=== PATIENT | male | born 1945 | race Caucasian/White ===

== ENCOUNTER → 2016-10-16 | Outpatient (CLI) | payer OTHER, BC ==
[~2016-10-16] MED LIST: ACET-1311 PO; CIPR-255 PO; FINA5TAB PO; FLM4 PO; GLC/500 PO; GLCSR/500 PO; IBUP-1050 PO; LIRA18IN SQ; METF-384 PO; OXYC7.5T65 PO; PHEN-775 PO; PRAV10TA39 PO; PRS5 PO; SERT50TA PO; TAMS0.4C59 PO; TYLOTC500 PO; VALS-59 PO; VALS320T PO; ZLF/100 PO
[2016-10-16 12:54] LABS: BASO % 0.3 %; BASO ABS # 0.02 K/uL (0-0.2); COMPLETE YES; HEMATOCRIT 41.9 % (42-52); IG% 0.1 %; LYMPH ABS # 1.53 K/uL (1.2-3.4); MEAN CORPUSCULAR HEMOGLOBIN 29.4 pg (25-34); MEAN CORPUSCULAR HGB CONC 34.6 g/dl (32-36); MEAN PLATELET VOLUME 10.2 fL (7.4-10.4); MONO % 5.2 %; NEUT % 69.4 %; PLATELET COUNT 228 K/uL (130-400); RED BLOOD COUNT 4.93 M/uL (4.7-6.1); WHITE BLOOD COUNT 6.95 K/uL (4.8-10.8)
[2016-10-16 13:07] LABS: ALT/SGPT 54 U/L (12-78); AST/SGOT 30 U/L (15-37); BLOOD UREA NITROGEN 15 mg/dl (7-18); BUN/CREATININE RATIO 15.5 (10-20); CALCIUM 9.3 mg/dl (8.5-10.1); CARBON DIOXIDE 25 mmol/L (21-32); CHLORIDE 103 mmol/L (98-107); CHOLESTEROL 167 mg/dl (0-200); CREATININE 0.99 mg/dl (0.60-1.40); GLUCOSE 122 mg/dl (70-99); POTASSIUM 4.2 mmol/L (3.5-5.1); SODIUM 139 mmol/L (136-145)
[2016-10-16 13:12] LABS: ALB/GLOB RATIO 1.1 (0.9-2); ALKALINE PHOSPHATASE 47 U/L (45-117); FERRITIN 66.1 ng/ml (8.0-388.0); HDL CHOLESTEROL 42 mg/dl; LDL CHOLESTEROL CALCULATED 66 mg/dl; TRIGLYCERIDES 295 mg/dl (0-150); VERY LOW DENSITY LIPOPROT CALC 59 mg/dl
[2016-10-16 13:16] LABS: ESTIMATED AVERAGE GLUCOSE 140 mg/dl; HA1C FLAG Normal (Normal)
== END | disposition home or self-care (01) ==
LOC: C.LABBFT 08:28
PROVIDERS: ATTEND Internal Medicine
DX: E83.110 Hereditary hemochromatosis (principal); E11.9 Type 2 diabetes mellitus without complications; I10 Essential (primary) hypertension; E78.5 Hyperlipidemia, unspecified

== ENCOUNTER 2017-01-04 14:39 | Emergency (ER) | payer OTHER, BC ==
[~2017-01-04] VITALS: Ht 185.4 cm; Wt 114.3 kg
[~2017-01-04 14:39] MED LIST changes: -CIPR-255 PO; -FLM4 PO; -GLCSR/500 PO; -METF-384 PO; -OXYC7.5T65 PO; -PHEN-775 PO; -PRAV10TA39 PO; -PRS5 PO; -TYLOTC500 PO; -VALS-59 PO; -ZLF/100 PO
[2017-01-04 14:41] VITALS: TEMP 36.9; Ht 185.4 cm; Wt 114.3 kg
--- NOTE | 2017-01-04 15:36 | EMERGENCY ROOM VISIT NOTE ---
ED Visit Note First contact with patient: 15:02 CHIEF COMPLAINT: Bilateral knee injury 2 hours ago HISTORY OF PRESENT ILLNESS: Patient is a 71-year-old white male who presents the emergency department for evaluation of bilateral knee pain and swelling, right worse than left. He states that he tripped down off of a platform and fell, landing on his flexed knees, his right worse than his left. He states that he "hopped right up" afterwards, and did not notice any pain or swelling until about 20-25 minutes afterwards when he was up and walking. He states that both knees have become swollen, the right worse than the left. At rest, he has no pain, pain is worse when he tries to bear weight. He is not having any difficulty with range of motion. He did not apply any ice as he was not at home. He had ibuprofen earlier today for an unrelated complaint. He denies any other injuries related to the fall. He rates his knee pain a 3/10. He has a remote history of a right patellar fracture that was treated with bracing. REVIEW OF SYSTEMS: Review of systems as per HPI. All other systems reviewed were negative. At least 6 systems reviewed. PMH: Electronic medical records are reviewed and summarized as above/below. See Problem List. SOCIAL HISTORY: Patient lives at home with his . Retired. Nonsmoker.. PHYSICAL EXAM: Vital Signs: Reviewed Nurse's notes. MENTAL STATUS: Pleasant 71- year-old white male who is awake and alert and laying on the gurney in no acute distress. MUSCULOSKELETAL: Examination of the right knee show marked prepatellar soft tissue swelling and moderate joint effusion. There is some superficial ecchymosis noted. The anterior knee is globally tender. Patella is difficult to palpate due to the swelling. He can extend fully, only flex to 90 limited by soft tissue swelling. No gross ligamentous instability is appreciated. Examination of the left knee show swelling and bruising located inferior to knee pain knee more over the medial tibia/tibial tuberosity. There is no prepatellar soft tissue swelling, patellar is nontender to palpation. There is no knee joint effusion palpable. He has tenderness over the area of swelling, but no joint line tenderness. He can extend fully, flexes to 120. No ligamentous instability is appreciated. Skin is otherwise intact without abrasions or laceration. The lower extremities are neurovascularly intact. EMERGENCY DEPARTMENT COURSE: Ice packs were applied. Patient declined medication. X-rays of the knees were obtained. There was no evidence for fracture. Soft tissue swelling was noted. The patient was wrapped with Jon wraps. He has a cane at home and can borrow crutches if necessary. He declined a knee immobilizer. Differential diagnoses include patellar fracture, knee contusion, hematoma, hemorrhagic bursitis, hemarthrosis, tibial plateau fracture, among others. The patient was established with [facility] and can follow-up with them if necessary. RIGHT KNEE 3 VIEWS CLINICAL HISTORY: RIGHT WITH SUNRISE, FALL ON FLEXED KNEES Right pain COMPARISON: None. DISCUSSION: Considerable prepatellar soft tissue edema. Degenerative changes of the knee in all major joint compartments. No acute bony abnormality. Partial bipartite patella. IMPRESSION: Degenerative change. Considerable prepatellar soft tissue edema. LEFT KNEE 3 VIEWS CLINICAL HISTORY: LEFT, FALL ON FLEXED KNEES trauma COMPARISON: None. DISCUSSION: The bones and joint spaces appear intact. There is no evidence of fracture, dislocation or bony disease. There is no evidence for soft tissue swelling. IMPRESSION: Negative study. Problem List Medical Problems: (1) Depressive Disorder Nec Status: Chronic (2) Diab Dang Wo Compl, Type Ii Or Unspec Type, Not Uncntrld Status: Chronic (3) Extrinsic asthma, unspecified Status: Chronic (4) Hereditary Hemochromatosis Status: Chronic (5) Hyperlipidemia Nec/Nos Status: Chronic (6) Hypertension Nos Status: Chronic (7) Hypertrophy (Benign) Of Prostate W/O Urinary Obst & Oth Luts Status: Chronic (8) Irritable Bowel Syndrome Status: Chronic (9) Renal colic on left side Status: Resolved (10) Thumb laceration Status: Resolved Surgical Problems: (1) H/O cataract extraction Status: Resolved Current/Historical Medications Scheduled Finasteride (Finasteride), 5 MG PO HS Ibuprofen (Advil), 400 MG PO BID Liraglutide (Victoza), 12 MG SQ QAM Metformin Hcl (Glucophage), 1,000 MG PO Q12 Pravastatin Sodium (Pravastatin Sodium), 10 MG PO HS Sertraline HCl (Sertraline HCl), 100 MG PO DAILY Tamsulosin HCl (Tamsulosin HCl), 0.4 MG PO HS Valsartan (Valsartan), 320 MG PO DAILY Scheduled PRN Acetaminophen (Tylenol), 1,000 MG PO UD PRN for Pain Allergies Coded Allergies: Cefoxitin (Verified Allergy, Intermediate, HIVES, 10/24/16) ?ALLERGY, PT STATES HIVE REACTIONS WHEN ADMINISTERED DURING HOSPITALIZATION IN 1997 Clavulanic Acid (Unverified Allergy, Unknown, hives, rash, redness , ) Ticarcillin (Unverified Allergy, Unknown, hives, rash, redness , 10/24/16) Vital Signs Date Time Temp Pulse Resp B/P Pulse Ox O2 Delivery O2 Flow Rate FiO2 01/04/17 16:25 95 18 136/70 92 Room Air 01/04/17 14:41 36.9 108 18 191/81 96 Room Air Departure Information Impression Primary Impression: Contusion of right knee Additional Impression: Contusion of left knee Referrals Tony Engel M.D. (PCP) Patient Instructions [facility] Additional Instructions Ibuprofen(Motrin, Advil) may be used for fever or pain. Use 600mg every six hours as needed. Take with food. Avoid using more than 2400mg in a 24 hour period. Do not use 2400mg per day for more than three consecutive days without physician direction. Prolonged inappropriate use can lead to stomach upset or ulcers. This medication can be taken if you need to drive, work, or perform activities which may be dangerous when taking narcotic pain medication. (AND/OR) Acetaminophen(Tylenol) may be used for fever or pain. Use 1000mg every six hours as needed. Avoid using more than 3000mg in a 24 hour period. This medication can be taken if you need to drive, work, or perform activities which may be dangerous when taking narcotic pain medication. Ice compresses for 20 minutes at a time four times daily for 2-3 days. Jon wrap for swelling. Use a cane or crutches if needed for ambulation. Rest and elevate your injuries. Continue current medications. Return to the ER immediately for any numbness, tingling, severe pain, extreme swelling in the extremity or as needed. Follow up with your family physician or with [facility] if your symptoms are not improving in the next 3-5 days. Problem Qualifiers
--- NOTE | 2017-01-04 15:48 | DIAGNOSTIC IMAGING REPORT ---
RIGHT KNEE 3 VIEWS CLINICAL HISTORY: RIGHT WITH SUNRISE, FALL ON FLEXED KNEES Right pain COMPARISON: None. DISCUSSION: Considerable prepatellar soft tissue edema. Degenerative changes of the knee in all major joint compartments. No acute bony abnormality. Partial bipartite patella. IMPRESSION: Degenerative change. Considerable prepatellar soft tissue edema. Electronically signed by: Chilo Polk M.D. 01/04/2017 3:47 PM Dictated Date/Time: 01/04/2017 3:46 PM
--- NOTE | 2017-01-04 15:49 | DIAGNOSTIC IMAGING REPORT ---
LEFT KNEE 3 VIEWS CLINICAL HISTORY: LEFT, FALL ON FLEXED KNEES trauma COMPARISON: None. DISCUSSION: The bones and joint spaces appear intact. There is no evidence of fracture, dislocation or bony disease. There is no evidence for soft tissue swelling. IMPRESSION: Negative study. Electronically signed by: Chilo Polk M.D. 01/04/2017 3:48 PM Dictated Date/Time: 01/04/2017 3:47 PM
[2017-01-04] MEDS ORDERED: FLM4 PO (15:54)
[2017-01-04] MEDS ORDERED: PRAV10TA39 PO (15:54)
[2017-01-04] MEDS ORDERED: PRS5 PO (15:54)
[2017-01-04] MEDS ORDERED: ZLF/100 PO (15:54)
[2017-01-04] MEDS ORDERED: VALS-59 PO (15:54)
[2017-01-04] MEDS ORDERED: METF-384 PO (15:54)
[2017-01-04] MEDS ORDERED: TYLOTC500 PO (15:55)
[2017-01-04 16:25] VITALS: BP 136/70; PULSE 95; O2SAT 92
== END 2017-01-04 16:28 | disposition home or self-care (01) ==
LOC: C.EDB 14:40 → C.EDD 16:28
DX: S80.01XA Contusion of right knee, initial encounter (principal); S80.02XA Contusion of left knee, initial encounter; W01.0XXA Fall on same level from slipping, tripping and stumbling without subsequent striking against object, initial encounter; M25.461 Effusion, right knee; F32.9 Major depressive disorder, single episode, unspecified; E11.9 Type 2 diabetes mellitus without complications; J45.909 Unspecified asthma, uncomplicated; E83.110 Hereditary hemochromatosis; I10 Essential (primary) hypertension; K58.9 Irritable bowel syndrome, unspecified

== ENCOUNTER → 2017-01-14 | Outpatient (CLI) | payer OTHER, BC ==
[~2017-01-14] MED LIST changes: -ACET-1311 PO; +CIPR-255 PO; -FINA5TAB PO; +FLM4 PO; -GLC/500 PO; +GLCSR/500 PO; +METF-384 PO; +OXYC7.5T65 PO; +PHEN-775 PO; +PRAV10TA39 PO; +PRS5 PO; -SERT50TA PO; -TAMS0.4C59 PO; +TYLOTC500 PO; +VALS-59 PO; -VALS320T PO; +ZLF/100 PO
[2017-01-14 17:27] LABS: BASO % 0.3 %; BASO ABS # 0.02 K/uL (0-0.2); COMPLETE YES; EOS % 2.6 %; HEMATOCRIT 41.7 % (42-52); IG% 0.1 %; LYMPH % 21.2 %; LYMPH ABS # 1.64 K/uL (1.2-3.4); MEAN CELL VOLUME 88.2 fL (80-100); MEAN CORPUSCULAR HEMOGLOBIN 29.2 pg (25-34); MEAN CORPUSCULAR HGB CONC 33.1 g/dl (32-36); MEAN PLATELET VOLUME 10.2 fL (7.4-10.4); MONO % 5.9 %; NEUT % 69.9 %; PLATELET COUNT 249 K/uL (130-400); RED BLOOD COUNT 4.73 M/uL (4.7-6.1); WHITE BLOOD COUNT 7.75 K/uL (4.8-10.8)
== END | disposition home or self-care (01) ==
LOC: C.LABBFT 12:03
PROVIDERS: ATTEND Internal Medicine
DX: E83.110 Hereditary hemochromatosis (principal)

== ENCOUNTER 2017-01-23 07:53 | Emergency (ER) | payer OTHER, BC ==
[~2017-01-23] VITALS: Ht 185.4 cm; Wt 118.9 kg
[~2017-01-23 07:53] MED LIST changes: -CIPR-255 PO; -GLCSR/500 PO; -OXYC7.5T65 PO; -PHEN-775 PO
[2017-01-23 07:56] VITALS: Ht 185.4 cm; Wt 118.9 kg
[2017-01-23] MEDS ORDERED: GLCSR/500 PO (08:18)
--- NOTE | 2017-01-23 08:18 | EMERGENCY ROOM VISIT NOTE ---
History Report prepared by Zeferino: Agnes Moreau Under the Supervision of: Dr. Raúl Culp M.D. First contact with patient: 08:02 Chief Complaint: FLANK PAIN Stated Complaint: RIGHT SIDE PAIN, VOMITING, CHILLS History of Present Illness The patient is a 71 year old male who presents to the Emergency Room with complaints of persistent right flank pain that began yesterday. He currently rates his discomfort as a 3/10 in severity. The patient reports a history of previous kidney stones, noting that his pain today feels similar to pain he has experienced with previous kidney stones. He denies any hematuria. The patient states that his pain has resolved slightly, but still notes a mild ache and soreness to his right flank. He additionally associates right abdominal discomfort and vomiting. The patient reports a history of diabetes. Source of History: patient Onset: yesterday Position: other (right flank) Symptom Intensity: 3/10 Quality: ache, other (soreness) Timing: other (persistent) Associated Symptoms: + abdominal pain, + vomiting, No urinary symptoms Review of Systems All systems have been listed, reviewed, and are negative other than those previously mentioned. Please see Additional Medical History Sheet. Past Medical & Surgical Medical Problems: (1) Asthma (2) Bronchitis (3) Depressive Disorder Nec (4) Diab Dang Wo Compl, Type Ii Or Unspec Type, Not Uncntrld (5) Extrinsic asthma, unspecified (6) Hemochromatosis (7) Hereditary Hemochromatosis (8) Hyperlipidemia Nec/Nos (9) Hypertension Nos (10) Hypertrophy (Benign) Of Prostate W/O Urinary Obst & Oth Luts (11) Irritable Bowel Syndrome (12) Kidney stone (13) Pneumonia (14) Renal colic on left side (15) Thumb laceration Surgical Problems: (1) H/O cataract extraction Family History Cancer Hypertension Kidney disease Kidney stones Social History Smoking Status: Never Smoker Smokeless Tobacco Use: No Alcohol Use: occasionally Drug Use: none Marital Status: Housing Status: lives with family Occupation Status: unemployed Current/Historical Medications Scheduled Finasteride (Finasteride), 5 MG PO HS Ibuprofen (Advil), 400 MG PO BID Liraglutide (Victoza), 12 MG SQ QAM Metformin HCl (Metformin HCl ER), 1,000 MG PO BID Sertraline HCl (Sertraline HCl), 100 MG PO DAILY Tamsulosin HCl (Tamsulosin HCl), 0.4 MG PO HS Valsartan (Valsartan), 320 MG PO DAILY Scheduled PRN Acetaminophen (Tylenol), 1,000 MG PO UD PRN for Pain Allergies Coded Allergies: Cefoxitin (Verified Allergy, Intermediate, HIVES, 01/23/17) ?ALLERGY, PT STATES HIVE REACTIONS WHEN ADMINISTERED DURING HOSPITALIZATION IN 1997 Clavulanic Acid (Unverified Allergy, Unknown, hives, rash, redness , ) Ticarcillin (Unverified Allergy, Unknown, hives, rash, redness , 01/23/17) Physical Exam Vital Signs Date Time Temp Pulse Resp B/P Pulse Ox O2 Delivery O2 Flow Rate FiO2 01/23/17 14:02 36.8 78 18 147/67 96 01/23/17 13:40 78 18 147/67 96 Room Air 01/23/17 11:57 71 18 149/71 95 01/23/17 10:28 81 18 135/69 95 01/23/17 09:23 73 18 134/69 94 Room Air 01/23/17 07:56 36.8 103 18 159/77 94 Room Air Physical Exam GENERAL: Patient awake, alert, oriented x 3. Patient follows commands. Patient does not appear toxic. Patient is adequately hydrated and well- nourished. SKIN: No erythema, pallor, cyanosis or rash HEENT: Normal head, pupils equal, reactive to light and accommodation. Neck: Without adenopathy, no neck vein distention. LUNGS: Clear to auscultation. No wheezes, no rales, no rhonchi. HEART: No murmurs. No gallops. No rubs ABDOMEN: Obese, vague right upper quadrant tenderness. No masses, no rebound, no hepatomegaly or splenomegaly. EXTREMITIES: No signs of trauma. No pedal or pretibial edema. No calf or thigh tenderness. NEUROLOGIC: Cranial nerves II-XII within normal limits. No gross motor sensory function deficits. Medical Decision & Procedures ER Provider Diagnostic Interpretation: Radiology results as stated below per my review and radiologist interpretation: RENAL ULTRASOUND HISTORY: right flank pain COMPARISON: Abdomen and pelvis CT 12/28/2015. FINDINGS: Right kidney: 12.1 cm. Fullness within the upper pole collecting system, unchanged. No hydronephrosis. No change in the periphery calcified 1.9 cm cyst. Trace fluid within Morison's pouch. Left kidney: 12.8 cm. No hydronephrosis. Normal corticomedullary differentiation and cortical thickness. Bladder: The bladder is now well-distended. There is a 1.6 cm stone within the bladder. There is also a 0.5 cm stone within the right ureterovesical junction. IMPRESSION: 1. A 5 mm stone within the right ureterovesical junction. However, there is no significant right hydronephrosis. Mild fullness within the upper pole of the right renal collecting system remains unchanged. 2. Stable 1.9 cm peripherally calcified cyst within the right kidney. 3. Normal left kidney. 4. There is a 1.6 cm bladder stone. Electronically signed by: Don Godoy M.D. 01/23/2017 9:26 AM Dictated Date/Time: 01/23/2017 9:22 AM TWO VIEW CHEST CLINICAL HISTORY: Flank pain. Vomiting and chills. FINDINGS: PA and lateral chest radiographs are obtained. No prior studies are available for comparison at the time of dictation. The heart is top normal for projection. There is atherosclerotic calcification of the thoracic aorta. There is mild elevation of the right hemidiaphragm. Minimal bibasilar atelectasis is observed. The lungs and pleural spaces are otherwise clear. There is no pneumothorax. The skeletal structures are osteopenic. Degenerative change is seen in the thoracic spine. IMPRESSION: No active disease in the chest. Electronically signed by: Enrique Ring M.D. 01/23/2017 1:31 PM Dictated Date/Time: 01/23/2017 1:30 PM Laboratory Results 01/23/17 08:23 01/23/17 08:23 Test 01/23/17 08:03 01/23/17 08:23 Urine Color DK YELLOW Urine Appearance CLEAR (CLEAR) Urine pH 5.0 (4.5-7.5) Urine Specific [place] 1.029 (1.000-1.030) Urine Protein 1+ (NEG) Urine Glucose (UA) NEG (NEG) Urine Ketones TRACE (NEG) Urine Occult Blood 2+ (NEG) Urine Nitrite NEG (NEG) Urine Bilirubin NEG (NEG) Urine Urobilinogen NEG (NEG) Urine Leukocyte Esterase NEG (NEG) Urine WBC (Auto) 1-5 /hpf (0-5) Urine RBC (Auto) 0-4 /hpf (0-4) Urine Hyaline Casts (Auto) 5-10 /lpf (0-5) Urine Epithelial Cells (Auto) >30 /lpf (0-5) Urine Bacteria (Auto) NEG (NEG) Red Blood Count 4.70 M/uL (4.7-6.1) Mean Corpuscular Volume 86.6 fL (80-100) Mean Corpuscular Hemoglobin 29.6 pg (25-34) Mean Corpuscular Hemoglobin Concent 34.2 g/dl (32-36) RDW Standard Deviation 43.6 fL (36.4-46.3) RDW Coefficient of Variation 13.6 % (11.5-14.5) Mean Platelet Volume 9.8 fL (7.4-10.4) Anion Gap 9.0 mmol/L (3-11) Est Creatinine Clear Calc Drug Dose 65.4 ml/min Estimated GFR () 58.2 Estimated GFR (Non- 50.2 BUN/Creatinine Ratio 15.0 (10-20) Calcium Level 8.8 mg/dl (8.5-10.1) Laboratory results as stated above per my review. Medications Administered Medications (Trade) Dose Ordered Sig/Kade Route Start Time Stop Time Status Last Admin Dose Admin Ketorolac Tromethamine 30 mg 30 mg NOW STAT IV 01/23/17 09:51 01/23/17 09:53 DC 01/23/17 09:58 30 MG Sodium Chloride (Nss 1000ml) 1,000 ml @ 1,000 mls/hr Q1H ONCE IV 01/23/17 12:00 01/23/17 12:59 DC 01/23/17 11:56 1,000 MLS/HR ECG Indication: back/shoulder pain Rate (beats per minute): 74 Rhythm: normal sinus Findings: no acute ischemic change, left axis deviation, no ectopy ED Course 0803: Past medical records reviewed. The patient was evaluated in room B2. A complete history and physical examination was performed. 0951: Per nursing staff, the patient has been experiencing increasing pain. Ordered Toradol inj 30 mg IV. 1020: I reevaluated the patient and he is resting comfortably. I discussed the exam findings with him at this time. Urology will be consulted regarding the patient. 1029: I discussed the patients case with [facility]. She states that the patient should remain NPO and she will be down to evaluate the patient. 1134: I discussed the patients case with Brie Scott. We discussed options for the patient and wants the patient remain NPO and states that he will evaluate the patient later this afternoon for possible surgery. 1146: I updated the patient at this time. I had a lengthy discussion with him regarding possible surgical interventions with him. 1200: Ordered 1000 ml @ 1000 mls/hr IV. 1255: I spoke to Brie Scott again regarding the patient. He will come speak to the patient in regards to the procedure. Medical Decision Nurses notes reviewed. Medical history sheet reviewed. Differential diagnosis includes but is not limited to: ureteral calculus, pyelonephritis, hydronephrosis, musculoskeletal pain. Multiple labs, urinalysis and imaging were obtained. Please see above. Ultrasound is consistent with a 5 mm ureterovesical stone. He also has a small stone in his bladder. Patient does not of hydronephrosis. I discussed care with the patient, his and Dr. Lazo. Patient is scheduled to leave [place] country [place] [address] Lazo will evaluate for possible stent placement today. In the meantime, the patient was given IV fluids and pain medication as needed. Consults Time Called: 1023 Consulting Physician: RON[facility] Returned Call: 1023 I discussed the patients case with RONNY Brooks. She states that the patient should remain NPO and she will be down to evaluate the patient. Additional Consults: Time Called: 1130 Consulted Physician: Brie Scott Returned Call: [phone] Additional Comments: I discussed the patients case with Brie Scott. We discussed options for the patient and wants the patient remain NPO and states that he will evaluate the patient later this afternoon for possible surgery. Impression Primary Impression: Ureteral calculus Scribe Attestation The scribe's documentation has been prepared under my direction and personally reviewed by me in its entirety. I confirm that the note above accurately reflects all work, treatment, procedures, and medical decision making performed by me. Departure Information Referrals Tony Engel M.D. (PCP) Patient Instructions My [facility]
[2017-01-23 08:20] LABS: URINE APPEARANCE CLEAR (CLEAR); URINE BILIRUBIN NEG (NEG); URINE COLOR DK YELLOW; URINE EPITHELIAL CELL AUTO >30 /lpf (0-5); URINE NITRITE NEG (NEG); URINE SPECIFIC GRAVITY 1.029 (1.000-1.030); UROBILINOGEN NEG (NEG); ZZUR CULT IF INDIC CLEAN CATCH NO
[2017-01-23 08:21] LABS: MANUAL MICROSCOPIC REQUIRED? NO; REVIEW REQ? NO
[2017-01-23 08:32] LABS: HEMATOCRIT 40.7 % (42-52); MEAN CELL VOLUME 86.6 fL (80-100); MEAN CORPUSCULAR HEMOGLOBIN 29.6 pg (25-34); MEAN CORPUSCULAR HGB CONC 34.2 g/dl (32-36); MEAN PLATELET VOLUME 9.8 fL (7.4-10.4); PLATELET COUNT 229 K/uL (130-400); WHITE BLOOD COUNT 12.25 K/uL (4.8-10.8)
[2017-01-23 08:48] LABS: CREATININE 1.4 mg/dl (0.60-1.40); POTASSIUM 4.2 mmol/L (3.5-5.1)
[2017-01-23 09:02] LABS: CALCIUM 8.8 mg/dl (8.5-10.1)
--- NOTE | 2017-01-23 09:28 | DIAGNOSTIC IMAGING REPORT ---
RENAL ULTRASOUND HISTORY: right flank pain COMPARISON: Abdomen and pelvis CT 12/28/2015. FINDINGS: Right kidney: 12.1 cm. Fullness within the upper pole collecting system, unchanged. No hydronephrosis. No change in the periphery calcified 1.9 cm cyst. Trace fluid within Morison's pouch. Left kidney: 12.8 cm. No hydronephrosis. Normal corticomedullary differentiation and cortical thickness. Bladder: The bladder is now well-distended. There is a 1.6 cm stone within the bladder. There is also a 0.5 cm stone within the right ureterovesical junction. IMPRESSION: 1. A 5 mm stone within the right ureterovesical junction. However, there is no significant right hydronephrosis. Mild fullness within the upper pole of the right renal collecting system remains unchanged. 2. Stable 1.9 cm peripherally calcified cyst within the right kidney. 3. Normal left kidney. 4. There is a 1.6 cm bladder stone. Electronically signed by: Don Godoy M.D. 01/23/2017 9:26 AM Dictated Date/Time: 01/23/2017 9:22 AM
[2017-01-23] MEDS ORDERED: KETOROLAC TROMETHAMINE 30 MG/ML VIAL IV STA (09:51)
[2017-01-23] MEDS ORDERED: SODIUM CHLORIDE 0.9% 1000ML 1,000 ML IV ONE (12:00)
--- NOTE | 2017-01-23 13:33 | DIAGNOSTIC IMAGING REPORT ---
TWO VIEW CHEST CLINICAL HISTORY: Flank pain. Vomiting and chills. FINDINGS: PA and lateral chest radiographs are obtained. No prior studies are available for comparison at the time of dictation. The heart is top normal for projection. There is atherosclerotic calcification of the thoracic aorta. There is mild elevation of the right hemidiaphragm. Minimal bibasilar atelectasis is observed. The lungs and pleural spaces are otherwise clear. There is no pneumothorax. The skeletal structures are osteopenic. Degenerative change is seen in the thoracic spine. IMPRESSION: No active disease in the chest. Electronically signed by: Enrique Ring M.D. 01/23/2017 1:31 PM Dictated Date/Time: 01/23/2017 1:30 PM
[2017-01-23 14:02] VITALS: O2SAT 96
[2017-01-23] MEDS ORDERED: NURSING VERBAL MED ORDER STA (14:18)
[2017-01-23] MEDS ORDERED: CIPROFLOXACIN 400MG / 200ML D5W ONE (14:53)
[2017-01-23] MEDS ORDERED: ATROPINE SULFATE 0.1 MG/ML 5ML SYR IV PRN (15:30)
[2017-01-23] MEDS ORDERED: FENTANYL CITRATE INJ 50 MCG/1 ML 2 ML VIAL IV PRN (15:30)
[2017-01-23] MEDS ORDERED: EpHEDrine SULFATE INJ 50 MG/ML AMP IV PRN (15:30)
--- NOTE | 2017-01-23 16:05 | History and Physical ---
History Date of Service: January 23, 2017. Chief Complaint: R flank pain, nausea Primary Care Physician: Tony Engel M.D. Pt seen a urologist before?: Yes If yes, why?: Dr. Dempsey for stones and BPH History of Present Illness 71 yo male here for evaluation of R flank pain since last night, colicky in nature. He has a prior history of stones, has seen Dr. Dempsey about a year ago for BPH and stones, pending f/u. His ER notes, current and past imaging noted - enlarging bladder stone compared to past per US, R distal stone, no hydro or masses. He continues to have intractable pain. He is traveling soon abroad - will likely cancel as only in a few days. Daughter and present. Wishes intervention acutely - risks and benefits reviewed. No gross hematuria, fevers. Outpatient chart reviewed. His symptoms of chronic BUSH for which he is on maximal medical therapy with tamsulosin and finasteride. HPI - Stones Size: 5 mm Location: right, UVJ Pain: inguinal, right flank Patient has: + emesis, + nausea, No gross hematuria, No hydronephrosis HPI - Urinary Retention Sx Patient has: + decreasing stream, No hematuria, No urinary retention Duration: years Severity: moderate Medications Include: + finasteride, + tamsulosin Imaging CT, Ultrasound Laboratory Last 24 Hours Test 01/23/17 08:03 01/23/17 08:23 Urine Color DK YELLOW Urine Appearance CLEAR Urine pH 5.0 Urine Specific [place] 1.029 Urine Protein 1+ Urine Glucose (UA) NEG Urine Ketones TRACE Urine Occult Blood 2+ Urine Nitrite NEG Urine Bilirubin NEG Urine Urobilinogen NEG Urine Leukocyte Esterase NEG Urine WBC (Auto) 1-5 /hpf Urine RBC (Auto) 0-4 /hpf Urine Hyaline Casts (Auto) 5-10 /lpf Urine Epithelial Cells (Auto) >30 /lpf Urine Bacteria (Auto) NEG White Blood Count 12.25 K/uL Red Blood Count 4.70 M/uL Hemoglobin 13.9 g/dL Hematocrit 40.7 % Mean Corpuscular Volume 86.6 fL Mean Corpuscular Hemoglobin 29.6 pg Mean Corpuscular Hemoglobin Concent 34.2 g/dl RDW Standard Deviation 43.6 fL RDW Coefficient of Variation 13.6 % Platelet Count 229 K/uL Mean Platelet Volume 9.8 fL Sodium Level 136 mmol/L Potassium Level 4.2 mmol/L Chloride Level 103 mmol/L Carbon Dioxide Level 24 mmol/L Anion Gap 9.0 mmol/L Blood Urea Nitrogen 21 mg/dl Creatinine 1.40 mg/dl Est Creatinine Clear Calc Drug Dose 65.4 ml/min Estimated GFR () 58.2 Estimated GFR (Non- 50.2 BUN/Creatinine Ratio 15.0 Random Glucose 172 mg/dl Calcium Level 8.8 mg/dl Problem List Medical Problems: (1) Contusion of left knee Status: Acute (2) Contusion of right knee Status: Acute (3) Depressive Disorder Nec Status: Chronic (4) Diab Dang Wo Compl, Type Ii Or Unspec Type, Not Uncntrld Status: Chronic (5) Extrinsic asthma, unspecified Status: Chronic (6) Hereditary Hemochromatosis Status: Chronic (7) Hyperlipidemia Nec/Nos Status: Chronic (8) Hypertension Nos Status: Chronic (9) Hypertrophy (Benign) Of Prostate W/O Urinary Obst & Oth Luts Status: Chronic (10) Irritable Bowel Syndrome Status: Chronic (11) Ureteral calculus Status: Acute Past History Past Medical History: asthma, BPH, depression, diabetes, diverticulitis, diverticulosis, high cholesterol, kidney stones, other (allergies, coronary artery plaque, hemochromatosis) Past Surgical History: colonoscopy, tonsillectomy, other (wrist surgery, cataract bilateral) Family History Cancer Hypertension Kidney disease Kidney stones Colon cancer Social History Smoking: non-smoker Alcohol: socially Drug use: none Marital status: Occupation status: retired History of MDRO No Allergies Coded Allergies: Cefoxitin (Verified Allergy, Intermediate, HIVES, 01/23/17) ?ALLERGY, PT STATES HIVE REACTIONS WHEN ADMINISTERED DURING HOSPITALIZATION IN 1997 Clavulanic Acid (Verified Allergy, Intermediate, hives, rash, redness , ) Ticarcillin (Verified Allergy, Intermediate, hives, rash, redness , ) Medications Home Medications: Home Meds and Scripts Medications Dose Route/Sig Max Daily Dose Days Date Category Dose Instructions Metformin HCl ER (Metformin HCl) 500 Mg Tabcr 1,000 Mg PO BID 01/23/17 Reported Tylenol (Acetaminophen) 500 Mg Tab 1,000 Mg PO UD PRN 01/04/17 Reported TAKE PER PACKAGE DIRECTIONS Sertraline HCl 100 Mg Tab 100 Mg PO DAILY 01/04/17 Reported Tamsulosin HCl 0.4 Mg Cap 0.4 Mg PO HS 01/04/17 Reported Finasteride 5 Mg Tab 5 Mg PO HS 01/04/17 Reported Valsartan 320 Mg Tab 320 Mg PO DAILY 01/04/17 Reported Victoza (Liraglutide) 18 Mg/3 Ml Inj 12 Mg SQ QAM 06/25/13 Reported Advil (Ibuprofen) 200 Mg Tab 400 Mg PO BID 06/25/13 Reported Inpatient Medications: Current Inpatient Medications Medications (Trade) Dose Ordered Sig/Kade Route Start Time Stop Time Status Last Admin Dose Admin Fentanyl Citrate (Fentanyl Inj) 25 mcg Q5M PRN IV 01/23/17 15:30 01/23/17 20:00 Ephedrine Sulfate (EpHEDrine SULFATE INJ) 5 mg Q5M PRN IV 01/23/17 15:30 01/23/17 20:00 Atropine Sulfate (Atropine Sulfate 0.1MG/Ml Inj) 0.5 mg Q1M PRN IV 01/23/17 15:30 01/23/17 20:00 Review of Systems Review of Systems Constitutional: No chills, No fever Eyes: No blurred vision, No double vision, No eye pain Neurological: No seizures Endocrine: No too cold, No too hot Gastrointestinal: + abdominal pain, + nausea, + vomiting Cardiovascular: No angina, No chest pain Respiratory: No coughing up blood, No shortness of breath, No wheezing Skin: No boils, No dry skin Musculoskeletal: + back pain, + joint pain Blood / Lymphatic: No bruise easily Ears / Nose / Throat: + hearing loss, No sinus Psychologic / Mental: No nervous, No trouble remembering Male : + kidney stones, + see HPI Physical Exam Vital Signs: Vital Signs Past 12 Hours Date Time Temp Pulse Resp B/P Pulse Ox O2 Delivery O2 Flow Rate FiO2 01/23/17 14:02 36.8 78 18 147/67 96 01/23/17 13:40 78 18 147/67 96 Room Air 01/23/17 11:57 71 18 149/71 95 01/23/17 10:28 81 18 135/69 95 01/23/17 09:23 73 18 134/69 94 Room Air 01/23/17 07:56 36.8 103 18 159/77 94 Room Air Physical Exam: General Appearance: no apparent distress, + obese ENT: normal ENT inspection, + pertinent finding ([facility] [place]) Neck: supple, no adenopathy Respiratory/Chest: no respiratory distress, no accessory muscle use Cardiovascular: no JVD Gastrointestinal: Abdomen: normal abdomen Bladder: normal bladder Renal: cva tenderness (right) Liver: normal liver Spleen: normal spleen Extremities: non-tender Neurologic/Psychiatric: alert, oriented x 3 Assessment & Plan Assessment & Plan Treatment Planned: ureteroscopy w/ laser A/P 71 yo male with a R distal ureteral stone, 5 mm, BPH and bladder stone. Care d/w patient and family. As noted, his enlarging bladder stone suggests failure of his medical therapy for BPH. Would consider TURP in the future but acutely this is not needed. Offered MET, conservative management, outpatient ESWL or endoscopic management for his stone - chooses the lattermost acutely. Can hopefully address any bladder calculi present at that time. Risks, specifically bleeding, infection, retention due to BPH exacerbation, stent irritation, etc is reviewed. Patient inquires regarding travel abroad in 3 days - I think this would be somewhat foolhardy. He thinks they will cancel their travel. Will arrange for f/u in office with Dr. Dempsey with [facility] for stent removal in a week or two. Understands the risk he may be discharge today with mann. Do not anticipate the need for admission barring significant hematuria from an enlarged prostate or unexpected surgical course. Consent obtained, SCDs placed, IV Cipro for coverage.
[2017-01-23] MEDS ORDERED: CONRAY 30% 150ML BOTTLE ONE (16:09)
--- NOTE | 2017-01-23 17:35 | DIAGNOSTIC IMAGING REPORT ---
RETROGRADE INCLUDES [facility] CLINICAL HISTORY: RT LASER/STENT retrograde mammogram TECHNIQUE: Image intensifier COMPARISON STUDY: None FINDINGS: Image intensifier was used for intraoperative retrograde procedure IMPRESSION: Image intensifier interoperative usage Electronically signed by: Chilo Polk M.D. 01/23/2017 5:34 PM Dictated Date/Time: 01/23/2017 5:33 PM
[2017-01-23] MEDS ORDERED: OXYC7.5T65 PO (17:36)
[2017-01-23] MEDS ORDERED: CIPR-255 PO (17:36)
[2017-01-23] MEDS ORDERED: PHEN-775 PO (17:36)
--- NOTE | 2017-01-23 17:39 | Discharge Instructions ---
Discharge Instructions Date of Service January 23, 2017. Admission Reason for Admission: Right Side Pain, Vomiting, Chills Discharge Discharge Diagnosis / Problem: BPH, bladder stone, urethral stricture s/p dilation, laser cystolithopaxy, Discharge Goals Goal(s): Decrease discomfort, Improve function, Improve disease control, Therapeutic intervention Activity Recommendations Activity Limitations: per Instructions/Follow-up section Lifting Limitations: no more than 25 pounds, gradually increase as tolerated Exercise/Sports Limitations: rest today, gradually increase as tolerated May Resume Sexual Activity: after two weeks Shower/Bathe: no limitations Driving or Machine Use: resume 1 day after discharge . Instructions / Follow-Up Instructions / Follow-Up Blood in urine expected Discharge Diet Recommended Diet: Regular Diet (good fluid intake) Procedures Procedures Performed: Cystoscopy, dilation of urethral stricture, right retrograde pyelography, right diagnostic semirigid ureteroscopy (no stone found), laser cystolithopaxy, right ureteral stent placement Pending Studies Studies pending at discharge: yes List of pending studies: R ureteral culture, bladder stone fragments sent Medical Emergencies . Who to Call and When: Medical Emergencies: If at any time you feel your situation is an emergency, please call 911 immediately. . Non-Emergent Contact Non-Emergency issues call your: Urologist Call Non-Emergent contact if: you have a fever, temperature is above 101, your pain is not controlled, your pain is worsening, your pain is unusual for you, your pain is concerning you, you have any medication questions . . "Provider Documentation" section prepared by Ramon Lazo. . VTE Core Measure Inpt VTE Proph given/why not?: SCD's [place] Drug Monitoring Program Search Results: patient reviewed within database, no issues identified
--- NOTE | 2017-01-23 17:42 | [facility] Post Operative Brief Note ---
Immediate Operative Summary Operative Date January 23, 2017. Pre-Operative Diagnosis Benign prostatic hypertrophy, Bladder Stone, Right distal ureteral stone with colic Post-Operative Diagnosis BPH, right ureteral J hooking with no stone found, bladder stone, bulbar urethral stricture Procedure(s) Performed Cystoscopy, dilation of urethral stricture, right retrograde pyelography, right diagnostic semirigid ureteroscopy (no stone found), laser cystolithopaxy, right ureteral stent placement Surgeon Dr. Qi Lazo Salesperson Meats Surgeon(s) NA Estimated Blood Loss 0 ML Findings Debris within R distal ureter with J hooking at tightness, no stone found to midureter, enlarged and friable prostate, delicate bulbar urethral stricture dilated with 22 fr rigid cystoscope, good stent position on fluoroscopy Specimens #1. right ureteral urine culture and sensitivity A. bladder stone fragments for chemical analysis Drains 20 fr coude 10 cc, 6 fr R multilength stent Anesthesia GALMA Complication(s) None Disposition Recovery Room / PACU
[2017-01-23] MEDS ORDERED: OXYCODONE/ACETAMINOPHEN 5-325 TAB PO PRN (17:45)
[2017-01-23] MEDS ORDERED: PHENAZOPYRIDINE HCL 200 MG TAB PO PRN (17:45)
[2017-01-23 18:20] VITALS: BP 143/63; PULSE 82; TEMP 36.8; O2SAT 92
--- NOTE | 2017-01-23 18:26 | Anesthesiology Progress Note ---
Anesthesia Post Op Note Date & Time January 23, 2017 at 18:27 Vital Signs Pain Intensity: 0 Vital Signs Past 12 Hours Date Time Temp Pulse Resp B/P Pulse Ox O2 Delivery O2 Flow Rate FiO2 01/23/17 18:11 147/66 01/23/17 18:08 75 12 01/23/17 18:08 74 12 93 01/23/17 18:07 81 12 01/23/17 18:07 80 12 96 01/23/17 18:06 144/69 01/23/17 18:02 79 15 01/23/17 18:02 80 15 95 01/23/17 18:01 152/67 01/23/17 18:00 36.5 78 20 152/67 94 Room Air 01/23/17 17:57 84 25 92 01/23/17 17:57 85 25 01/23/17 17:56 141/77 01/23/17 17:52 83 20 92 01/23/17 17:52 84 20 01/23/17 17:51 161/72 01/23/17 17:48 155/74 01/23/17 17:47 90 23 94 01/23/17 17:47 91 23 01/23/17 17:46 167/68 01/23/17 17:42 93 18 93 01/23/17 17:42 92 18 01/23/17 17:41 162/78 01/23/17 17:38 146/63 01/23/17 17:37 94 22 01/23/17 17:37 94 22 98 01/23/17 17:32 99 20 118/55 98 01/23/17 17:32 97 20 01/23/17 17:28 131/66 01/23/17 17:27 101 94 01/23/17 17:27 101 01/23/17 17:27 36.1 89 20 131/66 95 Room Air 01/23/17 14:02 36.8 78 18 147/67 96 01/23/17 13:40 78 18 147/67 96 Room Air 01/23/17 11:57 71 18 149/71 95 01/23/17 10:28 81 18 135/69 95 01/23/17 09:23 73 18 134/69 94 Room Air 01/23/17 07:56 36.8 103 18 159/77 94 Room Air Notes Mental Status: alert / awake / arousable, participated in evaluation Pt Amnestic to Procedure: Yes Nausea / Vomiting: adequately controlled Pain: adequately controlled Airway Patency, RR, SpO2: stable & adequate BP & HR: stable & adequate Hydration State: stable & adequate Anesthetic Complications: no major complications apparent
[2017-01-23 18:50] VITALS: BP 154/70; PULSE 70; O2SAT 93
[2017-01-23 19:20] VITALS: BP 161/74; PULSE 69; TEMP 36.2; O2SAT 93
--- NOTE | 2017-01-24 04:03 | OPERATIVE REPORT ---
DATE OF OPERATION: 01/23/2017 PREOPERATIVE DIAGNOSES: Benign prostatic hypertrophy, bladder stone, right 5 mm distal ureteral stone on ultrasound with intractable colic. POSTOPERATIVE DIAGNOSES: Benign prostatic hypertrophy, bulbar urethral stricture, no stones found in the right distal ureter, right distal ureteral J-hooking and stenosis, bladder stone. PROCEDURES: Cystoscopy, dilation of bulbar urethral stricture, right retrograde pyelography, right diagnostic semi-rigid ureteroscopy to the level of the mid ureter, right ureteral stent placement, laser cystolitholapaxy of a 2 cm bladder stone, Carter placement. SURGEON: Dr. Ramon Lazo. [employer] NETWORK ENGINEER: None. ANESTHESIA: General anesthesia with laryngeal mask. COMPLICATIONS: None. ESTIMATED BLOOD LOSS: Minimal. DRAINS LEFT IN PLACE: Include a 6-[place] right-sided multilength ureteral stent with redundant stent in the renal pelvis and double coil in the bladder, a 20-[place] coude catheter with 10 mL of sterile water in the balloon. SPECIMENS SENT TO PATHOLOGY: Right ureteral urine for culture and sensitivity, bladder stone fragments for chemical analysis. FINDINGS: A 2 cm bladder stone fragmented and flushed free in its entirety, J hooking of the right distal ureter with stenosis and tightness. Stony debris found within the distal ureter with edema but no clear stone requiring lithotripsy or basketing. Dilated mid ureter on ureteroscopy with no evidence of stone. Good stent position on fluoroscopy after completion of case. BRIEF HISTORY: Mr. Bryan is a 71-year-old male known to our practice and Dr. Dempsey, who is seen for BPH and history of stone disease. His last appointment was in January of 2016 and he has pending followup for yearly visit. He presents to the Emergency Room with right-sided flank pain which has progressed since the night before. Please see ER notes and urology consultation for further details. Renal ultrasound has demonstrated a 1.6 cm bladder stone, BPH without clear hydronephrosis, but a 5 mm distal right ureteral stone was felt to be present consistent with patient's symptoms. On CT scan from December 2015, patient had a punctate right renal calculi and also a small bladder stone. He was passing left stones at that time. The patient reports he is travelling of the country to [place] and was hoping to have his findings addressed prior to then. As discussed with patient preoperatively, whether or not he proceeds to the operating room today. I suspect that travel internationally in the next few days would be ill advised. He feels he will likely cancel his trip. On a separate discussion of his findings of bladder stone, BPH and suspected right distal ureteral stone; he wishes to proceed with endoscopic intervention today. As discussed with patient in my view, the presence of an approximately 2 cm bladder stone suggests failure of his medical therapy with Flomax and finasteride as an outpatient and I would consider him to be a candidate for a TURP at a future date. We will plan on addressing the bladder stone simultaneously today. Intravenous ciprofloxacin provided for antibiotic coverage and SCDs used for DVT prophylaxis. DESCRIPTION OF PROCEDURE: The patient was properly identified and brought to the operative suite. After identification of appropriate consent on the chart, general anesthesia with laryngeal mask was initiated and patient was prepped and draped in standard fashion for this procedure. time checker-out procedure was followed. A 22-[place] rigid cystoscope was passed into the urethra and the bulbar urethra, a circumferential and relatively fragile urethral stricture was appreciated. This was able to be bypassed with the scope without excess difficulties. An enlarged prostate with friable lateral lobes and lateral lobe hypertrophy was appreciated. Mild bladder neck elevation was noted without a median lobe being present. Within the bladder, grade II trabeculation was noted without intravesical masses or significant mucosal changes. A 2 cm bladder stone was visualized, consistent with patient's ultrasound imaging. Ureteral orifices were noted to be in the normal anatomic location somewhat distorted due to the prostate anatomy. Right-sided ureteral orifice was addressed and retrograde pyelography was performed. This demonstrated some [id number] J hooking and distal stenosis with fullness of the ureter above the level of the distal most ureter. An angled sensor tip wire was advanced up to the level of the right renal pelvis and kept as a safety wire until the end of the case. Mild blunting of the calices were appreciated. The semirigid ureteroscope was able to be advanced into the ureter over a second working straight sensor wire and through the distal ureter up to the level of the vessels. No stones were encountered within the ureter, although on passage of the first and second wire, some cloudy and stony debris passed into the bladder, no distinct stone material. The semirigid ureteroscope was able to be navigated up to the level of the mid ureter but no stone was encountered. Complete exit ureteroscopy was performed demonstrating some mild distal ureteral edema and J hooking again, but without stone. No evidence of ureteral injury or tears was noted. It was felt that either the debris present had been taken for a stone on ultrasound or that the stone might have been retropulsed although the degree of hydronephrosis did not seem consistent with retropulsion up to the level of the renal pelvis. The ureteroscope was removed and the 22-Guatemalan cystoscope was backloaded over the safety wire. A 6-[place] multilength stent was advanced with redundant stent being present up at the level of the right renal pelvis and a full double coil being directly visualized within the bladder. Attention was then turned to the bladder stone which was fragmented using a 400 micron fiber via an open-ended catheter. The majority of the stones simply dusted but the larger fragments were irrigated free using a Dory syringe. No evidence of bladder injury was noted. Due to some mild bleeding from the prostate and the dilation of the stricture on removal of the cystoscope, a 20-Guatem[place] Carter catheter was placed for a short period of urethral and prostate rest prior to discharge home today after a trial of void. The catheter was placed to gravity drainage and anesthesia was reversed. The patient was transferred to recovery room in stable condition. FOLLOWUP CARE: The patient will be discharged home with a prescription for Percocet, Pyridium and ciprofloxacin. Trial of void prior to discharge home. Care has been discussed with patient and family at length including the above findings and consideration of further therapy for his BPH. We will plan on having patient followup in 1-2 weeks as an outpatient with a [facility] for cystoscopy and stent removal in the office. The patient is instructed to contact our service should he note any fevers, chills, nausea, vomiting or other significant difficulties in the postoperative period. I attest to the content of the Intraoperative Record and any orders documented therein. Any exceptions are noted below. MTDD
== END 2017-01-23 14:03 | disposition still patient (30) ==
LOC: C.EDB 07:55
DX: N20.1 Calculus of ureter (principal); N13.5 Crossing vessel and stricture of ureter without hydronephrosis; F32.9 Major depressive disorder, single episode, unspecified; E11.9 Type 2 diabetes mellitus without complications; J45.909 Unspecified asthma, uncomplicated; E83.110 Hereditary hemochromatosis; I10 Essential (primary) hypertension; E78.5 Hyperlipidemia, unspecified; N40.0 Benign prostatic hyperplasia without lower urinary tract symptoms; Z82.49 Family history of ischemic heart disease and other diseases of the circulatory system; Z84.1 Family history of disorders of kidney and ureter; Z79.899 Other long term (current) drug therapy; Z79.84 Long term (current) use of oral hypoglycemic drugs

== ENCOUNTER → 2017-01-31 | Outpatient (CLI) | payer OTHER, BC ==
[~2017-01-31] MED LIST changes: +CIPR-255 PO; +GLCSR/500 PO; -METF-384 PO; +OXYC7.5T65 PO; +PHEN-775 PO; -PRAV10TA39 PO
--- NOTE | 2017-01-31 12:04 | DIAGNOSTIC IMAGING REPORT ---
[facility] HISTORY: BENIGN PROSTATIC HYPERTROPHY W URINARY OBSTRUCTION COMPARISON: Abdomen and pelvis CT 12/20/2015. FINDINGS: The bowel gas pattern is unremarkable. There are no dilated loops of small bowel to suggest an obstruction. There is a right ureteral stent which appears in good position. No ureteral calculi identified. No left renal calculi. There is a punctate stone within the right kidney, unchanged. No pneumoperitoneum or pneumatosis. IMPRESSION: 1. Right-sided nephrolithiasis. No left renal calculi. 2. No ureteral calculi identified. 3. The right ureteral stent appears in good position. Electronically signed by: Don Godoy M.D. 01/31/2017 12:03 PM Dictated Date/Time: 01/31/2017 12:00 PM
== END | disposition home or self-care (01) ==
LOC: C.RAD 11:11
PROVIDERS: ATTEND Urology
DX: N40.1 Benign prostatic hyperplasia with lower urinary tract symptoms (principal); N20.0 Calculus of kidney

== ENCOUNTER → 2017-04-15 | Outpatient (CLI) | payer OTHER, BC ==
[~2017-04-15] MED LIST changes: -PHEN-775 PO
[2017-04-15 12:22] LABS: BASO % 0.3 %; BASO ABS # 0.02 K/uL (0-0.2); COMPLETE YES; EOS % 2.2 %; HEMATOCRIT 42.9 % (42-52); IG% 0.3 %; LYMPH ABS # 1.31 K/uL (1.2-3.4); MEAN CELL VOLUME 88.1 fL (80-100); MEAN CORPUSCULAR HEMOGLOBIN 29.8 pg (25-34); MEAN CORPUSCULAR HGB CONC 33.8 g/dl (32-36); MEAN PLATELET VOLUME 9.9 fL (7.4-10.4); MONO % 4.3 %; NEUT % 71.9 %; PLATELET COUNT 225 K/uL (130-400); RED BLOOD COUNT 4.87 M/uL (4.7-6.1); WHITE BLOOD COUNT 6.23 K/uL (4.8-10.8)
[2017-04-15 12:39] LABS: CHOLESTEROL/HDL RATIO 5.2; PROSTATE SPECIFIC ANTIGEN 1.76 ng/ml (0.000-4.000)
[2017-04-15 12:47] LABS: ESTIMATED AVERAGE GLUCOSE 151 mg/dl; HA1C FLAG Normal (Normal)
[2017-04-15 12:59] LABS: RATIO 45.8 mcg/mg (0-30.0)
== END | disposition home or self-care (01) ==
LOC: C.LABBFT 09:20
PROVIDERS: ATTEND Internal Medicine
DX: Z00.00 Encounter for general adult medical examination without abnormal findings (principal); N40.1 Benign prostatic hyperplasia with lower urinary tract symptoms; E11.9 Type 2 diabetes mellitus without complications; E78.5 Hyperlipidemia, unspecified; E83.110 Hereditary hemochromatosis

== ENCOUNTER → 2017-04-21 | Outpatient (CLI) | payer OTHER, BC ==
[2017-04-21 18:46] LABS: LYME DISEASE AB IGG NEG (NEG); LYME DISEASE AB IGM NEG (NEG)
== END | disposition home or self-care (01) ==
LOC: C.LABBFT 11:47
PROVIDERS: ATTEND Internal Medicine
DX: E83.110 Hereditary hemochromatosis (principal); M25.569 Pain in unspecified knee

== ENCOUNTER → 2017-05-13 | Outpatient (CLI) | payer OTHER, BC ==
[2017-05-13 09:39] LABS: BASO % 0.3 %; BASO ABS # 0.02 K/uL (0-0.2); COMPLETE YES; EOS % 1.8 %; HEMATOCRIT 43.1 % (42-52); IG% 0.2 %; LYMPH % 21.6 %; LYMPH ABS # 1.29 K/uL (1.2-3.4); MEAN CELL VOLUME 88.1 fL (80-100); MEAN CORPUSCULAR HGB CONC 32.9 g/dl (32-36); MEAN PLATELET VOLUME 9.5 fL (7.4-10.4); MONO % 4.7 %; NEUT % 71.4 %; PLATELET COUNT 241 K/uL (130-400); RED BLOOD COUNT 4.89 M/uL (4.7-6.1); WHITE BLOOD COUNT 5.98 K/uL (4.8-10.8)
== END | disposition home or self-care (01) ==
LOC: C.LAB1850 08:36
PROVIDERS: ATTEND Internal Medicine
DX: E83.110 Hereditary hemochromatosis (principal)

== ENCOUNTER → 2017-10-23 | Outpatient (CLI) | payer OTHER, BC ==
[~2017-10-23] MED LIST changes: -CIPR-255 PO; -OXYC7.5T65 PO
[2017-10-23 12:43] LABS: BASO % 0.5 %; BASO ABS # 0.03 K/uL (0-0.2); EOS % 2.4 %; EOS ABS # 0.15 K/uL (0-0.5); HEMATOCRIT 38.7 % (42-52); IG# 0.01 K/uL (0.00-0.02); LYMPH % 25.3 %; MEAN CELL VOLUME 87.8 fL (80-100); MEAN CORPUSCULAR HEMOGLOBIN 29.5 pg (25-34); MEAN CORPUSCULAR HGB CONC 33.6 g/dl (32-36); MEAN PLATELET VOLUME 9.9 fL (7.4-10.4); MONO % 6.2 %; MONO ABS # 0.39 K/uL (0.11-0.59); NEUT % 65.4 %; NEUT ABS # 4.15 K/uL (1.4-6.5); PLATELET COUNT 237 K/uL (130-400); RED CELL DISTRIBUTION WIDTH CV 13.4 % (11.5-14.5); WHITE BLOOD COUNT 6.33 K/uL (4.8-10.8)
[2017-10-23 13:23] LABS: ALBUMIN 3.9 gm/dl (3.4-5.0); ALT/SGPT 46 U/L (12-78); AST/SGOT 25 U/L (15-37); BLOOD UREA NITROGEN 19 mg/dl (7-18); CARBON DIOXIDE 27 mmol/L (21-32); CHOLESTEROL 145 mg/dl (0-200); CREATININE 0.96 mg/dl (0.60-1.40); GLUCOSE 112 mg/dl (70-99); POTASSIUM 4.3 mmol/L (3.5-5.1); SODIUM 137 mmol/L (136-145)
[2017-10-23 13:27] LABS: HEMOGLOBIN A1C 6.1 % (4.5-5.6)
[2017-10-23 13:29] LABS: ALKALINE PHOSPHATASE 43 U/L (45-117); LDL CHOLESTEROL CALCULATED 64 mg/dl; TOTAL PROTEIN 7.3 gm/dl (6.4-8.2)
== END | disposition home or self-care (01) ==
LOC: C.LABBFT 08:55
PROVIDERS: ATTEND Internal Medicine
DX: E11.9 Type 2 diabetes mellitus without complications (principal); I10 Essential (primary) hypertension; E78.5 Hyperlipidemia, unspecified

== ENCOUNTER 2020-11-13 22:39 | Inpatient (IN) ==
[~2020-11-13 22:39] MED LIST changes: -FLM4 PO; -GLCSR/500 PO; +HEPARIN (PORCINE) 1000 UNIT/ML 10 ML (CATH LAB USE ONLY) ONE; -IBUP-1050 PO; -LIRA18IN SQ; +MIDAZOLAM HCL 1 MG/ML 2ML VIAL ONE; +NITROGLYCERIN/D5W 100MCG/ML 20ML SYR ONE; -PRS5 PO; -TYLOTC500 PO; -VALS-59 PO; -ZLF/100 PO; +fentaNYL citrate 100 MCG/2 ML VIAL ONE; +niCARdipine HCL INJ 2.5 MG/ML 10 ML AMP ONE
[2020-11-13] MEDS ORDERED: fentaNYL citrate 100 MCG/2 ML VIAL IV STA (22:50)
--- NOTE | 2020-11-13 22:50 | Emergency Department Note ---
Impression & Plan Acute myocardial infarction ED Provider Note INFORMANT: Patient, EMS ED PROVIDER(S): Brady Drake MD CHIEF COMPLAINT: Chest pain PLAN: Disposition: Transferred emergently to the catheterization lab Condition: Guarded Outpatient prescription management: none Referral: None MEDICAL DECISION MAKING: Patient presented to the emergency department with chest pain. Prehospital ECG was consistent with ST elevation KS. Heart alert was initiated prehospital. The patient was treated with fentanyl and Zofran by my medical command. He was feeling better on arrival but still had chest pain. ECG done in the ER confirmed the ST elevation KS inferiorly. Dr. Solares from interventional c ardiology presented to the ER. We discussed the case. The patient's i-STAT was unremarkable. Chest x-ray did not reveal any acute findings. The patient was given additional dose of IV fentanyl. Decision was made for emergent catheterization. The patient consented. The patient's did present to the ER and was informed of the findings by myself as well as Dr. Solares. The patient was taken emergently to the catheterization suite. I refer you to the EMR for further details. Triage Nursing notes reviewed and agree them. Additional history obtained from EMS Vital Signs: reviewed and remarkable for hypertension Differential diagnosis: Cardiac ischemia, aortic dissection, pulmonary embolism, pneumothorax, pne umonia, pericarditis, myocarditis, esophageal rupture, GERD, cholecystitis, pancreatitis, musculoskeletal, as well as other pathologies. Diagnostics interpreted by me: ECG: Rate:84 Rhythm:Normal sinus [place]:Normal QRS:Normal ST segements:Inferior STEMI, reciprocal anterior TWI Other:No PACs or PVCs Cardiac Monitoring: Cardiac monitoring ordered by me: The patient was placed on continuous cardiac monitoring and observed. It revealed a normal sinus rhythm at 85 beats per minute without ectopy or evidence of dysrhythmia. Imaging studies: Chest x-ray. Findings: A chest x-ray was performed and revealed no pneumothorax, effusion, infiltrate, pulmonary edema, free air under the diaphragm, or wide mediastinum. Consultation(s): Dr. Solares, Interventionalist HPI: The patient is a 75 year old male who presents to the Emergency Room with complaints of left chest pain. This started 1.5 hrs ago and is worsening. The patient also notes the following associated symptoms, nausea, jaw pain, SOB. The patient has been given zofran and fentanyl for relieving factors. Current pain is rated as 6/10. EMS ECG noted inferior STEMI. Pt denies LOC, headache, fevers, chills, diaphoresis, visual changes, neck pain, abdominal pain, back pain, melena, hematochezia, urinary symptoms, numbness, weakness, lymphadenopathy, rash, or other complaints. ROS: See above HPI for pertinent positives & negatives. A total of 10 systems reviewed and were otherwise negative. PAST MEDICAL HISTORY:See Below , HTN PAST SURGICAL HISTORY:See Below, FAMILY HISTORY:See Below SOCIAL HISTORY:See Below, No tobacco HOME MEDICATIONS:See Below ALLERGIES:See Below VITALS:See Below PHYSICAL EXAMINATION: GENERAL: Awake, alert, uncomfortable-appearing, in no distress HENT: Normocephalic, atraumatic. Oropharynx unremarkable. EYES: Normal conjunctiva. Sclera non-icteric. NECK: Inspection normal. Non-tender. Supple. No nuchal rigidity. FROM. No masses. RESPIRATORY: Clear to auscultation. No wheezes. No rales. Normal respiratory effort. CARDIAC: Normal rate. Normal rhythm. No murmurs. No rubs. Extremities warm and well perfused. Pulses equal. No JVD. GI: Soft, non-distended. No tenderness to palpation. No rebound or guarding. No masses. RECTAL: Deferred. MUSCULOSKELETAL: Atraumatic. Chest examination reveals no tenderness. The back is symmetrical on inspection without obvious abnormality. There is no CVA tend erness to palpation. No joint edema. LOWER EXTREMITIES: Calves are equal size bilaterally and non-tender. No edema. No discoloration. NEURO: Normal sensorium. No sensory or motor deficits noted. SKIN: No rash or jaundice noted. ED COURSE: Critical Care: I have personally spent greater than 31 minutes of critical care time in the direct management of this patient. This includes bedside care, interpretation of diagnostic studies, and testing, discussion with consultants, patient, EMS, patient's , documentation, and other required patient management activities. These minutes are in excess of all separately billable procedures. Brady Drake MD Past Med/Surg History Medical History (Updated 11/13/20 @ 22:46 by Brady Drake MD) Abdominal pain, LLQ (left lower quadrant) Allergic rhinitis due to pollen Anemia Arthritis Asthma STABLE Atopic dermatitis Benign colonic polyp Benign localized hyperplasia of prostate with urinary obstruction Bladder calculus Carotid artery plaque Carotid bruit Cellulitis Depression Diverticular disease Diverticulitis of colon Diverticulosis of colon Erectile dysfunction Facial skin lesion Fatty liver H/O renal calculi Hearing deficit Heart murmur Hematuria Hemochromatosis PHLEBOTOMY TREATMENTS EVERY 3 MONTHS- FERRITIN LEVELS MONITORED BY HEMATOLOGY; LAST PHLEBOTOMY 2 MONTHS AGO History of colon polyps History of diverticulitis 09/2018= RESOLVED S/P ABX Hyperlipidemia Hypertension Irritable bowel syndrome Joint pain, knee Laceration of thumb, left Lower back pain Microscopic hematuria Obesity Ocular hypertension, unspecified eye Pain due to ureteral stent Renal calcification Renal colic Right leg pain Type 2 diabetes mellitus Ureteral calculus, right Urinary frequency Xerosis cutis Surgical History H/O cataract extraction History of colonoscopy History of tonsillectomy and adenoidectomy History of umbilical hernia repair History of vasectomy Hx of cystoscopy CYSTOSCOPY/LASER LITHOTRIPSY/STENT= 01/23/17= LMA#5 AT [facility] Hx of hand surgery LEFT HAND TENDON SURGERY Hx of transurethral resection of prostate AND BLADDER STONES REMOVED on 10/26/18 with LMA#5 Family History (Updated 12/17/19 @ 08:54 by Dionna Rivers MA) Mother Multiple myeloma Stroke Father Laryngeal cancer Grandfather (Maternal) Stroke Uncle Stroke Denies family history of Ovarian cancer Prostate cancer Myocardial infarction Breast cancer Colorectal cancer Social History (Updated 12/17/19 @ 08:54 by Dionna Rivers MA) Smoking Status: Never smoker Second Hand Exposure: No; Hx Alcohol Use: No Hx Substance Use: No Preferred Language: Syriac Communication Ability: Effective Visual Impairment: No Limitations Hearing Ability: Use of Hearing Aid [employer] Required: No Beliefs That Will Affect Care: None marital status: Current Living Situation: Family current occupational status: retired Feels Safe at Home: Yes Childhood Exposure to Second-Hand Smoke: Yes Seatbelt Use: always Sunscreen Use: No Assistive Devices: Glasses Allergies Allergies Allergy/AdvReac Type Severity Reaction Status Date / Time cefoxitin Allergy Intermediate HIVES Verified 11/13/20 23:00 clavulanic acid Allergy Intermediate Hives Verified 11/13/20 23:00 [From Timentin] ticarcillin [From Timentin] Allergy Intermediate Hives Verified 11/13/20 23:00 atorvastatin AdvReac Mild Joint Pain Verified 11/13/20 23:00 pravastatin AdvReac Mild Joint Pain Verified 11/13/20 23:00 Home Meds Home Medications Medication Instructions Recorded Confirmed aspirin [Aspirin Low Dose] 81 mg PO QPM 10/12/18 11/13/20 glimepiride 1 mg tablet 1 mg PO QAM tab 02/16/20 11/13/20 Previous Rx's Medication Instructions Recorded liraglutide 0.6 mg/0.1 mL (18 mg/3 1.8 mg SUBCUT DAILY #9 ml 11/02/19 mL) subcutaneous pen injector pen needle, diabetic 31 gauge x #100 ea 07/19/2011/14" canagliflozin 300 mg tablet 300 mg PO DAILY #30 tab 07/25/20 albuterol sulfate 90 mcg/actuation 2 puff INHALATION Q4H PRN #6.7 g 10/23/20 aerosol inhaler diclofenac sodium 1 % topical gel 2 g TOP QID PRN #200 g 10/23/20 losartan 100 mg tablet 100 mg PO QAM #90 tab 10/23/20 olopatadine 0.2 % eye drops 1 drp OP DAILY #2.5 ml 10/23/20 sertraline 100 mg tablet 100 mg PO DAILY #90 tab 10/23/20 metoprolol succinate 100 mg PO DAILY #30 tab 11/15/20 nitroglycerin [Nitrostat] 0.4 mg SUBLINGUAL Q5M PRN #30 tab 11/15/20 rosuvastatin [Crestor] 20 mg PO HS #30 tab 11/15/20 ticagrelor [Brilinta] 90 mg PO BID #60 tab 11/15/20 Results & Data (ED) Laboratory Data Result diagrams: 11/14/20 06:26 11/15/20 06:27 Lab Results 11/13/20 11/13/20 11/13/20 Range/Units 22:47 22:47 22:50 WBC 8.51 (4.8-10.8) K/uL RBC 5.27 (4.7-6.1) M/uL Hgb 15.8 (14.0-18.0) g/dL POC Hgb 15.0 (14.0-18.0) g/dl Hct 45.9 (42-52) % POC Hct 44 (42-52) % MCV 87.1 (80-100) fL MCH 30.0 (25-34) pg MCHC 34.4 (32-36) g/dL RDW Std Deviation 41.1 (36.4-46.3) fL RDW Coeff of Aria 12.8 (11.5-14.5) % Plt Count 195 (130-400) K/uL MPV 9.6 (7.4-10.4) fL Immature Gran % (Auto) 0.2 % Neut % (Auto) 68.4 % Lymph % (Auto) 22.9 % [place] % (Auto) 5.9 % Eos % (Auto) 2.4 % Baso % (Auto) 0.2 % Neut # (Auto) 5.82 (1.4-6.5) K/uL Lymph # (Auto) 1.95 (1.2-3.4) K/uL [place] # (Auto) 0.50 (0.11-0.59) K/uL Eos # (Auto) 0.20 (0-0.5) K/uL Baso # (Auto) 0.02 (0-0.2) K/uL Immature Gran # (Auto) 0.02 (0.00-0.02) K/uL Activ Coag Time Kaolin (94-140) SECONDS POC Sodium 138 (135-144) mmol/L Sodium 140 (136-145) mmol/L POC Potassium 3.7 (3.3-5.0) mmol/L Potassium 3.6 (3.5-5.1) mmol/L POC Chloride 103 (101-112) mmol/L Chloride 106 (98-107) mmol/L Carbon Dioxide 26 (21-32) mmol/L POC Total CO2 24 (24-31) mmol/L Anion Gap 8.0 (3-11) POC Anion Gap 16.0 (16-25) mmol/L POC BUN 29 H (7-18) mg/dl BUN 28 H (7-18) mg/dl Creatinine 1.24 (0.6-1.4) mg/dl POC Creatinine 1.1 (0.6-1.3) mg/dl Est Cr Clr Drug Dosing 70.3 ml/min Est GFR ( Amer) 65.5 Est GFR (Non-Af Amer) 56.5 BUN/Creatinine Ratio 23.0 H (10-20) Glucose 242 H (70-99) mg/dl POC Glucose (other) 246 H (70-99) mg/dl Calcium 8.7 (8.5-10.1) mg/dl POC Ioniz Calcium Salvatore 1.18 (1.12-1.32) mmol/l Total Bilirubin 0.5 (0.2-1) mg/dl AST 22 (15-37) U/L ALT 40 (12-78) U/L Alkaline Phosphatase 68 (45-117) U/L Troponin I 0.038 (0-0.045) ng/ml Total Protein 8.1 (6.4-8.2) gm/dl Albumin 3.9 (3.4-5.0) gm/dl Globulin 4.2 H (2.5-4.0) gm/dl Albumin/Globulin Ratio 0.9 (0.9-2) Lipase 110 (73-393) U/L SARS-CoV-2 Ag (Rapid) (Negative) 11/13/20 11/13/20 Range/Units 23:50 Unknown WBC (4.8-10.8) K/uL RBC (4.7-6.1) M/uL Hgb (14.0-18.0) g/dL POC Hgb (14.0-18.0) g/dl Hct (42-52) % POC Hct (42-52) % MCV (80-100) fL MCH (25-34) pg MCHC (32-36) g/dL RDW Std Deviation (36.4-46.3) fL RDW Coeff of Aria (11.5-14.5) % Plt Count (130-400) K/uL MPV (7.4-10.4) fL Immature Gran % (Auto) % Neut % (Auto) % Lymph % (Auto) % [place] % (Auto) % Eos % (Auto) % Baso % (Auto) % Neut # (Auto) (1.4-6.5) K/uL Lymph # (Auto) (1.2-3.4) K/uL [place] # (Auto) (0.11-0.59) K/uL Eos # (Auto) (0-0.5) K/uL Baso # (Auto) (0-0.2) K/uL Immature Gran # (Auto) (0.00-0.02) K/uL Activ Coag Time Kaolin 219 H (94-140) SECONDS POC Sodium (135-144) mmol/L Sodium (136-145) mmol/L POC Potassium (3.3-5.0) mmol/L Potassium (3.5-5.1) mmol/L POC Chloride (101-112) mmol/L Chloride (98-107) mmol/L Carbon Dioxide (21-32) mmol/L POC Total CO2 (24-31) mmol/L Anion Gap (3-11) POC Anion Gap (16-25) mmol/L POC BUN (7-18) mg/dl BUN (7-18) mg/dl Creatinine (0.6-1.4) mg/dl POC Creatinine (0.6-1.3) mg/dl Est Cr Clr Drug Dosing ml/min Est GFR ( Amer) Est GFR (Non-Af Amer) BUN/Creatinine Ratio (10-20) Glucose (70-99) mg/dl POC Glucose (other) (70-99) mg/dl Calcium (8.5-10.1) mg/dl POC Ioniz Calcium Salvatore (1.12-1.32) mmol/l Total Bilirubin (0.2-1) mg/dl AST (15-37) U/L ALT (12-78) U/L Alkaline Phosphatase (45-117) U/L Troponin I (0-0.045) ng/ml Total Protein (6.4-8.2) gm/dl Albumin (3.4-5.0) gm/dl Globulin (2.5-4.0) gm/dl Albumin/Globulin Ratio (0.9-2) Lipase (73-393) U/L SARS-CoV-2 Ag (Rapid) Negative (Negative) Administered Medications Discontinued Medications Aspirin (Aspirin 81 Mg Ectab) 81 mg PO [facility] Stop: 12/14/20 08:59 Last Admin: 11/15/20 08:21 Dose: 81 mg Documented by: [id number] Admin: 11/14/20 08:36 Dose: 81 mg Documented by: [id number] Atropine Sulfate (Atropine Sulfate 0.1 Mg/Ml 10ml Syr) Confirm Administered Dose 1 mg IV .[facility] Stop: 11/13/20 23:03 Last Admin: 11/14/20 00:00 Dose: Not Given Documented by: [id number] Fentanyl Citrate (Fentanyl Citrate 100 Mcg/2 Ml Vial) Confirm Administered Dose 100 mcg .ROUTE .STK-MED ONE Stop: 11/13/20 22:40 Last Admin: 11/13/20 23:59 Dose: 50 mcg Documented by: [id number] Fentanyl Citrate (Fentanyl Citrate 100 Mcg/2 Ml Vial) 50 mcg IV NOW [facility] Stop: 11/13/20 22:51 Last Admin: 11/13/20 22:53 Dose: 50 mcg Documented by: [id number] Glimepiride (Glimepiride 2 Mg Tab) 1 mg PO QAM [facility] Stop: 12/14/20 08:59 Last Admin: 11/15/20 08:20 Dose: 1 mg Documented by: [id number] Admin: 11/14/20 12:12 Dose: Not Given Documented by: [id number] Heparin Sodium (Porcine) (Heparin (Porcine) 1000 Unit/Ml 10 Ml ([employer] Education Teacher Use Only)) Confirm Administered Dose 10,000 units .ROUTE .STK-MED ONE Stop: 11/13/20 22:39 Last Admin: 11/13/20 23:59 Dose: 10,000 units Documented by: [id number] Heparin Sodium (Porcine) (Heparin (Porcine) 1000 Unit/Ml 10 Ml ([employer] Teacher Use Only)) Confirm Administered Dose 10,000 units .ROUTE .STK-MED ONE Stop: 11/13/20 23:29 Last Admin: 11/14/20 00:00 Dose: 4,000 units Documented by: [id number] Sodium Chloride (Nss 1000ml) 1,000 mls @ 100 mls/hr IV .Q10H [facility] Stop: 11/14/20 07:59 Last Infusion: 11/14/20 09:06 Dose: 0 mls/hr Documented by: [id number] Admin: 11/14/20 00:56 Dose: 100 mls/hr Documented by: [id number] Insulin Aspart (Insulin Aspart 100 Units/Ml 3 Ml Pen) 0 units SC ACHS [facility] Stop: 12/14/20 07:29 Last Admin: 11/15/20 12:03 Dose: Not Given Documented by: [id number] Cosigned by: [id number] Admin: 11/15/20 08:18 Dose: 5 units Documented by: [id number] Cosigned by: [id number] Admin: 11/14/20 20:36 Dose: 3 units Documented by: [id number] Cosigned by: [id number] Admin: 11/14/20 17:04 Dose: 3 units Documented by: [id number] Cosigned by: [id number] Admin: 11/14/20 12:14 Dose: 3 units Documented by: [id number] Cosigned by: [id number] Admin: 11/14/20 08:44 Dose: 7 units Documented by: [id number] Cosigned by: [id number] Losartan Potassium (Losartan Potassium 50 Mg Tab) 100 mg PO QAM RONALD Stop: 12/14/20 08:59 Last Admin: 11/15/20 08:22 Dose: 100 mg Documented by: [id number] Admin: 11/14/20 08:36 Dose: 100 mg Documented by: [id number] Metoprolol Tartrate (Metoprolol Tartrate 25 Mg Tab) 12.5 mg PO BID [facility] Stop: 12/14/20 00:29 Last Admin: 11/14/20 08:37 Dose: 12.5 mg Documented by: [id number] Admin: 11/14/20 00:56 Dose: 12.5 mg Documented by: [id number] Metoprolol Tartrate (Metoprolol Tartrate 1 Mg/Ml Vial) 5 mg IV NOW STA Stop: 11/14/20 03:47 Last Admin: 11/14/20 04:07 Dose: 5 mg Documented by: [id number] Metoprolol Tartrate (Metoprolol Tartrate 25 Mg Tab) 25 mg PO Q8 [facility] Stop: 12/14/20 13:59 Last Admin: 11/15/20 06:39 Dose: 25 mg Documented by: [id number] Admin: 11/14/20 22:24 Dose: 25 mg Documented by: [id number] Admin: 11/14/20 14:53 Dose: 25 mg Documented by: [id number] Metoprolol Tartrate (Metoprolol Tartrate 25 Mg Tab) 12.5 mg PO ONE ONE Stop: 11/14/20 10:01 Last Admin: 11/14/20 10:43 Dose: 12.5 mg Documented by: [id number] Midazolam HCl (Midazolam Hcl 1 Mg/Ml 2ml Vial) Confirm Administered Dose 2 mg .ROUTE .STK-MED ONE Stop: 11/13/20 22:40 Last Admin: 11/13/20 23:59 Dose: 2 mg Documented by: [id number] Midazolam HCl (Midazolam Hcl 1 Mg/Ml 2ml Vial) Confirm Administered Dose 2 mg .ROUTE .STK-MED ONE Stop: 11/13/20 23:20 Last Admin: 11/14/20 00:00 Dose: Not Given Documented by: [id number] Miscellaneous (*Canaglifozin*Order Awaiting Action) 1 ea N/A QS [facility] Stop: 12/14/20 15:59 Last Admin: 11/15/20 08:19 Dose: Not Given Documented by: [id number] Admin: 11/14/20 23:45 Dose: Not Given Documented by: [id number] Admin: 11/14/20 17:01 Dose: Not Given Documented by: [id number] Nicardipine HCl (Nicardipine Hcl Inj 2.5 Mg/Ml 10 Ml Amp) Confirm Administered Dose 25 mg .ROUTE .STK-MED ONE Stop: 11/13/20 22:38 Last Admin: 11/13/20 23:54 Dose: 25 mg Documented by: [id number] Nitroglycerin/Dextrose (Nitroglycerin/D5w 100mcg/Ml 20ml Syr) Confirm Administered Dose 2,000 mcg .ROUTE .STK-MED ONE Stop: 11/13/20 22:39 Last Admin: 11/13/20 23:54 Dose: 2,000 mcg Documented by: [id number] Pantoprazole Sodium (Pantoprazole 40 Mg Tab) 40 mg PO [facility] Stop: 12/14/20 08:59 Last Admin: 11/15/20 08:21 Dose: 40 mg Documented by: [id number] Admin: 11/14/20 08:38 Dose: 40 mg Documented by: [id number] Rosuvastatin Calcium (Rosuvastatin Calcium 20 Mg Tab) 20 mg PO [facility] Stop: 12/14/20 20:59 Last Admin: 11/14/20 20:03 Dose: 20 mg Documented by: [id number] Sertraline HCl (S[facility]raline Hcl 100 Mg Tablet) [facility] Stop: 12/14/20 09:29 Last Admin: 11/15/20 08:21 Dose: 100 mg Documented by: [id number] Admin: 11/14/20 10:44 Dose: 100 mg Documented by: [id number] Ticagrelor (Ticagrelor 90 Mg Tab) Confirm Administered Dose 180 mg PO .STK-MED ONE Stop: 11/14/20 00:07 Last Admin: 11/14/20 00:19 Dose: 180 mg Documented by: [id number] Ticagrelor (Ticagrelor 90 Mg Tab) 90 mg PO BID [facility]ONALD Stop: 12/14/20 10:23 Last Admin: 11/15/20 08:22 Dose: 90 mg Documented by: [id number] Admin: 11/14/20 20:03 Dose: 90 mg Documented by: [id number] Admin: 11/14/20 10:46 Dose: 90 mg Documented by: [id number] Discharge Plan Visit Data Chief Complaint: Heart Alert ED Provider: Brady Drake Discharge Problem: Acute myocardial infarction Patient Disposition: Still a Patient Discharge Instructions Interventions: ED Discharge Assessment Last Done: 11/13/20 22:54
[2020-11-13 23:00] LABS: Basophils # (auto) 0.02 K/uL (0-0.2); Basophils % (auto) 0.2 %; Eosinophils % (auto) 2.4 %; Hematocrit (blood only) 45.9 % (42-52); Hemoglobin 15.8 g/dL (14.0-18.0); Immature Granulocytes # (auto) 0.02 K/uL (0.00-0.02); Immature Granulocytes % (auto) 0.2 %; Lymphocytes # (auto) 1.95 K/uL (1.2-3.4); Lymphocytes % (auto) 22.9 %; Mean Corpuscular Hgb Conc 34.4 g/dL (32-36); Mean Corpuscular Volume 87.1 fL (80-100); Mean Platelet Volume 9.6 fL (7.4-10.4); Monocytes % (auto) 5.9 %; Neutrophils # (auto) 5.82 K/uL (1.4-6.5); Neutrophils % (auto) 68.4 %; Platelet Count 195 K/uL (130-400); RDW Coefficient of Variation 12.8 % (11.5-14.5); RDW Standard Deviation 41.1 fL (36.4-46.3); Red Blood Count 5.27 M/uL (4.7-6.1); White Blood Count 8.51 K/uL (4.8-10.8)
[2020-11-13] MEDS ORDERED: ATROPINE SULFATE 0.1 MG/ML 10ML SYR IV ONE (23:02)
--- NOTE | 2020-11-13 23:02 | Pre Anesthesia Assessment ---
Date of Service November 13, 2020 Pre Sedation Assessment Vital Signs Temp Pulse Pulse Resp BP BP Pulse Ox 11/13/20 22:51 87 18 169/87 H 93 11/13/20 22:40 98.8 F 88 15 153/95 H 95 Cardiovascular RRR, no murmur, no edema Respiratory normal respiratory effort, lungs clear to auscultation Pre-Sedation Airway Assessment Smoking Status: Never smoker Hx Sleep Apnea: No Hx Difficult Intubation: No Short, Thick Neck: No Thyromental Distance: < 3.5 Finger Breadths Oral Cavity: + WNL Mallampati Class: III ASA: ASA3 Procedure Planning Contraindications for Sedation: none Current Medications Reviewed: Yes Notes The planned sedation has been discussed with the patient. Informed Consent was obtained. I have identified the patient, determined the appropriateness of sedation and have assessed the patient immediately prior to the procedure. All medicine(s) and interventions are by my order.
[2020-11-13 23:03] LABS: iSTAT Creatinine 1.1 mg/dl (0.6-1.3); iSTAT Ionized Calcium 1.18 mmol/l (1.12-1.32); iSTAT Potassium 3.7 mmol/L (3.3-5.0)
--- NOTE | 2020-11-13 23:05 | Cardiology Consultation ---
Date of Consultation November 13, 2020 Assessment & Plan (1) Acute myocardial infarction: Presentation consistent with inferior STEMI and recommend proceeding with emergent cardiac catheterization and likely primary PCI. No apparent contraindications to procedure. Discussed risks, benefits, alternatives of procedure with patient and they are willing to proceed. Further recommendations pending findings of coronary angiography. History of Present Illness History of Present Illness Mr. Bryan is a 75-year-old man here with acute chest pain and ECG concerning for acute UT. Patient seen emergently in the ED after heart alert activated en route. Past cardiac history remarkable for only for a reported heart murmur. Cardiac risk factors include hypertension, type 2 diabetes, dyslipidemia. Other medical issues include hemochromatosis, obesity, asthma, BPH. Chest pain began approximately 90 minutes prior to arrival. Describes chest pressure pain radiating to his neck with associated nausea. Denies similar symptoms in the past. Given nitroglycerin, fentanyl en route. Chest pain at time of arrival 02/08. Hemodynamically stable. EKG showed inferior ST elevations. Allergies Allergy/AdvReac Type Severity Reaction Status Date / Time cefoxitin Allergy Intermediate HIVES Verified 11/13/20 23:00 clavulanic acid Allergy Intermediate Hives Verified 11/13/20 23:00 [From Timentin] ticarcillin [From Timentin] Allergy Intermediate Hives Verified 11/13/20 23:00 atorvastatin AdvReac Mild Joint Pain Verified 11/13/20 23:00 pravastatin AdvReac Mild Joint Pain Verified 11/13/20 23:00 Home Medications Medication Instructions Recorded Confirmed Type aspirin [Aspirin Low Dose] 81 mg PO QPM 10/12/18 11/13/20 History ibuprofen 400 mg PO QID PRN 10/12/18 11/13/20 History liraglutide 0.6 mg/0.1 mL (18 mg/3 1.8 mg SUBCUT DAILY #9 ml 11/02/19 11/13/20 Rx mL) subcutaneous pen injector glimepiride 1 mg tablet 1 mg PO QAM tab 02/16/20 10/23/20 History amlodipine 10 mg tablet 10 mg PO DAILY #90 tab 04/03/20 11/13/20 Rx rosuvastatin 5 mg tablet 5 mg PO HS #90 tab 06/28/20 11/13/20 Rx pen needle, diabetic 31 gauge x #100 ea 07/19/20 10/23/20 Rx 3/16" canagliflozin 300 mg tablet 300 mg PO DAILY #30 tab 07/25/20 11/13/20 Rx albuterol sulfate 90 mcg/actuation 2 puff INHALATION Q4H PRN #6.7 g 10/23/20 11/13/20 Rx aerosol inhaler diclofenac sodium 1 % topical gel 2 g TOP QID PRN #200 g 10/23/20 11/13/20 Rx losartan 100 mg tablet 100 mg PO QAM #90 tab 10/23/20 11/13/20 Rx olopatadine 0.2 % eye drops 1 drp OP DAILY #2.5 ml 10/23/20 11/13/20 Rx sertraline 100 mg tablet 100 mg PO DAILY #90 tab 10/23/20 11/13/20 Rx Patient History Medical History (Updated 11/13/20 @ 22:46 by Brady Drake MD) Abdominal pain, LLQ (left lower quadrant) Allergic rhinitis due to pollen Anemia Arthritis Asthma STABLE Atopic dermatitis Benign colonic polyp Benign localized hyperplasia of prostate with urinary obstruction Bladder calculus Carotid artery plaque Carotid bruit Cellulitis Depression Diverticular disease Diverticulitis of colon Diverticulosis of colon Erectile dysfunction Facial skin lesion Fatty liver H/O renal calculi Hearing deficit Heart murmur Hematuria Hemochromatosis PHLEBOTOMY TREATMENTS EVERY 3 MONTHS- FERRITIN LEVELS MONITORED BY HEMATOLOGY; LAST PHLEBOTOMY 2 MONTHS AGO History of colon polyps History of diverticulitis 09/2018= RESOLVED S/P ABX Hyperlipidemia Hypertension Irritable bowel syndrome Joint pain, knee Laceration of thumb, left Lower back pain Microscopic hematuria Obesity Ocular hypertension, unspecified eye Pain due to ureteral stent Renal calcification Renal colic Right leg pain Type 2 diabetes mellitus Ureteral calculus, right Urinary frequency Xerosis cutis Surgical History H/O cataract extraction History of colonoscopy History of tonsillectomy and adenoidectomy History of umbilical hernia repair History of vasectomy Hx of cystoscopy CYSTOSCOPY/LASER LITHOTRIPSY/STENT= 01/23/17= LMA#5 AT [facility] Hx of hand surgery LEFT HAND TENDON SURGERY Hx of transurethral resection of prostate AND BLADDER STONES REMOVED on 10/26/18 with LMA#5 Family History (Updated 12/17/19 @ 08:54 by Dionna Rivers MA) Mother Multiple myeloma Stroke Father Laryngeal cancer Grandfather (Maternal) Stroke Uncle Stroke Denies family history of Ovarian cancer Prostate cancer Myocardial infarction Breast cancer Colorectal cancer Social History (Updated 12/17/19 @ 08:54 by Dionna Rivers MA) Smoking Status: Never smoker Second Hand Exposure: No; Hx Alcohol Use: No Hx Substance Use: No Preferred Language: Wolof Communication Ability: Effective Visual Impairment: No Limitations Hearing Ability: Use of Hearing Aid Learning Officer Required: No Beliefs That Will Affect Care: None marital status: Current Living Situation: Spouse current occupational status: retired Feels Safe at Home: Yes Childhood Exposure to Second-Hand Smoke: Yes Seatbelt Use: always Sunscreen Use: No Assistive Devices: Glasses and Hearing Aid - Bilateral Review of Systems Review of Systems: Not obtained in the setting of emergent situation Physical Exam Physical Exam: General: Uncomfortable HEENT: Sclerae anicteric, Mask in place Lungs: Clear to auscultation bilaterally Cardiac: Regular rate and rhythm, no murmurs. Vascular: 2+ radial bilaterally. 2+ DP on the left, diminished DP on the right Abdomen: Soft, nontender Extremities: Well perfused, no peripheral edema Neuro: Nonfocal Psych: Alert orient x3, normal affect and mood Results & Data ([facility]) Vital Signs (Past 12 Hours) Vital Signs Temp Pulse Pulse Resp BP BP Pulse Ox 11/13/20 22:51 87 18 169/87 H 93 11/13/20 22:40 98.8 F 88 15 153/95 H 95 PG Care Time/CCT Total # of Minutes Spent Total Time Spent with Patient: Total time spent is greater than 50% in coordination of care (as documented) at patient's floor/unit and/or counseling patient: Coding Level of Care Code 06605 Initial Inpt Care Lvl 3 Diagnoses Acute myocardial infarction I21.9
[2020-11-13 23:18] LABS: Albumin Level 3.9 gm/dl (3.4-5.0); Calcium 8.7 mg/dl (8.5-10.1); Creatinine Clr Calc Pharmacy 70.3 ml/min; Est GFR (African American) 65.5; Est GFR (Non-African American) 56.5; Potassium 3.6 mmol/L (3.5-5.1)
[2020-11-13] MEDS ORDERED: MIDAZOLAM HCL 1 MG/ML 2ML VIAL ONE (23:19)
[2020-11-13 23:22] LABS: Albumin Globulin Ratio 0.9 (0.9-2); Bilirubin,Total 0.5 mg/dl (0.2-1); Globulin 4.2 gm/dl (2.5-4.0); Total Protein 8.1 gm/dl (6.4-8.2); Troponin I 0.038 ng/ml (0-0.045)
[2020-11-13] MEDS ORDERED: HEPARIN (PORCINE) 1000 UNIT/ML 10 ML (CATH LAB USE ONLY) ONE (23:28)
[2020-11-14] MEDS ORDERED: TICAGRELOR 90 MG TAB PO ONE (00:06)
[2020-11-14] MEDS ORDERED: ONDANSETRON INJ 2 MG/ML 2 ML VIAL IV PRN (00:21)
[2020-11-14] MEDS ORDERED: MoRPHine SULFATE 10 MG/ML CARP/VIAL IV PRN (00:21)
[2020-11-14] MEDS ORDERED: NITROGLYCERIN SL 0.4 MG/TAB TAB SL PRN (00:21)
[2020-11-14] MEDS ORDERED: ACETAMINOPHEN 325 MG TAB PO PRN (00:21)
--- NOTE | 2020-11-14 00:21 | Post Anesthesia Assessment ---
Date of Service November 14, 2020 Post Sedation Assessment Vital Signs Temp Pulse Pulse Resp BP BP Pulse Ox 11/13/20 22:51 87 18 169/87 H 93 11/13/20 22:40 98.8 F 88 15 153/95 H 95 Recovery Score Activity: Moves 4 extremities Respiration: Deep Breath/Cough Circulation: +/-20% PreAnes Value Consciousness: Fully Awake Oxygen Saturation: O2 needed for >90% Discharge Sedation Level of Care: Fast Track Phase II Post Sedation Plan On clinical assessment, the patient appears to have tolerated the sedation without complications. Patient is recovering as anticipated. Patient will continue to be monitored by nursing and may be discharged when sedation discharge criteria are met per below protocol. Upon Completions of procedure up to 15 minutes continue every 5 minute vital signs and the P.A.R. score; then discharge to a Phase I or Fast Track to Phase II per the following guidelines: * Discharge Patient to appropriate Phase II area if PAR is 8 or greater or return to pre- procedure baseline. The post - procedure orders will be as directed. * If PAR score is less than 8 or not return to pre-procedure baseline then patient will follow Phase I monitoring till PAR is reached for Phase II. The Phase I may be done in procedure room or may call to secure a Phase I area. * If naloxone or flumazenil are used for reversal, hold in Phase I for continued monitoring from when last reversal dose was given for a minimum of 60 minutes or longer pending the nurse and/or physician discretion of patient condition before discharge to Phase II. Please call the Sedation Physician to re-evaluate and complete post-note for discharge to Phase II area. Do NOT discharge from procedure sedation or Phase 1 until post- sedation evaluation note is complete by procedure /sedation MD Sedation Discharge Instructions to be given to the patient at discharge to home.
[2020-11-14] MEDS ORDERED: SODIUM CHLORIDE 0.9% 1000ML 1,000 ML IV SCH (00:30)
--- NOTE | 2020-11-14 00:50 | Cardiac Catheterization ---
[facility] Data: Neurology Epilepsy Physician Cardiac Status Clinical evaluation leading to the procedure CAD Presenation: STEMI Anginal Classification: CCS IV Heart Failure: No Cardiogenic Shock within 24 Hours: No Cardiac Arrest within 24 Hours: No Imaging Studies Past 6 Months: No Stress Studies Past 6 Months: No Diagnostic Physicians Name: Tony Solares MD Status: Emergency Closure Device Percutaneous Entry Location: Femoral Closure Device: Angio-Seal Recommendations: PCI without planned CABG PCI Indication: Immediate PCI for STEMI First Noted: First EKG Reason For Delay in PCI:: Unusual takeoff of left main, difficulty cannulating with guide catheter Lesion Segment Name: Distal circumflex Culprit Artery: Yes Stenosis Prior to Rx (%): 99 Chronic Total Occlusion: No IVUS: No FFR: No Pre-Procedure ALVARADO Flow: 1 Previously Treated Lesion: No Lesion Complexity: Non-High/Non-C Lesion Length (mm): 15 Thrombus Present: Yes Bifurcation Lesion: No Guidewire Across Lesion: Stenosis Post-Procedure (%): 0 Post-Procedure ALVARADO Flow: 3 Devices(s) Deployed: Yes Yes Intraprocedure Events Significant Disection: No Perforation: No Cardiac Cath Procedure Full Procedure Date November 14, 2020 Pre-Procedure Diagnosis Pre-Procedure Diagnosis: STEMI AUC Score AUC Score: 9 Post-Procedure Diagnosis Post-Procedure Diagnosis: Severe CAD, Successful PCI and Normal Intracardiac Pressures Procedure(s) Performed Procedure(s) Performed: Coronary Angiography, Left Heart Cath and Drug Eluting Stent Trading Assistant Tony Solares MD Compensation Administrator(s) Tavo Estimated Blood Loss Estimated Blood Loss: 20 Medication(s) Medication(s): Fentanyl, Heparin, Lidocaine 1%, Nicardipine, Nitroglycerin and Versed Medication(s): Ticagrelor Summary of Findings Indication: STEMI/Heart Alert Access: 6F for right radial arteryunable to pass diagnostic catheter or long sheath past distal brachial artery spasm/stenosis. Converted to femoral approach with placement of 6 Fr short sheath Catheters: Diagnostic JL4, JL 4.5, JR4. Attempted guides EBU 4.0, EBU 4.5, EBU 3.75. Eventually cannulated with JL 4.0 guide Findings: LM -Short, luminal regularities LAD -medium caliber vessel, 40 to 50% mid segment disease, distal vessel with luminal regularities and wraps around apex.. Medium caliber D1 50% ostial Circumflex -large caliber, mid segment luminal irregularities. Distal circumflex with 99% acute stenosis and ALVARADO I terminal OM. RCA -medium caliber vessel, dominant, 40% distal stenosis. PDA without significant disease. LVEDP -8 -- PCI -- Antithrombotic therapy: Heparin, clopidogrel Procedure: Left main cannulated with JL 4.0 guide Whisper wire passed across lesion into distal vessel Distal circumflex lesion predilated with 2.5 compliant balloon Dilated lesion stented with 3.5 x 22 mm [place] drug-eluting stent Stent post-dilated with 3.5 noncompliant balloon IC vasodilators administered for spasm Post procedure ALVARADO 3 flow, stent well expanded with minimal residual stenosis and no apparent cardiac complications. Arterial Closure: TR band Summary: 1. Inferior STEMI/subtotally occluded Large Distal Circumflex with ALVARADO I Flow 2. Moderate non-culprit coronary artery disease -40 to 50% mid LAD and 50% ostial first diagonal 40% distal RCA 3. Normal intracardiac filling pressure 4. Dilated aortic root 5. Successful PCI of mid to distal circumflex with single drug-eluting stent (3.5 x 22 mm [place]). Recommendations: Admit to PCU for continued monitoring Loaded with Ticagrelor 180mg Continue dual-antiplatelet therapy for at least 1 year. Trend troponins until peak, Check Echo Uptitrate beta-kaiser/THOR as BP allows High-dose statin Consult cardiac Rehab Medical management of residual moderate coronary artery disease. Hemodynamics Rest Ao:: 127/69/98 Final Ao: 104/56/75 LV: 101/8 Recommendations Recommendations: PCI without planned CABG Specimens Specimens: None Radiation Exposure (mGy) 3187 Contrast (mls) 120 Fluids (cc crystalloids) Fluids (cc crystalloids): 120 Drains Drains: None Anesthesia Moderate 6163-8151 Procedural Complication(s) None Disposition PCU I attest to the content of the Intraoperative Record and any orders documented therein. Any exceptions are noted below. [facility] [employer] Card Cath Procedure Codes Cardiac Catheterization Procedure 1: Cardiovascular Cath Procedures: 26459 Coronaries and LHC (+/-LV) Moderate Sedation Procedure 1: Sedation/Anesthesia: 14101 Mod Sedation by the same physician;Init15 Min Child Age 5 & Up Procedure 2: Sedation/Anesthesia: 89292 Mod Sedation by the same physician; Ea [id number] Minutes Stenting Procedure 1: Cardiovascular Stent Procedures: 43665 Perc transluminal revascularization of acute sub/total occl, aMI PG Care Time/CCT Total # of Minutes Spent Total Time Spent with Patient: Total time spent is greater than 50% in coordination of care (as documented) at patient's floor/unit and/or counseling patient:
[2020-11-14] MEDS: METOPROLOL TARTRATE 25 MG TAB PO SCH ×4 (00:56→22:24)
--- NOTE | 2020-11-14 03:16 | History & Physical Report ---
Date of Service November 14, 2020 Assessment & Plan (1) Acute myocardial infarction: Fabian Bryan is a 75y/o M with PMH significant for hypertension, hyperlipidemia, type 2 diabetes, hemochromatosis, and asthma; presented to the ED earlier this evening for concerns of acute chest pain. STEMI: -EKG with ST elevations, troponin 0 0.038 -Taken to cardiac Photographic Process Attendant by Dr. Solares, with PCI to mid to distal circumflex with drug-eluting stent -Loaded with ticagrelor postoperatively, with initiation of dual antiplatelet therapy -Trend troponins to peak -Echo in a.m. -Start rosuvastatin 40 mg, Lopressor 12.5 twice daily, and Cozaar 100 daily -Cardiology consulted A. fib: -Incidentally noticed upon return to floor from cardiac Photographic Process Attendant, heart rates between 110 and 130s consistently despite beta-kaiser as above -This is likely incidental in the setting of PCI from STEMI, will not initiate f urther anticoagulation at this time given potential for complete reversion without further continue rhythm -Gave additional dose 5 mg IV Lopressor to break tachycardia in the setting of recent MO -Continue to monitor on telemetry Hypertension: -Conversion of amlodipine to Cozaar daily as above Hyperlipidemia: -Increased rosuvastatin to 40 mg daily Type 2 diabetes: -We will hold oral glycemic regimen while inpatient -BSGs ACHS, with sliding scale coverage -A1c in a.m. Asthma: -Albuterol 2 puffs every 4 hours as needed Diet: Carb consistent/heart healthy CODE STATUS: Full code (2) Hypertension: (3) Hyperlipidemia: (4) Type 2 diabetes mellitus: (5) Depression: (6) Arthritis: (7) Asthma: (8) Irritable bowel syndrome: Admission and Anticipated Discharge Date Admission Date: November 14, 2020 History of Present Illness Chief Complaint: Chest pain Primary Care Provider: Tony Engel MD Fabian Rodríguez is a 75-year-old male with past medical history significant for hypertension, hyperlipidemia, type 2 diabetes, hemochromatosis, asthma; who presented for concerns for sudden onset chest pain earlier this evening. EKG on arrival to ED demonstrating ST elevations, patient was" subsequently taken to cardiac Photographic Process Attendant for catheterization with stenting. Subsequently had complete relief of chest pain, jaw pain, shortness of breath nausea, vomiting, diaph oretic symptoms. Following presentation to the floor from cardiac Photographic Process Attendant, patient was noted to be in atrial fibrillation with heart rate between 110 and 130 despite new medications. Patient not feeling heart at this pace and feeling well, with the exception of some longstanding neck pain that is unchanged from prior to hospitalization. Allergies Allergy/AdvReac Type Severity Reaction Status Date / Time cefoxitin Allergy Intermediate HIVES Verified 11/13/20 23:00 clavulanic acid Allergy Intermediate Hives Verified 11/13/20 23:00 [From Timentin] ticarcillin [From Timentin] Allergy Intermediate Hives Verified 11/13/20 23:00 atorvastatin AdvReac Mild Joint Pain Verified 11/13/20 23:00 pravastatin AdvReac Mild Joint Pain Verified 11/13/20 23:00 Home Medications Medication Instructions Recorded Confirmed Type aspirin [Aspirin Low Dose] 81 mg PO QPM 10/12/18 11/13/20 History ibuprofen 400 mg PO QID PRN 10/12/18 11/13/20 History liraglutide 0.6 mg/0.1 mL (18 mg/3 1.8 mg SUBCUT DAILY #9 ml 11/02/19 11/13/20 Rx mL) subcutaneous pen injector glimepiride 1 mg tablet 1 mg PO QAM tab 02/16/20 11/13/20 History amlodipine 10 mg tablet 10 mg PO DAILY #90 tab 04/03/20 11/13/20 Rx rosuvastatin 5 mg tablet 5 mg PO HS #90 tab 06/28/20 11/13/20 Rx pen needle, diabetic 31 gauge x #100 ea 07/19/20 10/23/20 Rx 3/16" canagliflozin 300 mg tablet 300 mg PO DAILY #30 tab 07/25/20 11/13/20 Rx albuterol sulfate 90 mcg/actuation 2 puff INHALATION Q4H PRN #6.7 g 10/23/20 11/13/20 Rx aerosol inhaler diclofenac sodium 1 % topical gel 2 g TOP QID PRN #200 g 10/23/20 11/13/20 Rx losartan 100 mg tablet 100 mg PO QAM #90 tab 10/23/20 11/13/20 Rx olopatadine 0.2 % eye drops 1 drp OP DAILY #2.5 ml 10/23/20 11/13/20 Rx sertraline 100 mg tablet 100 mg PO DAILY #90 tab 10/23/20 11/13/20 Rx Past Med/Surg History Medical History (Updated 11/13/20 @ 22:46 by Brady Drake MD) Abdominal pain, LLQ (left lower quadrant) Allergic rhinitis due to pollen Anemia Arthritis Asthma STABLE Atopic dermatitis Benign colonic polyp Benign localized hyperplasia of prostate with urinary obstruction Bladder calculus Carotid artery plaque Carotid bruit Cellulitis Depression Diverticular disease Diverticulitis of colon Diverticulosis of colon Erectile dysfunction Facial skin lesion Fatty liver H/O renal calculi Hearing deficit Heart murmur Hematuria Hemochromatosis PHLEBOTOMY TREATMENTS EVERY 3 MONTHS- FERRITIN LEVELS MONITORED BY HEMATOLOGY; LAST PHLEBOTOMY 2 MONTHS AGO History of colon polyps History of diverticulitis 09/2018= RESOLVED S/P ABX Hyperlipidemia Hypertension Irritable bowel syndrome Joint pain, knee Laceration of thumb, left Lower back pain Microscopic hematuria Obesity Ocular hypertension, unspecified eye Pain due to ureteral stent Renal calcification Renal colic Right leg pain Type 2 diabetes mellitus Ureteral calculus, right Urinary frequency Xerosis cutis Surgical History H/O cataract extraction History of colonoscopy History of tonsillectomy and adenoidectomy History of umbilical hernia repair History of vasectomy Hx of cystoscopy CYSTOSCOPY/LASER LITHOTRIPSY/STENT= 01/23/17= LMA#5 AT [facility] Hx of hand surgery LEFT HAND TENDON SURGERY Hx of transurethral resection of prostate AND BLADDER STONES REMOVED on 10/26/18 with LMA#5 Family History (Updated 12/17/19 @ 08:54 by Dionna Rivers MA) Mother Multiple myeloma Stroke Father Laryngeal cancer Grandfather (Maternal) Stroke Uncle Stroke Denies family history of Ovarian cancer Prostate cancer Myocardial infarction Breast cancer Colorectal cancer Social History (Updated 12/17/19 @ 08:54 by Dionna Rivers MA) Smoking Status: Never smoker Second Hand Exposure: No; Hx Alcohol Use: No Hx Substance Use: No Preferred Language: Citizen Of [place] Communication Ability: Effective Visual Impairment: No Limitations Hearing Ability: Use of Hearing Aid Plugging Machine Operator Required: No Beliefs That Will Affect Care: None marital status: Current Living Situation: Family current occupational status: retired Feels Safe at Home: Yes Safety Concerns: Feels Safe At This Time Childhood Exposure to Second-Hand Smoke: Yes Seatbelt Use: always Sunscreen Use: No Assistive Devices: Glasses and Hearing Aid - Bilateral Review of Systems Review of Systems: All systems reviewed & are unremarkable except as noted in HPI & below Physical Exam Constitutional: WD/WN, vitals as above Eyes: PERRL, conjunctivae normal, anicteric sclerae ENMT: external ear and nose normal, oropharynx normal Respiratory: normal respiratory effort, lungs clear to auscultation Cardiovascular: Rate/Rhythm: + tachycardic and + irregularly irregular Heart Sounds: no gallop, no murmur and no cardiac rub Vessels: normal peripheral pulses; no JVD Gastrointestinal (Abdomen): normal bowel sounds, soft, nontender, no hepatosplenomegaly Musculoskeletal: no cyanosis or clubbing, extremities motor strength 5/5 Skin: no rashes, warm and dry Neurologic: PERRL, EOMI, accommodation nl, no face palsy, no dysarthria Psychiatric: Orientation: alert and oriented x 3 Results & Data Results & Data ([facility]) Vital Signs (Past 12 Hours) Vital Signs Temp Pulse Pulse Resp BP BP BP 11/14/20 03:07 37.2 C 121 H 18 130/77 11/14/20 02:07 106 H 121/78 11/14/20 01:37 107 H 129/84 11/14/20 01:07 116 H 126/82 11/14/20 00:52 121 H 128/85 11/14/20 00:37 112 H 131/76 11/14/20 00:26 36.5 C 121 H 18 137/76 11/14/20 00:22 36.5 C 121 H 18 137/76 11/13/20 22:51 87 18 169/87 H 11/13/20 22:40 37.1 C 88 15 153/95 H Pulse Ox 11/14/20 03:07 91 11/14/20 02:07 90 11/14/20 01:37 92 11/14/20 01:07 91 11/14/20 00:52 94 11/14/20 00:37 94 11/14/20 00:26 94 11/14/20 00:22 94 11/13/20 22:51 93 11/13/20 22:40 95 Laboratory Results 11/13/20 11/13/20 11/13/20 Range/Units Unknown 22:50 22:47 WBC (4.8-10.8) K/uL RBC (4.7-6.1) M/uL Hgb (14.0-18.0) g/dL POC Hgb 15.0 (14.0-18.0) g/dl Hct (42-52) % POC Hct 44 (42-52) % MCV (80-100) fL MCH (25-34) pg MCHC (32-36) g/dL RDW Std Deviation (36.4-46.3) fL RDW Coeff of Aria (11.5-14.5) % Plt Count (130-400) K/uL MPV (7.4-10.4) fL Immature Gran % (Auto) % Neut % (Auto) % Lymph % (Auto) % Delta % (Auto) % Eos % (Auto) % Baso % (Auto) % Neut # (Auto) (1.4-6.5) K/uL Lymph # (Auto) (1.2-3.4) K/uL Delta # (Auto) (0.11-0.59) K/uL Eos # (Auto) (0-0.5) K/uL Baso # (Auto) (0-0.2) K/uL Immature Gran # (Auto) (0.00-0.02) K/uL POC Sodium 138 (135-144) mmol/L Sodium 140 (136-145) mmol/L POC Potassium 3.7 (3.3-5.0) mmol/L Potassium 3.6 (3.5-5.1) mmol/L POC Chloride 103 (101-112) mmol/L Chloride 106 (98-107) mmol/L Carbon Dioxide 26 (21-32) mmol/L POC Total CO2 24 (24-31) mmol/L Anion Gap 8.0 (3-11) POC Anion Gap 16.0 (16-25) mmol/L POC BUN 29 H (7-18) mg/dl BUN 28 H (7-18) mg/dl Creatinine 1.24 (0.6-1.4) mg/dl POC Creatinine 1.1 (0.6-1.3) mg/dl Est Cr Clr Drug Dosing 70.3 ml/min Est GFR ( Amer) 65.5 Est GFR (Non-Af Amer) 56.5 BUN/Creatinine Ratio 23.0 H (10-20) Glucose 242 H (70-99) mg/dl POC Glucose (other) 246 H (70-99) mg/dl Calcium 8.7 (8.5-10.1) mg/dl POC Ioniz Calcium Salvatore 1.18 (1.12-1.32) mmol/l Total Bilirubin 0.5 (0.2-1) mg/dl AST 22 (15-37) U/L ALT 40 (12-78) U/L Alkaline Phosphatase 68 (45-117) U/L Troponin I 0.038 (0-0.045) ng/ml Total Protein 8.1 (6.4-8.2) gm/dl Albumin 3.9 (3.4-5.0) gm/dl Globulin 4.2 H (2.5-4.0) gm/dl Albumin/Globulin Ratio 0.9 (0.9-2) Lipase 110 (73-393) U/L SARS-CoV-2 Ag (Rapid) Negative (Negative) 11/13/20 Range/Units 22:47 WBC 8.51 (4.8-10.8) K/uL RBC 5.27 (4.7-6.1) M/uL Hgb 15.8 (14.0-18.0) g/dL POC Hgb (14.0-18.0) g/dl Hct 45.9 (42-52) % POC Hct (42-52) % MCV 87.1 (80-100) fL MCH 30.0 (25-34) pg MCHC 34.4 (32-36) g/dL RDW Std Deviation 41.1 (36.4-46.3) fL RDW Coeff of Aria 12.8 (11.5-14.5) % Plt Count 195 (130-400) K/uL MPV 9.6 (7.4-10.4) fL Immature Gran % (Auto) 0.2 % Neut % (Auto) 68.4 % Lymph % (Auto) 22.9 % Delta % (Auto) 5.9 % Eos % (Auto) 2.4 % Baso % (Auto) 0.2 % Neut # (Auto) 5.82 (1.4-6.5) K/uL Lymph # (Auto) 1.95 (1.2-3.4) K/uL Delta # (Auto) 0.50 (0.11-0.59) K/uL Eos # (Auto) 0.20 (0-0.5) K/uL Baso # (Auto) 0.02 (0-0.2) K/uL Immature Gran # (Auto) 0.02 (0.00-0.02) K/uL POC Sodium (135-144) mmol/L Sodium (136-145) mmol/L POC Potassium (3.3-5.0) mmol/L Potassium (3.5-5.1) mmol/L POC Chloride (101-112) mmol/L Chloride (98-107) mmol/L Carbon Dioxide (21-32) mmol/L POC Total CO2 (24-31) mmol/L Anion Gap (3-11) POC Anion Gap (16-25) mmol/L POC BUN (7-18) mg/dl BUN (7-18) mg/dl Creatinine (0.6-1.4) mg/dl POC Creatinine (0.6-1.3) mg/dl Est Cr Clr Drug Dosing ml/min Est GFR ( Amer) Est GFR (Non-Af Amer) BUN/Creatinine Ratio (10-20) Glucose (70-99) mg/dl POC Glucose (other) (70-99) mg/dl Calcium (8.5-10.1) mg/dl POC Ioniz Calcium Salvatore (1.12-1.32) mmol/l Total Bilirubin (0.2-1) mg/dl AST (15-37) U/L ALT (12-78) U/L Alkaline Phosphatase (45-117) U/L Troponin I (0-0.045) ng/ml Total Protein (6.4-8.2) gm/dl Albumin (3.4-5.0) gm/dl Globulin (2.5-4.0) gm/dl Albumin/Globulin Ratio (0.9-2) Lipase (73-393) U/L SARS-CoV-2 Ag (Rapid) (Negative) Medications Administered Current Inpatient Medications Acetaminophen (Acetaminophen 325 Mg Tab) 650 mg PO Q4H PRN PRN Reason: MILD Pain (Scale 1,2,3) Stop: 12/14/20 00:20 Aspirin (Aspirin 81 Mg Ectab) [facility] [place]: 12/14/20 08:59 Sodium Chloride (Nss 1000ml) 1,000 mls @ 100 mls/hr IV .Q10H RONALD Stop: 11/14/20 07:59 Last Admin: 11/14/20 00:56 Dose: 100 mls/hr Documented by: Losartan Potassium (Losartan Potassium 50 Mg Tab) 100 mg PO QAM [facility] Stop: 12/14/20 08:59 Metoprolol Tartrate (Metoprolol Tartrate 25 Mg Tab) 12.5 mg PO BID [facility] Stop: 12/14/20 00:29 Last Admin: 11/14/20 00:56 Dose: 12.5 mg Documented by: Metoprolol Tartrate (Metoprolol Tartrate 1 Mg/Ml Vial) 5 mg IV NOW STA Stop: 11/14/20 03:47 Morphine Sulfate (Morphine Sulfate 10 Mg/Ml Carp/Vial) 2 mg IV Q5M PRN PRN Reason: MODERATE to SEVERE Pain Stop: 11/28/20 00:20 Nitroglycerin (Nitroglycerin Sl 0.4 Mg/Tab Tab) 0.4 mg SL PRN PRN PRN Reason: Chest Pain Stop: 12/14/20 00:20 Ondansetron HCl (Ondansetron Inj 2 Mg/Ml 2 Ml Vial) 4 mg IV Q6H PRN PRN Reason: Nausea And Vomiting Stop: 12/14/20 00:20 Pantoprazole Sodium (Pantoprazole 40 Mg Tab) 40 mg PO QAM [facility] Stop: 12/14/20 08:59 Rosuvastatin Calcium (Rosuvastatin Calcium 20 Mg Tab) 20 mg PO HS [facility] Stop: 12/14/20 20:59 Ticagrelor (Ticagrelor 90 Mg Tab) 90 mg PO BID [facility] Stop: 12/14/20 10:23 Code Status & VTE Plan VTE Prophylaxis Plan VTE Prophylaxis will be ordered: Yes Resident Activity Tracking Resident Involvement: Resident Care Provided Care Provided: Adult Hospital Medicine
[2020-11-14] MEDS ORDERED: METOPROLOL TARTRATE 1 MG/ML VIAL IV STA (03:46)
[2020-11-14] MEDS ORDERED: DEXTROSE 50% 50 ML SYRINGE IV PRN (04:27)
[2020-11-14] MEDS ORDERED: GLUCOSE 10 TABS/TUBE PO PRN (04:27)
[2020-11-14] MEDS ORDERED: GLUCOSE 40% GEL 15 GM TUBE PO PRN (04:27)
[2020-11-14] MEDS ORDERED: GLUCAGON FOR INJ 1 MG VIAL SQ PRN (04:27)
[2020-11-14] MEDS ORDERED: CARBOHYDRATES FOR HYPOGLYCEMIA PO PRN (04:27)
[2020-11-14] MEDS ORDERED: ALBUTEROL HFA 8 GM INHALER INH PRN (04:29)
[2020-11-14 06:41] LABS: Basophils # (auto) 0.01 K/uL (0-0.2); Basophils % (auto) 0.1 %; Eosinophils # (auto) 0.02 K/uL (0-0.5); Eosinophils % (auto) 0.2 %; Hematocrit (blood only) 44.8 % (42-52); Hemoglobin 15.5 g/dL (14.0-18.0); Immature Granulocytes # (auto) 0.02 K/uL (0.00-0.02); Immature Granulocytes % (auto) 0.2 %; Lymphocytes # (auto) 1.01 K/uL (1.2-3.4); Lymphocytes % (auto) 9.1 %; Mean Corpuscular Hemoglobin 29.8 pg (25-34); Mean Corpuscular Hgb Conc 34.6 g/dL (32-36); Mean Corpuscular Volume 86.2 fL (80-100); Mean Platelet Volume 9.7 fL (7.4-10.4); Monocytes % (auto) 5.4 %; Neutrophils # (auto) 9.39 K/uL (1.4-6.5); Platelet Count 235 K/uL (130-400); RDW Coefficient of Variation 12.9 % (11.5-14.5); RDW Standard Deviation 41.3 fL (36.4-46.3); White Blood Count 11.05 K/uL (4.8-10.8)
[2020-11-14 07:17] LABS: BUN Creatinine Ratio 23.8 (10-20); Blood Urea Nitrogen 27 mg/dl (7-18); Calcium 8.9 mg/dl (8.5-10.1); Carbon Dioxide 23 mmol/L (21-32); Chloride 109 mmol/L (98-107); Chol HDL Ratio 3; Cholesterol 125 mg/dl (0-200); Creatinine Clr Calc Pharmacy 78.9 ml/min; Est GFR (African American) 74.1; Est GFR (Non-African American) 63.9; Glucose 223 mg/dl (70-99); HDL Cholesterol 37 mg/dl; LDL Cholesterol Direct 63 mg/dl; Potassium 4.3 mmol/L (3.5-5.1); Sodium 139 mmol/L (136-145); Triglycerides 264 mg/dl (0-150); VLDL Cholesterol 53 mg/dl
--- NOTE | 2020-11-14 07:29 | XRay Report ---
XR chest 1V portable HISTORY: Atypical Chest Pain COMPARISON: None. FINDINGS: Prominence of interstitial markings, unchanged. No evidence for pulmonary edema. The heart is top normal in size. No pleural effusions. No pneumothorax. No new focal lung consolidations to sug gest pneumonia. IMPRESSION: No significant change compared to the prior study. No acute process. ACT 112: Negative or not required by law. Electronically signed by: Don Godoy M.D. 11/14/2020 7:28 AM
[2020-11-14] MEDS: ASPIRIN 81 MG ECTAB PO SCH (08:36)
[2020-11-14] MEDS: LOSARTAN POTASSIUM 50 MG TAB PO SCH (08:36)
[2020-11-14] MEDS: PANTOprazole 40 MG TAB PO SCH (08:38)
[2020-11-14] MEDS: INSULIN ASPART 100 UNITS/ML 3 ML PEN SC SCH ×4 (08:44→20:36)
[2020-11-14 09:28] LABS: Estimated Average Glucose 146 mg/dl; Hemoglobin A1C 6.7 % (4.5-5.6)
--- NOTE | 2020-11-14 09:42 | Cardiology Progress Note ---
Date of Service November 14, 2020 Assessment & Plan (1) Acute myocardial infarction: -Post PCI with DARLENE to distal circumflex Moderate nonculprit CAD 50% mid LAD 2. Atrial fibrillation 3. Hypertension 4. Type 2 diabetes 5. Dilated aortic root 6. Possible PAD (reduced RLE pulses) Chest pain-free. Remains in atrial fibrillation. Rate above goal No signs of heart failure on exam No apparent access site complications. Trend troponin until peak, echo pending. Continue DAPT with aspirin, ticagrelor Titrate up [id number] every 8 hour Continue losartan Continue high-intensity statin If A. fib persists overnight will consider starting anticoagulation Continue to monitor on telemetry today. Likely home tomorrow. Admission and Anticipated Discharge Date Admission Date: November 14, 2020 Subjective Feeling well this morning. No recurrent chest pain. Brief shortness of breath with up walking to the bathroom. Mild discomfort at right radial artery access site. No palpitations. Telemetry reviewedatrial fibrillation with heart rates primarily in the 100s to 110s, occasionally up to the 130s. Occasional PVCs. Review of Systems Review of Systems: All systems reviewed & are unremarkable except as noted in HPI & below Physical Exam Physical Exam: General: Comfortable HEENT: Sclerae anicteric Lungs: Clear to auscultation bilaterally Cardiac: Tachycardic, irregular regular, no murmurs Vascular: Right radial artery access site with no ecchymosis, hematoma. Distal pulse and sensation intact. 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 Abdomen: Soft, nontender Extremities: Well perfused, no peripheral edema Neuro: Nonfocal Psych: Alert orient x3, normal affect and mood Results & Data ([facility]) Vital Signs (Past 12 Hours) Vital Signs Temp Pulse Pulse Resp BP BP BP 11/14/20 07:40 98.2 F 101 H 19 146/77 H 11/14/20 07:36 115 H 11/14/20 06:07 101 H 123/70 11/14/20 05:07 99.1 F 104 H 20 104/67 11/14/20 04:07 99.0 F 116 H 116 H 20 119/68 119/68 11/14/20 03:07 99.0 F 121 H 18 130/77 11/14/20 02:07 106 H 121/78 11/14/20 01:37 107 H 129/84 11/14/20 01:07 116 H 126/82 11/14/20 00:52 121 H 128/85 11/14/20 00:37 112 H 131/76 11/14/20 00:26 97.7 F 121 H 18 137/76 11/14/20 00:22 97.7 F 121 H 18 137/76 11/13/20 22:51 87 18 169/87 H 11/13/20 22:40 98.8 F 88 15 153/95 H Pulse Ox 11/14/20 07:40 94 11/14/20 07:36 11/14/20 06:07 94 11/14/20 05:07 94 11/14/20 04:07 93 11/14/20 03:07 91 11/14/20 02:07 90 11/14/20 01:37 92 11/14/20 01:07 91 11/14/20 00:52 94 11/14/20 00:37 94 11/14/20 00:26 94 11/14/20 00:22 94 11/13/20 22:51 93 11/13/20 22:40 95 PG Care Time/CCT Total # of Minutes Spent Total Time Spent with Patient: Total time spent is greater than 50% in coordination of care (as documented) at patient's floor/unit and/or counseling patient: Coding Level of Care Code 06922 Subseq Hosp Care Lvl 3 Diagnoses Acute myocardial infarction I21.9
[2020-11-14] MEDS ORDERED: METOPROLOL TARTRATE 25 MG TAB PO ONE (10:00)
[2020-11-14] MEDS: SERTRALINE HCL 100 MG TABLET PO SCH (10:44)
[2020-11-14] MEDS: TICAGRELOR 90 MG TAB PO SCH ×2 (10:46→20:03)
[2020-11-14] MEDS: GLIMEPIRIDE 2 MG TAB PO SCH (12:12)
--- NOTE | 2020-11-14 13:20 | Hospitalist Consultation ---
Date of Consultation November 14, 2020 Assessment & Plan (1) Acute myocardial infarction: The patient underwent emergent left heart catheterization with subsequent PCI and DARLENE stent placement at a distal circumflex lesion for acute inferior posterior SC. Cardiology management Present on Admission?: Yes (2) Hyperlipidemia: Rosuvastatin dosage has been uptitrated this admission. Present on Admission?: Yes (3) Asthma: Currently stable. Continue nebulizer therapy as ordered Present on Admission?: Yes (4) Hypertension: Amlodipine has been switched to losartan this admission. Will follow Present on Admission?: Yes (5) Type 2 diabetes mellitus: Home medications have been restarted. Continue sliding scale coverage. ADA diet Present on Admission?: Yes History of Present Illness Reason for Consultation: Medical management Requesting Physician: Dr. Ayan Solares Attending Physician: Tony Solares MD History of Present Illness 75-year-old male with who presented with an acute inferior posterior SC. He was taken for heart catheterization and underwent PCI and DARLENE placement of a distal circumflex lesion. He has a history of hypertension, hyperlipidemia, type 2 diabetes and asthma. He is seen during the morning of November 14 and he had the heart catheterization and intervention last night. Allergies Allergy/AdvReac Type Severity Reaction Status Date / Time cefoxitin Allergy Intermediate HIVES Verified 11/13/20 23:00 clavulanic acid Allergy Intermediate Hives Verified 11/13/20 23:00 [From Timentin] ticarcillin [From Timentin] Allergy Intermediate Hives Verified 11/13/20 23:00 atorvastatin AdvReac Mild Joint Pain Verified 11/13/20 23:00 pravastatin AdvReac Mild Joint Pain Verified 11/13/20 23:00 Home Medications Medication Instructions Recorded Confirmed Type aspirin [Aspirin Low Dose] 81 mg PO QPM 10/12/18 11/13/20 History ibuprofen 400 mg PO QID PRN 10/12/18 11/13/20 History liraglutide 0.6 mg/0.1 mL (18 mg/3 1.8 mg SUBCUT DAILY #9 ml 11/02/19 11/13/20 Rx mL) subcutaneous pen injector glimepiride 1 mg tablet 1 mg PO QAM tab 02/16/20 11/13/20 History amlodipine 10 mg tablet 10 mg PO DAILY #90 tab 04/03/20 11/13/20 Rx rosuvastatin 5 mg tablet 5 mg PO HS #90 tab 06/28/20 11/13/20 Rx pen needle, diabetic 31 gauge x #100 ea 07/19/20 10/23/20 Rx 3/16" canagliflozin 300 mg tablet 300 mg PO DAILY #30 tab 07/25/20 11/13/20 Rx albuterol sulfate 90 mcg/actuation 2 puff INHALATION Q4H PRN #6.7 g 10/23/20 11/13/20 Rx aerosol inhaler diclofenac sodium 1 % topical gel 2 g TOP QID PRN #200 g 10/23/20 11/13/20 Rx losartan 100 mg tablet 100 mg PO QAM #90 tab 10/23/20 11/13/20 Rx olopatadine 0.2 % eye drops 1 drp OP DAILY #2.5 ml 10/23/20 11/13/20 Rx sertraline 100 mg tablet 100 mg PO DAILY #90 tab 10/23/20 11/13/20 Rx Patient History Medical History (Updated 11/13/20 @ 22:46 by Brady Drake MD) Abdominal pain, LLQ (left lower quadrant) Allergic rhinitis due to pollen Anemia Arthritis Asthma STABLE Atopic dermatitis Benign colonic polyp Benign localized hyperplasia of prostate with urinary obstruction Bladder calculus Carotid artery plaque Carotid bruit Cellulitis Depression Diverticular disease Diverticulitis of colon Diverticulosis of colon Erectile dysfunction Facial skin lesion Fatty liver H/O renal calculi Hearing deficit Heart murmur Hematuria Hemochromatosis PHLEBOTOMY TREATMENTS EVERY 3 MONTHS- FERRITIN LEVELS MONITORED BY HEMATOLOGY; LAST PHLEBOTOMY 2 MONTHS AGO History of colon polyps History of diverticulitis 09/2018= RESOLVED S/P ABX Hyperlipidemia Hypertension Irritable bowel syndrome Joint pain, knee Laceration of thumb, left Lower back pain Microscopic hematuria Obesity Ocular hypertension, unspecified eye Pain due to ureteral stent Renal calcification Renal colic Right leg pain Type 2 diabetes mellitus Ureteral calculus, right Urinary frequency Xerosis cutis Surgical History H/O cataract extraction History of colonoscopy History of tonsillectomy and adenoidectomy History of umbilical hernia repair History of vasectomy Hx of cystoscopy CYSTOSCOPY/LASER LITHOTRIPSY/STENT= 01/23/17= LMA#5 AT [facility] Hx of hand surgery LEFT HAND TENDON SURGERY Hx of transurethral resection of prostate AND BLADDER STONES REMOVED on 10/26/18 with LMA#5 Family History (Updated 12/17/19 @ 08:54 by Dionna Rivers MA) Mother Multiple myeloma Stroke Father Laryngeal cancer Grandfather (Maternal) Stroke Uncle Stroke Denies family history of Ovarian cancer Prostate cancer Myocardial infarction Breast cancer Colorectal cancer Social History (Updated 12/17/19 @ 08:54 by Dionna Rivers MA) Smoking Status: Never smoker Second Hand Exposure: No; Hx Alcohol Use: No Hx Substance Use: No Preferred Language: [place] Communication Ability: Effective Visual Impairment: No Limitations Hearing Ability: Use of Hearing Aid Sales Support Coordinator Required: No Beliefs That Will Affect Care: None marital status: Current Living Situation: Family current occupational status: retired Feels Safe at Home: Yes Childhood Exposure to Second-Hand Smoke: Yes Seatbelt Use: always Sunscreen Use: No Assistive Devices: Glasses Review of Systems Review of Systems: All systems reviewed & are unremarkable except as noted in HPI & below Physical Exam Physical Exam: General-alert and oriented x3, no fevers, no chills HEENT-head atraumatic and normocephalic, TMs intact bilaterally, pupils equal and reactive to light, extraocular muscles intact Neck-no lymphadenopathy or thyromegaly, trachea midline Chest-clear to auscultation percussion. No rales wheezing or rhonchi Cardiac-regular rate and rhythm, normal S1 and S2, no murmurs Abdomen-normal bowel sounds, nontender, no hepatosplenomegaly Extremities-no cyanosis, clubbing, or edema Neuro-cranial nerves II through XII intact, motor and sensory function within normal limits, strength symmetrical 5/5, no focal deficits Psych-normal affect, normal mood Results & Data Results & Data ([facility]) Vital Signs (Past 12 Hours) Vital Signs Temp Pulse Pulse Resp BP BP Pulse Ox 11/14/20 11:15 37.0 C 90 18 118/66 95 11/14/20 10:41 75 114/72 11/14/20 07:40 36.8 C 101 H 19 146/77 H 94 11/14/20 07:36 115 H 11/14/20 06:07 101 H 123/70 94 11/14/20 05:07 37.3 C 104 H 20 104/67 94 11/14/20 04:07 37.2 C 116 H 116 H 20 119/68 119/68 93 11/14/20 03:07 37.2 C 121 H 18 130/77 91 11/14/20 02:07 106 H 121/78 90 11/14/20 01:37 107 H 129/84 92 Laboratory Results 11/14/20 06:26 11/14/20 06:26 PG Care Time/CCT Total # of Minutes Spent Total Time Spent with Patient: Total time spent is greater than 50% in coordination of care (as documented) at patient's floor/unit and/or counseling patient: Coding Level of Care Code 64531 Inpt Consult Level 4 Diagnoses Acute myocardial infarction I21.9 Hyperlipidemia E78.5 Asthma J45.909 Hypertension I10 Type 2 diabetes mellitus E11.9
--- NOTE | 2020-11-14 16:37 | XCELERA ---
[id number] [id number]
--- NOTE | 2020-11-14 19:23 | Billing Data ---
Date of Service November 14, 2020 Coding Level of Care Code 40061 Initial Inpt Care Lvl 3
[2020-11-14] MEDS ORDERED: ROSUVASTATIN CALCIUM 20 MG TAB PO SCH (21:00)
--- NOTE | 2020-11-15 05:42 | Electrocardiogram Report ---
Test Reason : Blood Pressure : / mmHG Vent. Rate : 084 BPM Atrial Rate : 084 BPM P-R Int : 180 ms QRS Dur : 112 ms QT Int : 386 ms P-R-T Axes : 030 -14 070 degrees QTc Int : 456 ms Poor data quality, interpretation may be adversely affected Sinus rhythm with Premature atrial complexes ST elevation consider inferior injury or acute infarct ACUTE IA / STEMI Consider right ventricular involvement in acute inferior infarct Abnormal ECG When compared with ECG of 19-OCT-2018 09:15, ST elevation now present in Inferior leads ST now depressed in Lateral leads Confirmed by Jesus Zhao ([id number]) on 11/15/2020 5:42:20 AM Referred By: REFERRED SELF Confirmed By:Jesus Zhao
--- NOTE | 2020-11-15 05:45 | Electrocardiogram Report ---
Test Reason : Blood Pressure : / mmHG Vent. Rate : 102 BPM Atrial Rate : 101 BPM P-R Int : 000 ms QRS Dur : 108 ms QT Int : 332 ms P-R-T Axes : 000 -51 077 degrees QTc Int : 432 ms Atrial fibrillation with rapid ventricular response Left anterior fascicular block Inferior-posterior infarct ST depression, consider subendocardial injury Abnormal ECG When compared with ECG of 13-NOV-2020 22:43, Atrial fibrillation has replaced Sinus rhythm Left anterior fascicular block is now Present ST no longer elevated in Inferior leads Confirmed by Jesus Zhao ([id number]) on 11/15/2020 5:45:02 AM Referred By: REFERRED SELF Confirmed By:Jesus Zhao
[2020-11-15] MEDS: METOPROLOL TARTRATE 25 MG TAB PO SCH (06:39)
[2020-11-15 07:14] LABS: BUN Creatinine Ratio 22.9 (10-20); Calcium 9.1 mg/dl (8.5-10.1); Creatinine Clr Calc Pharmacy 82.1 ml/min; Est GFR (Non-African American) 70.7; Potassium 3.9 mmol/L (3.5-5.1)
[2020-11-15] MEDS: INSULIN ASPART 100 UNITS/ML 3 ML PEN SC SCH ×2 (08:18→12:03)
[2020-11-15] MEDS: GLIMEPIRIDE 2 MG TAB PO SCH (08:20)
[2020-11-15] MEDS: SERTRALINE HCL 100 MG TABLET PO SCH (08:21)
[2020-11-15] MEDS: ASPIRIN 81 MG ECTAB PO SCH (08:21)
[2020-11-15] MEDS: PANTOprazole 40 MG TAB PO SCH (08:21)
[2020-11-15] MEDS: LOSARTAN POTASSIUM 50 MG TAB PO SCH (08:22)
[2020-11-15] MEDS: TICAGRELOR 90 MG TAB PO SCH (08:22)
--- NOTE | 2020-11-15 11:55 | Hospitalist Progress Note ---
Date of Service November 15, 2020 Assessment & Plan (1) Acute myocardial infarction: The patient underwent emergent left heart catheterization on admission with subsequent PCI and DARLENE stent placement at a distal circumflex lesion for acute inferior posterior VA. Cardiology management (2) Hyperlipidemia: Rosuvastatin dosage has been uptitrated this admission. (3) Asthma: Currently stable. Continue nebulizer therapy as ordered (4) Hypertension: Amlodipine has been switched to losartan this admission. Will follow (5) Type 2 diabetes mellitus: Home medications have been restarted. Continue sliding scale coverage. ADA diet Disposition: Medically stable for discharge home today per primary service Admission and Anticipated Discharge Date Admission Date: November 14, 2020 Subjective Alert. No complaints. cardiology will be discharging pt home today. medically stable Review of Systems Review of Systems: All systems reviewed & are unremarkable except as noted in HPI & below Physical Exam Physical Exam: General-alert and oriented x3, no fevers, no chills HEENT-head atraumatic and normocephalic, TMs intact bilaterally, pupils equal and reactive to light, extraocular muscles intact Neck-no lymphadenopathy or thyromegaly, trachea midline Chest-clear to auscultation percussion. No rales wheezing or rhonchi Cardiac-regular rate and rhythm, normal S1 and S2, no murmurs Abdomen-normal bowel sounds, nontender, no hepatosplenomegaly Extremities-no cyanosis, clubbing, or edema Neuro-cranial nerves II through XII intact, motor and sensory function within normal limits, strength symmetrical 5/5, no focal deficits Psych-normal affect, normal mood Results & Data Results & Data ([facility]) Vital Signs (Past 12 Hours) Vital Signs Temp Pulse Pulse Resp BP Pulse Ox 11/15/20 07:31 37.2 C 77 20 125/75 95 11/15/20 07:18 67 11/15/20 04:24 37.2 C 80 16 132/76 92 Laboratory Results 11/14/20 06:26 11/15/20 06:27 PG Care Time/CCT Total # of Minutes Spent Total Time Spent with Patient: Total time spent is greater than 50% in coordination of care (as documented) at patient's floor/unit and/or counseling patient: Coding Level of Care Code 90582 Subseq Hosp Care Lvl 2 Diagnoses Acute myocardial infarction I21.9 Hyperlipidemia E78.5 Asthma J45.909 Hypertension I10 Type 2 diabetes mellitus E11.9
--- NOTE | 2020-11-17 10:53 | Discharge Summary ---
Date of Service November 17, 2020 Admission HPI Per Admitting Provider Fabian Rodríguez is a 75-year-old male with past medical history significant for hypertension, hyperlipidemia, type 2 diabetes, hemochromatosis, asthma; who presented for concerns for sudden onset chest pain earlier this evening. EKG on arrival to ED demonstrating ST elevations, patient was" subsequently taken to cardiac [facility] for catheterization with stenting. Subsequently had complete relief of chest pain, jaw pain, shortness of breath nausea, vomiting, diaphoretic symptoms. Following presentation to the floor from cardiac [facility], patient was noted to be in atrial fibrillation with heart rate between 110 and 130 despite new medications. Patient not feeling heart at this pace and feeling well, with the exception of some longstanding neck pain that is unchanged from prior to hospitalization. 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 Karen ID - Atrial fibrillation 3. Hypertension 4. Type 2 diabetes 5. Suspected ilated aortic root 6. Possible PAD (reduced RLE pulses) Patient presented with 90 minutes of chest pain with initial ECG showing inferior ST elevations. Emergent cardiac catheterization revealed a subtotally occluded large distal circumflex with ALVARADO I flow. Underwent successful PCI of mid to distal circumflex with single drug-eluting stent. Periprocedure course complicated by A. fib with RVR which self terminated approximately 12 hours after procedure. Troponin peaked at 21. Echocardiogram showed preserved LV function with severe hypokinesis of inferolateral wall. Also noted to have mild concentric LVH with asymmetric basal septal hypertrophy and moderate mitral regurgitation. Patient remained chest pain-free during remainder of hospitalization. Discharged home on hospital day 3 on aspirin and ticagrelor. Follow-up with cardiology in 2 weeks. Discharge Instructions Home Medications aspirin [Aspirin Low Dose] 81 mg PO QPM 10/12/18 [History Confirmed 11/17/20] liraglutide 0.6 mg/0.1 mL (18 mg/3 mL) subcutaneous pen injector 1.8 mg SUBCUT DAILY #9 ml 11/02/19 [Rx Confirmed 11/17/20] glimepiride 1 mg tablet 1 mg PO QAM tab 02/16/20 [History Confirmed 11/17/20] pen needle, diabetic 31 gauge x 3/16" #100 ea 07/19/20 [Rx Confirmed 11/17/20] canagliflozin 300 mg tablet 300 mg PO DAILY #30 tab 07/25/20 [Rx Confirmed 11/17/20] albuterol sulfate 90 mcg/actuation aerosol inhaler 2 puff INHALATION Q4H PRN #6. 7 g 10/23/20 [Rx Confirmed 11/17/20] diclofenac sodium 1 % topical gel 2 g TOP QID PRN #200 g 10/23/20 [Rx Confirmed 11/17/20] losartan 100 mg tablet 100 mg PO QAM #90 tab 10/23/20 [Rx Confirmed 11/17/20] olopatadine 0.2 % eye drops 1 drp OP DAILY #2.5 ml 10/23/20 [Rx Confirmed 11/17/20] sertraline 100 mg tablet 100 mg PO DAILY #90 tab 10/23/20 [Rx Confirmed 11/17/20] metoprolol succinate 100 mg PO DAILY #30 tab 11/15/20 [Rx Confirmed 11/17/20] nitroglycerin [Nitrostat] 0.4 mg SUBLINGUAL Q5M PRN #30 tab 11/15/20 [Rx Confirmed 11/17/20] rosuvastatin [Crestor] 20 mg PO HS #30 tab 11/15/20 [Rx Confirmed 11/17/20] ticagrelor [Brilinta] 90 mg PO BID #60 tab 11/15/20 [Rx Confirmed 11/17/20] Coding Level of Care Code D/C Day Management <30 mins Diagnoses Acute myocardial infarction I21.9
== END 2020-11-15 12:30 | disposition home or self-care (01) | DRG 247 ==
LOC: ED 22:39 → CC 22:54 → 2S 22:54 → INTOOBSV 11-14 00:28 → OBSVTOIN 11-14 00:28

== ENCOUNTER 2021-02-15 15:43 | Observation (INO) ==
[2021-02-15] MEDS: SODIUM CHLORIDE 0.9% 500 ML IV SCH (16:23)
[2021-02-15 16:34] LABS: Basophils # (auto) 0.02 K/uL (0-0.2); Basophils % (auto) 0.2 %; Eosinophils # (auto) 0.07 K/uL (0-0.5); Eosinophils % (auto) 0.8 %; Hematocrit (blood only) 46.8 % (42-52); Hemoglobin 15.8 g/dL (14.0-18.0); Immature Granulocytes # (auto) 0.01 K/uL (0.00-0.02); Immature Granulocytes % (auto) 0.1 %; Lymphocytes # (auto) 1.26 K/uL (1.2-3.4); Lymphocytes % (auto) 14.4 %; Mean Corpuscular Hemoglobin 29.6 pg (25-34); Mean Corpuscular Hgb Conc 33.8 g/dL (32-36); Mean Corpuscular Volume 87.6 fL (80-100); Mean Platelet Volume 9.6 fL (7.4-10.4); Monocytes # (auto) 0.41 K/uL (0.11-0.59); Monocytes % (auto) 4.7 %; Neutrophils # (auto) 6.96 K/uL (1.4-6.5); Neutrophils % (auto) 79.8 %; Platelet Count 287 K/uL (130-400); RDW Coefficient of Variation 13.4 % (11.5-14.5); RDW Standard Deviation 43.2 fL (36.4-46.3); Red Blood Count 5.34 M/uL (4.7-6.1); White Blood Count 8.73 K/uL (4.8-10.8)
--- NOTE | 2021-02-15 16:41 | Emergency Department Note ---
History of Present Illness General Chief complaint: Tachycardia Stated complaint: ELEVATED HEART RATE, ELEVATED BLOOD PRESSURE Time Seen by Provider: 02/15/21 15:56 Source: patient Mode of arrival: ambulatory Limitations: no limitations History of Present Illness Provider complaint: Elevated heart rate Onset (ago): hour(s) This is a 75-year-old male presents emergency department with concern for an elevated heart rate has discovered on his apple watch. Patient states this morning he went about his usual routine when he became "foggy" and felt nauseated. Patient states he dry heaves several times and vomited. Patient states he went and took a nap for 2 to 3 hours and when he woke up he felt markedly improved. States approximately an hour after waking while seated he looked at his watch and realized that his heart rate was elevated, but denied any accompanying symptoms. He states he waited for some time to see if it would improve on its own and it did not so he contacted his customer relations assistant office. He was instructed to come the emergency room for additional evaluation. Patient denies any change in his medications. Patient did have an MO and stent placement back in October. States he has been doing cardiac rehab without any difficulty and is felt well. Patient denies any fevers, chills, cough or cold symptoms. No change in bowel or bladder function, no lower extremity edema. Patient denies bleeding from any source. Pt seen during a time of high acuity and national emergency pandemic while wearing PPE. Home Medications Medication Instructions Recorded Confirmed Type aspirin [Aspirin Low Dose] 81 mg PO QPM 10/12/18 02/15/21 History glimepiride 1 mg tablet 1 mg PO QAM tab 02/16/20 02/15/21 History pen needle, diabetic 31 gauge x #100 ea 07/19/20 02/15/21 Rx 3/16" canagliflozin 300 mg tablet 300 mg PO DAILY #30 tab 07/25/20 02/15/21 Rx albuterol sulfate 90 mcg/actuation 2 puff INHALATION Q4H PRN #6.7 g 10/23/20 02/15/21 Rx aerosol inhaler diclofenac sodium 1 % topical gel 2 g TOP QID PRN #200 g 10/23/20 02/15/21 Rx olopatadine 0.2 % eye drops 1 drp OP DAILY #2.5 ml 10/23/20 02/15/21 Rx sertraline 100 mg tablet 100 mg PO DAILY #90 tab 10/23/20 02/15/21 Rx Brilinta 90 mg PO BID #60 tab 11/15/20 02/15/21 Rx metoprolol succinate 100 mg PO DAILY #30 tab 11/15/20 02/15/21 Rx nitroglycerin [Nitrostat] 0.4 mg SUBLINGUAL Q5M PRN #30 tab 11/15/20 02/15/21 Rx rosuvastatin [Crestor] 20 mg PO HS #30 tab 11/15/20 02/15/21 Rx losartan 100 mg tablet 100 mg PO QAM #90 tab 11/17/20 02/15/21 Rx acetaminophen 650 mg 1,300 mg PO Q12H tab 11/23/20 02/15/21 History tablet,extended release liraglutide 0.6 mg/0.1 mL (18 mg/3 1.8 mg SUBCUT DAILY #18 ml 02/16/21 Rx mL) subcutaneous pen injector Allergies Allergy/AdvReac Type Severity Reaction Status Date / Time cefoxitin Allergy Intermediate HIVES Verified 02/15/21 17:55 clavulanic acid Allergy Intermediate Hives Verified 02/15/21 17:55 [From Timentin] ticarcillin [From Timentin] Allergy Intermediate Hives Verified 02/15/21 17:55 atorvastatin AdvReac Mild Joint Pain Verified 02/15/21 17:55 pravastatin AdvReac Mild Joint Pain Verified 02/15/21 17:55 Past Med/Surg History Medical History Abdominal pain, LLQ (left lower quadrant) Allergic rhinitis due to pollen Anemia Arthritis Asthma STABLE Atopic dermatitis Atrial fibrillation post MO on 11/14; w/ RVR Benign colonic polyp Benign localized hyperplasia of prostate with urinary obstruction Bladder calculus Carotid artery plaque Carotid bruit Cellulitis Depression Diabetes mellitus Type 2 Diverticular disease Diverticulitis of colon Diverticulosis of colon Erectile dysfunction Facial skin lesion Fatty liver H/O renal calculi Hearing deficit Heart murmur Hematuria Hemochromatosis PHLEBOTOMY TREATMENTS EVERY 3 MONTHS- FERRITIN LEVELS MONITORED BY HEMATOLOGY; LAST PHLEBOTOMY 2 MONTHS AGO History of colon polyps History of diverticulitis 09/2018= RESOLVED S/P ABX Hyperlipidemia Hypertension Irritable bowel syndrome Joint pain, knee Laceration of thumb, left Lower back pain Microscopic hematuria Obesity Ocular hypertension, unspecified eye Pain due to ureteral stent Renal calcification Renal colic Right leg pain Type 2 diabetes mellitus Ureteral calculus, right Urinary frequency Xerosis cutis Surgical History H/O cataract extraction History of colonoscopy History of heart artery stent Inf STEMI on 11/14:subtotal occ. Large distal Cx s/p PCI of m/dCx w/single DARLENE History of tonsillectomy and adenoidectomy History of umbilical hernia repair History of vasectomy Hx of cystoscopy CYSTOSCOPY/LASER LITHOTRIPSY/STENT= 01/23/17= LMA#5 AT [facility] Hx of hand surgery LEFT HAND TENDON SURGERY Hx of transurethral resection of prostate AND BLADDER STONES REMOVED on 10/26/18 with LMA#5 Family History Mother Multiple myeloma Stroke Father Laryngeal cancer Grandfather (Maternal) Stroke Uncle Stroke Denies family history of Ovarian cancer Prostate cancer Myocardial infarction Breast cancer Colorectal cancer Social History Smoking Status: Never smoker Second Hand Exposure: Yes; Hx Alcohol Use: No Hx Substance Use: No Preferred Language: Armenian Communication Ability: Effective Visual Impairment: No Limitations Hearing Ability: Use of Hearing Aid [place] Seal Required: No Beliefs That Will Affect Care: None marital status: Current Living Situation: Spouse current occupational status: retired 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 and A total of 10 systems reviewed and were otherwise negative Physical Exam Vital Signs Vital Signs - 24 hr 02/15/21 21:00 02/15/21 21:30 02/15/21 21:46 Pulse Rate 97 H 99 H 97 H Pulse Rate from SpO2 Sensor 94 H 94 H 97 H Respiratory Rate 13 13 16 Blood Pressure 150/83 H Blood Pressure Mean 105 Pulse Oximetry 96 96 97 02/15/21 22:00 02/15/21 22:42 02/15/21 23:02 Pulse Rate 96 H 90 88 Pulse Rate from SpO2 Sensor 95 H 88 88 Respiratory Rate 12 20 15 Blood Pressure 132/79 Blood Pressure Mean 96 Pulse Oximetry 96 96 97 02/15/21 23:03 02/15/21 23:30 Pulse Rate 86 86 Pulse Rate from SpO2 Sensor 87 85 Respiratory Rate 15 14 Blood Pressure Blood Pressure Mean Pulse Oximetry 96 94 GENERAL: alert, well appearing, well nourished, no distress, non-toxic EYE EXAM: normal conjunctiva, PERRL and EOM's grossly intact OROPHARYNX: no exudate, no erythema, lips, buccal mucosa, and tongue normal and mucous membranes are moist NECK: supple, no nuchal rigidity, no adenopathy, non-tender LUNGS: Clear to auscultation. Normal chest wall mechanics, no w/r/r HEART: no murmurs, S1 normal and S2 normal, sinus tachy on tele at 116 ABDOMEN: abdomen soft, non-tender, normo-active bowel sounds, no masses, no rebound or guarding. BACK: Back is symmetrical on inspection and there is no deformity, no midline tenderness, no CVA tenderness. SKIN: no rashes and no bruising UPPER EXTREMITIES: upper extremities are grossly normal. FROM, nml pulses b/l. LOWER EXTREMITIES: No pitting edema. FROM, nml pulses b/l. NEURO EXAM: Normal sensorium, cranial nerves II-XII grossly intact, normal speech, no gross weakness of arms, no gross weakness of legs. Gross sensation intact. Course Course 1758: Updated at bedside. She states he is persistently tachycardic yet, but denies any symptoms. 1804: Discussed with Dr. Solares, cardiology. 1845: Discussed with Dr. Solares again. Recommends repeat trop and increased metoprolol. They will followup in the office. He did a bedside echo himself and states there were no significantly concerning findings for today's tachycardia. 1949: Patient updated on plan, second troponin still pending. 2104: Discussed with Dr. Solares again, recommends keeping patient overnight for echo in the morning. 2117: Patient updated on plan and is in agreement. Administered Medications Discontinued Medications Sodium Chloride (Nss) 500 mls @ 125 mls/hr IV .Q4H RONALD Stop: 03/17/21 15:59 Last Infusion: 02/16/21 02:15 Dose: 0 mls/hr Documented by: [id number] Admin: 02/16/21 01:58 Dose: 125 mls/hr Documented by: [id number] Admin: 02/16/21 01:56 Dose: Not Given Documented by: [id number] Infusion: 02/15/21 19:59 Dose: 0 mls/hr Documented by: [id number] Infusion: 02/15/21 17:28 Dose: 0 mls/hr Documented by: [id number] Admin: 02/15/21 16:23 Dose: 125 mls/hr Documented by: [id number] Sodium Chloride (Nss 1000ml) 1,000 mls @ 125 mls/hr IV .Q8H RONALD Stop: 03/18/21 02:14 Last Admin: 02/16/21 08:45 Dose: 125 mls/hr Documented by: [id number] Infusion: 02/16/21 08:45 Dose: 125 mls/hr Documented by: [id number] Admin: 02/16/21 02:20 Dose: 125 mls/hr Documented by: [id number] Insulin Aspart (Insulin Aspart 100 Units/Ml 3 Ml Pen) 0 units SC ACHS RONALD Stop: 03/18/21 07:29 Last Admin: 02/16/21 11:37 Dose: Not Given Documented by: [id number] Admin: 02/16/21 08:38 Dose: Not Given Documented by: [id number] Losartan Potassium (Losartan Potassium 50 Mg Tab) 100 mg PO QAM RONALD Stop: 03/18/21 08:59 Last Admin: 02/16/21 08:37 Dose: 100 mg Documented by: [id number] Metoprolol Succinate (Metoprolol Succ 50mg Ext Rel Tab) 100 mg PO DAILY RONALD Stop: 03/18/21 08:59 Last Admin: 02/16/21 08:37 Dose: 100 mg Documented by: [id number] Metoprolol Tartrate (Metoprolol Tartrate 50 Mg Tab) 50 mg PO NOW STA Stop: 02/15/21 21:19 Last Admin: 02/15/21 21:48 Dose: 50 mg Documented by: [id number] Sertraline HCl (Sertraline Hcl 100 Mg Tablet) 100 mg PO DAILY RONALD Stop: 03/18/21 08:59 Last Admin: 02/16/21 08:37 Dose: 100 mg Documented by: [id number] Ticagrelor (Ticagrelor 90 Mg Tab) 90 mg PO BID RONALD Stop: 03/17/21 21:44 Last Admin: 02/16/21 08:38 Dose: 90 mg Documented by: [id number] Admin: 02/16/21 02:20 Dose: 90 mg Documented by: [id number] Medical Decision Making Differential Diagnosis Differential diagnosis includes etiologies such as premature contractions, electrolyte abnormality, cardiac dysrhythmia, thyroid dysfunction, pulmonary embolism, infection, gastrointestinal, as well as others were entertained. Medical Records Attestation: I reviewed the patient's medical records. Home Medications Current Medication List: was personally reviewed by me Laboratory Data Attestation: I reviewed the patient's lab results. Result diagrams: 02/16/21 02:35 02/16/21 02:35 Lab Results 02/15/21 02/15/21 02/15/21 Range/Units 16:20 16:20 16:20 WBC 8.73 (4.8-10.8) K/uL RBC 5.34 (4.7-6.1) M/uL Hgb 15.8 (14.0-18.0) g/dL Hct 46.8 (42-52) % MCV 87.6 (80-100) fL MCH 29.6 (25-34) pg MCHC 33.8 (32-36) g/dL RDW Std Deviation 43.2 (36.4-46.3) fL RDW Coeff of Aria 13.4 (11.5-14.5) % Plt Count 287 (130-400) K/uL MPV 9.6 (7.4-10.4) fL Immature Gran % (Auto) 0.1 % Neut % (Auto) 79.8 % Lymph % (Auto) 14.4 % [place] % (Auto) 4.7 % Eos % (Auto) 0.8 % Baso % (Auto) 0.2 % Neut # (Auto) 6.96 H (1.4-6.5) K/uL Lymph # (Auto) 1.26 (1.2-3.4) K/uL [place] # (Auto) 0.41 (0.11-0.59) K/uL Eos # (Auto) 0.07 (0-0.5) K/uL Baso # (Auto) 0.02 (0-0.2) K/uL Immature Gran # (Auto) 0.01 (0.00-0.02) K/uL Sodium 137 (136-145) mmol/L Potassium 4.1 (3.5-5.1) mmol/L Chloride 104 (98-107) mmol/L Carbon Dioxide 22 (21-32) mmol/L Anion Gap 11.0 (3-11) BUN 26 H (7-18) mg/dl Creatinine 0.98 (0.6-1.4) mg/dl Est Cr Clr Drug Dosing Not Reportable Est GFR ( Amer) 87.1 ml/min Est GFR (Non-Af Amer) 75.1 ml/min BUN/Creatinine Ratio 26.2 H (10-20) Glucose 81 (70-99) mg/dl Calcium 9.8 (8.5-10.1) mg/dl Magnesium 2.2 (1.8-2.4) mg/dl Total Bilirubin 0.7 (0.2-1) mg/dl AST 27 (15-37) U/L ALT 39 (12-78) U/L Alkaline Phosphatase 62 (45-117) U/L Troponin I < 0.015 (0-0.045) ng/ml NT-Pro-B Natriuret Pep 159 (0-900) pg/ml Total Protein 8.3 H (6.4-8.2) gm/dl Albumin 4.3 (3.4-5.0) gm/dl Globulin 4.0 (2.5-4.0) gm/dl Albumin/Globulin Ratio 1.1 (0.9-2) Lipase 148 (73-393) U/L TSH 3.230 (0.300-4.500) uIu/ml Urine Color Urine Appearance (Clear) Urine pH (4.5-7.5) Ur Specific [place] (1.000-1.030) Urine Protein (Negative) Urine Glucose (UA) (Negative) Urine Ketones (Negative) Urine Blood (Negative) Urine Nitrite (Negative) Urine Bilirubin (Negative) Urine Urobilinogen (Negative) Ur Leukocyte Esterase (Negative) Urine WBC (Auto) (0-5) /hpf Urine RBC (Auto) (0-4) /hpf U Hyaline Cast (Auto) (0-5) /lpf U Epithel Cells (Auto) (0-5) /lpf Urine Bacteria (Auto) (Negative) Lyme Disease IgG Ab Negative (Negative) Lyme Disease IgM Ab Negative (Negative) COVID-19 Eval Order SARS-CoV-2 (PCR) (Negative) 02/15/21 02/15/21 02/15/21 Range/Units 17:30 19:46 21:50 WBC (4.8-10.8) K/uL RBC (4.7-6.1) M/uL Hgb (14.0-18.0) g/dL Hct (42-52) % MCV (80-100) fL MCH (25-34) pg MCHC (32-36) g/dL RDW Std Deviation (36.4-46.3) fL RDW Coeff of Aria (11.5-14.5) % Plt Count (130-400) K/uL MPV (7.4-10.4) fL Immature Gran % (Auto) % Neut % (Auto) % Lymph % (Auto) % [place] % (Auto) % Eos % (Auto) % Baso % (Auto) % Neut # (Auto) (1.4-6.5) K/uL Lymph # (Auto) (1.2-3.4) K/uL [place] # (Auto) (0.11-0.59) K/uL Eos # (Auto) (0-0.5) K/uL Baso # (Auto) (0-0.2) K/uL Immature Gran # (Auto) (0.00-0.02) K/uL Sodium (136-145) mmol/L Potassium (3.5-5.1) mmol/L Chloride (98-107) mmol/L Carbon Dioxide (21-32) mmol/L Anion Gap (3-11) BUN (7-18) mg/dl Creatinine (0.6-1.4) mg/dl Est Cr Clr Drug Dosing Est GFR ( Amer) ml/min Est GFR (Non-Af Amer) ml/min BUN/Creatinine Ratio (10-20) Glucose (70-99) mg/dl Calcium (8.5-10.1) mg/dl Magnesium (1.8-2.4) mg/dl Total Bilirubin (0.2-1) mg/dl AST (15-37) U/L ALT (12-78) U/L Alkaline Phosphatase (45-117) U/L Troponin I 0.028 (0-0.045) ng/ml NT-Pro-B Natriuret Pep (0-900) pg/ml Total Protein (6.4-8.2) gm/dl Albumin (3.4-5.0) gm/dl Globulin (2.5-4.0) gm/dl Albumin/Globulin Ratio (0.9-2) Lipase (73-393) U/L TSH (0.300-4.500) uIu/ml Urine Color Yellow Urine Appearance Clear (Clear) Urine pH 5.0 (4.5-7.5) Ur Specific [place] 1.019 (1.000-1.030) Urine Protein Negative (Negative) Urine Glucose (UA) 2+ H (Negative) Urine Ketones 1+ H (Negative) Urine Blood 1+ H (Negative) Urine Nitrite Negative (Negative) Urine Bilirubin Negative (Negative) Urine Urobilinogen Negative (Negative) Ur Leukocyte Esterase Trace H (Negative) Urine WBC (Auto) 5-10 H (0-5) /hpf Urine RBC (Auto) 0-4 (0-4) /hpf U Hyaline Cast (Auto) 1-5 (0-5) /lpf U Epithel Cells (Auto) 5-10 H (0-5) /lpf Urine Bacteria (Auto) Negative (Negative) Lyme Disease IgG Ab (Negative) Lyme Disease IgM Ab (Negative) COVID-19 Eval Order Covid19 at [facility] SARS-CoV-2 (PCR) (Negative) 02/15/21 Range/Units 21:50 WBC (4.8-10.8) K/uL RBC (4.7-6.1) M/uL Hgb (14.0-18.0) g/dL Hct (42-52) % MCV (80-100) fL MCH (25-34) pg MCHC (32-36) g/dL RDW Std Deviation (36.4-46.3) fL RDW Coeff of Aria (11.5-14.5) % Plt Count (130-400) K/uL MPV (7.4-10.4) fL Immature Gran % (Auto) % Neut % (Auto) % Lymph % (Auto) % [place] % (Auto) % Eos % (Auto) % Baso % (Auto) % Neut # (Auto) (1.4-6.5) K/uL Lymph # (Auto) (1.2-3.4) K/uL [place] # (Auto) (0.11-0.59) K/uL Eos # (Auto) (0-0.5) K/uL Baso # (Auto) (0-0.2) K/uL Immature Gran # (Auto) (0.00-0.02) K/uL Sodium (136-145) mmol/L Potassium (3.5-5.1) mmol/L Chloride (98-107) mmol/L Carbon Dioxide (21-32) mmol/L Anion Gap (3-11) BUN (7-18) mg/dl Creatinine (0.6-1.4) mg/dl Est Cr Clr Drug Dosing Est GFR ( Amer) ml/min Est GFR (Non-Af Amer) ml/min BUN/Creatinine Ratio (10-20) Glucose (70-99) mg/dl Calcium (8.5-10.1) mg/dl Magnesium (1.8-2.4) mg/dl Total Bilirubin (0.2-1) mg/dl AST (15-37) U/L ALT (12-78) U/L Alkaline Phosphatase (45-117) U/L Troponin I (0-0.045) ng/ml NT-Pro-B Natriuret Pep (0-900) pg/ml Total Protein (6.4-8.2) gm/dl Albumin (3.4-5.0) gm/dl Globulin (2.5-4.0) gm/dl Albumin/Globulin Ratio (0.9-2) Lipase (73-393) U/L TSH (0.300-4.500) uIu/ml Urine Color Urine Appearance (Clear) Urine pH (4.5-7.5) Ur Specific [place] (1.000-1.030) Urine Protein (Negative) Urine Glucose (UA) (Negative) Urine Ketones (Negative) Urine Blood (Negative) Urine Nitrite (Negative) Urine Bilirubin (Negative) Urine Urobilinogen (Negative) Ur Leukocyte Esterase (Negative) Urine WBC (Auto) (0-5) /hpf Urine RBC (Auto) (0-4) /hpf U Hyaline Cast (Auto) (0-5) /lpf U Epithel Cells (Auto) (0-5) /lpf Urine Bacteria (Auto) (Negative) Lyme Disease IgG Ab (Negative) Lyme Disease IgM Ab (Negative) COVID-19 Eval Order SARS-CoV-2 (PCR) NEGATIVE (Negative) Imaging Data Radiologist's Impression: Chest X-Ray 02/15/21 15:57 SINGLE VIEW CHEST CLINICAL HISTORY: Tachycardia. FINDINGS: An AP, portable, upright chest radiograph is compared to study dated 11/13/2020. The heart is mildly enlarged noting atherosclerotic calcification of the thoracic aorta. The pulmonary vasculature is noncongested. Chronic i nterstitial thickening is similar to previous. There is mild bibasilar scarring/atelectasis. No airspace consolidation or large pleural effusion is identified. No pneumothorax is seen. The skeletal structures are osteopenic. The bony thorax is grossly intact. IMPRESSION: No acute cardiopulmonary abnormality. ACT 112: Negative or not required by law. Electronically signed by: Enrique Ring M.D. 02/15/2021 5:[address] 02/15/21 17:34 CT head/brain wo con CLINICAL HISTORY: lightheaded, vomiting COMPARISON STUDY: No previous studies for comparison. TECHNIQUE: Axial CT of the brain is performed from the vertex to the skull base. IV contrast was not administered for this examination. A dose lowering technique was utilized adhering to the principles of ALARA. CT DOSE: 614.27 mGy.cm FINDINGS: No intra or extra-axial mass lesions are visualized. There is no CT evidence of acute cortical infarction. There is no evidence of midline shift. There is no acute hemorrhage. No acute depressed calvarial fractures are visualized. There are patchy white matter hypodensities likely on a small vessel basis. Prominent atrophic changes of brain parenchyma are seen and associated with mild ex vacuo dilatation of ventricles. There is no evidence of acute sinusitis IMPRESSION: No acute intracranial hemorrhage, no midline shift or space occupying lesions. Chronic small vessel ischemia. Atrophic changes of brain parenchyma associated with ex vacuo dilatation of ventricles. ACT 112: Negative or not required by law. The above report was generated using voice recognition software. It may contain grammatical, syntax or spelling errors. Electronically signed by: Radha Bangura DO 02/15/2021 6:02 PM ECG Data Attestation: I personally reviewed and interpreted this ECG as follows: Indication: + tachycardia Rate (beats per minute): 112 Rhythm: + sinus tachycardia ECG Intervals/blocks: + First degree AV block, + Normal QRS and + Normal QT ECG [place]: + Left axis deviation ECG ST segments: + Normal ST segments ECG Findings: + PVCs MDM Narrative This is a well-appearing 75-year-old male who presents due to concern for tachycardia noted at home on his apple watch. Patient did earlier this morning have lightheadedness and vomiting, however upon noting the tachycardia though symptoms had resolved. Unclear etiology of the symptoms earlier this morning. Patient's labs and imaging here are reassuring regarding both his initial symptoms as well as the persistent tachycardia despite him being asymptomatic on presentation here. Patient did have recent MO and stent placement back in October, has been participating in cardiac rehab, and states he has not noticed any exertional symptoms or changes recently. Patient was hemodynamically stable here despite having persistent sinus tachycardia. No evidence of other dysrhyth [place]. Case discussed with Dr. Solares who saw and evaluated the patient at bedside, did perform a bedside echo himself initially in the emergency room. Initial plan was for repeat troponin and continued monitoring and if stable to be discharged home to close follow-up as an outpatient. Upon additional discussion with Dr. Solares regarding second troponin and plan, he feels patient would be best served observed in the hospital overnight with continued telemetry monitoring, repeat troponin in the morning as well as echo. This was discussed with patient and at bedside who verbalized understanding and were in agreement. Despite persistent tachycardia patient continued to be well improving. Overall range of tachycardia did slowly lessen and he was closer to 100 although he states this is still elevated compared to where he has been even during exertion at cardiac rehab. At this time I do not suspect PE, dissection, tamponade, pericarditis/myocarditis, occult pneumonia, GI bleed, anemia, occult infectious etiology, thoracic aneurysm, or ACS. An order was placed for continuous cardiac monitoring. The monitor shows a rate of _116 with _sinus tachycardia_ rhythm. Patient has a family history of CAD. Patient was first seen and observation began at 1556 and was necessary in order to determine etiology of tachycardia, rule out ACS, and treatment plan. Upon re-evaluation, 5 hours of observation revealed that the patient should be admitted. Discharge time at 2117. Impression & Plan Tachycardia Discharge Plan Visit Data Chief Complaint: Tachycardia Stated Complaint: ELEVATED HEART RATE, ELEVATED BLOOD PRESSURE ED Provider: Jacinda Archuleta Discharge Problem: Tachycardia Patient Disposition: Admitted As Inpatient Condition: Good Discharge Instructions Interventions: ED Discharge Assessment Last Done: 02/16/21 00:51
[2021-02-15 16:58] LABS: Alanine Aminotransferase 39 U/L (12-78); Albumin Level 4.3 gm/dl (3.4-5.0); Aspartate Aminotransferase 27 U/L (15-37); BUN Creatinine Ratio 26.2 (10-20); Blood Urea Nitrogen 26 mg/dl (7-18); Calcium 9.8 mg/dl (8.5-10.1); Carbon Dioxide 22 mmol/L (21-32); Chloride 104 mmol/L (98-107); Est GFR (African American) 87.1 ml/min; Est GFR (Non-African American) 75.1 ml/min; Glucose 81 mg/dl (70-99); Lipase 148 U/L (73-393); Magnesium 2.2 mg/dl (1.8-2.4); Potassium 4.1 mmol/L (3.5-5.1); Sodium 137 mmol/L (136-145)
[2021-02-15 17:09] LABS: Albumin Globulin Ratio 1.1 (0.9-2); Alkaline Phosphatase 62 U/L (45-117); Bilirubin,Total 0.7 mg/dl (0.2-1); NT Pro B Type Natriuretic Pept 159 pg/ml (0-900); Total Protein 8.3 gm/dl (6.4-8.2); Troponin I < 0.015 ng/ml (0-0.045)
--- NOTE | 2021-02-15 17:19 | XRay Report ---
SINGLE VIEW CHEST CLINICAL HISTORY: Tachycardia. FINDINGS: An AP, portable, upright chest radiograph is compared to study dated 11/13/2020. The heart i s mildly enlarged noting atherosclerotic calcification of the thoracic aorta. The pulmonary vasculatu re is noncongested. Chronic interstitial thickening is similar to previous. There is mild bibasilar s carring/atelectasis. No airspace consolidation or large pleural effusion is identified. No pneumothor ax is seen. The skeletal structures are osteopenic. The bony thorax is grossly intact. IMPRESSION: No acute cardiopulmonary abnormality. ACT 112: Negative or not required by law. Electronically signed by: Enrique Ring M.D. 02/15/2021 5:18 PM
[2021-02-15 17:55] LABS: Appearance Urine Clear (Clear); Bacteria Urine Automated Negative (Negative); Bilirubin Urine Negative (Negative); Blood Urine 1+ (Negative); Color Urine Yellow; Glucose Urine UA 2+ (Negative); Ketones Urine 1+ (Negative); Leukocyte Esterase Urine Trace (Negative); Nitrite Urine Negative (Negative); Protein Urine Negative (Negative); RBC Urine Automated 0-4 /hpf (0-4); Specific Gravity Urine 1.019 (1.000-1.030); Urobilinogen Urine Negative (Negative)
--- NOTE | 2021-02-15 18:04 | CT Scan Report ---
CT head/brain wo con CLINICAL HISTORY: lightheaded, vomiting COMPARISON STUDY: No previous studies for comparison. TECHNIQUE: Axial CT of the brain is performed from the vertex to the skull base. IV contrast was not administered for this examination. A dose lowering technique was utilized adhering to the principles of ALARA. CT DOSE: 614.27 mGy.cm FINDINGS: No intra or extra-axial mass lesions are visualized. There is no CT evidence of acute cortical infarc tion. There is no evidence of midline shift. There is no acute hemorrhage. No acute depressed calvar ial fractures are visualized. There are patchy white matter hypodensities likely on a small vessel basis. Prominent atrophic changes of brain parenchyma are seen and associated with mild ex vacuo dilatation of ventricles. There is no evidence of acute sinusitis IMPRESSION: No acute intracranial hemorrhage, no midline shift or space occupying lesions. Chronic small vessel ischemia. Atrophic changes of brain parenchyma associated with ex vacuo dilatation of ventricles. ACT 112: Negative or not required by law. The above report was generated using voice recognition software. It may contain grammatical, syntax o r spelling errors. Electronically signed by: Radha Bangura DO 02/15/2021 6:02 PM
[2021-02-15 18:46] LABS: Lyme Ab IgG w/WB Rflx Negative (Negative)
[2021-02-15 18:47] LABS: Lyme Ab IgM w/WB Rflx Negative (Negative)
[2021-02-15] MEDS ORDERED: METOPROLOL TARTRATE 50 MG TAB PO STA (21:18)
--- NOTE | 2021-02-15 23:16 | History & Physical Report ---
Date of Service February 15, 2021 Assessment & Plan (1) Tachycardia: Fabian Bryan is a 75y/o male with PMH significant for severe CAD recent STEMI 3 months ago s/p PCI, asthma, hyperlipidemia, hypertension, type 2 diabetes; who presents following episode of nausea, and vomiting with subsequent noticing of elevated heart rate and elevated blood pressure. Tachycardia: -Tachycardic to the low 120s in the ED at times, with reported tachycardia noticed on apple watch at home of 140 -Received additional dose of 50 mg metoprolol p.o. in ED -Subsequent improvement of tachycardia while in ED -Initial troponin less than 0.015, subsequent 0.028 -Continue to trend troponins overnight -Admission to telemetry unit given CAD -Cardiology consulted -Echo in a.m. Coronary artery disease: -S/p PCI to distal circumflex 10/2020 -Cardiac catheterization at that time additionally noticed 50% stenosis of mid LAD -Continue DAPT Hyperlipidemia: -Continue rosuvastatin 20 mg HS -Lipid profile in a.m. for continued monitoring Hypertension: -Continue losartan 1 mg daily, metoprolol 100 mg daily Type 2 diabetes: -Hold home regimen -Last A1c 6.7 (11/14/2020) -Recheck A1c in a.m. Diet: Heart healthy, carb consistent CODE STATUS: Full code DVT prophylaxis: Deferred at this time (2) CAD (coronary artery disease): (3) Hyperlipidemia: (4) Hypertension: (5) Type 2 diabetes mellitus: History of Present Illness Primary Care Provider: Tony Engel MD Fabian Bryan is a 75y/o male with PMH significant for severe CAD recent STEMI 3 months ago s/p PCI, asthma, hyperlipidemia, hypertension, type 2 diabetes; who presents following episode of nausea, and vomiting with subsequent noticing of elevated heart rate and elevated blood pressure. States that since his heart attack in October he has been feeling actually very well without any concerns. But early this morning noticed that he was having some dry heaves and feeling like he needed to vomit multiple times without producing anything. Otherwise had no other concerns or complaints for couple hours, however after laying down to take a nap he noticed the smart watch showing that his heart rate was very elevated. Following this he then took his blood pressure and noticed that this was elevated and also he was having a heart rate that was more elevated than normal for him into the 140s. Upon doing this he called the cardiology office who instructed that he should probably come to the emergency room for further evaluation given his heart history. Over the last several weeks he has been doing cardiac rehab without any difficulty and not had any chest pain, shortness of breath, palpitations, nausea, vomiting, fevers, chills, sweats, lightheadedness, or dizziness. Does know that his smart watch is not the most accurate, as when he was doing the cardiac rehab he would frequently check it and correlate it with the monitors that they were using. Noting that it was all over the place, however when he checked with his blood pressure cuff and saw that was also showing his heart rate was elevated, this made him realize he should probably be evaluated. By CMS guidelines, a determination that the admission or continued stay is not medically necessary has been made by a member of the UR committee and a physician for this hospital stay, therefore a Code 44 will be completed and the Inpatient admission will be changed to outpatient. Allergies Allergy/AdvReac Type Severity Reaction Status Date / Time cefoxitin Allergy Intermediate HIVES Verified 02/15/21 17:55 clavulanic acid Allergy Intermediate Hives Verified 02/15/21 17:55 [From Timentin] ticarcillin [From Timentin] Allergy Intermediate Hives Verified 02/15/21 17:55 atorvastatin AdvReac Mild Joint Pain Verified 02/15/21 17:55 pravastatin AdvReac Mild Joint Pain Verified 02/15/21 17:55 Home Medications Medication Instructions Recorded Confirmed Type aspirin [Aspirin Low Dose] 81 mg PO QPM 10/12/18 02/15/21 History glimepiride 1 mg tablet 1 mg PO QAM tab 02/16/20 02/15/21 History pen needle, diabetic 31 gauge x #100 ea 07/19/20 02/15/21 Rx 3/16" canagliflozin 300 mg tablet 300 mg PO DAILY #30 tab 07/25/20 02/15/21 Rx albuterol sulfate 90 mcg/actuation 2 puff INHALATION Q4H PRN #6.7 g 10/23/20 02/15/21 Rx aerosol inhaler diclofenac sodium 1 % topical gel 2 g TOP QID PRN #200 g 10/23/20 02/15/21 Rx olopatadine 0.2 % eye drops 1 drp OP DAILY #2.5 ml 10/23/20 02/15/21 Rx sertraline 100 mg tablet 100 mg PO DAILY #90 tab 10/23/20 02/15/21 Rx Brilinta 90 mg PO BID #60 tab 11/15/20 02/15/21 Rx metoprolol succinate 100 mg PO DAILY #30 tab 11/15/20 02/15/21 Rx nitroglycerin [Nitrostat] 0.4 mg SUBLINGUAL Q5M PRN #30 tab 11/15/20 02/15/21 Rx rosuvastatin [Crestor] 20 mg PO HS #30 tab 11/15/20 02/15/21 Rx losartan 100 mg tablet 100 mg PO QAM #90 tab 11/17/20 02/15/21 Rx acetaminophen 650 mg 1,300 mg PO Q12H tab 11/23/20 02/15/21 History tablet,extended release liraglutide 0.6 mg/0.1 mL (18 mg/3 1.8 mg SUBCUT DAILY #18 ml 02/16/21 Rx mL) subcutaneous pen injector Past Med/Surg History Medical History Abdominal pain, LLQ (left lower quadrant) Allergic rhinitis due to pollen Anemia Arthritis Asthma STABLE Atopic dermatitis Atrial fibrillation post HI on 11/14; w/ RVR Benign colonic polyp Benign localized hyperplasia of prostate with urinary obstruction Bladder calculus Carotid artery plaque Carotid bruit Cellulitis Depression Diabetes mellitus Type 2 Diverticular disease Diverticulitis of colon Diverticulosis of colon Erectile dysfunction Facial skin lesion Fatty liver H/O renal calculi Hearing deficit Heart murmur Hematuria Hemochromatosis PHLEBOTOMY TREATMENTS EVERY 3 MONTHS- FERRITIN LEVELS MONITORED BY HEMATOLOGY; LAST PHLEBOTOMY 2 MONTHS AGO History of colon polyps History of diverticulitis 09/2018= RESOLVED S/P ABX Hyperlipidemia Hypertension Irritable bowel syndrome Joint pain, knee Laceration of thumb, left Lower back pain Microscopic hematuria Obesity Ocular hypertension, unspecified eye Pain due to ureteral stent Renal calcification Renal colic Right leg pain Type 2 diabetes mellitus Ureteral calculus, right Urinary frequency Xerosis cutis Surgical History H/O cataract extraction History of colonoscopy History of heart artery stent Inf STEMI on 11/14:subtotal occ. Large distal Cx s/p PCI of m/dCx w/single DARLENE History of tonsillectomy and adenoidectomy History of umbilical hernia repair History of vasectomy Hx of cystoscopy CYSTOSCOPY/LASER LITHOTRIPSY/STENT= 01/23/17= LMA#5 AT [facility] Hx of hand surgery LEFT HAND TENDON SURGERY Hx of transurethral resection of prostate AND BLADDER STONES REMOVED on 10/26/18 with LMA#5 Family History Mother Multiple myeloma Stroke Father Laryngeal cancer Grandfather (Maternal) Stroke Uncle Stroke Denies family history of Ovarian cancer Prostate cancer Myocardial infarction Breast cancer Colorectal cancer Social History Smoking Status: Never smoker Second Hand Exposure: Yes; Hx Alcohol Use: No Hx Substance Use: No Preferred Language: Slovenian Communication Ability: Effective Visual Impairment: No Limitations Hearing Ability: Use of Hearing Aid Compliance Project Manager Required: No Beliefs That Will Affect Care: None marital status: Current Living Situation: Spouse current occupational status: retired 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 Safe at Home: Yes Childhood Exposure to Second-Hand Smoke: Yes Seatbelt Use: always Sunscreen Use: No Assistive Devices: Glasses Review of Systems Review of Systems: All systems reviewed & are unremarkable except as noted in HPI & below Physical Exam Constitutional: WD/WN, vitals as above Eyes: PERRL, conjunctivae normal, anicteric sclerae Respiratory: normal respiratory effort, lungs clear to auscultation Auscultation: no crackles, no rales, no rhonchi and no wheezes Cardiovascular: Rate/Rhythm: regular rate and regular rhythm Heart Sounds: no gallop, no murmur and no cardiac rub Vessels: normal peripheral pulses; no JVD Extremities: no edema Gastrointestinal (Abdomen): Inspection/Auscultation: normal bowel sounds; abdomen not distended Percussion/Palpation: abdomen soft; abdomen nontender and no guarding Musculoskeletal: no cyanosis or clubbing, extremities motor strength 5/5 Skin: no rashes, warm and dry Neurologic: PERRL, EOMI, accommodation nl, no face palsy, no dysarthria CN's II-XI intact bilaterally and moves all extremities Psychiatric: Orientation: alert and oriented x 3 Results & Data Results & Data ([facility]) Vital Signs (Past 12 Hours) Vital Signs Temp Pulse Resp BP Pulse Ox 02/15/21 23:02 88 15 132/79 97 02/15/21 22:42 90 20 96 02/15/21 22:00 96 H 12 96 02/15/21 21:46 97 H 16 150/83 H 97 02/15/21 21:30 99 H 13 96 02/15/21 21:00 97 H 13 96 02/15/21 20:30 101 H 17 94 02/15/21 20:00 105 H 22 96 02/15/21 19:30 104 H 22 162/97 H 93 02/15/21 19:00 107 H 15 94 02/15/21 18:30 109 H 23 96 02/15/21 18:03 112 H 18 162/97 H 97 02/15/21 17:03 97 02/15/21 16:30 118 H 18 95 02/15/21 16:12 120 H 18 149/93 H 97 02/15/21 15:49 36.6 C 118 H 18 139/86 96 Laboratory Results 02/15/21 02/15/21 02/15/21 Range/Units 21:50 21:50 19:46 WBC (4.8-10.8) K/uL RBC (4.7-6.1) M/uL Hgb (14.0-18.0) g/dL Hct (42-52) % MCV (80-100) fL MCH (25-34) pg MCHC (32-36) g/dL RDW Std Deviation (36.4-46.3) fL RDW Coeff of Aria (11.5-14.5) % Plt Count (130-400) K/uL MPV (7.4-10.4) fL Immature Gran % (Auto) % Neut % (Auto) % Lymph % (Auto) % [place] % (Auto) % Eos % (Auto) % Baso % (Auto) % Neut # (Auto) (1.4-6.5) K/uL Lymph # (Auto) (1.2-3.4) K/uL [place] # (Auto) (0.11-0.59) K/uL Eos # (Auto) (0-0.5) K/uL Baso # (Auto) (0-0.2) K/uL Immature Gran # (Auto) (0.00-0.02) K/uL Sodium (136-145) mmol/L Potassium (3.5-5.1) mmol/L Chloride (98-107) mmol/L Carbon Dioxide (21-32) mmol/L Anion Gap (3-11) BUN (7-18) mg/dl Creatinine (0.6-1.4) mg/dl Est Cr Clr Drug Dosing Est GFR ( Amer) ml/min Est GFR (Non-Af Amer) ml/min BUN/Creatinine Ratio (10-20) Glucose (70-99) mg/dl Calcium (8.5-10.1) mg/dl Magnesium (1.8-2.4) mg/dl Total Bilirubin (0.2-1) mg/dl AST (15-37) U/L ALT (12-78) U/L Alkaline Phosphatase (45-117) U/L Troponin I 0.028 (0-0.045) ng/ml NT-Pro-B Natriuret Pep (0-900) pg/ml Total Protein (6.4-8.2) gm/dl Albumin (3.4-5.0) gm/dl Globulin (2.5-4.0) gm/dl Albumin/Globulin Ratio (0.9-2) Lipase (73-393) U/L TSH (0.300-4.500) uIu/ml Urine Color Urine Appearance (Clear) Urine pH (4.5-7.5) Ur Specific [place] (1.000-1.030) Urine Protein (Negative) Urine Glucose (UA) (Negative) Urine Ketones (Negative) Urine Blood (Negative) Urine Nitrite (Negative) Urine Bilirubin (Negative) Urine Urobilinogen (Negative) Ur Leukocyte Esterase (Negative) Urine WBC (Auto) (0-5) /hpf Urine RBC (Auto) (0-4) /hpf U Hyaline Cast (Auto) (0-5) /lpf U Epithel Cells (Auto) (0-5) /lpf Urine Bacteria (Auto) (Negative) Lyme Disease IgG Ab (Negative) Lyme Disease IgM Ab (Negative) COVID-19 Eval Order Covid19 at [facility] SARS-CoV-2 (PCR) NEGATIVE (Negative) 02/15/21 02/15/21 02/15/21 Range/Units 17:30 16:20 16:20 WBC (4.8-10.8) K/uL RBC (4.7-6.1) M/uL Hgb (14.0-18.0) g/dL Hct (42-52) % MCV (80-100) fL MCH (25-34) pg MCHC (32-36) g/dL RDW Std Deviation (36.4-46.3) fL RDW Coeff of Aria (11.5-14.5) % Plt Count (130-400) K/uL MPV (7.4-10.4) fL Immature Gran % (Auto) % Neut % (Auto) % Lymph % (Auto) % [place] % (Auto) % Eos % (Auto) % Baso % (Auto) % Neut # (Auto) (1.4-6.5) K/uL Lymph # (Auto) (1.2-3.4) K/uL [place] # (Auto) (0.11-0.59) K/uL Eos # (Auto) (0-0.5) K/uL Baso # (Auto) (0-0.2) K/uL Immature Gran # (Auto) (0.00-0.02) K/uL Sodium 137 (136-145) mmol/L Potassium 4.1 (3.5-5.1) mmol/L Chloride 104 (98-107) mmol/L Carbon Dioxide 22 (21-32) mmol/L Anion Gap 11.0 (3-11) BUN 26 H (7-18) mg/dl Creatinine 0.98 (0.6-1.4) mg/dl Est Cr Clr Drug Dosing Not Reportable Est GFR ( Amer) 87.1 ml/min Est GFR (Non-Af Amer) 75.1 ml/min BUN/Creatinine Ratio 26.2 H (10-20) Glucose 81 (70-99) mg/dl Calcium 9.8 (8.5-10.1) mg/dl Magnesium 2.2 (1.8-2.4) mg/dl Total Bilirubin 0.7 (0.2-1) mg/dl AST 27 (15-37) U/L ALT 39 (12-78) U/L Alkaline Phosphatase 62 (45-117) U/L Troponin I < 0.015 (0-0.045) ng/ml NT-Pro-B Natriuret Pep 159 (0-900) pg/ml Total Protein 8.3 H (6.4-8.2) gm/dl Albumin 4.3 (3.4-5.0) gm/dl Globulin 4.0 (2.5-4.0) gm/dl Albumin/Globulin Ratio 1.1 (0.9-2) Lipase 148 (73-393) U/L TSH 3.230 (0.300-4.500) uIu/ml Urine Color Yellow Urine Appearance Clear (Clear) Urine pH 5.0 (4.5-7.5) Ur Specific [place] 1.019 (1.000-1.030) Urine Protein Negative (Negative) Urine Glucose (UA) 2+ H (Negative) Urine Ketones 1+ H (Negative) Urine Blood 1+ H (Negative) Urine Nitrite Negative (Negative) Urine Bilirubin Negative (Negative) Urine Urobilinogen Negative (Negative) Ur Leukocyte Esterase Trace H (Negative) Urine WBC (Auto) 5-10 H (0-5) /hpf Urine RBC (Auto) 0-4 (0-4) /hpf U Hyaline Cast (Auto) 1-5 (0-5) /lpf U Epithel Cells (Auto) 5-10 H (0-5) /lpf Urine Bacteria (Auto) Negative (Negative) Lyme Disease IgG Ab Negative (Negative) Lyme Disease IgM Ab Negative (Negative) COVID-19 Eval Order SARS-CoV-2 (PCR) (Negative) 02/15/21 Range/Units 16:20 WBC 8.73 (4.8-10.8) K/uL RBC 5.34 (4.7-6.1) M/uL Hgb 15.8 (14.0-18.0) g/dL Hct 46.8 (42-52) % MCV 87.6 (80-100) fL MCH 29.6 (25-34) pg MCHC 33.8 (32-36) g/dL RDW Std Deviation 43.2 (36.4-46.3) fL RDW Coeff of Aria 13.4 (11.5-14.5) % Plt Count 287 (130-400) K/uL MPV 9.6 (7.4-10.4) fL Immature Gran % (Auto) 0.1 % Neut % (Auto) 79.8 % Lymph % (Auto) 14.4 % [place] % (Auto) 4.7 % Eos % (Auto) 0.8 % Baso % (Auto) 0.2 % Neut # (Auto) 6.96 H (1.4-6.5) K/uL Lymph # (Auto) 1.26 (1.2-3.4) K/uL [place] # (Auto) 0.41 (0.11-0.59) K/uL Eos # (Auto) 0.07 (0-0.5) K/uL Baso # (Auto) 0.02 (0-0.2) K/uL Immature Gran # (Auto) 0.01 (0.00-0.02) K/uL Sodium (136-145) mmol/L Potassium (3.5-5.1) mmol/L Chloride (98-107) mmol/L Carbon Dioxide (21-32) mmol/L Anion Gap (3-11) BUN (7-18) mg/dl Creatinine (0.6-1.4) mg/dl Est Cr Clr Drug Dosing Est GFR ( Amer) ml/min Est GFR (Non-Af Amer) ml/min BUN/Creatinine Ratio (10-20) Glucose (70-99) mg/dl Calcium (8.5-10.1) mg/dl Magnesium (1.8-2.4) mg/dl Total Bilirubin (0.2-1) mg/dl AST (15-37) U/L ALT (12-78) U/L Alkaline Phosphatase (45-117) U/L Troponin I (0-0.045) ng/ml NT-Pro-B Natriuret Pep (0-900) pg/ml Total Protein (6.4-8.2) gm/dl Albumin (3.4-5.0) gm/dl Globulin (2.5-4.0) gm/dl Albumin/Globulin Ratio (0.9-2) Lipase (73-393) U/L TSH (0.300-4.500) uIu/ml Urine Color Urine Appearance (Clear) Urine pH (4.5-7.5) Ur Specific [place] (1.000-1.030) Urine Protein (Negative) Urine Glucose (UA) (Negative) Urine Ketones (Negative) Urine Blood (Negative) Urine Nitrite (Negative) Urine Bilirubin (Negative) Urine Urobilinogen (Negative) Ur Leukocyte Esterase (Negative) Urine WBC (Auto) (0-5) /hpf Urine RBC (Auto) (0-4) /hpf U Hyaline Cast (Auto) (0-5) /lpf U Epithel Cells (Auto) (0-5) /lpf Urine Bacteria (Auto) (Negative) Lyme Disease IgG Ab (Negative) Lyme Disease IgM Ab (Negative) COVID-19 Eval Order SARS-CoV-2 (PCR) (Negative) Diagnostic Findings Impressions Chest X-Ray 02/15/21 15:57 SINGLE VIEW CHEST CLINICAL HISTORY: Tachycardia. FINDINGS: An AP, portable, upright chest radiograph is compared to study dated 11/13/2020. The heart is mildly enlarged noting atherosclerotic calcification of the thoracic aorta. The pulmonary vasculature is noncongested. Chronic interstitial thickening is similar to previous. There is mild bibasilar scarring/atelectasis. No airspace consolidation or large pleural effusion is identified. No pneumothorax is seen. The skeletal structures are osteopenic. The bony thorax is grossly intact. IMPRESSION: No acute cardiopulmonary abnormality. ACT 112: Negative or not required by law. Electronically signed by: Enrique Ring M.D. 02/15/2021 5:[address] 02/15/21 17:34 CT head/brain wo con CLINICAL HISTORY: lightheaded, vomiting COMPARISON STUDY: No previous studies for comparison. TECHNIQUE: Axial CT of the brain is performed from the vertex to the skull base. IV contrast was not administered for this examination. A dose lowering technique was utilized adhering to the principles of ALARA. CT DOSE: 614.27 mGy.cm FINDINGS: No intra or extra-axial mass lesions are visualized. There is no CT evidence of acute cortical infarction. There is no evidence of midline shift. There is no acute hemorrhage. No acute depressed calvarial fractures are visualized. There are patchy white matter hypodensities likely on a small vessel basis. Prominent atrophic changes of brain parenchyma are seen and associated with mild ex vacuo dilatation of ventricles. There is no evidence of acute sinusitis IMPRESSION: No acute intracranial hemorrhage, no midline shift or space occupying lesions. Chronic small vessel ischemia. Atrophic changes of brain parenchyma associated with ex vacuo dilatation of ventricles. ACT 112: Negative or not required by law. The above report was generated using voice recognition software. It may contain grammatical, syntax or spelling errors. Electronically signed by: Radha Bangura DO 02/15/2021 6:02 PM Medications Administered Home Medication List Medication Instructions Recorded aspirin [Aspirin Low Dose] 81 mg PO QPM 10/12/18 glimepiride 1 mg tablet 1 mg PO QAM tab 02/16/20 pen needle, diabetic 31 gauge x #100 ea 07/19/2011/14" canagliflozin 300 mg tablet 300 mg PO DAILY #30 tab 07/25/20 albuterol sulfate 90 mcg/actuation 2 puff INHALATION Q4H PRN #6.7 g 10/23/20 aerosol inhaler diclofenac sodium 1 % topical gel 2 g TOP QID PRN #200 g 10/23/20 olopatadine 0.2 % eye drops 1 drp OP DAILY #2.5 ml 10/23/20 sertraline 100 mg tablet 100 mg PO DAILY #90 tab 10/23/20 metoprolol succinate 100 mg PO DAILY #30 tab 11/15/20 nitroglycerin [Nitrostat] 0.4 mg SUBLINGUAL Q5M PRN #30 tab 11/15/20 rosuvastatin [Crestor] 20 mg PO HS #30 tab 11/15/20 ticagrelor [Brilinta] 90 mg PO BID #60 tab 11/15/20 losartan 100 mg tablet 100 mg PO QAM #90 tab 11/17/20 acetaminophen 650 mg 1,300 mg PO Q12H tab 11/23/20 tablet,extended release liraglutide 0.6 mg/0.1 mL (18 mg/3 1.8 mg SUBCUT DAILY #9 ml 01/01/21 mL) subcutaneous pen injector Current Inpatient Medications Sodium Chloride (Nss) 500 mls @ 125 mls/hr IV .Q4H RONALD Stop: 03/17/21 15:59 Last Infusion: 02/15/21 19:59 Dose: Infused Documented by: Ticagrelor (Ticagrelor 90 Mg Tab) 90 mg PO BID RONALD Stop: 03/17/21 21:44 Supervising Physician Co-Signing Physician Notes Attending addendum: I have physically seen this patient, have supervised the medical residents activities, and agree with the H&P unless as otherwise noted. Assessment and Plan: Tachycardia/CAD/hypertension/status post PCI to distal circumflex October 2020- The patient will be admitted to telemetry for serial cardiac enzymes, serial EKG's, cardiac rhythm monitoring and a 2-D echocardiogram with Dopplers. Additional metoprolol tartrate 50 mg p.o. given by ED per request of Dr. Solares Continue DAPT Continue losartan Consult cardiology Dr. Solares Diabetes mellitus- Hold liraglutide, glimepiride and canagliflozin. Placed on Accu-Cheks before meals and at bedtime with NovoLog coverage per scale Check hemoglobin A1c Hyperlipidemia- Continue simvastatin 20 mg at bedtime Check a fasting lipid panel Remaining orders and notations as noted Resident Activity Tracking Resident Involvement: Resident Care Provided Care Provided: Adult Hospital Medicine (1) Type 2 diabetes mellitus Diabetes mellitus complication status: without complication Diabetes mellitus bed bug exterminator insulin use: with chcf use Qualified Code(s): E11.9 - Type 2 diabetes mellitus without complications; Z79.4 - long term care social worker (current) use of insulin (2) Hyperlipidemia Hyperlipidemia type: pure hypertriglyceridemia Qualified Code(s): E78.1 - Pure hyperglyceridemia (3) Hypertension Hypertension type: essential hypertension Qualified Code(s): I10 - Essential (primary) hypertension
--- NOTE | 2021-02-15 23:55 | Cardiology Consultation ---
Date of Consultation February 15, 2021 Assessment & Plan (1) CAD (coronary artery disease): -Post PCI with DARLENE to distal circumflex 10/2020 Moderate nonculprit CAD 50% mid LAD 2. Sinus tachycardia 3. Minimal troponin 4. History of [place] Atrial fibrillation 5. Hypertension 6. Type 2 diabetes 7. Moderate mitral regurgitation 8. Suspected dilated aortic root on prior cath 9. Small pericardial effusion on bedside echo Patient here with acute episode of vomiting followed by persistent sinus tachycardia. Initial symptoms reminiscent of prior TN. Fortunately has remained chest pain-free with no recurrent vomiting since initial symptoms this morning. With patient's recent TN involving the circumflex territory and known residual moderate CAD would recommend observation and continued trending of troponin. Repeat echocardiogram in the a.m. to reassess LV function and possible new pericardial effusion. Continue to monitor on telemetry. Titrate up beta-kaiser. Continue home DAPT with aspirin, ticagrelor. If troponin remains negative overnight, telemetry/echo unremarkable likely can be discharged tomorrow with close cardiology follow-up. History of Present Illness History of Present Illness Reverend Bryan is a very pleasant 75-year-old man with a history of inferior STEMI treated with primary PCI 3 months ago seen in the emergency department after he presented with episode of acute onset nausea followed by persistent tachycardia. Cardiac history remarkable for PCI with DARLENE to mid to distal circumflex 10/2020. Periprocedural course complicated by A. fib with RVR. Post procedure echo sh owed preserved LV function with severe inferolateral hypokinesis and moderate mitral vegetation. Other medical issues include hypertension, type 2 diabetes, dyslipidemia, hemochromatosis, obesity, asthma, BPH. Has done well post TN, actively participating with cardiac rehab. This morning acutely became nauseated with several dry heaves before vomiting. Took a nap for several hours and then felt back to baseline. However, noted that his heart rates were up in the 110s 120s on his apple watch (of note heart rates reportedly in the 80s at times vomiting). Has had no additional symptoms but was concerned because his initial TN symptoms were vomiting. Presented to the ED where was hypertensive to the 160s, tachycardic initially in the 120s. ECG showed sinus tachycardia with no dynamic ST changes. Has been asymptomatic in the ED. Initial troponin negative, subsequent troponin slightly up to 0.028. Chest x-ray, head CT unremarkable. Bedside echocardiogram limited but showed grossly normal LV, RV function. Small pericardial effusion. Allergies Allergy/AdvReac Type Severity Reaction Status Date / Time cefoxitin Allergy Intermediate HIVES Verified 02/15/21 17:55 clavulanic acid Allergy Intermediate Hives Verified 02/15/21 17:55 [From Timentin] ticarcillin [From Timentin] Allergy Intermediate Hives Verified 02/15/21 17:55 atorvastatin AdvReac Mild Joint Pain Verified 02/15/21 17:55 pravastatin AdvReac Mild Joint Pain Verified 02/15/21 17:55 Home Medications Medication Instructions Recorded Confirmed Type aspirin [Aspirin Low Dose] 81 mg PO QPM 10/12/18 02/15/21 History glimepiride 1 mg tablet 1 mg PO QAM tab 02/16/20 02/15/21 History pen needle, diabetic 31 gauge x #100 ea 07/19/20 02/15/21 Rx 3/16" canagliflozin 300 mg tablet 300 mg PO DAILY #30 tab 07/25/20 02/15/21 Rx albuterol sulfate 90 mcg/actuation 2 puff INHALATION Q4H PRN #6.7 g 10/23/20 02/15/21 Rx aerosol inhaler diclofenac sodium 1 % topical gel 2 g TOP QID PRN #200 g 10/23/20 02/15/21 Rx olopatadine 0.2 % eye drops 1 drp OP DAILY #2.5 ml 10/23/20 02/15/21 Rx sertraline 100 mg tablet 100 mg PO DAILY #90 tab 10/23/20 02/15/21 Rx metoprolol succinate 100 mg PO DAILY #30 tab 11/15/20 02/15/21 Rx nitroglycerin [Nitrostat] 0.4 mg SUBLINGUAL Q5M PRN #30 tab 11/15/20 02/15/21 Rx rosuvastatin [Crestor] 20 mg PO HS #30 tab 11/15/20 02/15/21 Rx ticagrelor [Brilinta] 90 mg PO BID #60 tab 11/15/20 02/15/21 Rx losartan 100 mg tablet 100 mg PO QAM #90 tab 11/17/20 02/15/21 Rx acetaminophen 650 mg 1,300 mg PO Q12H tab 11/23/20 02/15/21 History tablet,extended release liraglutide 0.6 mg/0.1 mL (18 mg/3 1.8 mg SUBCUT DAILY #9 ml 01/01/21 02/15/21 Rx mL) subcutaneous pen injector Patient History Medical History Abdominal pain, LLQ (left lower quadrant) Allergic rhinitis due to pollen Anemia Arthritis Asthma STABLE Atopic dermatitis Atrial fibrillation post TN on 11/14; w/ RVR Benign colonic polyp Benign localized hyperplasia of prostate with urinary obstruction Bladder calculus Carotid artery plaque Carotid bruit Cellulitis Depression Diabetes mellitus Type 2 Diverticular disease Diverticulitis of colon Diverticulosis of colon Erectile dysfunction Facial skin lesion Fatty liver H/O renal calculi Hearing deficit Heart murmur Hematuria Hemochromatosis PHLEBOTOMY TREATMENTS EVERY 3 MONTHS- FERRITIN LEVELS MONITORED BY HEMATOLOGY; LAST PHLEBOTOMY 2 MONTHS AGO History of colon polyps History of diverticulitis 09/2018= RESOLVED S/P ABX Hyperlipidemia Hypertension Irritable bowel syndrome Joint pain, knee Laceration of thumb, left Lower back pain Microscopic hematuria Obesity Ocular hypertension, unspecified eye Pain due to ureteral stent Renal calcification Renal colic Right leg pain Type 2 diabetes mellitus Ureteral calculus, right Urinary frequency Xerosis cutis Surgical History H/O cataract extraction History of colonoscopy History of heart artery stent Inf STEMI on 11/14:subtotal occ. Large distal Cx s/p PCI of m/dCx w/single DARLENE History of tonsillectomy and adenoidectomy History of umbilical hernia repair History of vasectomy Hx of cystoscopy CYSTOSCOPY/LASER LITHOTRIPSY/STENT= 01/23/17= LMA#5 AT [facility] Hx of hand surgery LEFT HAND TENDON SURGERY Hx of transurethral resection of prostate AND BLADDER STONES REMOVED on 10/26/18 with LMA#5 Family History Mother Multiple myeloma Stroke Father Laryngeal cancer Grandfather (Maternal) Stroke Uncle Stroke Denies family history of Ovarian cancer Prostate cancer Myocardial infarction Breast cancer Colorectal cancer Social History Smoking Status: Never smoker Second Hand Exposure: Yes; Hx Alcohol Use: No Hx Substance Use: No Preferred Language: Venezuelan Communication Ability: Effective Visual Impairment: No Limitations Hearing Ability: Use of Hearing Aid Transporter Driver Required: No Beliefs That Will Affect Care: None marital status: Current Living Situation: Spouse current occupational status: retired 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 Abdomen: Soft, nontender, nondistended, positive bowel sounds. Extremities: Warm, well perfused, no edema. 2+ radial pulses Skin: No rashes or lesions. Neuro: Nonfocal Psych: Alert orient x3, normal affect and mood Results & Data ([facility]) Vital Signs (Past 12 Hours) Vital Signs Temp Pulse Resp BP Pulse Ox 02/15/21 23:02 88 15 132/79 97 02/15/21 22:42 90 20 96 02/15/21 22:00 96 H 12 96 02/15/21 21:46 97 H 16 150/83 H 97 02/15/21 21:30 99 H 13 96 02/15/21 21:00 97 H 13 96 02/15/21 20:30 101 H 17 94 02/15/21 20:00 105 H 22 96 02/15/21 19:30 104 H 22 162/97 H 93 02/15/21 19:00 107 H 15 94 02/15/21 18:30 109 H 23 96 02/15/21 18:03 112 H 18 162/97 H 97 02/15/21 17:03 97 02/15/21 16:30 118 H 18 95 02/15/21 16:12 120 H 18 149/93 H 97 02/15/21 15:49 97.9 F 118 H 18 139/86 96 PG Care Time/CCT Total # of Minutes Spent Total Time Spent with Patient: Total time spent is greater than 50% in coordination of care (as documented) at patient's floor/unit and/or counseling patient: Coding Level of Care Code 82406 OBS Care - Level 3 Diagnoses CAD (coronary artery disease) I25.10
[2021-02-16] MEDS ORDERED: GLUCAGON FOR INJ 1 MG VIAL SQ PRN (01:52)
[2021-02-16] MEDS ORDERED: ALUMINUM/MAGNESIUM SUSP 30 ML UDC PO PRN (01:52)
[2021-02-16] MEDS ORDERED: CARBOHYDRATES FOR HYPOGLYCEMIA PO PRN (01:52)
[2021-02-16] MEDS ORDERED: NITROGLYCERIN SL 0.4 MG/TAB TAB SL PRN (01:52)
[2021-02-16] MEDS ORDERED: GLUCOSE 10 TABS/TUBE PO PRN (01:52)
[2021-02-16] MEDS ORDERED: ONDANSETRON INJ 2 MG/ML 2 ML VIAL IV PRN (01:52)
[2021-02-16] MEDS ORDERED: DEXTROSE 50% 50 ML SYRINGE IV PRN (01:52)
[2021-02-16] MEDS ORDERED: MoRPHine SULFATE 2 MG/ML CARP IV PRN (01:52)
[2021-02-16] MEDS ORDERED: ACETAMINOPHEN 325 MG TAB PO PRN (01:52)
[2021-02-16] MEDS ORDERED: GLUCOSE 40% GEL 15 GM TUBE PO PRN (01:52)
[2021-02-16] MEDS ORDERED: MAGNESIUM HYDROXIDE SUSP 30 ML UDC PO PRN (01:52)
[2021-02-16] MEDS ORDERED: POLYETHYLENE (MIRALAX) 17 GM PACK PO PRN (01:52)
[2021-02-16] MEDS: SODIUM CHLORIDE 0.9% 500 ML IV SCH ×2 (01:56→01:58)
[2021-02-16] MEDS ORDERED: SODIUM CHLORIDE 0.9% 500 ML IV SCH (02:15)
[2021-02-16] MEDS: SODIUM CHLORIDE 0.9% 1000ML 1,000 ML IV SCH ×2 (02:20→08:45)
[2021-02-16] MEDS: TICAGRELOR 90 MG TAB PO SCH ×2 (02:20→08:38)
[2021-02-16 02:43] LABS: Basophils # (auto) 0.02 K/uL (0-0.2); Basophils % (auto) 0.2 %; Eosinophils # (auto) 0.11 K/uL (0-0.5); Eosinophils % (auto) 1.3 %; Hemoglobin 15.4 g/dL (14.0-18.0); Immature Granulocytes # (auto) 0.01 K/uL (0.00-0.02); Immature Granulocytes % (auto) 0.1 %; Lymphocytes # (auto) 1.58 K/uL (1.2-3.4); Lymphocytes % (auto) 18.9 %; Mean Corpuscular Hemoglobin 29.8 pg (25-34); Mean Corpuscular Hgb Conc 33.5 g/dL (32-36); Mean Corpuscular Volume 89.1 fL (80-100); Mean Platelet Volume 9.2 fL (7.4-10.4); Monocytes # (auto) 0.49 K/uL (0.11-0.59); Monocytes % (auto) 5.8 %; Neutrophils # (auto) 6.17 K/uL (1.4-6.5); Neutrophils % (auto) 73.7 %; Platelet Count 263 K/uL (130-400); RDW Coefficient of Variation 13.5 % (11.5-14.5); RDW Standard Deviation 44.3 fL (36.4-46.3); Red Blood Count 5.16 M/uL (4.7-6.1); White Blood Count 8.38 K/uL (4.8-10.8)
[2021-02-16 02:59] LABS: BUN Creatinine Ratio 18.3 (10-20); Calcium 9.3 mg/dl (8.5-10.1); Creatinine Clr Calc Pharmacy 79.1 ml/min; Est GFR (Non-African American) 70.7 ml/min; Magnesium 2.4 mg/dl (1.8-2.4)
[2021-02-16 03:04] LABS: Phosphorus 4.1 mg/dl (2.5-4.9); Troponin I 0.026 ng/ml (0-0.045)
[2021-02-16 06:41] LABS: Estimated Average Glucose 137 mg/dl; Hemoglobin A1C 6.4 % (4.5-5.6)
[2021-02-16] MEDS: INSULIN ASPART 100 UNITS/ML 3 ML PEN SC SCH ×2 (08:38→11:37)
[2021-02-16] MEDS ORDERED: LOSARTAN POTASSIUM 50 MG TAB PO SCH (09:00)
[2021-02-16] MEDS ORDERED: SERTRALINE HCL 100 MG TABLET PO SCH (09:00)
[2021-02-16] MEDS ORDERED: METOPROLOL SUCC 50MG EXT REL TAB PO SCH (09:00)
--- NOTE | 2021-02-16 12:43 | Communication Note ---
Date of Service: February 16, 2021 By CMS guidelines, a determination that the admission or continued stay is not medically necessary has been made by a member of the UR committee and a physi bryon for this hospital stay, therefore a Code 44 will be completed and the Inpatient admission will be changed to outpatient.
--- NOTE | 2021-02-16 13:14 | Cardiology Progress Note ---
Date of Service February 16, 2021 Assessment & Plan (1) CAD (coronary artery disease): -Post PCI with DARLENE to distal circumflex 10/2020 Moderate nonculprit CAD 50% mid LAD 2. Sinus tachycardia 3. Minimal troponin 4. History of [place] Atrial fibrillation 5. Hypertension 6. Type 2 diabetes 7. Moderate mitral regurgitation 8. Suspected dilated aortic root on prior cath 9. Small pericardial effusion on bedside echo Feeling well today. No recurrent symptoms. Troponin has remained negative Tachycardia resolved. Echo shows preserved LV/RV function. Trace pericardial effusion. Mitral regurg only mild. From a cardiac standpoint OK with him going home today. -- Home on prior DAPT aspirin/brilinta -- Continue prior toprol XL, losartan and statin. -- OK to resume cardiac rehab on Friday. Admission and Anticipated Discharge Date Admission Date: February 15, 2021 Subjective Feeling well. No chest pain. No additional nausea/dry heaving. Telemetry reviewed -- no events. Tachycardia resolved. Review of Systems Review of Systems: All systems reviewed & are unremarkable except as noted in HPI & below Physical Exam Physical Exam: General: Comfortable, no acute distress HEENT: Sclerae anicteric, mucous membranes moist. Extremities: Warm, well perfused, no edema. Skin: No rashes or lesions. Neuro: Nonfocal Psych: Alert orient x3, normal affect and mood Results & Data ([facility]) Vital Signs (Past 12 Hours) Vital Signs Temp Pulse Pulse Resp BP Pulse Ox 02/16/21 12:38 98.1 F 73 20 122/70 95 02/16/21 11:41 98.1 F 73 20 122/70 95 02/16/21 07:59 98.1 F 71 20 114/65 97 02/16/21 07:21 68 02/16/21 04:30 97.9 F 70 20 128/73 96 02/16/21 04:06 83 PG Care Time/CCT Total # of Minutes Spent Total Time Spent with Patient: Total time spent is greater than 50% in coordination of care (as documented) at patient's floor/unit and/or counseling patient: Coding Level of Care Code 16080 Subseq Hosp Care Lvl 3 Diagnoses CAD (coronary artery disease) I25.10
--- NOTE | 2021-02-16 13:38 | XCELERA ---
[id number] \\[id number]_[id number]
--- NOTE | 2021-02-16 16:57 | Electrocardiogram Report ---
Test Reason : Blood Pressure : / mmHG Vent. Rate : 112 BPM Atrial Rate : 112 BPM P-R Int : 200 ms QRS Dur : 096 ms QT Int : 324 ms P-R-T Axes : 043 -63 053 degrees QTc Int : 442 ms Sinus tachycardia with frequent Premature ventricular complexes Left anterior fascicular block possible Inferior infarct (cited on or before 23-JAN-2017) Abnormal ECG When compared with ECG of 13-NOV-2020 23:26, Sinus rhythm has replaced Atrial fibrillation Confirmed by Tony Nye ([id number]) on 02/16/2021 4:56:51 PM Referred By: Rl Solares Confirmed By:Fortino Nye
[2021-02-16] MEDS ORDERED: ASPIRIN 81 MG ECTAB PO SCH (21:00)
[2021-02-16] MEDS ORDERED: ROSUVASTATIN CALCIUM 20 MG TAB PO SCH (21:00)
--- NOTE | 2021-02-17 20:28 | Billing Data ---
Date of Service February 17, 2021 Coding Level of Care Code 38113 OBS Care - Level 3
--- NOTE | 2021-02-20 14:44 | Discharge Summary ---
Date of Service February 16, 2021 Admission HPI Per Admitting Provider Fabian Bryan is a 75y/o male with PMH significant for severe CAD recent STEMI 3 months ago s/p PCI, asthma, hyperlipidemia, hypertension, type 2 diabetes; who presents following episode of nausea, and vomiting with subsequent noticing of elevated heart rate and elevated blood pressure. States that since his heart attack in October he has been feeling actually very well without any concerns. But early this morning noticed that he was having some dry heaves and feeling like he needed to vomit multiple times without producing anything. Otherwise had no other concerns or complaints for couple hours, however after laying down to take a nap he noticed the smart watch showing that his heart rate was very elevated. Following this he then took his blood pressure and noticed that this was elevated and also he was having a heart rate that was more elevated than normal for him into the 140s. Upon doing this he called the cardiology office who instructed that he should probably come to the emergency room for further evaluation given his heart history. Over the last several weeks he has been doing cardiac rehab without any difficulty and not had any chest pain, shortness of breath, palpitations, nausea, vomiting, fevers, chills, sweats, lightheadedness, or dizziness. Does know that his smart watch is not the most accurate, as when he was doing the cardiac rehab he would frequently check it and correlate it with the monitors that they were using. Noting that it was all over the place, however when he checked with his blood pressure cuff and saw that was also showing his heart rate was elevated, this made him realize he should probably be evaluated. By CMS guidelines, a determination that the admission or continued stay is not medically necessary has been made by a member of the UR committee and a physician for this hospital stay, therefore a Code 44 will be completed and the Inpatient admission will be changed to outpatient. Principal Diagnosis CAD/tachycardia Discharge Exam Constitutional: WD/WN, vitals as above Eyes: PERRL, conjunctivae normal, anicteric sclerae Respiratory: normal respiratory effort, lungs clear to auscultation Auscultation: no crackles, no rales, no rhonchi and no wheezes Cardiovascular: Rate/Rhythm: regular rate and regular rhythm Heart Sounds: no gallop, no murmur and no cardiac rub Vessels: normal peripheral pulses; no JVD Extremities: no edema Gastrointestinal (Abdomen): Inspection/Auscultation: normal bowel sounds; abdomen not distended Percussion/Palpation: abdomen soft; abdomen nontender and no guarding Musculoskeletal: no cyanosis or clubbing, extremities motor strength 5/5 Skin: no rashes, warm and dry Neurologic: PERRL, EOMI, accommodation nl, no face palsy, no dysarthria CN's II-XI intact bilaterally and moves all extremities Psychiatric: Orientation: alert and oriented x 3 Discharge Data Allergies Allergy/AdvReac Type Severity Reaction Status Date / Time cefoxitin Allergy Intermediate HIVES Verified 02/19/21 16:06 clavulanic acid Allergy Intermediate Hives Verified 02/19/21 16:06 [From Timentin] ticarcillin [From Timentin] Allergy Intermediate Hives Verified 02/19/21 16:06 atorvastatin AdvReac Mild Joint Pain Verified 02/19/21 16:06 pravastatin AdvReac Mild Joint Pain Verified 02/19/21 16:06 Consultations 02/15/21 21:41 ED Decision to Admit Stat 02/16/21 01:52 Consult Cardiology Routine Ordered Studies 02/15/21 17:34 CT head/brain wo con Stat Hospital Course (1) CAD (coronary artery disease): Tachycardia: Fabian Bryan is a 75y/o male with PMH significant for severe CAD recent STEMI 3 months ago s/p PCI, asthma, hyperlipidemia, hypertension, type 2 diabetes; who presents following episode of nausea, and vomiting with subsequent noticing of elevated heart rate and elevated blood pressure. Tachycardia: -Tachycardic to the low 120s in the ED at times, with reported tachycardia noticed on apple watch at home of 140 -Received additional dose of 50 mg metoprolol p.o. in ED -Subsequent improvement of tachycardia while in ED -Initial troponin less than 0.015, subsequent 0.028 -Continue to trend troponins overnight -Admission to telemetry unit given CAD -Cardiology consulted On day of discharge: Tachycardia resolved. D/W cardio ok to discharge. Cardio input below in BOLD: -Post PCI with DARLENE to distal circumflex 10/2020 Moderate nonculprit CAD 50% mid LAD Feeling well today. No recurrent symptoms. Troponin has remained negative Tachycardia resolved. Echo shows preserved LV/RV function. Trace pericardial effusion. Mitral regurg only mild. -- Home on prior DAPT aspirin/brilinta -- Continue prior toprol XL, losartan and statin. Coronary artery disease: -S/p PCI to distal circumflex 10/2020 -Cardiac catheterization at that time additionally noticed 50% stenosis of mid LAD -Continue DAPT Hyperlipidemia: -Continue rosuvastatin 20 mg HS -Lipid profile in a.m. for continued monitoring Hypertension: -Continue losartan 1 mg daily, metoprolol 100 mg daily Type 2 diabetes: -Hold home regimen -Last A1c 6.7 (11/14/2020) -Recheck A1c in a.m. Diet: Heart healthy, carb consistent CODE STATUS: Full code Total Time Total Time Spent Total Time Spent (In Minutes): 32 Total Time Includes: Examination of the Patient, Discharge Planning and Medication Reconciliation Discharge Plan Discharge Items Patient Disposition: Home - Self-Care Reason For Visit: NSTEMI Discharge Diagnosis: NSTEMI Condition on Discharge: Good Activity: Resume your previous activity Non-emergency contact: Primary Care Provider Call non-emergency contact if: you have any medication questions Follow-up/Referrals: Rl Engel MD [Primary Care Provider] - 02/21/21 2:00 pm (Your appointment is with RONNY Villa. If you have any questions or need to change this appointment, please call [phone].) Diet: Regular Addtl Attending Provider Instructions: You were seen by Dr. Solares. Recommend to continue same medication and followup with Cardiac rehab next week. Pending Studies at Discharge: No Stand-Alone Forms: [facility] [employer], Smoking Cessation Medications and DC Order Prescriptions: Continued (DME) pen needle, diabetic [BD Ultra-Fine Mini Pen Needle] 31 gauge x 3/16" needle See Dose Instructions .ROUTE .MEDSUPPLY Qty: 100 RF: 3 Invokana 300 mg tablet 300 mg PO DAILY Qty: 30 RF: 5 sertraline 100 mg tablet 100 mg PO DAILY Qty: 90 RF: 3 albuterol sulfate 90 mcg/actuation HFA aerosol inhaler 2 puff inhalation Q4H PRN (Reason: shortness of breath or wheezing) Qty: 6.7 RF: 5 diclofenac sodium 1 % gel 2 g TOP QID PRN (Reason: pain ) Qty: 200 RF: 3 acetaminophen [Tylenol 8 Hour] 650 mg tablet extended release 1,300 mg PO Q12H RF: 0 olopatadine 0.2 % drops 1 drp OP DAILY Qty: 2.5 RF: 3 losartan 100 mg tablet 100 mg PO QAM Qty: 90 RF: 3 glimepiride 1 mg tablet 1 mg PO QAM RF: 0 aspirin [Aspirin Low Dose] 81 mg Tablet,Delayed Release (Dr/Ec) 81 mg PO QPM RF: 0 nitroglycerin [Nitrostat] 0.4 mg Tablet, Sublingual 0.4 mg sublingual Q5M PRN (Reason: chest pain) Qty: 30 RF: 1 rosuvastatin [Crestor] 20 mg Tablet 20 mg PO HS Qty: 30 RF: 6 Brilinta 90 mg Tablet 90 mg PO BID Qty: 60 RF: 11 metoprolol succinate 100 mg tablet extended release 24 hr 100 mg PO DAILY Qty: 30 RF: 3 No Action Victoza 3-Josr 0.6 mg/0.1 mL (18 mg/3 mL) pen injector 1.8 mg SUBCUT DAILY Qty: 18 RF: 3 methylprednisolone [Medrol (Josr)] 4 mg tablets,dose pack See Rx Instructions .Route .COMPLEX Qty: 21 RF: 0 Discharge Orders: Discharge Order (Routine); Ordered 02/16/21 Ordered By: Conrado Acuña/Other Patient Handouts: Managing Type 2 Diabetes, A1C Admission Data Admit Date/Time: 02/15/21 23:35 Attending Provider: Conrado Styles Admit Provider: Jaime Boston Primary Care Provider: Rl Engel Other Providers: Layton Marino ; Rl Solares Other Interventions: Discharge Summary Assessment (RN) Last Done: 02/16/21 12:38 Coding Level of Care Code 06443 OBS Care - Discharge Diagnoses CAD (coronary artery disease) I25.10
== END 2021-02-16 13:39 | disposition home or self-care (01) ==
LOC: ED 15:43 → INTOOBSV 23:35 → SUATTDRO 23:35 → 2N 23:35

== ENCOUNTER 2021-06-22 10:25 | Inpatient (IN) ==
[2021-06-22] MEDS ORDERED: SODIUM CHLORIDE 0.9% 1000ML 1,000 ML IV STA (10:53)
--- NOTE | 2021-06-22 11:28 | Emergency Department Note ---
History of Present Illness General Chief complaint: Urinary Symptoms Stated complaint: URINARY OR KIDNEY INFECTION GETTING WORSE Time Seen by Provider: 06/22/21 10:42 History of Present Illness Maximum Pain Intensity: 0 75-year-old male presents to the ED with a chief complaint of feeling like crud. States that he feels weak and unsteady and a little short of breath. He has had some low-grade fevers and some body aches. He has had decreased solid intake but has been pushing fluids. He also reported some intermittent right flank pain through the week. Last time it occurred was 830 this morning. He states that he has been sleeping all day. He is fatigued. He states that 9 da ys ago he was seen by Dr. Engel for routine visit. He did complain of some frequency and burning at that time. He was prescribed Bactrim. Urine culture did grow out an infection that is sensitive to Bactrim. He completed a week course and was started on a second course because he was not feeling any better. He decided come to the ED for evaluation today because of his symptoms. He states that he sleeps throughout the day and is not able to sleep well at night. He states that he had his (3rd) booster Covid shot 2 and half weeks ago. The patient CBC was unremarkable. Chest x-ray did not show acute process. Urine did not appear infected. EKG shows a sinus rhythm with some PVCs that appears to be chronic. CT scan of the abdomen pelvis reveals a thickened duodenum and some prostatomegaly. Sodium is 127. BUN is 35 and creatinine is 1.64. This is above his baseline. Troponin was negative. Bilirubin is 1.7. This is elevated compared to his baseline. AST and ALT are also elevated as is alkaline phosphatase. Lipase was mildly elevated at 490. Ultrasound of the gallbladder shows cholelithiasis without cholecystitis. The patient was hydrated with some IV fluids. His symptoms could be related to Bactrim induced hepatotoxicity. I did add on a hepatitis panel as well as an INR. I spoke with the hospitalist about bringing the patient in for further evaluation and care. Home Medications Medication Instructions Recorded Confirmed Type aspirin 81 mg tablet,delayed 81 mg PO HS 10/12/18 06/22/21 History release (Aspirin Low Dose) glimepiride 1 mg tablet 1 mg PO QAM tab 02/16/20 06/22/21 History pen needle, diabetic 31 gauge x #100 ea 07/19/20 02/19/21 Rx 3/16" (BD Ultra-Fine Mini Pen Needle) albuterol sulfate 90 mcg/actuation 2 puff INHALATION Q4H PRN #6.7 g 10/23/20 1 Rx aerosol inhaler diclofenac sodium 1 % topical gel 2 g TOP QID PRN #200 g 10/23/20 06/22/21 Rx sertraline 100 mg tablet 100 mg PO DAILY #90 tab 10/23/20 06/22/21 Rx nitroglycerin 0.4 mg sublingual 0.4 mg SUBLINGUAL Q5M PRN #30 tab 11/15/20 06/22/21 Rx tablet (Nitrostat) ticagrelor 90 mg tablet (Brilinta) 90 mg PO BID #60 tab 11/15/20 06/22/21 Rx losartan 100 mg tablet 100 mg PO QAM #90 tab 11/17/20 06/22/21 Rx acetaminophen 650 mg 1,300 mg PO Q12H tab 11/23/20 06/22/21 History tablet,extended release (Tylenol 8 Hour) liraglutide 0.6 mg/0.1 mL (18 mg/3 1.8 mg SUBCUT DAILY #18 ml 02/16/21 06/22/21 Rx mL) subcutaneous pen injector (Victoza 3-Josr) metoprolol succinate 100 mg 100 mg PO DAILY #90 tab 03/13/21 06/22/21 Rx tablet,extended release 24 hr canagliflozin 300 mg tablet 300 mg PO DAILY #90 tab 04/13/21 06/22/21 Rx (Invokana) rosuvastatin 20 mg tablet (Crestor) 20 mg PO HS #30 tab 06/18/21 06/22/21 Rx sulfamethoxazole 800 1 tab PO Q12H #14 tab 06/19/21 06/22/21 Rx mg-trimethoprim 160 mg tablet (Bactrim DS) mavkvjpk-ogpnvued-xikxc acid 400 1 tab PO DAILY 06/22/21 06/22/21 History mcg-vit K 20 mcg-lycop 300 mcg tablet (Men's Multivitamin) olopatadine 0.2 % eye drops 1 drp OPB DAILY PRN 06/22/21 06/22/21 History Allergies Allergy/AdvReac Type Severity Reaction Status Date / Time cefoxitin Allergy Intermediate HIVES Verified 06/22/21 12:32 clavulanic acid Allergy Intermediate Hives Verified 06/22/21 12:32 [From Timentin] ticarcillin [From Timentin] Allergy Intermediate Hives Verified 06/22/21 12:32 atorvastatin AdvReac Mild Joint Pain Verified 06/22/21 12:32 pravastatin AdvReac Mild Joint Pain Verified 06/22/21 12:32 Past Med/Surg History Medical History Abdominal pain, LLQ (left lower quadrant) Allergic rhinitis due to pollen Anemia Arthritis Atopic dermatitis Atrial fibrillation post NC on 11/14; w/ RVR Benign colonic polyp Benign localized hyperplasia of prostate with urinary obstruction Bladder calculus Carotid artery plaque Carotid bruit Cellulitis Depression Diabetes mellitus Type 2 Diverticular disease Diverticulitis of colon Diverticulosis of colon Erectile dysfunction Facial skin lesion Fatty liver H/O renal calculi Hearing deficit Heart murmur Hematuria Hemochromatosis PHLEBOTOMY TREATMENTS EVERY 3 MONTHS- FERRITIN LEVELS MONITORED BY HEMATOLOGY; LAST PHLEBOTOMY 2 MONTHS AGO History of colon polyps History of diverticulitis 09/2018= RESOLVED S/P ABX Hyperlipidemia Hypertension Irritable bowel syndrome Joint pain, knee Laceration of thumb, left Lower back pain Microscopic hematuria Obesity Ocular hypertension, unspecified eye Pain due to ureteral stent Renal calcification Renal colic Right leg pain Type 2 diabetes mellitus Ureteral calculus, right Urinary frequency Xerosis cutis Surgical History H/O cataract extraction History of colonoscopy History of heart artery stent Inf STEMI on 11/14:subtotal occ. Large distal Cx s/p PCI of m/dCx w/single DARLENE History of tonsillectomy and adenoidectomy History of umbilical hernia repair History of vasectomy Hx of cystoscopy CYSTOSCOPY/LASER LITHOTRIPSY/STENT= 01/23/17= LMA#5 AT [facility] Hx of hand surgery LEFT HAND TENDON SURGERY Hx of transurethral resection of prostate AND BLADDER STONES REMOVED on 10/26/18 with LMA#5 Family History Mother Multiple myeloma Stroke Father Laryngeal cancer Grandfather (Maternal) Stroke Uncle Stroke Denies family history of Ovarian cancer Prostate cancer Coronary heart disease Myocardial infarction Breast cancer Colorectal cancer Social History Smoking Status: Never smoker Second Hand Exposure: Yes; Hx Alcohol Use: No Hx Substance Use: No Preferred Language: Tajik Communication Ability: Effective Visual Impairment: No Limitations Hearing Ability: Use of Hearing Aid Drying Machine Receiver Required: No Beliefs That Will Affect Care: None marital status: Current Living Situation: Spouse current occupational status: retired current occupation: Retired [employer] Feels Safe at Home: Yes Childhood Exposure to Second-Hand Smoke: Yes caffeine: Yes Dental Care, Regularly: Yes Physical Activity Frequency: 5-6 Times per Week Seatbelt Use: always Sunscreen Use: No Assistive Devices: Glasses Review of Systems A total of 10 systems reviewed and were otherwise negative Physical Exam Vital Signs Vital Signs - 24 hr 06/22/21 10:34 06/22/21 11:00 06/22/21 11:01 Temperature 37.1 C Temperature Source Oral Pulse Rate 102 H 98 H Respiratory Rate 20 20 Respiratory Effort / Characteristics Non-Labored Respiratory Depth Normal Blood Pressure 115/77 131/67 Blood Pressure Mean 89 88 Pulse Oximetry 96 95 94 Oxygen Delivery Method Room Air Room Air Sepsis Recent Fever Within 48 Hours No Sepsis New/Unexplained Change in Mental Status N/A Sepsis Action Taken by Nursing No Action Required 06/22/21 11:30 06/22/21 12:30 06/22/21 13:51 Temperature Temperature Source Pulse Rate 92 H 77 75 Respiratory Rate 20 20 20 Respiratory Effort / Characteristics Respiratory Depth Blood Pressure 111/63 Blood Pressure Mean 79 Pulse Oximetry 94 94 95 Oxygen Delivery Method Sepsis Recent Fever Within 48 Hours Sepsis New/Unexplained Change in Mental Status Sepsis Action Taken by Nursing 06/22/21 14:00 Temperature Temperature Source Pulse Rate 75 Respiratory Rate 20 Respiratory Effort / Characteristics Respiratory Depth Blood Pressure 136/74 Blood Pressure Mean 94 Pulse Oximetry 96 Oxygen Delivery Method Sepsis Recent Fever Within 48 Hours Sepsis New/Unexplained Change in Mental Status Sepsis Action Taken by Nursing CONSTITUTIONAL/VITAL SIGNS: Reviewed / noted above. GENERAL: Non-toxic in appearance. INTEGUMENTARY: Warm, dry, and [place]. HEAD: Normocephalic. EYES: without scleral icterus or trauma. ENT/OROPHARYNX: clear and moist. LYMPHADENOPATHY/NECK: Is supple without lymphadenopathy or meningismus. RESPIRATORY: Clear to auscultation bilaterally. No increased work of breathing. CARDIOVASCULAR: Regular rate and rhythm. GI/ABDOMEN: Soft and nontender. No organomegaly or pulsatile mass. EXTREMITIES: Warm and well perfused. BACK: No CVA tenderness. NEUROLOGICAL: Intact without focal deficits. PSYCHIATRIC: normal affect. MUSCULOSKELETAL: Normally developed with good muscle tone. TRIAGE NURSING DOCUMENTATION REVIEWED. Course Administered Medications Discontinued Medications Sodium Chloride (Nss 1000ml) 1,000 mls @ 999 mls/hr IV .Q1H1M STA Stop: 06/22/21 11:53 Last Infusion: 06/22/21 13:36 Dose: 0 mls/hr Documented by: [id number] Admin: 06/22/21 12:25 Dose: 999 mls/hr Documented by: [id number] Medical Decision Making Differential Diagnosis Differential includes acute coronary syndrome, myocardial infarction, CVA, TIA, anemia, infection, pneumonia, UTI, pyelonephritis, poor nutrition, dehydration, electrolyte disturbance,hypoglycemia. Medical Records Attestation: I reviewed the patient's medical records. Home Medications Current Medication List: was personally reviewed by me Laboratory Data Attestation: I reviewed the patient's lab results. Result diagrams: 06/22/21 11:18 06/22/21 11:18 Lab Results 06/22/21 06/22/21 06/22/21 Range/Units 11:18 11:18 11:20 WBC 7.66 (4.8-10.8) K/uL RBC 5.19 (4.7-6.1) M/uL Hgb 14.5 (14.0-18.0) g/dL Hct 42.5 (42-52) % MCV 81.9 (80-100) fL MCH 27.9 (25-34) pg MCHC 34.1 (32-36) g/dL RDW Std Deviation 47.1 H (36.4-46.3) fL RDW Coeff of Aria 15.6 H (11.5-14.5) % Plt Count 247 (130-400) K/uL MPV 9.6 (7.4-10.4) fL Immature Gran % (Auto) 0.1 % Neut % (Auto) 88.4 % Lymph % (Auto) 3.0 % Pettis % (Auto) 6.8 % Eos % (Auto) 1.6 % Baso % (Auto) 0.1 % Neut # (Auto) 6.77 H (1.4-6.5) K/uL Lymph # (Auto) 0.23 L (1.2-3.4) K/uL Pettis # (Auto) 0.52 (0.11-0.59) K/uL Eos # (Auto) 0.12 (0-0.5) K/uL Baso # (Auto) 0.01 (0-0.2) K/uL Immature Gran # (Auto) 0.01 (0.00-0.02) K/uL Sodium 127 L (136-145) mmol/L Potassium 4.1 (3.5-5.1) mmol/L Chloride 99 (98-107) mmol/L Carbon Dioxide 18 L (21-32) mmol/L Anion Gap 10.0 (3-11) BUN 35 H (7-18) mg/dl Creatinine 1.64 H (0.6-1.4) mg/dl Est Cr Clr Drug Dosing 48.4 ml/min Est GFR ( Amer) 46.7 ml/min Est GFR (Non-Af Amer) 40.3 ml/min BUN/Creatinine Ratio 21.5 H (10-20) Glucose 211 H (70-99) mg/dl Calcium 8.8 (8.5-10.1) mg/dl Total Bilirubin 1.7 H (0.2-1) mg/dl AST 392 H (15-37) U/L ALT 612 H (12-78) U/L Alkaline Phosphatase 414 H (45-117) U/L Troponin I < 0.015 (0-0.045) ng/ml Total Protein 7.9 (6.4-8.2) gm/dl Albumin 3.0 L (3.4-5.0) gm/dl Globulin 4.9 H (2.5-4.0) gm/dl Albumin/Globulin Ratio 0.6 L (0.9-2) Lipase 490 H (73-393) U/L Urine Color Dark Yellow Urine Appearance Clear (Clear) Urine pH 5.0 (4.5-7.5) Ur Specific Wil[place] 1.028 (1.000-1.030) Urine Protein Negative (Negative) Urine Glucose (UA) 3+ H (Negative) Urine Ketones Trace H (Negative) Urine Blood 1+ H (Negative) Urine Nitrite Negative (Negative) Urine Bilirubin 1+ H (Negative) Urine Urobilinogen Negative (Negative) Ur Leukocyte Esterase Negative (Negative) Urine WBC (Auto) 5-10 H (0-5) /hpf Urine RBC (Auto) 0-4 (0-4) /hpf U Hyaline Cast (Auto) 1-5 (0-5) /lpf U Epithel Cells (Auto) 5-10 H (0-5) /lpf Urine Bacteria (Auto) Negative (Negative) COVID-19 Eval Order SARS-CoV-2 (PCR) (Negative) 06/22/21 06/22/21 Range/Units 11:20 11:20 WBC (4.8-10.8) K/uL RBC (4.7-6.1) M/uL Hgb (14.0-18.0) g/dL Hct (42-52) % MCV (80-100) fL MCH (25-34) pg MCHC (32-36) g/dL RDW Std Deviation (36.4-46.3) fL RDW Coeff of Aria (11.5-14.5) % Plt Count (130-400) K/uL MPV (7.4-10.4) fL Immature Gran % (Auto) % Neut % (Auto) % Lymph % (Auto) % Pettis % (Auto) % Eos % (Auto) % Baso % (Auto) % Neut # (Auto) (1.4-6.5) K/uL Lymph # (Auto) (1.2-3.4) K/uL Pettis # (Auto) (0.11-0.59) K/uL Eos # (Auto) (0-0.5) K/uL Baso # (Auto) (0-0.2) K/uL Immature Gran # (Auto) (0.00-0.02) K/uL Sodium (136-145) mmol/L Potassium (3.5-5.1) mmol/L Chloride (98-107) mmol/L Carbon Dioxide (21-32) mmol/L Anion Gap (3-11) BUN (7-18) mg/dl Creatinine (0.6-1.4) mg/dl Est Cr Clr Drug Dosing ml/min Est GFR ( Amer) ml/min Est GFR (Non-Af Amer) ml/min BUN/Creatinine Ratio (10-20) Glucose (70-99) mg/dl Calcium (8.5-10.1) mg/dl Total Bilirubin (0.2-1) mg/dl AST (15-37) U/L ALT (12-78) U/L Alkaline Phosphatase (45-117) U/L Troponin I (0-0.045) ng/ml Total Protein (6.4-8.2) gm/dl Albumin (3.4-5.0) gm/dl Globulin (2.5-4.0) gm/dl Albumin/Globulin Ratio (0.9-2) Lipase (73-393) U/L Urine Color Urine Appearance (Clear) Urine pH (4.5-7.5) Ur Specific [place] (1.000-1.030) Urine Protein (Negative) Urine Glucose (UA) (Negative) Urine Ketones (Negative) Urine Blood (Negative) Urine Nitrite (Negative) Urine Bilirubin (Negative) Urine Urobilinogen (Negative) Ur Leukocyte Esterase (Negative) Urine WBC (Auto) (0-5) /hpf Urine RBC (Auto) (0-4) /hpf U Hyaline Cast (Auto) (0-5) /lpf U Epithel Cells (Auto) (0-5) /lpf Urine Bacteria (Auto) (Negative) COVID-19 Eval Order Covid19 at [facility] SARS-CoV-2 (PCR) NEGATIVE (Negative) Imaging Data Radiologist's Impression: Abdomen/Pelvis CT 06/22/21 10:53 CT SCAN OF THE ABDOMEN AND PELVIS WITHOUT IV CONTRAST CLINICAL HISTORY: Upper abdominal pain. COMPARISON STUDY: Abdominal CT dated 11/28/2020. TECHNIQUE: CT scan of the abdomen and pelvis is performed from the lung bases to the proximal femora. Images are reviewed in the axial, sagittal, and coronal planes. IV contrast was not administered for this examination. A dose lowering technique was utilized adhering to the principles of ALARA. CT DOSE: 958.68 mGycm FINDINGS: Lung bases: The heart is normal in size and without pericardial effusion. The coronary arteries are densely calcified. There is a small hiatal hernia. A 6 mm right basilar pulmonary nodule image #49 is unchanged. Calcified granuloma is also seen at the right lung base. The lung bases are otherwise clear noting bibasilar scarring/atelectasis. Liver: The unenhanced liver is normal in size, contour, and attenuation. There is no intrahepatic biliary ductal dilatation. Gallbladder: There are calcified gallstones with no CT evidence of acute cholecystitis. Spleen: Normal in size and attenuation. Pancreas: The unenhanced pancreas is grossly unremarkable. Adrenal glands: Unremarkable. Kidneys: The unenhanced kidneys are normal in size and without hydronephrosis. There are at least 3 nonobstructing left renal calculi which measure up to 10 mm. There is a punctate nonobstructing right renal calculus. No ureteral stone is seen. A 2 cm peripherally calcified cystic lesion in the interpolar right kidney is unchanged. A circumaortic left renal vein is incidentally noted. Abdominal vasculature: The abdominal aorta is normal in course and caliber noti ng moderate to advanced atherosclerotic calcification. Bowel: There is moderate colonic diverticulosis without CT evidence of acute diverticulitis. No bowel obstruction is seen. There is wall thickening of the proximal duodenum with surrounding infiltration and trace fluid. A duodenal diverticulum is incidentally noted. This is not located in the region of inflammation. The appendix is well-visualized and normal. Peritoneum: There is no intraperitoneal free air or abdominal ascites. Lymphadenopathy: None. Pelvic viscera: The prostate gland is markedly enlarged and heterogeneous noting median lobe hypertrophy. The bladder wall is thickened and trabeculated indicating chronic outlet obstruction. There are bilateral fat-containing inguinal hernias. Skeletal structures: The skeletal structures are osteopenic. There is moderate lumbosacral spondylosis. No lytic or blastic lesions are seen. IMPRESSION: 1. There is wall thickening with surrounding inflammation and trace fluid involving the proximal duodenum. This is nonspecific and could be seen with a duodenitis or possibly ulcer disease. This could be further assessed with endoscopy if clinically warranted. 2. No intraperitoneal free air is identified. 3. Bilateral nephrolithiasis. There is no ureteral stone or hydronephrosis. 4. Moderate colonic diverticulosis without CT evidence of acute diverticulitis. 5. Marked prostatomegaly with evidence of chronic bladder outlet obstruction. 6. Cholelithiasis. 7. Additional findings as above. ACT 112: Negative or not required by law. Electronically signed by: Enrique Ring M.D. 06/22/2021 12:19 PM Chest X-Ray 06/22/21 10:54 XR chest 1V portable HISTORY: Weakness. COMPARISON: Chest 02/15/2021. FINDINGS: No pneumothorax. No pleural effusions. No focal lung consolidations to suggest pneumonia. No evidence for pulmonary edema. The heart is normal in size. IMPRESSION: No acute process. ACT 112: Negative or not required by law. Electronically signed by: Don Godoy M.D. 06/22/2021 11:34 AM Gallbladder Ultrasound 06/22/21 12:28 ULTRASOUND RIGHT UPPER QUADRANT ABDOMEN CLINICAL HISTORY: Elevated hepatic transaminases and bilirubin. COMPARISON STUDY: Abdominal CT dated 06/22/2021. TECHNIQUE: Real-time, grayscale, and color flow sonography of the right upper quadrant of the abdomen was performed. Images are reviewed in the transverse and longitudinal planes. FINDINGS: Liver: The liver is normal in size and echotexture. There is no intrahepatic biliary ductal dilatation. The main portal vein is patent. Gallbladder: There is a calcified shadowing gallstone. The gallbladder is otherwise normal in appearance. There is no gallbladder wall thickening or pericholecystic fluid. A sonographic Bailey's sign is reportedly absent. The common bile duct measures up to 0.5 cm in diameter. Pancreas: Visualized portions of the pancreatic head and body are normal in appearance. Right kidney: Survey images of the right kidney demonstrate normal size and echotexture. There is no hydronephrosis. A 2.2 cm calcified cystic structure is again noted. Ascites: None. IMPRESSION: 1. Cholelithiasis without sonographic evidence of acute cholecystitis. 2. No intra or extrahepatic biliary ductal dilatation is identified. ACT 112: Negative or not required by law. Electronically signed by: Enrique Ring M.D. 06/22/2021 1:31 PM ECG Data Attestation: I personally reviewed and interpreted this ECG as follows: Additional Comments: Twelve-lead EKG: Per my interpretation shows a sinus rhythm at a rate of 94 with frequent PVCs. No segment change compared to 02/15/2021. Notes elevation. Normal QTC. MDM Narrative Patient presents to the ED with chief complaint of fatigue and generalized weakness as well as achiness, unsteadiness and generalized malaise. He is also had some shortness of breath. Symptoms got worse for the past 4 days. He is currently on Bactrim for a urine infection that is sensitive to Bactrim. He is on a second course of Bactrim. Exam was unremarkable. His vital signs reveal mild tachycardia with a heart rate of 102. Lead EKG shows a sinus rhythm with some PVCs. No significant change from previous. Impression & Plan Transaminitis, Hyperbilirubinemia, AUBREY (acute kidney injury), Acute hyponatremia Discharge Plan Visit Data Chief Complaint: Urinary Symptoms Stated Complaint: URINARY OR KIDNEY INFECTION GETTING WORSE ED Provider: Hugh Titus Discharge Problem: Transaminitis, Hyperbilirubinemia, AUBREY (acute kidney injury), Acute hyponatremia Patient Disposition: Being Evaluated by Hospitalist Forms Stand Alone Forms: [facility], Virtual Emergency Department, Important Visit Information Prescriptions Prescriptions: No Action (DME) pen needle, diabetic [BD Ultra-Fine Mini Pen Needle] 31 gauge x 3/16" needle See Dose Instructions .ROUTE .MEDSUPPLY Qty: 100 RF: 3 sertraline 100 mg tablet 100 mg PO DAILY Qty: 90 RF: 3 albuterol sulfate 90 mcg/actuation HFA aerosol inhaler 2 puff inhalation Q4H PRN (Reason: shortness of breath or wheezing) Qty: 6.7 RF: 5 diclofenac sodium 1 % gel 2 g TOP QID PRN (Reason: pain ) Qty: 200 RF: 3 Victoza 3-Josr 0.6 mg/0.1 mL (18 mg/3 mL) pen injector 1.8 mg SUBCUT DAILY Qty: 18 RF: 3 metoprolol succinate 100 mg tablet extended release 24 hr 100 mg PO DAILY Qty: 90 RF: 3 Invokana 300 mg tablet 300 mg PO DAILY Qty: 90 RF: 3 rosuvastatin [Crestor] 20 mg tablet 20 mg PO HS Qty: 30 RF: 6 sulfamethoxazole-trimethoprim [Bactrim DS] 800-160 mg tablet 1 tab PO Q12H Qty: 14 RF: 0 acetaminophen [Tylenol 8 Hour] 650 mg tablet extended release 1,300 mg PO Q12H RF: 0 losartan 100 mg tablet 100 mg PO QAM Qty: 90 RF: 3 glimepiride 1 mg tablet 1 mg PO QAM RF: 0 aspirin [Aspirin Low Dose] 81 mg Tablet,Delayed Release (Dr/Ec) 81 mg PO HS RF: 0 nitroglycerin [Nitrostat] 0.4 mg Tablet, Sublingual 0.4 mg sublingual Q5M PRN (Reason: chest pain) Qty: 30 RF: 1 Brilinta 90 mg Tablet 90 mg PO BID Qty: 60 RF: 11 Men's Multivitamin 400-20-300 mcg Tablet 1 tab PO DAILY RF: 0 olopatadine 0.2 % drops 1 drp OPB DAILY PRN (Reason: Allergy Symptoms) RF: 0 Referrals Referrals: Tony Engel MD [Primary Care Provider] -
--- NOTE | 2021-06-22 11:35 | XRay Report ---
XR chest 1V portable HISTORY: Weakness. COMPARISON: Chest 02/15/2021. FINDINGS: No pneumothorax. No pleural effusions. No focal lung consolidations to suggest pneumonia. N o evidence for pulmonary edema. The heart is normal in size. IMPRESSION: No acute process. ACT 112: Negative or not required by law. Electronically signed by: Don Godoy M.D. 06/22/2021 11:34 AM
[2021-06-22 11:38] LABS: Basophils # (auto) 0.01 K/uL (0-0.2); Basophils % (auto) 0.1 %; Eosinophils # (auto) 0.12 K/uL (0-0.5); Eosinophils % (auto) 1.6 %; Hematocrit (blood only) 42.5 % (42-52); Hemoglobin 14.5 g/dL (14.0-18.0); Immature Granulocytes # (auto) 0.01 K/uL (0.00-0.02); Immature Granulocytes % (auto) 0.1 %; Lymphocytes # (auto) 0.23 K/uL (1.2-3.4); Mean Corpuscular Hemoglobin 27.9 pg (25-34); Mean Corpuscular Hgb Conc 34.1 g/dL (32-36); Mean Corpuscular Volume 81.9 fL (80-100); Mean Platelet Volume 9.6 fL (7.4-10.4); Monocytes # (auto) 0.52 K/uL (0.11-0.59); Monocytes % (auto) 6.8 %; Neutrophils # (auto) 6.77 K/uL (1.4-6.5); Neutrophils % (auto) 88.4 %; Platelet Count 247 K/uL (130-400); RDW Coefficient of Variation 15.6 % (11.5-14.5); RDW Standard Deviation 47.1 fL (36.4-46.3); Red Blood Count 5.19 M/uL (4.7-6.1); White Blood Count 7.66 K/uL (4.8-10.8)
[2021-06-22 11:48] LABS: Appearance Urine Clear (Clear); Bacteria Urine Automated Negative (Negative); Blood Urine 1+ (Negative); Color Urine Dark Yellow; Glucose Urine UA 3+ (Negative); Ketones Urine Trace (Negative); Leukocyte Esterase Urine Negative (Negative); Nitrite Urine Negative (Negative); Protein Urine Negative (Negative); RBC Urine Automated 0-4 /hpf (0-4); Specific Gravity Urine 1.028 (1.000-1.030); Urobilinogen Urine Negative (Negative)
[2021-06-22 11:49] LABS: Bilirubin Urine 1+ (Negative)
[2021-06-22 11:58] LABS: Alanine Aminotransferase 612 U/L (12-78); Aspartate Aminotransferase 392 U/L (15-37); BUN Creatinine Ratio 21.5 (10-20); Blood Urea Nitrogen 35 mg/dl (7-18); Calcium 8.8 mg/dl (8.5-10.1); Carbon Dioxide 18 mmol/L (21-32); Chloride 99 mmol/L (98-107); Creatinine Clr Calc Pharmacy 48.4 ml/min; Est GFR (African American) 46.7 ml/min; Est GFR (Non-African American) 40.3 ml/min; Glucose 211 mg/dl (70-99); Lipase 490 U/L (73-393); Potassium 4.1 mmol/L (3.5-5.1); Sodium 127 mmol/L (136-145)
[2021-06-22 12:03] LABS: Albumin Globulin Ratio 0.6 (0.9-2); Alkaline Phosphatase 414 U/L (45-117); Bilirubin,Total 1.7 mg/dl (0.2-1); Globulin 4.9 gm/dl (2.5-4.0); Total Protein 7.9 gm/dl (6.4-8.2); Troponin I < 0.015 ng/ml (0-0.045)
--- NOTE | 2021-06-22 12:21 | CT Scan Report ---
CT SCAN OF THE ABDOMEN AND PELVIS WITHOUT IV CONTRAST CLINICAL HISTORY: Upper abdominal pain. COMPARISON STUDY: Abdominal CT dated 11/28/2020. TECHNIQUE: CT scan of the abdomen and pelvis is performed from the lung bases to the proximal femora. Images are reviewed in the axial, sagittal, and coronal planes. IV contrast was not administered for this examination. A dose lowering technique was utilized adhering to the principles of ALARA. CT DOSE: 958.68 mGycm FINDINGS: Lung bases: The heart is normal in size and without pericardial effusion. The coronary arteries are d ensely calcified. There is a small hiatal hernia. A 6 mm right basilar pulmonary nodule image #49 is unchanged. Calcified granuloma is also seen at the right lung base. The lung bases are otherwise salina r noting bibasilar scarring/atelectasis. Liver: The unenhanced liver is normal in size, contour, and attenuation. There is no intrahepatic robert iary ductal dilatation. Gallbladder: There are calcified gallstones with no CT evidence of acute cholecystitis. Spleen: Normal in size and attenuation. Pancreas: The unenhanced pancreas is grossly unremarkable. Adrenal glands: Unremarkable. Kidneys: The unenhanced kidneys are normal in size and without hydronephrosis. There are at least 3 n onobstructing left renal calculi which measure up to 10 mm. There is a punctate nonobstructing right renal calculus. No ureteral stone is seen. A 2 cm peripherally calcified cystic lesion in the interpo lar right kidney is unchanged. A circumaortic left renal vein is incidentally noted. Abdominal vasculature: The abdominal aorta is normal in course and caliber noting moderate to advance d atherosclerotic calcification. Bowel: There is moderate colonic diverticulosis without CT evidence of acute diverticulitis. No bowel obstruction is seen. There is wall thickening of the proximal duodenum with surrounding infiltration and trace fluid. A duodenal diverticulum is incidentally noted. This is not located in the region of inflammation. The appendix is well-visualized and normal. Peritoneum: There is no intraperitoneal free air or abdominal ascites. Lymphadenopathy: None. Pelvic viscera: The prostate gland is markedly enlarged and heterogeneous noting median lobe hypertro phy. The bladder wall is thickened and trabeculated indicating chronic outlet obstruction. There are bilateral fat-containing inguinal hernias. Skeletal structures: The skeletal structures are osteopenic. There is moderate lumbosacral spondylosi s. No lytic or blastic lesions are seen. IMPRESSION: 1. There is wall thickening with surrounding inflammation and trace fluid involving the proximal duod enum. This is nonspecific and could be seen with a duodenitis or possibly ulcer disease. This could b e further assessed with endoscopy if clinically warranted. 2. No intraperitoneal free air is identified. 3. Bilateral nephrolithiasis. There is no ureteral stone or hydronephrosis. 4. Moderate colonic diverticulosis without CT evidence of acute diverticulitis. 5. Marked prostatomegaly with evidence of chronic bladder outlet obstruction. 6. Cholelithiasis. 7. Additional findings as above. ACT 112: Negative or not required by law. Electronically signed by: Enrique Ring M.D. 06/22/2021 12:19 PM
--- NOTE | 2021-06-22 13:32 | Ultrasound Report ---
ULTRASOUND RIGHT UPPER QUADRANT ABDOMEN CLINICAL HISTORY: Elevated hepatic transaminases and bilirubin. COMPARISON STUDY: Abdominal CT dated 06/22/2021. TECHNIQUE: Real-time, grayscale, and color flow sonography of the right upper quadrant of the abdomen was performed. Images are reviewed in the transverse and longitudinal planes. FINDINGS: Liver: The liver is normal in size and echotexture. There is no intrahepatic biliary ductal dilatatio n. The main portal vein is patent. Gallbladder: There is a calcified shadowing gallstone. The gallbladder is otherwise normal in appeara nce. There is no gallbladder wall thickening or pericholecystic fluid. A sonographic Bailey's sign is reportedly absent. The common bile duct measures up to 0.5 cm in diameter. Pancreas: Visualized portions of the pancreatic head and body are normal in appearance. Right kidney: Survey images of the right kidney demonstrate normal size and echotexture. There is no hydronephrosis. A 2.2 cm calcified cystic structure is again noted. Ascites: None. IMPRESSION: 1. Cholelithiasis without sonographic evidence of acute cholecystitis. 2. No intra or extrahepatic biliary ductal dilatation is identified. ACT 112: Negative or not required by law. Electronically signed by: Enrique Ring M.D. 06/22/2021 1:31 PM
[2021-06-22 14:42] LABS: INR 1.1 (0.9-1.1); Prothrombin Time 11.4 Seconds (9.0-12.0)
[2021-06-22] MEDS ORDERED: NITROGLYCERIN SL 0.4 MG/TAB TAB SL PRN (14:56)
--- NOTE | 2021-06-22 15:00 | History & Physical Report ---
Date of Service June 22, 2021 Assessment & Plan (1) Right upper quadrant abdominal pain: Plan: 75 yo male will be admitted with RUQ. Negative CT scan for choledocholithiasis Will obtain MRCP as patient has signs of duodenitis, stones in gallbladder, and elevated lfts. will hold antibiotics for now as no signs of sepsis. ER feels this may be hepatotoxicity from bactrim. Did not question patient upon alcohol use. (2) Acute hyponatremia: Plan: will recheck sodium in am. current level is 127 May be secondary to canagliflozin If no significant improvement tomorrow, may consider further eval. (3) Transaminitis: Plan: as stated above (4) Hyperbilirubinemia: Plan: as stated above in problem 1 (5) AUBREY (acute kidney injury): Plan: likely secondary to decreased oral intake. will recheck in am. received bolus in OF NORMAL SALINE. (6) Asthma: Plan: only on albuterol at home. will momnitor (7) Hyperlipidemia: Plan: continue rosuvastatin (8) Hypertension: Plan: resume home meds (9) Type 2 diabetes mellitus: Plan: consult glycemic control dvt: heparin History of Present Illness Chief Complaint: RUQ abd. pain Primary Care Provider: Tony Engel MD This is a pleasant 75-year-old male with history of CAD with recent stent placed to distal circumflex in October 2020 presents to the ER with 2-week history of malaise. Patient initially had urinary symptoms such as urinary urgency, increased urinary frequency, fever, chills. This improved after a weeks course of Bactrim. However patient continued to feel worse. Even though his urinary symptoms improved, he was now having worsening right upper quadrant abdominal pain, accompanied by decreased appetite. This has been ongoing for the past week. Upon further questioning patient states that his right upper quadrant abdominal pain had been present for a few weeks prior. Patient states felt for the past week he has not been able to eat due to having pain and he states that food makes him nauseous. He has only been able to tolerate eating fruit and having an sao tomean muffin. He states that this morning he had fruit at 8:30 AM. Allergies Allergy/AdvReac Type Severity Reaction Status Date / Time cefoxitin Allergy Intermediate HIVES Verified 06/22/21 12:32 clavulanic acid Allergy Intermediate Hives Verified 06/22/21 12:32 [From Timentin] ticarcillin [From Timentin] Allergy Intermediate Hives Verified 06/22/21 12:32 atorvastatin AdvReac Mild Joint Pain Verified 06/22/21 12:32 pravastatin AdvReac Mild Joint Pain Verified 06/22/21 12:32 Home Medications Medication Instructions Recorded Confirmed Type aspirin 81 mg tablet,delayed 81 mg PO HS 10/12/18 06/22/21 History release (Aspirin Low Dose) glimepiride 1 mg tablet 1 mg PO QAM tab 02/16/20 06/22/21 History pen needle, diabetic 31 gauge x #100 ea 07/19/20 02/19/21 Rx 3/16" (BD Ultra-Fine Mini Pen Needle) albuterol sulfate 90 mcg/actuation 2 puff INHALATION Q4H PRN #6.7 g 10/23/20 06/22/21 Rx aerosol inhaler diclofenac sodium 1 % topical gel 2 g TOP QID PRN #200 g 10/23/20 06/22/21 Rx sertraline 100 mg tablet 100 mg PO DAILY #90 tab 10/23/20 06/22/21 Rx nitroglycerin 0.4 mg sublingual 0.4 mg SUBLINGUAL Q5M PRN #30 tab 11/15/20 06/22/21 Rx tablet (Nitrostat) ticagrelor 90 mg tablet (Brilinta) 90 mg PO BID #60 tab 11/15/20 06/22/21 Rx losartan 100 mg tablet 100 mg PO QAM #90 tab 11/17/20 06/22/21 Rx acetaminophen 650 mg 1,300 mg PO Q12H tab 11/23/20 06/22/21 History tablet,extended release (Tylenol 8 Hour) liraglutide 0.6 mg/0.1 mL (18 mg/3 1.8 mg SUBCUT DAILY #18 ml 02/16/21 06/22/21 Rx mL) subcutaneous pen injector (Victoza 3-Josr) metoprolol succinate 100 mg 100 mg PO DAILY #90 tab 03/13/21 06/22/21 Rx tablet,extended release 24 hr canagliflozin 300 mg tablet 300 mg PO DAILY #90 tab 04/13/21 06/22/21 Rx (Invokana) rosuvastatin 20 mg tablet (Crestor) 20 mg PO HS #30 tab 06/18/21 06/22/21 Rx sulfamethoxazole 800 1 tab PO Q12H #14 tab 06/19/21 06/22/21 Rx mg-trimethoprim 160 mg tablet (Bactrim DS) tajsdaut-jatcnzfx-iwmjg acid 400 1 tab PO DAILY 06/22/21 06/22/21 History mcg-vit K 20 mcg-lycop 300 mcg tablet (Men's Multivitamin) olopatadine 0.2 % eye drops 1 drp OPB DAILY PRN 06/22/21 06/22/21 History Past Med/Surg History Medical History Abdominal pain, LLQ (left lower quadrant) Allergic rhinitis due to pollen Anemia Arthritis Atopic dermatitis Atrial fibrillation post NE on 11/14; w/ RVR Benign colonic polyp Benign localized hyperplasia of prostate with urinary obstruction Bladder calculus Carotid artery plaque Carotid bruit Cellulitis Depression Diabetes mellitus Type 2 Diverticular disease Diverticulitis of colon Diverticulosis of colon Erectile dysfunction Facial skin lesion Fatty liver H/O renal calculi Hearing deficit Heart murmur Hematuria Hemochromatosis PHLEBOTOMY TREATMENTS EVERY 3 MONTHS- FERRITIN LEVELS MONITORED BY HEMATOLOGY; LAST PHLEBOTOMY 2 MONTHS AGO History of colon polyps History of diverticulitis 09/2018= RESOLVED S/P ABX Hyperlipidemia Hypertension Irritable bowel syndrome Joint pain, knee Laceration of thumb, left Lower back pain Microscopic hematuria Obesity Ocular hypertension, unspecified eye Pain due to ureteral stent Renal calcification Renal colic Right leg pain Type 2 diabetes mellitus Ureteral calculus, right Urinary frequency Xerosis cutis Surgical History H/O cataract extraction History of colonoscopy History of heart artery stent Inf STEMI on 11/14:subtotal occ. Large distal Cx s/p PCI of m/dCx w/single DARLENE History of tonsillectomy and adenoidectomy History of umbilical hernia repair History of vasectomy Hx of cystoscopy CYSTOSCOPY/LASER LITHOTRIPSY/STENT= 01/23/17= LMA#5 AT [facility] Hx of hand surgery LEFT HAND TENDON SURGERY Hx of transurethral resection of prostate AND BLADDER STONES REMOVED on 10/26/18 with LMA#5 Family History Mother Multiple myeloma Stroke Father Laryngeal cancer Grandfather (Maternal) Stroke Uncle Stroke Denies family history of Ovarian cancer Prostate cancer Coronary heart disease Myocardial infarction Breast cancer Colorectal cancer Social History Smoking Status: Never smoker Second Hand Exposure: Yes; Hx Alcohol Use: No Hx Substance Use: No Preferred Language: Azerbaijani Communication Ability: Effective Visual Impairment: No Limitations Hearing Ability: Use of Hearing Aid Sew Out Operator Required: No Beliefs That Will Affect Care: None marital status: Current Living Situation: Spouse current occupational status: retired 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 Feels Safe at Home: Yes Childhood Exposure to Second-Hand Smoke: Yes caffeine: Yes Dental Care, Regularly: Yes Physical Activity Frequency: 5-6 Times per Week Seatbelt Use: always Sunscreen Use: No Assistive Devices: None Review of Systems Constitutional: no fever and no sweats Eyes: no blind spots Ear, Nose, Mouth, Throat: no ear pain and no ear trauma Respiratory: no cough Cardiovascular: no chest pain and no chest pain with activity Gastrointestinal: + abdominal pain, + early satiety and + nausea Genitourinary: no dysuria Musculoskeletal: no back pain Integumentary: no lesions Neurologic: no gait abnormality and no falls Psychiatric: no behavioral changes and no hopelessness Endocrine: + fatigue; no polydipsia Hematologic / Lymphatic: no easy bleeding Allergy / Immunological: no GI upset with certain foods Physical Exam Constitutional: WD/WN, vitals as above Eyes: PERRL, conjunctivae normal, anicteric sclerae ENMT: external ear and nose normal, oropharynx normal Neck: trachea midline, no thyromegaly Respiratory: normal respiratory effort, lungs clear to auscultation Cardiovascular: RRR, no murmur, no edema Gastrointestinal (Abdomen): Inspection/Auscultation: abdomen normal to inspection Percussion/Palpation: + abdomen tender (to RUQ, NEATIVE LOPEZ'S) and abdomen soft; no hepatosplenomegaly Musculoskeletal: no cyanosis or clubbing, extremities motor strength 5/5 Skin: no rashes, warm and dry Neurologic: PERRL, EOMI, accommodation nl, no face palsy, no dysarthria Psychiatric: A+Ox3, euthymic affect Lymphatic: no cervical or axillary lymphadenopathy Results & Data Results & Data ([facility]) Vital Signs (Past 12 Hours) Vital Signs Temp Pulse Resp BP Pulse Ox 10/22/21 14:00 75 20 136/74 96 06/22/21 13:51 75 20 95 06/22/21 12:30 77 20 111/63 94 06/22/21 11:30 92 H 20 94 06/22/21 11:01 94 06/22/21 11:00 98 H 20 131/67 95 06/22/21 10:34 37.1 C 102 H 20 115/77 96 PG Care Time/CCT Total # of Minutes Spent Total Time Spent with Patient: Total time spent is greater than 50% in coordination of care (as documented) at patient's floor/unit and/or counseling patient: Coding Level of Care Code 91695 Initial Inpt Care Lvl 3 Diagnoses Acute hyponatremia E87.1 Right upper quadrant abdominal pain R10.11 Transaminitis R74.01 Hyperbilirubinemia E80.6 AUBREY (acute kidney injury) N17.9 Asthma J45.20 Asthma severity: mild Asthma persistence: intermittent Asthma complication type: uncomplicated Hyperlipidemia E78.1 Hyperlipidemia type: pure hypertriglyceridemia Hypertension I10 Hypertension type: essential hypertension Type 2 diabetes mellitus E11.9; Z79.4 Diabetes mellitus jail insulin use: with watermelon inspector use Diabetes mellitus complication status: without complication (1) Asthma Asthma severity: mild Asthma persistence: intermittent Asthma complication type: uncomplicated Qualified Code(s): J45.20 - Mild intermittent asthma, uncomplicated (2) Hyperlipidemia Hyperlipidemia type: pure hypertriglyceridemia Qualified Code(s): E78.1 - Pure hyperglyceridemia (3) Hypertension Hypertension type: essential hypertension Qualified Code(s): I10 - Essential (primary) hypertension (4) Type 2 diabetes mellitus Diabetes mellitus jail insulin use: with watermelon inspector use Diabetes mellitus complication status: without complication Qualified Code(s): E11.9 - Type 2 diabetes mellitus without complications; Z79.4 - half-way (current) use of insulin
[2021-06-22 15:06] LABS: Hepatitis B Surf Ag Rflx Conf Neg (Neg)
--- NOTE | 2021-06-22 15:06 | Electrocardiogram Report ---
Test Reason : Blood Pressure : / mmHG Vent. Rate : 094 BPM Atrial Rate : 094 BPM P-R Int : 188 ms QRS Dur : 110 ms QT Int : 370 ms P-R-T Axes : 047 -47 029 degrees QTc Int : 462 ms Sinus rhythm with frequent Premature ventricular complexes Left anterior fascicular block Inferior infarct (cited on or before 23-JAN-2017) Cannot rule out Anterior infarct , age undetermined Abnormal ECG When compared with ECG of 15-FEB-2021 15:57, No significant change was found Confirmed by Fabian Cortes ([id number]) on 06/22/2021 3:05:45 PM Referred By: Confirmed By:Fabian Cortes
[2021-06-22 15:34] LABS: Hepatitis C IgG 13Yrs+Old_Rflx Neg (Neg)
--- NOTE | 2021-06-22 16:35 | Magnetic Resonance Report ---
MR MRCP HISTORY: right upper quadrant pain TECHNIQUE: MRCP of the abdomen was performed without contrast according to standard departmental prot ocol. COMPARISON STUDY: Abdomen and pelvis CT 06/22/2021. FINDINGS: The lung bases are clear. The spleen, liver, and adrenal glands unremarkable. There is a 1. 8 cm T2 hyperintense lesion within the right kidney. This likely represents a cyst. Bilateral perinep hric edema is likely chronic. No hydronephrosis. No retroperitoneal lymphadenopathy. Normal caliber a bdominal aorta. There is a 6 mm stone near the neck of the gallbladder. No gallbladder wall thickenin g or pericholecystic fluid. There is periportal/peripancreatic lymphadenopathy. Dominant lymph node m easures 4.0 x 1.6 cm. This remains unchanged. There is an 8 mm T2 hyperintense lesion within the panc reatic tail. The second and third portion of the duodenum demonstrate a slightly thickened wall and m ild surrounding edema. This is unchanged compared to the prior CT examination. The common bile duct i s normal and course and caliber measuring up to 5 mm. No filling defects within the common bile duct. The main pancreatic duct is also normal and course and caliber. No definite filling defects within t he common bile duct to suggest a stone. There is a small diverticulum at the second portion of the du odenum near the ampulla. IMPRESSION: 1. No change in the thickened duodenal wall with periduodenal edema. This favors a duodenitis versus ulcer disease. A groove pancreatitis is considered less likely but could also a similar appearance. 2. Normal caliber common bile duct and main pancreatic duct. No filling defects to suggest choledocho lithiasis. 3. Cholelithiasis. No gallbladder wall thickening. 4. An 8 mm T2 hyperintense lesion within the pancreatic tail. This favors a small cystic neoplasm suc h as a side branch intraductal papillary mucinous neoplasm or serous cystadenoma. Follow-up pancreati c MRI in one year can be performed to ensure stability. ACT 112: Negative or not required by law. Electronically signed by: Don Godoy M.D. 06/22/2021 4:34 PM
[2021-06-22] MEDS ORDERED: PHARMACY GLYCEMIC MGMT CONSULT PRN (17:14)
[2021-06-22] MEDS ORDERED: GLUCOSE 10 TABS/TUBE PO PRN (17:30)
[2021-06-22] MEDS ORDERED: GLUCOSE 40% GEL 15 GM TUBE PO PRN (17:30)
[2021-06-22] MEDS ORDERED: DEXTROSE 50% 50 ML SYRINGE IV PRN (17:30)
[2021-06-22] MEDS ORDERED: CARBOHYDRATES FOR HYPOGLYCEMIA PO PRN (17:30)
[2021-06-22] MEDS ORDERED: GLUCAGON FOR INJ 1 MG VIAL IM PRN (17:30)
[2021-06-22] MEDS ORDERED: INSULIN ASPART 100 UNITS/ML 3 ML PEN SC SCH (18:00)
[2021-06-22] MEDS ORDERED: Nursing to Pharmacy Communication SCH (20:45)
[2021-06-22] MEDS: INSULIN ASPART 100 UNITS/ML 3 ML PEN SC SCH (20:58)
[2021-06-22] MEDS: TICAGRELOR 90 MG TAB PO SCH (20:59)
[2021-06-22] MEDS: ASPIRIN 81 MG ECTAB PO SCH (20:59)
[2021-06-22] MEDS ORDERED: ROSUVASTATIN CALCIUM 20 MG TAB PO SCH (21:00)
[2021-06-23] MEDS: HEPARIN SOD 5,000 UNIT/0.5 ML VIAL SQ SCH ×3 (05:46→20:25)
[2021-06-23 07:01] LABS: Hematocrit (blood only) 42.1 % (42-52); Hemoglobin 14.1 g/dL (14.0-18.0); Mean Corpuscular Hemoglobin 27.6 pg (25-34); Mean Corpuscular Hgb Conc 33.5 g/dL (32-36); Mean Corpuscular Volume 82.4 fL (80-100); Mean Platelet Volume 9.1 fL (7.4-10.4); Platelet Count 261 K/uL (130-400); RDW Standard Deviation 48.6 fL (36.4-46.3); Red Blood Count 5.11 M/uL (4.7-6.1); White Blood Count 8.91 K/uL (4.8-10.8)
[2021-06-23 07:12] LABS: Albumin Level 2.6 gm/dl (3.4-5.0); BUN Creatinine Ratio 27.5 (10-20); Creatinine Clr Calc Pharmacy 70.8 ml/min; Est GFR (African American) 74.1 ml/min; Est GFR (Non-African American) 63.9 ml/min; Potassium 4.4 mmol/L (3.5-5.1)
[2021-06-23 07:13] LABS: Bilirubin Direct 1.1 mg/dl (0-0.2); Bilirubin,Total 1.7 mg/dl (0.2-1); Total Protein 7.3 gm/dl (6.4-8.2)
[2021-06-23] MEDS: INSULIN ASPART 100 UNITS/ML 3 ML PEN SC SCH ×4 (08:14→20:27)
[2021-06-23] MEDS: SERTRALINE HCL 100 MG TABLET PO SCH (08:15)
[2021-06-23] MEDS: TICAGRELOR 90 MG TAB PO SCH ×2 (08:15→20:25)
[2021-06-23] MEDS: METOPROLOL SUCC 50MG EXT REL TAB PO SCH (08:16)
[2021-06-23] MEDS: MULTIVITAMIN TAB PO SCH (08:17)
[2021-06-23] MEDS ORDERED: LOSARTAN POTASSIUM 50 MG TAB PO SCH (09:00)
[2021-06-23] MEDS: HYDROmorphone INJ 0.5 MG/0.5 ML SYR IV PRN ×2 (09:05→17:35)
[2021-06-23] MEDS: metroNIDAZOLE 500 MG/100 ML BAG IV SCH ×2 (09:06→17:36)
[2021-06-23] MEDS: PANTOprazole 40 MG in SYRINGE 0 ML IV SCH ×2 (09:19→20:25)
[2021-06-23] MEDS: LACTATED RINGER'S 1,000 ML IV SCH ×3 (09:19→22:53)
--- NOTE | 2021-06-23 09:58 | Surgery Consultation ---
Date of Consultation June 23, 2021 Assessment & Plan (1) Right upper quadrant abdominal pain: (2) Transaminitis: 75 yo male admitted with increased LFTs, Lipase. WBC within normal limits. H/O LA with stent placement in October,. GB Ultrasound reveals cholelithiasis, with no evidence of acute cholecystitis. MRCP shows no evidence of choledocholithiasis, no GB wall thickening. LFTs are trending down this morning, WBC remains within normal limits. Patient remains afebrile. Patient reports that his abdominal pain has improved since admission and nausea has resolved. No indication for surgical intervention at this time. Patient is poor surgical candidate due to recent LA with stent placement and current daily Brilinta therapy. Will attempt to get patient through hospital stay without surgical intervention. Patient was started on Cipro this morning by primary team. Patient was reviewed with Dr. Rivera and he is in agreement with plan. Plan was reviewed with Dr. Llanos. General Surgery will continue to follow. Supervising Physician Co-Signing Physician Notes Dr. Abimael Rivera History of Present Illness Reason for Consultation: Elevated LFTs and right upper quadrant pain Requesting Physician: Dr. Patricia Llanos Attending Physician: Patricia Llanos MD History of Present Illness Mr. Bryan is a pleasant 75-year-old male who presented to [facility] yesterday, , for evaluation of possible worsening urinary tract infection. He states that he was to see his PCP, Dr. Engel approximately 2 weeks ago and was started on course of Bactrim. He notes that for the last 1-2 weeks he has not been feeling like himself, noting that he has not been eating very much, has had some nausea and some mild right upper quadrant abdominal pain. While in the ED, Fabian had an ultrasound of his gallbladder which showed cholelithiasis, but no evidence of acute cholecystitis. He also underwent MRCP yesterday and there was no evidence of choledocholithiasis or gb wall thickening. LFTs and lipase were elevated in ED, but WBC within normal limits. He reports that he has known that he has gallstones for several years now, but was never evaluated by a general surgeon for possible gallbladder removal. He reports a history of LA with stent placement in October of 2020. He is currently on daily Brilinta. He follows closely with Dr. Solares. He is aware that he is not a good surgical candidate due to recent cardiac events. He does report that his nausea has resolved since admission and reports improvement in his right upper quadrant abdominal pain. He did have some cream of wheat and orange juice this morning for breakfast, around 8:30AM. Also of note, patient underwent umbilical hernia repair with Dr. Nicole in 2019. Allergies Allergy/AdvReac Type Severity Reaction Status Date / Time cefoxitin Allergy Intermediate HIVES Verified 06/22/21 12:32 clavulanic acid Allergy Intermediate Hives Verified 06/22/21 12:32 [From Timentin] ticarcillin [From Timentin] Allergy Intermediate Hives Verified 06/22/21 12:32 atorvastatin AdvReac Mild Joint Pain Verified 06/22/21 12:32 pravastatin AdvReac Mild Joint Pain Verified 06/22/21 12:32 Home Medications Medication Instructions Recorded Confirmed Type aspirin 81 mg tablet,delayed 81 mg PO HS 10/12/18 06/22/21 History release (Aspirin Low Dose) glimepiride 1 mg tablet 1 mg PO QAM tab 02/16/20 06/22/21 History pen needle, diabetic 31 gauge x #100 ea 07/19/20 02/19/21 Rx 3/16" (BD Ultra-Fine Mini Pen Needle) albuterol sulfate 90 mcg/actuation 2 puff INHALATION Q4H PRN #6.7 g 10/23/20 06/22/21 Rx aerosol inhaler diclofenac sodium 1 % topical gel 2 g TOP QID PRN #200 g 10/23/20 06/22/21 Rx sertraline 100 mg tablet 100 mg PO DAILY #90 tab 10/23/20 06/22/21 Rx nitroglycerin 0.4 mg sublingual 0.4 mg SUBLINGUAL Q5M PRN #30 tab 11/15/20 06/22/21 Rx tablet (Nitrostat) ticagrelor 90 mg tablet (Brilinta) 90 mg PO BID #60 tab 11/15/20 06/22/21 Rx losartan 100 mg tablet 100 mg PO QAM #90 tab 11/17/20 06/22/21 Rx acetaminophen 650 mg 1,300 mg PO Q12H tab 11/23/20 06/22/21 History tablet,extended release (Tylenol 8 Hour) liraglutide 0.6 mg/0.1 mL (18 mg/3 1.8 mg SUBCUT DAILY #18 ml 02/16/21 06/22/21 Rx mL) subcutaneous pen injector (Victoza 3-Josr) metoprolol succinate 100 mg 100 mg PO DAILY #90 tab 03/13/21 06/22/21 Rx tablet,extended release 24 hr canagliflozin 300 mg tablet 300 mg PO DAILY #90 tab 04/13/21 06/22/21 Rx (Invokana) rosuvastatin 20 mg tablet (Crestor) 20 mg PO HS #30 tab 06/18/21 06/22/21 Rx sulfamethoxazole 800 1 tab PO Q12H #14 tab 06/19/21 06/22/21 Rx mg-trimethoprim 160 mg tablet (Bactrim DS) nqymgcbz-hxczlxwh-bqopd acid 400 1 tab PO DAILY 06/22/21 06/22/21 History mcg-vit K 20 mcg-lycop 300 mcg tablet (Men's Multivitamin) olopatadine 0.2 % eye drops 1 drp OPB DAILY PRN 06/22/21 06/22/21 History Patient History Medical History Abdominal pain, LLQ (left lower quadrant) Allergic rhinitis due to pollen Anemia Arthritis Atopic dermatitis Atrial fibrillation post LA on 11/14; w/ RVR Benign colonic polyp Benign localized hyperplasia of prostate with urinary obstruction Bladder calculus Carotid artery plaque Carotid bruit Cellulitis Depression Diabetes mellitus Type 2 Diverticular disease Diverticulitis of colon Diverticulosis of colon Erectile dysfunction Facial skin lesion Fatty liver H/O renal calculi Hearing deficit Heart murmur Hematuria Hemochromatosis PHLEBOTOMY TREATMENTS EVERY 3 MONTHS- FERRITIN LEVELS MONITORED BY HEMATOLOGY; LAST PHLEBOTOMY 2 MONTHS AGO History of colon polyps History of diverticulitis 09/2018= RESOLVED S/P ABX Hyperlipidemia Hypertension Irritable bowel syndrome Joint pain, knee Laceration of thumb, left Lower back pain Microscopic hematuria Obesity Ocular hypertension, unspecified eye Pain due to ureteral stent Renal calcification Renal colic Right leg pain Type 2 diabetes mellitus Ureteral calculus, right Urinary frequency Xerosis cutis Surgical History H/O cataract extraction History of colonoscopy History of heart artery stent Inf STEMI on 11/14:subtotal occ. Large distal Cx s/p PCI of m/dCx w/single DARLENE History of tonsillectomy and adenoidectomy History of umbilical hernia repair History of vasectomy Hx of cystoscopy CYSTOSCOPY/LASER LITHOTRIPSY/STENT= 01/23/17= LMA#5 AT [facility] Hx of hand surgery LEFT HAND TENDON SURGERY Hx of transurethral resection of prostate AND BLADDER STONES REMOVED on 10/26/18 with LMA#5 Family History Mother Multiple myeloma Stroke Father Laryngeal cancer Grandfather (Maternal) Stroke Uncle Stroke Denies family history of Ovarian cancer Prostate cancer Coronary heart disease Myocardial infarction Breast cancer Colorectal cancer Social History Smoking Status: Never smoker Second Hand Exposure: Yes; Hx Alcohol Use: No Hx Substance Use: No Preferred Language: Portuguese Communication Ability: Effective Visual Impairment: No Limitations Hearing Ability: Use of Hearing Aid Chair Car Attendant Required: No Beliefs That Will Affect Care: None marital status: Current Living Situation: Spouse current occupational status: retired 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 Safe at Home: Yes Childhood Exposure to Second-Hand Smoke: Yes caffeine: Yes Dental Care, Regularly: Yes Physical Activity Frequency: 5-6 Times per Week Seatbelt Use: always Sunscreen Use: No Assistive Devices: None Review of Systems Constitutional: no fever and no chills Respiratory: no cough and no chest congestion Cardiovascular: no chest pain and no chest pain at rest Gastrointestinal: + abdominal pain (pt reports mild right upper quadrant pain ); no nausea and no vomiting Physical Exam Constitutional: no acute distress Eyes: + anicteric sclerae Respiratory: normal respiratory effort; no respiratory distress, no labored breathing and does not use accessory muscles Gastrointestinal (Abdomen): Percussion/Palpation: abdomen soft; abdomen nontender, no guarding and abdomen not rigid Psychiatric: A+Ox3, euthymic affect Results & Data ([facility]) Vital Signs (Past 12 Hours) Vital Signs Temp Pulse Pulse Resp BP Pulse Ox 06/23/21 08:03 37.1 C 85 18 132/71 94 06/23/21 04:00 37.4 C 84 18 134/69 97 06/22/21 23:00 37.1 C 85 18 117/64 94 06/22/21 22:20 78 PG Care Time/CCT Total # of Minutes Spent Total Time Spent with Patient: Total time spent is greater than 50% in coordination of care (as documented) at patient's floor/unit and/or counseling patient: Coding Level of Care Code 95765 Initial Inpt Care Lvl 3 Diagnoses Right upper quadrant abdominal pain R10.11 Transaminitis R74.01
[2021-06-23] MEDS: CIPROFLOXACIN / D5W 400 MG/200 ML BAG IV SCH ×2 (10:55→20:24)
--- NOTE | 2021-06-23 13:42 | Hospitalist Progress Note ---
Date of Service June 23, 2021 Assessment & Plan (1) Right upper quadrant abdominal pain: Plan: 75 yo male will be admitted with RUQ. With significantly elevated LFTs, ongoing fevers at home, nausea, low appetite Did take Bactrim recently for UTI-question hepatic toxicity from drug Negative CT scan for choledocholithiasis but shows cholelithiasis and duodenitis No melena or GI bleeding MRCP neg for choledocholithiasis Mild elevation lipase has h/o HH -consult GI for possible need for EGD/ERCP for duodenitis -make NPO -start IVFs -start empiric CIpro and Flagyl and await GI opinion (2) Acute hyponatremia: Plan: Na+ 127 on admission, now improved to 130 with 1L NS received in ER is on canagliflozin at home but also dehydrated due to acute illness restart LR at 125mL/.hr follow BMP (3) Duodenitis: Plan: as above start IV PPI bid consult GI for EGD (4) Transaminitis: Plan: as above, significant hep panel pending ?choledocholithiasis vs hepatotoxicity from Bactrim? follow LFTs (5) Hyperbilirubinemia: Plan: as above (6) AUBREY (acute kidney injury): Plan: likely secondary to decreased oral intake. now improved restart IVFs hold ARB (7) Hemochromatosis: Plan: noted, gets phlebotomies q3-[address] Thomas q3 months (8) Metabolic acidosis: Plan: serum HCO3 low at 13, AG 15 likely from dehydration, lactate normal hydrate follow BMP (9) Hypertension: Plan: hold losartan for AUBREY (10) Type 2 diabetes mellitus: Plan: hold home meds Novolog [facility] pharmacy consulted on admission (11) CAD (coronary artery disease): Plan: s/p DARLENE earlier 2020 no acute issues continue ASA, Brilinta, metoprolol hold statin due to elevated LFTs (12) Hyperlipidemia: Plan: HOLD rosuvastatin for elevated LFTs (13) Asthma: Plan: only on albuterol at home. will monitor Plan: DVT proph-heparin SQ Dispo-continued stay Admission and Anticipated Discharge Date Admission Date: June 22, 2021 Subjective Pt was having a lot of RUQ pain radiating to rt flank since admission, finally now relieved with addition of IV DIlaudid No further fevers, but has been having for the last 1-2 weeks. Still low appetite but no N/V No melena but had 3 loose dark brown stools yesterday. No chest pain or SOB, no indigestion currently but has had some intermittently No NSAID use but takes ASA daily Review of Systems Review of Systems: All systems reviewed & are unremarkable except as noted in HPI & below Physical Exam Constitutional: WD/WN, vitals as above Eyes: + anicteric sclerae ENMT: external ear and nose normal, oropharynx normal Neck: trachea midline, no thyromegaly Respiratory: normal respiratory effort, lungs clear to auscultation Cardiovascular: RRR, no murmur, no edema Chest (Breasts): Chest: normal inspection of chest Gastrointestinal (Abdomen): Inspection/Auscultation: abdomen normal to inspection and normal bowel sounds Percussion/Palpation: + abdomen tender (RUQ) and abdomen soft; no guarding Musculoskeletal: Extremities: extremities normal to inspection; no cyanosis and no clubbing Skin: no rashes, warm and dry Neurologic: moves all extremities and awake; no focal motor deficits Psychiatric: A+Ox3, euthymic affect Lymphatic: no lymphedema Results & Data Results & Data ([facility]) Vital Signs (Past 12 Hours) Vital Signs Temp Pulse Resp BP Pulse Ox 06/23/21 11:51 37.0 C 75 20 100/63 96 06/23/21 08:03 37.1 C 85 18 132/71 94 06/23/21 04:00 37.4 C 84 18 134/69 97 Laboratory Results 06/23/21 06/23/21 06/23/21 Range/Units 20:19 18:55 18:55 WBC (4.8-10.8) K/uL RBC (4.7-6.1) M/uL Hgb (14.0-18.0) g/dL Hct (42-52) % MCV (80-100) fL MCH (25-34) pg MCHC (32-36) g/dL RDW Std Deviation (36.4-46.3) fL RDW Coeff of Aria (11.5-14.5) % Plt Count (130-400) K/uL MPV (7.4-10.4) fL Sodium (136-145) mmol/L Potassium (3.5-5.1) mmol/L Chloride (98-107) mmol/L Carbon Dioxide (21-32) mmol/L Anion Gap (3-11) BUN (7-18) mg/dl Creatinine (0.6-1.4) mg/dl Est Cr Clr Drug Dosing ml/min Est GFR ( Amer) ml/min Est GFR (Non-Af Amer) ml/min BUN/Creatinine Ratio (10-20) Glucose (70-99) mg/dl POC Glucose 212 H (70-99) mg/dl Lactate (0.4-2.0) mmol/L Calcium (8.5-10.1) mg/dl Total Bilirubin (0.2-1) mg/dl Direct Bilirubin (0-0.2) mg/dl AST (15-37) U/L ALT (12-78) U/L Alkaline Phosphatase (45-117) U/L Total Protein (6.4-8.2) gm/dl Albumin (3.4-5.0) gm/dl COVID-19 Eval Order Covid19 at [facility] SARS-CoV-2 (PCR) NEGATIVE (Negative) 06/23/21 06/23/21 06/23/21 Range/Units 16:56 11:30 08:38 WBC (4.8-10.8) K/uL RBC (4.7-6.1) M/uL Hgb (14.0-18.0) g/dL Hct (42-52) % MCV (80-100) fL MCH (25-34) pg MCHC (32-36) g/dL RDW Std Deviation (36.4-46.3) fL RDW Coeff of Aria (11.5-14.5) % Plt Count (130-400) K/uL MPV (7.4-10.4) fL Sodium (136-145) mmol/L Potassium (3.5-5.1) mmol/L Chloride (98-107) mmol/L Carbon Dioxide (21-32) mmol/L Anion Gap (3-11) BUN (7-18) mg/dl Creatinine (0.6-1.4) mg/dl Est Cr Clr Drug Dosing ml/min Est GFR ( Amer) ml/min Est GFR (Non-Af Amer) ml/min BUN/Creatinine Ratio (10-20) Glucose (70-99) mg/dl POC Glucose 109 H 145 H (70-99) mg/dl Lactate 1.0 (0.4-2.0) mmol/L Calcium (8.5-10.1) mg/dl Total Bilirubin (0.2-1) mg/dl Direct Bilirubin (0-0.2) mg/dl AST (15-37) U/L ALT (12-78) U/L Alkaline Phosphatase (45-117) U/L Total Protein (6.4-8.2) gm/dl Albumin (3.4-5.0) gm/dl COVID-19 Eval Order SARS-CoV-2 (PCR) (Negative) 06/23/21 06/23/21 Range/Units 06:27 06:27 WBC 8.91 (4.8-10.8) K/uL RBC 5.11 (4.7-6.1) M/uL Hgb 14.1 (14.0-18.0) g/dL Hct 42.1 (42-52) % MCV 82.4 (80-100) fL MCH 27.6 (25-34) pg MCHC 33.5 (32-36) g/dL RDW Std Deviation 48.6 H (36.4-46.3) fL RDW Coeff of Aria 16.0 H (11.5-14.5) % Plt Count 261 (130-400) K/uL MPV 9.1 (7.4-10.4) fL Sodium 130 L (136-145) mmol/L Potassium 4.4 (3.5-5.1) mmol/L Chloride 103 (98-107) mmol/L Carbon Dioxide 13 L (21-32) mmol/L Anion Gap 15.0 H (3-11) BUN 31 H (7-18) mg/dl Creatinine 1.12 D (0.6-1.4) mg/dl Est Cr Clr Drug Dosing 70.8 ml/min Est GFR ( Amer) 74.1 ml/min Est GFR (Non-Af Amer) 63.9 ml/min BUN/Creatinine Ratio 27.5 H (10-20) Glucose 121 H (70-99) mg/dl POC Glucose (70-99) mg/dl Lactate (0.4-2.0) mmol/L Calcium 9.0 (8.5-10.1) mg/dl Total Bilirubin 1.7 H (0.2-1) mg/dl Direct Bilirubin 1.1 H (0-0.2) mg/dl AST 219 H (15-37) U/L ALT 472 H (12-78) U/L Alkaline Phosphatase 428 H (45-117) U/L Total Protein 7.3 (6.4-8.2) gm/dl Albumin 2.6 L (3.4-5.0) gm/dl COVID-19 Eval Order SARS-CoV-2 (PCR) (Negative) PG Care Time/CCT Total # of Minutes Spent Total Time Spent with Patient: Total time spent is greater than 50% in coordination of care (as documented) at patient's floor/unit and/or counseling patient: Coding Level of Care Code 65024 Subseq Hosp Care Lvl 3 Diagnoses Right upper quadrant abdominal pain R10.11 Acute hyponatremia E87.1 Transaminitis R74.01 Hyperbilirubinemia E80.6 AUBREY (acute kidney injury) N17.9 Asthma J45.20 Asthma complication type: uncomplicated Asthma persistence: intermittent Asthma severity: mild Hyperlipidemia E78.1 Hyperlipidemia type: pure hypertriglyceridemia Hypertension I10 Hypertension type: essential hypertension Type 2 diabetes mellitus E11.9; Z79.4 Diabetes mellitus complication status: without complication Diabetes mellitus buttermaker continuous churn insulin use: with buttermaker continuous churn use Duodenitis K29.80 Hemochromatosis E83.119 CAD (coronary artery disease) I25.10 Metabolic acidosis E87.2 (1) Type 2 diabetes mellitus Diabetes mellitus complication status: without complication Diabetes mellitus jail insulin use: with jail use Qualified Code(s): E11.9 - Type 2 diabetes mellitus without complications; 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
--- NOTE | 2021-06-23 14:18 | Pharmacy Report ---
Pharmacy Glycemic Short Note 2 - Date of Service June 23, 2021 - Glycemic Short BSG Results (Last 24 hours): 06/22/21 06/22/21 06/23/21 16:31 20:57 06:27 Glucose 121 H POC Glucose 130 H 126 H 06/23/21 11:30 Glucose POC Glucose 145 H OUTPATIENT ANTIDIABETIC REGIMEN: * Invokana PO * Amaryl PO * Victoza SQ weekly - taken on 06/21/21 ASSESSMENT: * 75 y/o M admitted for abdominal pain evaluation. Patient with history of Type 2 diabetes managed on 3 different meds. * Holding oral and SQ outpatient anti-diabetic meds while admitted. * Initiated weight insulin dosing for insulin donnell patient based on wt and stress of 2. Will titrate based on BSG trends. * Since patient had taken his Victoza dose only 2 days ago, it should still be effective and therefore he has not needed any basal insulin thus far. PLAN FOR INPATIENT GLYCEMIC CONTROL: * Hold outpatient diabetes medications * Basal insulin * not needed at this time * Bolus insulin * NovoLog per scale ACHS or Q6hrs while NPO * Goal Range: Low 110 mg/dL - High 140 mg/dL * Correction Factor: 25 mg/dL/unit * Nutritional / Prandial insulin per carb ratio of 1 unit per 8 grams CHO consumed PLAN FOR DISCHARGE: * HbA1c = 6.9% on 06/12/21 * Goal A1c in this patient is less than 7% given his age and co-morbidities. * Since A1c at goal, recommend patient resume his out-patient anti-diabetic meds on discharge as long as he is not reporting any hypoglycemia.
--- NOTE | 2021-06-23 17:25 | Consultation ---
Date of Consultation June 23, 2021 History of Present Illness Attending Physician: Patricia Llanos MD History of Present Illness 75 yo M PMH DM, CAD s/p stent in October on DAPT admit with complaint of 7-10 day history of post prandial RUQ pain, described as bloating and associated with nausea. No fever. No prior h/o similar pain. His symptoms started soon after beginning Bactrim for UTI. His LFT's are newly elevated, Lipase mildly increased, imaging shows no robert dil, stone in GB neck, duodenal inflamm. At present, he has no pain but is not hungry. He is having BM's. Seen by surgery - not candidate jemal due to need for antiplt therapy. PE: On exam, he is obese, appears comfortable. HEENT: OC clear CV: RRR Resp: CTA Abd: soft, mild tenderness in RUQ Extrem: no edema Labs reviewed Non con CT reviewed. A/P: Likely choledocholithiasis -- Clears, follow LFT's. No clear need for abx in absence of symptoms of cholangitis or cholecystitis. Plan EUS +/- ERCP on Friday. He may possibly a candidate for LAMS if he is considered too high risk for jemal. Allergies Allergy/AdvReac Type Severity Reaction Status Date / Time cefoxitin Allergy Intermediate HIVES Verified 06/22/21 12:32 clavulanic acid Allergy Intermediate Hives Verified 06/22/21 12:32 [From Timentin] ticarcillin [From Timentin] Allergy Intermediate Hives Verified 06/22/21 12:32 atorvastatin AdvReac Mild Joint Pain Verified 06/22/21 12:32 pravastatin AdvReac Mild Joint Pain Verified 06/22/21 12:32 Home Medications Medication Instructions Recorded Confirmed Type aspirin 81 mg tablet,delayed 81 mg PO HS 10/12/18 06/22/21 History release (Aspirin Low Dose) glimepiride 1 mg tablet 1 mg PO QAM tab 02/16/20 06/22/21 History pen needle, diabetic 31 gauge x #100 ea 07/19/20 02/19/21 Rx 3/16" (BD Ultra-Fine Mini Pen Needle) albuterol sulfate 90 mcg/actuation 2 puff INHALATION Q4H PRN #6.7 g 10/23/20 06/22/21 Rx aerosol inhaler diclofenac sodium 1 % topical gel 2 g TOP QID PRN #200 g 10/23/20 06/22/21 Rx sertraline 100 mg tablet 100 mg PO DAILY #90 tab 10/23/20 06/22/21 Rx nitroglycerin 0.4 mg sublingual 0.4 mg SUBLINGUAL Q5M PRN #30 tab 11/15/20 06/22/21 Rx tablet (Nitrostat) ticagrelor 90 mg tablet (Brilinta) 90 mg PO BID #60 tab 11/15/20 06/22/21 Rx losartan 100 mg tablet 100 mg PO QAM #90 tab 11/17/20 06/22/21 Rx acetaminophen 650 mg 1,300 mg PO Q12H tab 11/23/20 06/22/21 History tablet,extended release (Tylenol 8 Hour) liraglutide 0.6 mg/0.1 mL (18 mg/3 1.8 mg SUBCUT DAILY #18 ml 02/16/21 06/22/21 Rx mL) subcutaneous pen injector (ShoutNow 3-Josr) metoprolol succinate 100 mg 100 mg PO DAILY #90 tab 03/13/21 06/22/21 Rx tablet,extended release 24 hr canagliflozin 300 mg tablet 300 mg PO DAILY #90 tab 04/13/21 06/22/21 Rx (Invokana) rosuvastatin 20 mg tablet (Crestor) 20 mg PO HS #30 tab 06/18/21 06/22/21 Rx sulfamethoxazole 800 1 tab PO Q12H #14 tab 06/19/21 06/22/21 Rx mg-trimethoprim 160 mg tablet (Bactrim DS) mzqjzfci-czgzvzxj-wvpsq acid 400 1 tab PO DAILY 06/22/21 06/22/21 History mcg-vit K 20 mcg-lycop 300 mcg tablet (Men's Multivitamin) olopatadine 0.2 % eye drops 1 drp OPB DAILY PRN 06/22/21 06/22/21 History Patient History Medical History Abdominal pain, LLQ (left lower quadrant) Allergic rhinitis due to pollen Anemia Arthritis Atopic dermatitis Atrial fibrillation post ME on 11/14; w/ RVR Benign colonic polyp Benign localized hyperplasia of prostate with urinary obstruction Bladder calculus Carotid artery plaque Carotid bruit Cellulitis Depression Diabetes mellitus Type 2 Diverticular disease Diverticulitis of colon Diverticulosis of colon Erectile dysfunction Facial skin lesion Fatty liver H/O renal calculi Hearing deficit Heart murmur Hematuria Hemochromatosis PHLEBOTOMY TREATMENTS EVERY 3 MONTHS- FERRITIN LEVELS MONITORED BY HEMATOLOGY; LAST PHLEBOTOMY 2 MONTHS AGO History of colon polyps History of diverticulitis 09/2018= RESOLVED S/P ABX Hyperlipidemia Hypertension Irritable bowel syndrome Joint pain, knee Laceration of thumb, left Lower back pain Microscopic hematuria Obesity Ocular hypertension, unspecified eye Pain due to ureteral stent Renal calcification Renal colic Right leg pain Type 2 diabetes mellitus Ureteral calculus, right Urinary frequency Xerosis cutis Surgical History H/O cataract extraction History of colonoscopy History of heart artery stent Inf STEMI on 11/14:subtotal occ. Large distal Cx s/p PCI of m/dCx w/single DARLENE History of tonsillectomy and adenoidectomy History of umbilical hernia repair History of vasectomy Hx of cystoscopy CYSTOSCOPY/LASER LITHOTRIPSY/STENT= 01/23/17= LMA#5 AT [facility] Hx of hand surgery LEFT HAND TENDON SURGERY Hx of transurethral resection of prostate AND BLADDER STONES REMOVED on 10/26/18 with LMA#5 Family History Mother Multiple myeloma Stroke Father Laryngeal cancer Grandfather (Maternal) Stroke Uncle Stroke Denies family history of Ovarian cancer Prostate cancer Coronary heart disease Myocardial infarction Breast cancer Colorectal cancer Social History Smoking Status: Never smoker Second Hand Exposure: Yes; Hx Alcohol Use: No Hx Substance Use: No Preferred Language: Liberian Communication Ability: Effective Visual Impairment: No Limitations Hearing Ability: Use of Hearing Aid Online Merchandising Specialist Required: No Beliefs That Will Affect Care: None marital status: Current Living Situation: Spouse current occupational status: retired 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
[2021-06-23] MEDS: ASPIRIN 81 MG ECTAB PO SCH (20:25)
[2021-06-24 02:02] LABS: Hepatitis A Antibody IgM NON-REACTIVE (NON-REACTIVE); Hepatitis B Core Antibody IgM NON-REACTIVE (NON-REACTIVE)
[2021-06-24] MEDS: HEPARIN SOD 5,000 UNIT/0.5 ML VIAL SQ SCH ×2 (05:33→12:25)
[2021-06-24] MEDS: LACTATED RINGER'S 1,000 ML IV SCH ×2 (05:34→15:11)
[2021-06-24 06:34] LABS: Basophils # (auto) 0.01 K/uL (0-0.2); Basophils % (auto) 0.2 %; Eosinophils # (auto) 0.31 K/uL (0-0.5); Eosinophils % (auto) 5.1 %; Hematocrit (blood only) 38.6 % (42-52); Hemoglobin 12.8 g/dL (14.0-18.0); Immature Granulocytes # (auto) 0.01 K/uL (0.00-0.02); Immature Granulocytes % (auto) 0.2 %; Lymphocytes # (auto) 0.44 K/uL (1.2-3.4); Lymphocytes % (auto) 7.3 %; Mean Corpuscular Hemoglobin 27.2 pg (25-34); Mean Corpuscular Hgb Conc 33.2 g/dL (32-36); Mean Platelet Volume 9.1 fL (7.4-10.4); Monocytes % (auto) 8.3 %; Neutrophils # (auto) 4.77 K/uL (1.4-6.5); Neutrophils % (auto) 78.9 %; Platelet Count 267 K/uL (130-400); RDW Coefficient of Variation 16.3 % (11.5-14.5); RDW Standard Deviation 49.7 fL (36.4-46.3); Red Blood Count 4.71 M/uL (4.7-6.1); White Blood Count 6.04 K/uL (4.8-10.8)
[2021-06-24 06:43] LABS: INR 1.1 (0.9-1.1); Prothrombin Time 11.4 Seconds (9.0-12.0)
[2021-06-24 07:00] LABS: Albumin Level 2.3 gm/dl (3.4-5.0); Bilirubin Direct 0.7 mg/dl (0-0.2); Creatinine Clr Calc Pharmacy 74.9 ml/min; Est GFR (African American) 79.2 ml/min; Est GFR (Non-African American) 68.3 ml/min; Magnesium 2.3 mg/dl (1.8-2.4); Potassium 4.5 mmol/L (3.5-5.1)
[2021-06-24 07:03] LABS: Bilirubin,Total 1.3 mg/dl (0.2-1); Total Protein 6.6 gm/dl (6.4-8.2)
[2021-06-24] MEDS: PANTOprazole 40 MG in SYRINGE 0 ML IV SCH ×2 (07:50→20:06)
[2021-06-24] MEDS: SERTRALINE HCL 100 MG TABLET PO SCH (07:51)
[2021-06-24] MEDS: TICAGRELOR 90 MG TAB PO SCH ×2 (07:51→20:05)
[2021-06-24] MEDS: MULTIVITAMIN TAB PO SCH (07:51)
[2021-06-24] MEDS: METOPROLOL SUCC 50MG EXT REL TAB PO SCH (07:51)
--- NOTE | 2021-06-24 08:17 | Surgery Progress Note ---
Date of Service June 24, 2021 Assessment & Plan (1) Pancreatitis due to common bile duct stone: Plan: agree that he likely passed a CBD stone. clinically better and labs improving. MRCP neg for stone. will repeat amylase/lipase.... risk/benefit does not warrant lap jemal at this time... no urgent indication. we can discuss elective lap jemal after his 1 year cardiac stent anniversary. can advance diet if amylase /lipase levels improved today. Admission and Anticipated Discharge Date Admission Date: June 22, 2021 Subjective pt seen. feeling better. no pain or nausea. getting hungry. Physical Exam Constitutional: WD/WN, vitals as above no acute distress and not ill appearing Eyes: PERRL, conjunctivae normal, anicteric sclerae EOM intact bilaterally ENMT: external ear and nose normal, oropharynx normal Ears: no hearing impairment Neck: trachea midline, no thyromegaly Respiratory: normal respiratory effort; no respiratory distress and does not use accessory muscles Cardiovascular: Rate/Rhythm: regular rate and regular rhythm Gastrointestinal (Abdomen): soft. mild epigastric tenderness. no g/r/r. Skin: no rashes, warm and dry Psychiatric: Orientation: alert, oriented x 3 and cooperative Results & Data ([facility]) Vital Signs (Past 12 Hours) Vital Signs Temp Pulse Pulse Resp BP BP Pulse Ox 06/24/21 07:22 64 06/24/21 06:40 36.8 C 74 18 128/75 97 06/24/21 04:00 36.6 C 67 18 114/66 96 06/24/21 00:03 61 06/23/21 23:00 36.5 C 65 18 105/59 L 96 PG Care Time/CCT Total # of Minutes Spent Total Time Spent with Patient: Total time spent is greater than 50% in coordination of care (as documented) at patient's floor/unit and/or counseling patient: Coding Level of Care Code 20168 Subseq Hosp Care Lvl 3 Diagnoses Pancreatitis due to common bile duct stone K85.90; K80.50
[2021-06-24] MEDS: INSULIN ASPART 100 UNITS/ML 3 ML PEN SC SCH ×4 (08:45→20:14)
[2021-06-24] MEDS: SUCRALFATE 1 GM TAB PO SCH ×2 (09:17→12:34)
--- NOTE | 2021-06-24 09:27 | Anesthesiology Consultation ---
Date of Service June 24, 2021 Assessment & Plan (1) Encounter for pre-operative examination: Chart Review Chart Review: Acceptable Risk for Surgery (necessary surgery) and Patient NOT seen in Pre Admission Testing Consults Requested none medicine is following the patient on the floor History Height/Weight Height: 6 ft 1 in Weight: 100 kg Allergies Allergy/AdvReac Type Severity Reaction Status Date / Time cefoxitin Allergy Intermediate HIVES Verified 06/22/21 12:32 clavulanic acid Allergy Intermediate Hives Verified 06/22/21 12:32 [From Timentin] ticarcillin [From Timentin] Allergy Intermediate Hives Verified 06/22/21 12:32 atorvastatin AdvReac Mild Joint Pain Verified 06/22/21 12:32 pravastatin AdvReac Mild Joint Pain Verified 06/22/21 12:32 Medications Home Medications Medication Instructions Recorded Confirmed Last Taken aspirin 81 mg tablet,delayed 81 mg PO HS 10/12/18 06/22/21 06/21/21 release (Aspirin Low Dose) glimepiride 1 mg tablet 1 mg PO QAM tab 02/16/20 06/22/21 06/21/21 pen needle, diabetic 31 gauge x #100 ea 07/19/20 02/19/21 Unknown 3/16" (BD Ultra-Fine Mini Pen Needle) albuterol sulfate 90 mcg/actuation 2 puff INHALATION Q4H PRN #6.7 g 10/23/20 06/22/21 Unknown aerosol inhaler diclofenac sodium 1 % topical gel 2 g TOP QID PRN #200 g 10/23/20 06/22/21 06/21/21 sertraline 100 mg tablet 100 mg PO DAILY #90 tab 10/23/20 06/22/21 06/21/21 nitroglycerin 0.4 mg sublingual 0.4 mg SUBLINGUAL Q5M PRN #30 tab 11/15/20 06/22/21 Unknown tablet (Nitrostat) ticagrelor 90 mg tablet (Brilinta) 90 mg PO BID #60 tab 11/15/20 06/22/21 06/22/21 losartan 100 mg tablet 100 mg PO QAM #90 tab 11/17/20 06/22/21 06/22/21 acetaminophen 650 mg 1,300 mg PO Q12H tab 11/23/20 06/22/21 06/22/21 tablet,extended release (Tylenol 8 Hour) liraglutide 0.6 mg/0.1 mL (18 mg/3 1.8 mg SUBCUT DAILY #18 ml 02/16/21 06/22/21 06/21/21 mL) subcutaneous pen injector (Victoza 3-Josr) metoprolol succinate 100 mg 100 mg PO DAILY #90 tab 03/13/21 06/22/21 06/22/21 tablet,extended release 24 hr canagliflozin 300 mg tablet 300 mg PO DAILY #90 tab 04/13/21 06/22/21 06/22/21 (Invokana) rosuvastatin 20 mg tablet (Crestor) 20 mg PO HS #30 tab 06/18/21 06/22/21 06/21/21 sulfamethoxazole 800 1 tab PO Q12H #14 tab 06/19/21 06/22/21 06/22/21 mg-trimethoprim 160 mg tablet (Bactrim DS) wohhopbf-vqvvdwua-mlagk acid 400 1 tab PO DAILY 06/22/21 06/22/21 06/21/21 mcg-vit K 20 mcg-lycop 300 mcg tablet (Men's Multivitamin) olopatadine 0.2 % eye drops 1 drp OPB DAILY PRN 06/22/21 06/22/21 Unknown Active Medications Generic Name Dose Route Start Last Admin Trade Name Burakq PRN Reason Stop Dose Admin Aspirin 81 mg 06/22/21 21:00 06/23/21 20:25 Aspirin 81 Mg Ectab PO 07/22/21 20:59 81 mg HS RONALD Administration Heparin Sodium (Porcine) 5,000 units 06/23/21 06:00 06/24/21 05:33 Heparin Sod 5,000 Unit/0.5 Ml Vial SQ 07/23/21 05:59 5,000 units Q8 RONALD Administration Hydromorphone HCl 0.5 mg 06/23/21 08:30 06/23/21 17:35 Hydromorphone Inj 0.5 Mg/0.5 Ml Syr IV 07/07/21 08:29 0.5 mg Q6H PRN Administration Pain Pantoprazole Sodium 40 mg/ 10 mls @ 5 mls/min 06/23/21 09:00 06/24/21 07:50 Syringe IV 07/23/21 08:59 5 mls/min BID RONALD Administration Lactated Ringer's 1,000 mls @ 125 mls/hr 06/23/21 08:30 06/24/21 05:34 Lr IV 07/23/21 08:29 125 mls/hr .Q8H RONALD Administration Insulin Aspart 0 units 06/22/21 21:00 06/24/21 08:45 Insulin Aspart 100 Units/Ml 3 Ml Pen SC 07/22/21 20:59 Not Given ACHS RONALD Metoprolol Succinate 100 mg 06/23/21 09:00 06/24/21 07:51 Metoprolol Succ 50mg Ext Rel Tab PO 07/23/21 08:59 100 mg DAILY RONALD Administration Miscellaneous 1 ea 06/23/21 00:00 06/24/21 05:34 Olopatadine - Order Awaiting Action N/A 07/23/21 00:00 Not Given QS RONALD Multivitamins 1 tab 06/23/21 09:00 06/24/21 07:51 Multivitamin Tab PO 07/23/21 08:59 1 tab DAILY RONALD Administration Sertraline HCl 100 mg 06/23/21 09:00 06/24/21 07:51 Sertraline Hcl 100 Mg Tablet PO 07/23/21 08:59 100 mg DAILY RONALD Administration Sucralfate 1 gm 06/24/21 09:00 06/24/21 09:17 Sucralfate 1 Gm Tab PO 07/24/21 08:59 1 gm QID RONALD Administration Ticagrelor 90 mg 06/22/21 21:00 06/24/21 07:51 Ticagrelor 90 Mg Tab PO 07/22/21 20:59 90 mg BID RONALD Administration Past Medical History Medical History Abdominal pain, LLQ (left lower quadrant) Allergic rhinitis due to pollen Anemia Arthritis Atopic dermatitis Atrial fibrillation post AK on 11/14; w/ RVR Benign colonic polyp Benign localized hyperplasia of prostate with urinary obstruction Bladder calculus Carotid artery plaque Carotid bruit Cellulitis Depression Diabetes mellitus Type 2 Diverticular disease Diverticulitis of colon Diverticulosis of colon Erectile dysfunction Facial skin lesion Fatty liver H/O renal calculi Hearing deficit Heart murmur Hematuria Hemochromatosis PHLEBOTOMY TREATMENTS EVERY 3 MONTHS- FERRITIN LEVELS MONITORED BY HEMATOLOGY; LAST PHLEBOTOMY 2 MONTHS AGO History of colon polyps History of diverticulitis 09/2018= RESOLVED S/P ABX Hyperlipidemia Hypertension Irritable bowel syndrome Joint pain, knee Laceration of thumb, left Lower back pain Microscopic hematuria Obesity Ocular hypertension, unspecified eye Pain due to ureteral stent Renal calcification Renal colic Right leg pain Type 2 diabetes mellitus Ureteral calculus, right Urinary frequency Xerosis cutis Past Family History Family History Mother Multiple myeloma Stroke Father Laryngeal cancer Grandfather (Maternal) Stroke Uncle Stroke Denies family history of Ovarian cancer Prostate cancer Coronary heart disease Myocardial infarction Breast cancer Colorectal cancer Past Surgical History Surgical History H/O cataract extraction History of colonoscopy History of heart artery stent Inf STEMI on 11/14:subtotal occ. Large distal Cx s/p PCI of m/dCx w/single DARLENE History of tonsillectomy and adenoidectomy History of umbilical hernia repair History of vasectomy Hx of cystoscopy CYSTOSCOPY/LASER LITHOTRIPSY/STENT= 01/23/17= LMA#5 AT [facility] Hx of hand surgery LEFT HAND TENDON SURGERY Hx of transurethral resection of prostate AND BLADDER STONES REMOVED on 10/26/18 with LMA#5 Social History Smoking Status: Never smoker Hx Alcohol Use: No alcohol intake frequency: 0-2 drinks per day Hx Substance Use: No substance use type: does not use Physical Exam Vital Signs Last Vital Signs Temp 36.8 C 06/24/21 06:40 Pulse 64 06/24/21 07:22 Resp 18 06/24/21 06:40 BP 128/75 06/24/21 06:40 Pulse Ox 97 06/24/21 06:40 Testing Laboratory Results 06/24/21 05:59 06/24/21 05:59 PT 11.4 Seconds (9.0-12.0) 06/24/21 05:59 INR 1.1 (0.9-1.1) 06/24/21 05:59 Urine Color Dark Yellow 06/22/21 11:20 Urine Appearance Clear (Clear) 06/22/21 11:20 Urine pH 5.0 (4.5-7.5) 06/22/21 11:20 Ur Specific Allgood 1.028 (1.000-1.030) 06/22/21 11:20 Urine Protein Negative (Negative) 06/22/21 11:20 Urine Glucose (UA) 3+ (Negative) H 06/22/21 11:20 Urine Ketones Trace (Negative) H 06/22/21 11:20 Urine Nitrite Negative (Negative) 06/22/21 11:20 Ur Leukocyte Esterase Negative (Negative) 06/22/21 11:20 Urine WBC (Auto) 5-10 /hpf (0-5) H 06/22/21 11:20 Urine RBC (Auto) 0-4 /hpf (0-4) 06/22/21 11:20 U Hyaline Cast (Auto) 1-5 /lpf (0-5) 06/22/21 11:20 U Epithel Cells (Auto) 5-10 /lpf (0-5) H 06/22/21 11:20 Urine Bacteria (Auto) Negative (Negative) 06/22/21 11:20 06/24/21 07:25 POC Glucose 120 H Electrocardiogram Date: 06/22/21 DICTATED BY: Fabian Cortes MD Test Reason : Blood Pressure : / mmHG Vent. Rate : 094 BPM Atrial Rate : 094 BPM P-R Int : 188 ms QRS Dur : 110 ms QT Int : 370 ms P-R-T Axes : 047 -47 029 degrees QTc Int : 462 ms Sinus rhythm with frequent Premature ventricular complexes Left anterior fascicular block Inferior infarct (cited on or before 23-JAN-2017) Cannot rule out Anterior infarct , age undetermined Abnormal ECG When compared with ECG of 15-FEB-2021 15:57, No significant change was found Confirmed by Fabian Cortes ([id number]) on 06/22/2021 3:05:45 PM Referred By: Confirmed By:Fabian Cortes Signed By:06/22/21 [id number] Chest X-Ray Date: 06/22/21 XR chest 1V portable HISTORY: Weakness. COMPARISON: Chest 02/15/2021. FINDINGS: No pneumothorax. No pleural effusions. No focal lung consolidations to suggest pneumonia. No evidence for pulmonary edema. The heart is normal in size. IMPRESSION: No acute process. ACT 112: Negative or not required by law. Electronically signed by: Don Godoy M.D. 06/22/2021 11:34 AM Dictated: 06/22/21 1131Transcribed: 06/22/21 1131 Echocardiogram Date: 02/06/21 EF: 55-60 LV Function: dysfunctional (mild inferolateral hypokinesis) Other Findings: + LVH (mild concentric) Valvular Disease: + MR (mild)
--- NOTE | 2021-06-24 11:41 | Gastroenterology Progress Note ---
Date of Service June 24, 2021 Assessment & Plan Admission and Anticipated Discharge Date Admission Date: June 22, 2021 Subjective Pt reports improvement in pain, return of hunger. Afebrile off abx On exam, appears comfortable, abd non tender. Labs show slight rise in alk phos, bili 1.3 (from 1.7), improved transaminases, lipase 490 --> 905 A/P: Gallstone panc - Pt likely has passed stone, as suggested by rise in lipase/improveent in pain, but willl plan EUS tomorrow to make sure that duct is clear. Cont clear liquid diet today. Results & Data ([facility]) Vital Signs (Past 12 Hours) Vital Signs Temp Pulse Pulse Resp BP BP Pulse Ox 06/24/21 07:22 64 06/24/21 06:40 36.8 C 74 18 128/75 97 06/24/21 04:00 36.6 C 67 18 114/66 96 06/24/21 00:03 61
--- NOTE | 2021-06-24 16:41 | Hospitalist Progress Note ---
Date of Service June 24, 2021 Assessment & Plan (1) Right upper quadrant abdominal pain: Plan: 75 yo male will be admitted with RUQ. With significantly elevated LFTs, ongoing fevers at home, nausea, low appetite Did take Bactrim recently for UTI-question hepatic toxicity from drug Negative CT scan for choledocholithiasis but shows cholelithiasis and duodenitis No melena or GI bleeding MRCP neg for choledocholithiasis Mild elevation lipase initially and now moreso although RUQ and epigastric pain improving Nausea now resolved LFTs trending downward GI thinks most likely passed choledocholithiasis but needs EUS and possible ERCP if residual sludge/stones NPO after midnight has h/o Hereditary hemochromatosis -can dc empiric abx -continue IVFs but decrease rate to 100mL/hr (2) Acute hyponatremia: Plan: Na+ 127 on admission, now improved to 134 with 1L NS received in ER is on canagliflozin at home but also dehydrated due to acute illness continue IVFs follow BMP (3) Duodenitis: Plan: could be from pancreatitis vs PUD no melena, hgb slight drop but likely hemodilution continue IV PPI bid consult GI -plan for EUS tomorrow (4) Transaminitis: Plan: as above, significant and now improving hep panel neg for A and B, C is pending ?choledocholithiasis vs hepatotoxicity from Bactrim? follow LFTs (5) Hyperbilirubinemia: Plan: as above (6) AUBREY (acute kidney injury): Plan: likely secondary to decreased oral intake. now resolved continue IVFs continue to hold ARB (7) Hemochromatosis: Plan: noted, gets phlebotomies q3-[address] Thomas q3 months hgb now 12.4 (8) Metabolic acidosis: Plan: serum HCO3 low at 13, AG 15 likely from dehydration, lactate normal hydrated and now normalized follow BMP (9) Hypertension: Plan: hold losartan for AUBREY BPs stable (10) Type 2 diabetes mellitus: Plan: hold home meds Novolog [facility] consulted on admission (11) CAD (coronary artery disease): Plan: s/p DARLENE earlier 2020 no acute issues continue ASA, Brilinta, metoprolol hold statin due to elevated LFTs (12) Hyperlipidemia: Plan: HOLD rosuvastatin for elevated LFTs (13) Asthma: Plan: only on albuterol at home. will monitor Plan: DVT proph-heparin SQ but holdfor procedure Dispo-continued stay, but possible dc to home Friday afternoon vs Friday depending on how EUS/ERCP go on Friday Admission and Anticipated Discharge Date Admission Date: June 22, 2021 Subjective Pt feeling better. Less RUQ pain, no nausea and now feeling hungry. Had BM today, no blood or melena. No fevers. Plan for EUS +/- ERCP tomorrow No CP or SOB Tele with NSR, rates 60-80s, PVCs Review of Systems Review of Systems: All systems reviewed & are unremarkable except as noted in HPI & below Physical Exam Constitutional: WD/WN, vitals as above Eyes: + anicteric sclerae Neck: trachea midline, no thyromegaly Respiratory: normal respiratory effort, lungs clear to auscultation Cardiovascular: RRR, no murmur, no edema Chest (Breasts): Chest: normal inspection of chest Gastrointestinal (Abdomen): Inspection/Auscultation: normal bowel sounds Percussion/Palpation: + abdomen tender (RUQ) and abdomen soft; no guarding Musculoskeletal: Extremities: extremities normal to inspection; no cyanosis and no clubbing Skin: no rashes, warm and dry Neurologic: moves all extremities and awake; no focal motor deficits Psychiatric: A+Ox3, euthymic affect Lymphatic: no lymphedema Results & Data Results & Data ([facility]) Vital Signs (Past 12 Hours) Vital Signs Temp Pulse Pulse Resp BP BP Pulse Ox 06/24/21 16:25 36.8 C 65 20 101/61 97 06/24/21 12:24 36.4 C L 68 20 124/76 95 06/24/21 07:22 64 06/24/21 06:40 36.8 C 74 18 128/75 97 Laboratory Results 06/24/21 06/24/21 06/24/21 Range/Units 16:31 11:45 07:25 WBC (4.8-10.8) K/uL RBC (4.7-6.1) M/uL Hgb (14.0-18.0) g/dL Hct (42-52) % MCV (80-100) fL MCH (25-34) pg MCHC (32-36) g/dL RDW Std Deviation (36.4-46.3) fL RDW Coeff of Aria (11.5-14.5) % Plt Count (130-400) K/uL MPV (7.4-10.4) fL Immature Gran % (Auto) % Neut % (Auto) % Lymph % (Auto) % [place] % (Auto) % Eos % (Auto) % Baso % (Auto) % Neut # (Auto) (1.4-6.5) K/uL Lymph # (Auto) (1.2-3.4) K/uL [place] # (Auto) (0.11-0.59) K/uL Eos # (Auto) (0-0.5) K/uL Baso # (Auto) (0-0.2) K/uL Immature Gran # (Auto) (0.00-0.02) K/uL PT (9.0-12.0) Seconds INR (0.9-1.1) Sodium (136-145) mmol/L Potassium (3.5-5.1) mmol/L Chloride (98-107) mmol/L Carbon Dioxide (21-32) mmol/L Anion Gap (3-11) BUN (7-18) mg/dl Creatinine (0.6-1.4) mg/dl Est Cr Clr Drug Dosing ml/min Est GFR ( Amer) ml/min Est GFR (Non-Af Amer) ml/min BUN/Creatinine Ratio (10-20) Glucose (70-99) mg/dl POC Glucose 113 H 131 H 120 H (70-99) mg/dl Calcium (8.5-10.1) mg/dl Magnesium (1.8-2.4) mg/dl Total Bilirubin (0.2-1) mg/dl Direct Bilirubin (0-0.2) mg/dl AST (15-37) U/L ALT (12-78) U/L Alkaline Phosphatase (45-117) U/L Total Protein (6.4-8.2) gm/dl Albumin (3.4-5.0) gm/dl Lipase (73-393) U/L COVID-19 Eval Order SARS-CoV-2 (PCR) (Negative) Hepatitis A IgM Ab (NON-REACTIVE) Hep B Core IgM Ab (NON-REACTIVE) 06/24/21 06/24/21 06/24/21 Range/Units 05:59 05:59 05:59 WBC 6.04 (4.8-10.8) K/uL RBC 4.71 (4.7-6.1) M/uL Hgb 12.8 L (14.0-18.0) g/dL Hct 38.6 L (42-52) % MCV 82.0 (80-100) fL MCH 27.2 (25-34) pg MCHC 33.2 (32-36) g/dL RDW Std Deviation 49.7 H (36.4-46.3) fL RDW Coeff of Aria 16.3 H (11.5-14.5) % Plt Count 267 (130-400) K/uL MPV 9.1 (7.4-10.4) fL Immature Gran % (Auto) 0.2 % Neut % (Auto) 78.9 % Lymph % (Auto) 7.3 % [place] % (Auto) 8.3 % Eos % (Auto) 5.1 % Baso % (Auto) 0.2 % Neut # (Auto) 4.77 (1.4-6.5) K/uL Lymph # (Auto) 0.44 L (1.2-3.4) K/uL [place] # (Auto) 0.50 (0.11-0.59) K/uL Eos # (Auto) 0.31 (0-0.5) K/uL Baso # (Auto) 0.01 (0-0.2) K/uL Immature Gran # (Auto) 0.01 (0.00-0.02) K/uL PT (9.0-12.0) Seconds INR (0.9-1.1) Sodium 134 L (136-145) mmol/L Potassium 4.5 (3.5-5.1) mmol/L Chloride 105 (98-107) mmol/L Carbon Dioxide 22 (21-32) mmol/L Anion Gap 7.0 (3-11) BUN 27 H (7-18) mg/dl Creatinine 1.06 (0.6-1.4) mg/dl Est Cr Clr Drug Dosing 74.9 ml/min Est GFR ( Amer) 79.2 ml/min Est GFR (Non-Af Amer) 68.3 ml/min BUN/Creatinine Ratio 25.0 H (10-20) Glucose 116 H (70-99) mg/dl POC Glucose (70-99) mg/dl Calcium 9.0 (8.5-10.1) mg/dl Magnesium 2.3 (1.8-2.4) mg/dl Total Bilirubin 1.3 H (0.2-1) mg/dl Direct Bilirubin 0.7 H (0-0.2) mg/dl AST 104 H (15-37) U/L ALT 310 H (12-78) U/L Alkaline Phosphatase 454 H (45-117) U/L Total Protein 6.6 (6.4-8.2) gm/dl Albumin 2.3 L (3.4-5.0) gm/dl Lipase 905 H (73-393) U/L COVID-19 Eval Order SARS-CoV-2 (PCR) (Negative) Hepatitis A IgM Ab (NON-REACTIVE) Hep B Core IgM Ab (NON-REACTIVE) 06/24/21 06/23/21 06/23/21 Range/Units 05:59 20:19 18:55 WBC (4.8-10.8) K/uL RBC (4.7-6.1) M/uL Hgb (14.0-18.0) g/dL Hct (42-52) % MCV (80-100) fL MCH (25-34) pg MCHC (32-36) g/dL RDW Std Deviation (36.4-46.3) fL RDW Coeff of Aria (11.5-14.5) % Plt Count (130-400) K/uL MPV (7.4-10.4) fL Immature Gran % (Auto) % Neut % (Auto) % Lymph % (Auto) % [place] % (Auto) % Eos % (Auto) % Baso % (Auto) % Neut # (Auto) (1.4-6.5) K/uL Lymph # (Auto) (1.2-3.4) K/uL [place] # (Auto) (0.11-0.59) K/uL Eos # (Auto) (0-0.5) K/uL Baso # (Auto) (0-0.2) K/uL Immature Gran # (Auto) (0.00-0.02) K/uL PT 11.4 (9.0-12.0) Seconds INR 1.1 (0.9-1.1) Sodium (136-145) mmol/L Potassium (3.5-5.1) mmol/L Chloride (98-107) mmol/L Carbon Dioxide (21-32) mmol/L Anion Gap (3-11) BUN (7-18) mg/dl Creatinine (0.6-1.4) mg/dl Est Cr Clr Drug Dosing ml/min Est GFR ( Amer) ml/min Est GFR (Non-Af Amer) ml/min BUN/Creatinine Ratio (10-20) Glucose (70-99) mg/dl POC Glucose 212 H (70-99) mg/dl Calcium (8.5-10.1) mg/dl Magnesium (1.8-2.4) mg/dl Total Bilirubin (0.2-1) mg/dl Direct Bilirubin (0-0.2) mg/dl AST (15-37) U/L ALT (12-78) U/L Alkaline Phosphatase (45-117) U/L Total Protein (6.4-8.2) gm/dl Albumin (3.4-5.0) gm/dl Lipase (73-393) U/L COVID-19 Eval Order SARS-CoV-2 (PCR) NEGATIVE (Negative) Hepatitis A IgM Ab (NON-REACTIVE) Hep B Core IgM Ab (NON-REACTIVE) 06/23/21 06/23/21 06/22/21 Range/Units 18:55 16:56 12:56 WBC (4.8-10.8) K/uL RBC (4.7-6.1) M/uL Hgb (14.0-18.0) g/dL Hct (42-52) % MCV (80-100) fL MCH (25-34) pg MCHC (32-36) g/dL RDW Std Deviation (36.4-46.3) fL RDW Coeff of Aria (11.5-14.5) % Plt Count (130-400) K/uL MPV (7.4-10.4) fL Immature Gran % (Auto) % Neut % (Auto) % Lymph % (Auto) % [place] % (Auto) % Eos % (Auto) % Baso % (Auto) % Neut # (Auto) (1.4-6.5) K/uL Lymph # (Auto) (1.2-3.4) K/uL [place] # (Auto) (0.11-0.59) K/uL Eos # (Auto) (0-0.5) K/uL Baso # (Auto) (0-0.2) K/uL Immature Gran # (Auto) (0.00-0.02) K/uL PT (9.0-12.0) Seconds INR (0.9-1.1) Sodium (136-145) mmol/L Potassium (3.5-5.1) mmol/L Chloride (98-107) mmol/L Carbon Dioxide (21-32) mmol/L Anion Gap (3-11) BUN (7-18) mg/dl Creatinine (0.6-1.4) mg/dl Est Cr Clr Drug Dosing ml/min Est GFR ( Amer) ml/min Est GFR (Non-Af Amer) ml/min BUN/Creatinine Ratio (10-20) Glucose (70-99) mg/dl POC Glucose 109 H (70-99) mg/dl Calcium (8.5-10.1) mg/dl Magnesium (1.8-2.4) mg/dl Total Bilirubin (0.2-1) mg/dl Direct Bilirubin (0-0.2) mg/dl AST (15-37) U/L ALT (12-78) U/L Alkaline Phosphatase (45-117) U/L Total Protein (6.4-8.2) gm/dl Albumin (3.4-5.0) gm/dl Lipase (73-393) U/L COVID-19 Eval Order Covid19 at [facility] SARS-CoV-2 (PCR) (Negative) Hepatitis A IgM Ab NON-REACTIVE (NON-REACTIVE) Hep B Core IgM Ab NON-REACTIVE (NON-REACTIVE) PG Care Time/CCT Total # of Minutes Spent Total Time Spent with Patient: Total time spent is greater than 50% in coordination of care (as documented) at patient's floor/unit and/or counseling patient: Coding Level of Care Code 58600 Subseq Hosp Care Lvl 2 Diagnoses Right upper quadrant abdominal pain R10.11 Acute hyponatremia E87.1 Duodenitis K29.80 Transaminitis R74.01 Hyperbilirubinemia E80.6 AUBREY (acute kidney injury) N17.9 Hemochromatosis E83.119 Metabolic acidosis E87.2 Hypertension I10 Hypertension type: essential hypertension Type 2 diabetes mellitus E11.9; Z79.4 Diabetes mellitus 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 counterman insulin use: with parts counterman use Diabetes mellitus complication status: without complication CAD (coronary artery disease) I25.10 Hyperlipidemia E78.1 Hyperlipidemia type: pure hypertriglyceridemia Asthma J45.20 Asthma severity: mild Asthma persistence: intermittent Asthma complication type: uncomplicated (1) Hypertension Hypertension type: essential hypertension Qualified Code(s): I10 - Essential (primary) hypertension (2) Type 2 diabetes mellitus Diabetes mellitus [facility] insulin use: with [facility] use Diabetes mellitus complication status: without complication Qualified Code(s): E11.9 - Type 2 diabetes mellitus without complications; Z79.4 - residential (current) use of insulin (3) Hyperlipidemia Hyperlipidemia type: pure hypertriglyceridemia Qualified Code(s): E78.1 - Pure hyperglyceridemia (4) Asthma Asthma severity: mild Asthma persistence: intermittent Asthma complication type: uncomplicated Qualified Code(s): J45.20 - Mild intermittent asthma, uncomplicated
[2021-06-24] MEDS: ASPIRIN 81 MG ECTAB PO SCH (20:05)
[2021-06-24] MEDS: HYDROmorphone INJ 0.5 MG/0.5 ML SYR IV PRN (21:01)
[2021-06-25] MEDS: LACTATED RINGER'S 1,000 ML IV SCH ×2 (02:36→15:59)
[2021-06-25 06:11] LABS: Basophils # (auto) 0.01 K/uL (0-0.2); Basophils % (auto) 0.2 %; Eosinophils # (auto) 0.36 K/uL (0-0.5); Eosinophils % (auto) 6.8 %; Hematocrit (blood only) 36.7 % (42-52); Hemoglobin 12.5 g/dL (14.0-18.0); Lymphocytes # (auto) 0.71 K/uL (1.2-3.4); Lymphocytes % (auto) 13.4 %; Mean Corpuscular Hemoglobin 27.6 pg (25-34); Mean Corpuscular Hgb Conc 34.1 g/dL (32-36); Monocytes # (auto) 0.36 K/uL (0.11-0.59); Monocytes % (auto) 6.8 %; Neutrophils # (auto) 3.85 K/uL (1.4-6.5); Neutrophils % (auto) 72.8 %; Platelet Count 265 K/uL (130-400); RDW Coefficient of Variation 16.3 % (11.5-14.5); Red Blood Count 4.53 M/uL (4.7-6.1); White Blood Count 5.29 K/uL (4.8-10.8)
[2021-06-25 06:50] LABS: Albumin Level 2.3 gm/dl (3.4-5.0); BUN Creatinine Ratio 23.9 (10-20); Bilirubin Direct 0.6 mg/dl (0-0.2); Calcium 8.6 mg/dl (8.5-10.1); Creatinine Clr Calc Pharmacy 102.7 ml/min; Est GFR (African American) 102.9 ml/min; Est GFR (Non-African American) 88.8 ml/min; Potassium 3.9 mmol/L (3.5-5.1)
[2021-06-25 06:52] LABS: Bilirubin,Total 1.1 mg/dl (0.2-1); Total Protein 6.4 gm/dl (6.4-8.2)
[2021-06-25] MEDS: INSULIN ASPART 100 UNITS/ML 3 ML PEN SC SCH ×4 (08:00→21:28)
[2021-06-25] MEDS: MULTIVITAMIN TAB PO SCH (08:01)
[2021-06-25] MEDS: TICAGRELOR 90 MG TAB PO SCH ×2 (08:01→21:31)
[2021-06-25] MEDS: METOPROLOL SUCC 50MG EXT REL TAB PO SCH (08:01)
[2021-06-25] MEDS: SERTRALINE HCL 100 MG TABLET PO SCH (08:02)
[2021-06-25] MEDS: PANTOprazole 40 MG in SYRINGE 0 ML IV SCH ×2 (08:02→21:30)
[2021-06-25] MEDS ORDERED: fentaNYL citrate 100 MCG/2 ML VIAL ONE ×2 (08:55→09:05)
[2021-06-25] MEDS ORDERED: DEXAMETHASONE SOD INJ 4 MG/ML VIAL ONE (08:55)
[2021-06-25] MEDS ORDERED: LIDOCAINE 2% 2 ML VIAL/AMP(20MG/ML) INFIL ONE (08:55)
[2021-06-25] MEDS ORDERED: PROPOFOL IV EMULSION 10 MG/ML 20 ML VIAL IV ONE (08:55)
[2021-06-25] MEDS ORDERED: GLYCOPYRROLATE 0.2 MG/ML VIAL ONE (08:55)
[2021-06-25] MEDS ORDERED: ONDANSETRON INJ 2 MG/ML 2 ML VIAL ONE (08:55)
[2021-06-25] MEDS ORDERED: MIDAZOLAM HCL 1 MG/ML 2ML VIAL ONE (08:55)
[2021-06-25] MEDS ORDERED: NEOSTIGMINE METHYLSULFATE 1 MG/ML 10ML VIAL ONE (08:55)
--- NOTE | 2021-06-25 08:58 | History & Physical Bridge Note ---
Date of Service June 25, 2021 History & Physical Bridge Note I have examined the patient, reviewed the History & Physical and in the interval since the performance of the History & Physical I have noted the following changes of clinical significance: no changes noted. The patient presented with signs and symptoms suggestive of gallstone pancreatitis. Upper endoscopy and endoscopic ultrasound have been requested for further evaluation. If positive we are planning to do ERCP today as well. The patient is at higher than average risk of due to ongoing anticoagulation and antiplatelet use as result of stents that were placed back in October. I did discuss the increased risk of bleeding with the patient in great detail. We discussed the risks of the procedures to include bleeding, infection, perforation, pain, pancreatitis and failed biliary cannulation.
[2021-06-25] MEDS ORDERED: fentaNYL citrate 100 MCG/2 ML VIAL IV PRN (09:07)
[2021-06-25] MEDS ORDERED: ePHEDrine sulfate 50 MG/ML AMP IV PRN (09:07)
[2021-06-25] MEDS ORDERED: ONDANSETRON INJ 2 MG/ML 2 ML VIAL IV PRN (09:07)
[2021-06-25] MEDS ORDERED: LABETALOL HCL IV 5 MG/ML 20ML IV PRN (09:07)
[2021-06-25] MEDS ORDERED: FLUMAZENIL 0.1 MG/1 ML 10 ML VIAL IV PRN (09:07)
[2021-06-25] MEDS ORDERED: ATROPINE SULFATE 0.1 MG/ML 10ML SYR IV PRN (09:07)
[2021-06-25] MEDS ORDERED: NALOXONE HCL 0.4 MG/1 ML VIAL/CARP IV PRN (09:07)
[2021-06-25] MEDS ORDERED: PROMETHAZINE HCL 12.5 MG in SODIUM CHLORIDE 0.9% 50 ML IV PRN (09:07)
[2021-06-25] MEDS ORDERED: SUCCINYLCHOLINE 100MG/5ML SYR IV ONE (09:33)
[2021-06-25] MEDS ORDERED: INDOMETHACIN 50 MG SUPP PR ONE (09:34)
--- NOTE | 2021-06-25 09:34 | GI REPORT ---
Patient Name: Fabian Bryan Procedure Date: 06/25/2021 8:54 AM Date of : 1945 Admit Type: Inpatient Age: 75 Gender: Male Attending MD: Alberto Chow DO Procedure: Upper GI endoscopy Providers: Alberto Chow DO Referring MD: Tony Engel Indications: Epigastric abdominal pain Medicines: General Anesthesia Complications: No immediate complications. Estimated blood loss: Minimal. Estimated Blood Loss: Estimated blood loss was minimal. Procedure: Pre-Anesthesia Assessment: - Prior to the procedure, a History and Physical was performed, and patient medications, allergies and sensitivities were reviewed. The patient's tolerance of previous anesthesia was reviewed. - The risks and benefits of the procedure and the sedation options and risks were discussed with the patient. All questions were answered and informed consent was obtained. - Patient identification and proposed procedure were verified prior to the procedure by the physician, the nurse and the banking analyst. The procedure was verified in the procedure room. - Pre-procedure physical examination revealed no contraindications to sedation. - ASA Grade Assessment: IV - A patient with severe systemic disease that is a constant threat to life. - After reviewing the risks and benefits, the patient was deemed in satisfactory condition to undergo the procedure in an ambulatory setting. - The anesthesia plan was to use general anesthesia. - Immediately prior to administration of medications, the patient was re-assessed for adequacy to receive sedatives. - The heart rate, respiratory rate, oxygen saturations, blood pressure, adequacy of pulmonary ventilation, and response to care were monitored throughout the procedure. - The physical status of the patient was re-assessed after the procedure. After obtaining informed consent, the endoscope was passed under direct vision. Throughout the procedure, the patient's blood pressure, pulse, and oxygen saturations were monitored continuously. The Endoscope was introduced through the mouth, and advanced to the third part of duodenum. The upper GI endoscopy was accomplished without difficulty. The patient tolerated the procedure well. Findings: The examined esophagus was normal. Diffuse mild inflammation characterized by congestion (edema), erythema and granularity was found in the entire examined stomach. Biopsies were taken with a cold forceps for histology. The pathology specimen was placed into Bottle A. Estimated blood loss was minimal. Patchy mild inflammation characterized by congestion (edema), erythema, granularity and aphthous ulcerations was found in the entire duodenum. Consistent with history of pancreatitis. Impression: - Normal esophagus. - Gastritis. Biopsied. - Duodenitis, likely related to pancreatitis. Recommendation: - Perform an upper endoscopic ultrasound (UEUS) today. - Use Prilosec (omeprazole) or Protonix 20 mg PO daily for 12 weeks. Alberto Chow D.O. Alberto Chow, 06/25/2021 9:34:07 AM This report has been signed electronically. Note Initiated On: 06/25/2021 8:54 AM Number of Addenda: 0 I attest to the content of the Intraoperative Record and orders documented therein, exceptions below {[id number]}
[2021-06-25] MEDS ORDERED: ePHEDrine sulfate 50 MG/ML SYR ONE (09:37)
--- NOTE | 2021-06-25 10:15 | Post Operative Brief Note ---
Immediate Post Op Note v1 Date of Surgery June 25, 2021 Pre & Post Diagnosis Operation Date: 06/25/21 07:00 Pre-Op Diagnosis: Gallstones, Pancreatitis Post-Op Diagnosis: Gallstones, Pancreatitis I identified the patient and participated in the time-out.: Yes Procedure Operation Date: 06/25/21 07:00 Actual Procedures p Endoscopic Retrograde Cholangiopancreatography(Not Applicable) - DO darwin Schneider Esophagogastroduodenoscopy(Not Applicable) - DO darwin Schneider Endoscopic Ultrasonography Upper(Not Applicable) - Alberto Chow DO Surgeon Alberto Chow DO Counter Top Assembler none Estimated Blood Loss 0 Findings Consistent with Post-Op Diagnosis
--- NOTE | 2021-06-25 10:19 | Communication Note ---
Date of Service: June 25, 2021 The patient underwent upper endoscopy, endoscopic ultrasound and ERCP today for common bile duct stones. We did perform small sphincterotomy and placed a biliary stent. Recommendations May have clear liquids today continue antibiotic course for total of 10 days watch for signs of bleeding as patient was unable to stop antiplatelet medications Protonix 40 mg 1 time daily for 12 weeks ERCP in 3 months for biliary stent Cholecystectomy per general surgery.
--- NOTE | 2021-06-25 10:27 | GI REPORT ---
Patient Name: Fabian Bryan Procedure Date: 06/25/2021 8:53 AM Date of : 1945 Admit Type: Inpatient Age: 75 Gender: Male Attending MD: Alberto Chow DO Procedure: Upper EUS Providers: Alberto Chow DO Referring MD: Tony Engel Indications: Elevated liver enzymes, Acute pancreatitis Medicines: General Anesthesia Complications: No immediate complications. Estimated blood loss: Minimal. Estimated Blood Loss: Estimated blood loss was minimal. Procedure: Pre-Anesthesia Assessment: - Prior to the procedure, a History and Physical was performed, and patient medications, allergies and sensitivities were reviewed. The patient's tolerance of previous anesthesia was reviewed. - The risks and benefits of the procedure and the sedation options and risks were discussed with the patient. All questions were answered and informed consent was obtained. - Patient identification and proposed procedure were verified prior to the procedure by the physician, the nurse and the book store associate. The procedure was verified in the pre-procedure area in the procedure room. - Pre-procedure physical examination revealed no contraindications to sedation. - ASA Grade Assessment: IV - A patient with severe systemic disease that is a constant threat to life. - After reviewing the risks and benefits, the patient was deemed in satisfactory condition to undergo the procedure. - The anesthesia plan was to use general anesthesia. - Immediately prior to administration of medications, the patient was re-assessed for adequacy to receive sedatives. - The heart rate, respiratory rate, oxygen saturations, blood pressure, adequacy of pulmonary ventilation, and response to care were monitored throughout the procedure. - The physical status of the patient was re-assessed after the procedure. After obtaining informed consent, the endoscope was passed under direct vision. Throughout the procedure, the patient's blood pressure, pulse, and oxygen saturations were monitored continuously. The Scope was introduced through the mouth, and advanced to the third part of duodenum. The upper EUS was accomplished without difficulty. The patient tolerated the procedure well. Findings: ENDOSONOGRAPHIC FINDING: : Multiple stones were visualized endosonographically in the gallbladder. They were hyperechoic and characterized by shadowing. One stone/sludge was visualized endosonographically in the common bile duct. The stone measured 5 mm in greatest dimension. It was hyperechoic. There was no sign of significant endosonographic abnormality in the visualized portion of the liver. Homogeneous parenchyma and no focal pathology were identified. There was no sign of significant endosonographic abnormality in the entire pancreas. The pancreatic duct measured up to 2 mm in diameter. The pancreas was well visualized, no pathologic lymphadenopathy, no masses. No lymphadenopathy seen. There was no sign of significant endosonographic abnormality in the left adrenal gland. No adrenal gland enlargement was identified. Impression: - Multiple stones were visualized endosonographically in the gallbladder. - One stone was visualized endosonographically in the common bile duct. - There was no evidence of significant pathology in the visualized portion of the liver. - There was no sign of significant pathology in the entire pancreas. - Endosonographic images of the left adrenal gland were unremarkable. - No specimens collected. Recommendation: - Perform an ERCP today. Alberto Chow D.O. Alberto Chow, 06/25/2021 10:27:23 AM This report has been signed electronically. Note Initiated On: 06/25/2021 8:53 AM Number of Addenda: 0 I attest to the content of the Intraoperative Record and orders documented therein, exceptions below {[id number]}
--- NOTE | 2021-06-25 10:31 | GI REPORT ---
Patient Name: Fabian Bryan Procedure Date: 06/25/2021 8:53 AM Date of : 1945 Admit Type: Inpatient Age: 75 Gender: Male Attending MD: Alberto Chow DO Procedure: ERCP Providers: Alberto Chow DO Referring MD: Tony Engel Indications: Abdominal pain of suspected biliary origin, Abnormal endoscopic ultrasound of the biliary system, Elevated liver enzymes Medicines: General Anesthesia Complications: No immediate complications. Estimated blood loss: Minimal. Estimated Blood Loss: Estimated blood loss was minimal. Procedure: Pre-Anesthesia Assessment: - Prior to the procedure, a History and Physical was performed, and patient medications, allergies and sensitivities were reviewed. The patient's tolerance of previous anesthesia was reviewed. - The risks and benefits of the procedure and the sedation options and risks were discussed with the patient. All questions were answered and informed consent was obtained. - Patient identification and proposed procedure were verified prior to the procedure by the physician, the nurse and the new vehicle sales consultant. The procedure was verified in the procedure room. - Pre-procedure physical examination revealed no contraindications to sedation. - ASA Grade Assessment: IV - A patient with severe systemic disease that is a constant threat to life. - After reviewing the risks and benefits, the patient was deemed in satisfactory condition to undergo the procedure. - The anesthesia plan was to use monitored anesthesia care (MAC). - Immediately prior to administration of medications, the patient was re-assessed for adequacy to receive sedatives. - The heart rate, respiratory rate, oxygen saturations, blood pressure, adequacy of pulmonary ventilation, and response to care were monitored throughout the procedure. - The physical status of the patient was re-assessed after the procedure. After obtaining informed consent, the scope was passed under direct vision. Throughout the procedure, the patient's blood pressure, pulse, and oxygen saturations were monitored continuously. The scope was introduced through the mouth, and advanced to the duodenum and used to inject contrast into the bile duct. The ERCP was accomplished without difficulty. The patient tolerated the procedure well. Findings: The cyber instructor film was normal. The esophagus was successfully intubated under direct vision without detailed examination of the pharynx, larynx, and associated structures, and upper GI tract. The upper GI tract was grossly normal. The major papilla was congested. The bile duct was deeply cannulated with the short-nosed traction sphincterotome and guidewire. Contrast was injected. I personally interpreted the bile duct images. Contrast extended to the entire biliary tree. The gallbladder contained filling defect(s) thought to be a stone and sludge. The lower third of the main bile duct contained filling defect(s) thought to be a stone and sludge. Biliary sphincterotomy was made with a Fusion OMNI sphincterotome using ERBE electrocautery. There was no post-sphincterotomy bleeding. To discover objects, the biliary tree was swept with an 11.5 mm balloon starting at the bifurcation. Sludge was swept from the duct. One stone was removed. No stones remained. One 10 Fr by 7 cm biliary stent with a single external flap and a single internal flap was placed 7 cm into the common bile duct. Bile flowed through the stent. The stent was in good position. The endoscope was withdrawn from the patient. The total fluoroscopy exposure time was 1 minute. Indomethacin 100 mg was given via suppository to decrease the risk of post-ERCP pancreatitis (PEP). Impression: - The major papilla appeared congested. - A filling defect consistent with a stone and sludge was seen on the cholangiogram. - A filling defect consistent with a stone and sludge was seen on the cholangiogram. - Choledocholithiasis was found. Complete removal was accomplished by biliary sphincterotomy and balloon extraction. - A biliary sphincterotomy was performed. - The biliary tree was swept. - One biliary stent was placed into the common bile duct. - Indomethacin given to decrease risk of post-ERCP pancreatitis. Recommendation: - Clear liquid diet today. - Observe patient's clinical course. - Repeat ERCP in 3 months to remove stent. - cholecystectomy per General Surgery. Alberto Chow D.O. Alberto Chow DO 06/25/2021 10:31:03 AM This report has been signed electronically. Note Initiated On: 06/25/2021 8:53 AM Number of Addenda: 0 I attest to the content of the Intraoperative Record and orders documented therein, exceptions below {[id number]}
--- NOTE | 2021-06-25 10:49 | Anesthesiology Progress Note ---
Date of Service June 25, 2021 Anesthesia Post Procedure Vital Signs Vital Signs: Temp Pulse Pulse Pulse Resp BP BP 06/25/21 10:45 67 22 136/76 06/25/21 10:35 74 20 140/80 06/25/21 10:25 79 15 141/81 H 06/25/21 10:18 36.0 C L 79 16 152/85 H 06/25/21 08:50 37.3 C 75 18 145/71 H 06/25/21 07:04 36.4 C L 67 16 118/65 06/25/21 07:00 67 06/25/21 02:51 36.6 C 66 18 117/61 06/24/21 23:03 36.8 C 42 L 18 108/60 06/24/21 22:19 65 06/24/21 19:04 37 C 67 20 113/68 06/24/21 16:25 36.8 C 65 20 101/61 06/24/21 12:24 36.4 C L 68 20 124/76 Pulse Ox 06/25/21 10:45 95 06/25/21 10:35 96 06/25/21 10:25 97 06/25/21 10:18 97 06/25/21 08:50 97 06/25/21 07:04 98 06/25/21 07:00 06/25/21 02:51 98 06/24/21 23:03 96 06/24/21 22:19 06/24/21 19:04 100 06/24/21 16:25 97 06/24/21 12:24 95 Pain Intensity Right Upper Abdomen: Pain Intensity: 4 Transfer of Care Handoff Completed per policy Notes Mental Status: alert / awake / arousable Patient Amnestic to Procedure: Yes Nausea / Vomiting: adequately controlled Pain: adequately controlled Airway Patency, RR, SpO2: stable & adequate BP & HR: stable & adequate Hydration State: stable & adequate Anesthetic Complications: no major complications apparent
--- NOTE | 2021-06-25 11:48 | Fluoroscopy Report ---
FL ERCP biliary ductal CLINICAL HISTORY: W/ EGD,EUS TECHNIQUE: 4 views were obtained with the C-arm in the OR with the above procedure. Total fluoroscopy time was 60.3 seconds. Total skin dose was 20.22 mGy. Comparison: None available at the time of this dictation. FINDINGS/IMPRESSION: Multiple intraoperative images of ERCP were obtained. Please correlate with intraoperative fluoroscopy and operative report. ACT 112: Negative or not required by law. Electronically signed by: Jamarcus Nagel M.D. 06/25/2021 11:46 AM
--- NOTE | 2021-06-25 12:08 | Hospitalist Progress Note ---
Date of Service June 25, 2021 Assessment & Plan (1) Right upper quadrant abdominal pain: Plan: 75 yo male will be admitted with RUQ. With significantly elevated LFTs, ongoing fevers at home, nausea, low appetite. - Negative CT scan for choledocholithiasis but shows cholelithiasis and duodenitis. - MRCP on 06/22 was neg for choledocholithiasis. -> GI thinks most likely passed choledocholithiasis but needs EUS and possible ERCP if residual sludge/stones. -> EUS on 06/25 saw one stone in the CBD. ERCP with biliary sphincterotomy and balloon extraction. - Advance to clears today, discharge tomororw. Likely will need surgical f/u for lap jemal in near future. (2) Acute hyponatremia: Plan: Na+ 127 on admission, now improved to 134 with 1L NS received in ER. - Dehydrated due to acute illness. (3) Duodenitis: Plan: From pancreatitis - Continue IV PPI BID for now. (4) Transaminitis: Plan: As above, significant and now improving. Due to choledocholithiasis. - Resolving. (5) AUBREY (acute kidney injury): Plan: Secondary to decreased oral intake. Resolved. Cr now 0.77. - Continue to hold ARB; can restart on discharge. (6) Hemochromatosis: Plan: Noted, gets phlebotomies q3-4 months. - Follows with Dr. Thomas q3 months - Hgb now 12.5. (7) Hypertension: Plan: BP stable at 130/90 today. - Holding losartan for AUBREY as above; restart on d/c - Monitor BP (8) Type 2 diabetes mellitus: Plan: A1c was 6.9% this month. - Hold home meds - Novolog SSI (9) CAD (coronary artery disease): Plan: S/p DARLENE earlier 2020. No acute issues. - Continue ASA, Brilinta, metoprolol - Holding statin due to elevated LFTs; restart on discharge as acute issue is resolved. (10) Asthma: Plan: No acute issues. Only on albuterol at home. - Albuterol PRN Admission and Anticipated Discharge Date Admission Date: June 22, 2021 Subjective Doing well today. No major issues. Physical Exam Constitutional: WD/WN, vitals as above Eyes: EOM intact bilaterally; no conjunctival abnormality ENMT: external ear and nose normal, oropharynx normal Neck: trachea midline, no thyromegaly normal visual inspection Respiratory: normal respiratory effort, lungs clear to auscultation no respiratory distress Cardiovascular: RRR, no murmur, no edema Gastrointestinal (Abdomen): Inspection/Auscultation: abdomen normal to inspection; abdomen not distended Musculoskeletal: no cyanosis or clubbing, extremities motor strength 5/5 Skin: no rashes, warm and dry Neurologic: moves all extremities and awake Psychiatric: Orientation: alert, oriented to person and cooperative Results & Data Results & Data ([facility]) Vital Signs (Past 12 Hours) Vital Signs Temp Pulse Pulse Pulse Resp BP BP 06/25/21 10:55 36.4 C L 74 18 130/89 06/25/21 10:45 67 22 136/76 06/25/21 10:35 74 20 140/80 06/25/21 10:25 79 15 141/81 H 06/25/21 10:18 36.0 C L 79 16 152/85 H 06/25/21 08:50 37.3 C 75 18 145/71 H 06/25/21 07:04 36.4 C L 67 16 118/65 06/25/21 07:00 67 06/25/21 02:51 36.6 C 66 18 117/61 Pulse Ox 06/25/21 10:55 96 06/25/21 10:45 95 06/25/21 10:35 96 06/25/21 10:25 97 06/25/21 10:18 97 06/25/21 08:50 97 06/25/21 07:04 98 06/25/21 07:00 06/25/21 02:51 98 PG Care Time/CCT Total # of Minutes Spent Total Time Spent with Patient: Total time spent is greater than 50% in coordination of care (as documented) at patient's floor/unit and/or counseling patient: Coding Level of Care Code 81182 Subseq Hosp Care Lvl 3 Diagnoses Right upper quadrant abdominal pain R10.11 Acute hyponatremia E87.1 Duodenitis K29.80 Transaminitis R74.01 AUBREY (acute kidney injury) N17.9 Hemochromatosis E83.119 Hypertension I10 Hypertension type: essential hypertension Type 2 diabetes mellitus E11.9; Z79.4 Diabetes mellitus termite exterminator insulin use: with intermediate use Diabetes mellitus complication status: without complication CAD (coronary artery disease) I25.10 Asthma J45.20 Asthma severity: mild Asthma persistence: intermittent Asthma complication type: uncomplicated (1) Hypertension Hypertension type: essential hypertension Qualified Code(s): I10 - Essential (primary) hypertension (2) Type 2 diabetes mellitus Diabetes mellitus intermediate insulin use: with intermediate use Diabetes mellitus complication status: without complication Qualified Code(s): E11.9 - Type 2 diabetes mellitus without complications; Z79.4 - correction (current) use of insulin (3) Asthma Asthma severity: mild Asthma persistence: intermittent Asthma complication type: uncomplicated Qualified Code(s): J45.20 - Mild intermittent asthma, uncomplicated
[2021-06-25] MEDS: ASPIRIN 81 MG ECTAB PO SCH (21:30)
[2021-06-25] MEDS: HYDROmorphone INJ 0.5 MG/0.5 ML SYR IV PRN (22:51)
[2021-06-26 06:58] VITALS: BP 127/67; TEMP 97.9; O2SAT 95
[2021-06-26] MEDS: TICAGRELOR 90 MG TAB PO SCH (07:51)
[2021-06-26] MEDS: PANTOprazole 40 MG in SYRINGE 0 ML IV SCH (07:51)
[2021-06-26] MEDS: SERTRALINE HCL 100 MG TABLET PO SCH (07:51)
[2021-06-26] MEDS: MULTIVITAMIN TAB PO SCH (07:52)
[2021-06-26] MEDS: METOPROLOL SUCC 50MG EXT REL TAB PO SCH (07:52)
[2021-06-26] MEDS: INSULIN ASPART 100 UNITS/ML 3 ML PEN SC SCH (09:12)
[2021-06-26 11:03] VITALS: PULSE 61
--- NOTE | 2021-06-26 11:06 | Pharmacy Report ---
Pharmacy Glycemic Short Note 2 - Date of Service June 26, 2021 - Glycemic Short BSG Results (Last 24 hours): 06/25/21 06/25/21 06/25/21 11:20 16:31 20:27 POC Glucose 113 H 137 H 136 H 06/26/21 07:12 POC Glucose 123 H OUTPATIENT ANTIDIABETIC REGIMEN: * Invokana PO * Amaryl PO * Victoza SQ weekly - taken on 06/21/21 * HbA1c:6.9% (06/12/21) ASSESSMENT: 06/26: * BSGs remain very well-controlled with bolus insulin only, BSGs ranging 105-137 mg/dL yesterday * Diet is now being advanced (41 g of carbs documented with breakfast) * Will follow BSG data, patient may require basal insulin now that he is eating 06/23: * 75 y/o M admitted for abdominal pain evaluation. Patient with history of Type 2 diabetes managed on 3 different meds. * Holding oral and SQ outpatient anti-diabetic meds while admitted. * Initiated weight insulin dosing for insulin donnell patient based on wt and stress of 2. Will titrate based on BSG trends. * Since patient had taken his Victoza dose only 2 days ago, it should still be effective and therefore he has not needed any basal insulin thus far. PLAN FOR INPATIENT GLYCEMIC CONTROL: * Hold outpatient diabetes medications * Basal insulin * continue to hold * Bolus insulin * NovoLog per scale ACHS or Q6hrs while NPO * Goal Range: Low 110 mg/dL - High 140 mg/dL * Correction Factor: 25 mg/dL/unit * Nutritional / Prandial insulin per carb ratio of 1 unit per 8 grams CHO consumed PLAN FOR DISCHARGE: * HbA1c = 6.9% on 06/12/21 * Goal A1c in this patient is less than 7% given his age and co-morbidities. * Since A1c at goal, recommend patient resume his out-patient anti-diabetic meds on discharge as long as he is not reporting any hypoglycemia.
--- NOTE | 2021-06-26 11:07 | Gastroenterology Progress Note ---
Date of Service June 26, 2021 Assessment & Plan (1) Pancreatitis due to common bile duct stone: Plan: Pt is a 75 y/o male admitted w/ symptoms suggestive of gallstone pancreatitis. He underwent EGD, EUS and ERCP yesterday for common bile duct stones. He underwent small sphincterotomy and had a biliary stent placed. Today he is feeling well; abd soft, nontender. - Continue antibiotic course for total of 10 days - Watch for signs of bleeding as patient was unable to stop antiplatelet medications - Protonix 40 mg 1 time daily for 12 weeks - ERCP in 8-12 weeks for biliary stent. Our office will arrange - Cholecystectomy per general surgery. Thank you for allowing us to participate in the care of this patient. Please call with any acute changes, questions or concerns. Please see addendum below with additional recommendation from my supervising physician. Admission and Anticipated Discharge Date Admission Date: June 22, 2021 Supervising Physician Co-Signing Physician Notes I saw and evaluated the patient. He notes that he feels much improved today. With regard to antibiotics given the question of cholecystitis would recommend a 10-day course of outpatient antibiotics. The patient will ultimately need to have cholecystectomy performed by his general surgeon once cleared by his cardiology provider. In the meantime we will plan to do a repeat ERCP with stent exchange in 8 to 12 weeks until he is deemed a good candidate for cholecystectomy. Please call with any questions or concerns GI to sign off Subjective Patient seen and examined, chart reviewed. He is feeling this AM; no GI complaints. Tolerated breakfast. He had brown BM. Denies abd pain, n/v, hematemesis, melena, hematochezia, fever, chills, CP, SOB. Review of Systems Review of Systems: All systems reviewed & are unremarkable except as noted in Subjective Physical Exam Constitutional: WD/WN, vitals as above Respiratory: normal respiratory effort Cardiovascular: Rate/Rhythm: regular rate and regular rhythm Gastrointestinal (Abdomen): normal bowel sounds, soft, nontender, no hepatosplenomegaly Skin: no rashes, warm and dry Psychiatric: A+Ox3, euthymic affect Results & Data ([facility]) Vital Signs (Past 12 Hours) Vital Signs Temp Pulse Pulse Pulse Resp BP BP 06/26/21 11:02 36.6 C 70 61 20 109/61 127/67 06/26/21 07:00 75 06/26/21 06:57 36.6 C 61 20 127/67 06/26/21 03:20 36.4 C L 64 20 133/73 06/26/21 00:00 58 L Pulse Ox 06/26/21 11:02 95 06/26/21 07:00 06/26/21 06:57 95 06/26/21 03:20 97 06/26/21 00:00
--- NOTE | 2021-06-26 12:59 | Discharge Summary ---
Date of Service June 26, 2021 Admission HPI Per Admitting Provider This is a pleasant 75-year-old male with history of CAD with recent stent placed to distal circumflex in October 2020 presents to the ER with 2-week history of malaise. Patient initially had urinary symptoms such as urinary urgency, increased urinary frequency, fever, chills. This improved after a weeks course of Bactrim. However patient continued to feel worse. Even though his urinary symptoms improved, he was now having worsening right upper quadrant abdominal pain, accompanied by decreased appetite. This has been ongoing for the past week. Upon further questioning patient states that his right upper quadrant abdominal pain had been present for a few weeks prior. Patient states felt for the past week he has not been able to eat due to having pain and he states that food makes him nauseous. He has only been able to tolerate eating fruit and having an [place] muffin. He states that this morning he had fruit at 8:30 AM. Principal Diagnosis Choledocholithiasis causing pancreatitis and transient liver injury Discharge Exam Constitutional WD/WN, vitals as above Eyes EOM intact bilaterally; no conjunctival abnormality ENMT external ear and nose normal, oropharynx normal Neck trachea midline, no thyromegaly normal visual inspection Respiratory normal respiratory effort, lungs clear to auscultation no respiratory distress Cardiovascular RRR, no murmur, no edema Gastrointestinal (Abdomen) Inspection/Auscultation: abdomen normal to inspection; abdomen not distended Musculoskeletal no cyanosis or clubbing, extremities motor strength 5/5 Skin no rashes, warm and dry Neurologic moves all extremities and awake Psychiatric Orientation: alert, oriented to person and cooperative Discharge Data Allergies Allergy/AdvReac Type Severity Reaction Status Date / Time cefoxitin Allergy Intermediate HIVES Verified 06/25/21 09:08 clavulanic acid Allergy Intermediate Hives Verified 06/25/21 09:08 [From Timentin] ticarcillin [From Timentin] Allergy Intermediate Hives Verified 06/25/21 09:08 atorvastatin AdvReac Mild Joint Pain Verified 06/25/21 09:08 pravastatin AdvReac Mild Joint Pain Verified 06/25/21 09:08 Consultations 06/22/21 14:21 ED Decision to Admit Stat 06/22/21 14:54 Consult Gastroenterology Routine 06/23/21 08:26 Consult General Surgery Routine Procedures Performed Operation Date: 06/25/21 07:00 Actual Procedures p Endoscopic Retrograde Cholangiopancreatography(Not Applicable) - DO darwin Schneider Esophagogastroduodenoscopy(Not Applicable) - DO darwin Schneider Endoscopic Ultrasonography Upper(Not Applicable) - Alberto Chow DO Ordered Studies 06/22/21 10:53 CT abd pelvis wo con Stat 06/22/21 12:28 US gallbladder Stat 06/22/21 14:49 MR MRCP Urgent 06/25/21 [place] ERCP biliary ductal Routine 06/25/21 08:47 US upper EUS PACS images Routine 06/25/21 08:58 US upper EUS PACS images Routine Hospital Course (1) Right upper quadrant abdominal pain: 75 yo male will be admitted with RUQ. With significantly elevated LFTs, ongoing fevers at home, nausea, low appetite. - Negative CT scan for choledocholithiasis but shows cholelithiasis and duodenitis. - MRCP on 06/22 was neg for choledocholithiasis. -> GI thinks most likely passed choledocholithiasis but needs EUS and possible ERCP if residual sludge/stones. -> EUS on 06/25 saw one stone in the CBD. ERCP with biliary sphincterotomy and balloon extraction. - Advanced to full liquid; recommended soft diet for 1-2 days after discharge. - Follow up with Dr. Chow for biliary stent removal in [address] Rivera who recommends lap jemal 1 year after cardiac stent placement. Will follow up with Dr. Rivera in office to stay in contact. (Note: Dr. Chow recommended continuing abx x 10 days; however, the patient had not previously been on antibiotics as he was afebrile and had no leukocytosis. Dr. Chow made aware the patient was not on abx. Discharged without abx.) (2) Acute hyponatremia: Na+ 127 on admission, now improved to 134 with 1L NS received in ER. - Dehydrated due to acute illness. (3) Duodenitis: From pancreatitis - No needs. (4) Transaminitis: As above, significant and now improving. Due to choledocholithiasis. - Resolving. (5) AUBREY (acute kidney injury): Secondary to decreased oral intake. Resolved. Cr now 0.77. - Continue to hold ARB; can restart on discharge. (6) Hemochromatosis: Noted, gets phlebotomies q3-4 months. - Follows with Dr. Thomas q3 months - Hgb now 12.5. (7) Hypertension: BP stable at 130/90 today. - Holding losartan for AUBREY as above; restart on d/c - Monitor BP (8) Type 2 diabetes mellitus: A1c was 6.9% this month. - Hold home meds - Novolog SSI -> Resume orals on discharge. (9) CAD (coronary artery disease): S/p DARLENE earlier 2020. No acute issues. - Continue ASA, Brilinta, metoprolol - Holding statin due to elevated LFTs; restart on discharge as acute issue is resolved. (10) Asthma: No acute issues. Only on albuterol at home. - Albuterol PRN Total Time Total Time Spent Total Time Spent (In Minutes): 35 Discharge Plan Discharge Items Patient Disposition: Home - Self-Care Reason For Visit: RIGHT UPPER QUADRANT ABDOMINAL PAIN Discharge Diagnosis: Choledocholithiasis (gallbladder stone trapped in the common bile duct) Activity: Resume your previous activity Non-emergency contact: Primary Care Provider, Surgeon and Ore Trimmer Call non-emergency contact if: your symptoms worsen, your pain is worsening and your temperature is above 101 Follow-up/Referrals: Tony Engel MD [Primary Care Provider] - Abimael Rivera DO [Surgeon] - 07/18/21 11:00 am (Please follow-up with Dr. Rivera in 3-4 weeks following discharge from hospital. ) Alberto Chow DO [Physician] - (Please follow up with Dr. Chow or one of his associates in 2-4 weeks.) Diet: Regular Addtl Attending Provider Instructions: Mr. Bryan, You were admitted with choledocholithiasis (gallbladder stone trapped in the common bile duct). This caused inflammation of your pancreas and liver. Luckily, the stone was swept out by Dr. Chow during the procedure (ERCP). Please follow up with Dr. Chow or one of his associates in 2-4 weeks as you will need another scope in about 3 months to remove the stent that he placed. You saw Dr. Rivera here in the hospital with plans to remove the gallbladder after you are 1-year past your cardiac stent. For the time being, please continue your cardiac medications. Pending Studies at Discharge: No Stand-Alone Forms: My [employer], Smoking Cessation Medications and DC Order Prescriptions: Continued (DME) pen needle, diabetic [BD Ultra-Fine Mini Pen Needle] 31 gauge x 3/16" needle See Dose Instructions .ROUTE .MEDSUPPLY Qty: 100 RF: 3 sertraline 100 mg tablet 100 mg PO DAILY Qty: 90 RF: 3 albuterol sulfate 90 mcg/actuation HFA aerosol inhaler 2 puff inhalation Q4H PRN (Reason: shortness of breath or wheezing) Qty: 6.7 RF: 5 diclofenac sodium 1 % gel 2 g TOP QID PRN (Reason: pain ) Qty: 200 RF: 3 Victoza 3-Josr 0.6 mg/0.1 mL (18 mg/3 mL) pen injector 1.8 mg SUBCUT DAILY Qty: 18 RF: 3 metoprolol succinate 100 mg tablet extended release 24 hr 100 mg PO DAILY Qty: 90 RF: 3 Invokana 300 mg tablet 300 mg PO DAILY Qty: 90 RF: 3 rosuvastatin [Crestor] 20 mg tablet 20 mg PO HS Qty: 30 RF: 6 acetaminophen [Tylenol 8 Hour] 650 mg tablet extended release 1,300 mg PO Q12H RF: 0 losartan 100 mg tablet 100 mg PO QAM Qty: 90 RF: 3 glimepiride 1 mg tablet 1 mg PO QAM RF: 0 aspirin [Aspirin Low Dose] 81 mg Tablet,Delayed Release (Dr/Ec) 81 mg PO HS RF: 0 nitroglycerin [Nitrostat] 0.4 mg Tablet, Sublingual 0.4 mg sublingual Q5M PRN (Reason: chest pain) Qty: 30 RF: 1 Brilinta 90 mg Tablet 90 mg PO BID Qty: 60 RF: 11 Men's Multivitamin 400-20-300 mcg Tablet 1 tab PO DAILY RF: 0 olopatadine 0.2 % drops 1 drp OPB DAILY PRN (Reason: Allergy Symptoms) RF: 0 Discontinued sulfamethoxazole-trimethoprim [Bactrim DS] 800-160 mg tablet 1 tab PO Q12H Qty: 14 RF: 0 Discharge Orders: Discharge Order (Routine); Ordered 06/26/21 Ordered By: Doug Acuña/Other Patient Handouts: Treating Gallstones, Discharge Instructions- Eating a ... Admission Data Admit Date/Time: 06/22/21 15:14 Attending Provider: Doug Lazo Admit Provider: Conrado Styles Primary Care Provider: Tony Engel Other Providers: Rl Solares ; Rl Dempsey ; Conrado Styles ; Zoe Stevens ; Abimael Rivera Other Interventions: Discharge Summary Assessment (RN) Last Done: 06/26/21 11:02 Coding Level of Care Code D/C DAY MANAGEMENT >30 MINS Diagnoses Right upper quadrant abdominal pain R10.11 Acute hyponatremia E87.1 Duodenitis K29.80 Transaminitis R74.01 AUBREY (acute kidney injury) N17.9 Hemochromatosis E83.119 Hypertension I10 Hypertension type: essential hypertension Type 2 diabetes mellitus E11.9; Z79.4 Diabetes mellitus terminal manager insulin use: with detention use Diabetes mellitus complication status: without complication CAD (coronary artery disease) I25.10 Asthma J45.20 Asthma severity: mild Asthma persistence: intermittent Asthma complication type: uncomplicated
== END 2021-06-26 12:00 | disposition home or self-care (01) | DRG 444 ==
LOC: ED 10:25 → SUATTDRO 15:14 → 2N 15:14

== ENCOUNTER 2021-07-26 06:48 | Inpatient (IN) ==
[2021-07-26] MEDS ORDERED: SODIUM CHLORIDE 0.9% 500 ML IV STA (07:00)
[2021-07-26 08:54] LABS: Hematocrit (blood only) 48.9 % (42-52); Hemoglobin 15.9 g/dL (14.0-18.0); Mean Corpuscular Hemoglobin 28.3 pg (25-34); Mean Corpuscular Hgb Conc 32.5 g/dL (32-36); Mean Corpuscular Volume 87.2 fL (80-100); Mean Platelet Volume 8.9 fL (7.4-10.4); Platelet Count 244 K/uL (130-400); RDW Coefficient of Variation 15.6 % (11.5-14.5); RDW Standard Deviation 49.9 fL (36.4-46.3); Red Blood Count 5.61 M/uL (4.7-6.1); White Blood Count 12.98 K/uL (4.8-10.8)
[2021-07-26 09:02] LABS: Appearance Urine Clear (Clear); Bacteria Urine Automated Negative (Negative); Bilirubin Urine Negative (Negative); Blood Urine Trace (Negative); Color Urine Yellow; Glucose Urine UA 3+ (Negative); Ketones Urine Negative (Negative); Leukocyte Esterase Urine Negative (Negative); Nitrite Urine Negative (Negative); Protein Urine Negative (Negative); RBC Urine Automated 0-4 /hpf (0-4); Specific Gravity Urine 1.037 (1.000-1.030); Urobilinogen Urine Negative (Negative)
--- NOTE | 2021-07-26 09:05 | Emergency Department Note ---
Impression & Plan Cholecystitis, Abdominal pain, Leukocytosis ED Provider Note NAME: KANNAN ORTEGA AGE: 75 SEX: M : 1945 ARRIVES VIA: Walk-In INFORMANT: Patient ED PROVIDER(S): Daniel Landon DO CHIEF COMPLAINT: RUQ abd pain HPI: Patient is a 75-year-old male who presents to the ER for right upper quadrant abdominal pain which started last night. He has a past medical history which includes duodenitis, transaminitis, pancreatitis with choledocholithiasis with a previous stent placed as well as PR and CAD who presents ER for the same pain that he had with the previous biliary colic. This started last night. Was an 8 out of 10 is now only a 4 out of 10. Denies any nausea or vomiting. No dysuria, urgency, or frequency. No chest pain or shortness of breath. No other exacerbating or remitting factors. He has not eaten or drank anything. He still has a stent in place. ROS: See above HPI for pertinent positives & negatives. A total of 10 systems reviewed and were otherwise negative. PAST MEDICAL HISTORY:See Below PAST SURGICAL HISTORY:See Below FAMILY HISTORY:See Below SOCIAL HISTORY:See Below HOME MEDICATIONS:See Below ALLERGIES:See Below VITALS:See Below PHYSICAL EXAMINATION: GENERAL: Sitting up in bed, alert, well appearing, well nourished, no distress, non-toxic EYE EXAM: normal conjunctiva OROPHARYNX: no exudate, no erythema, lips, buccal mucosa, and tongue normal and mucous membranes are moist NECK: supple, no nuchal rigidity, no adenopathy, non-tender LUNGS: Clear to auscultation. Normal chest wall mechanics HEART: no murmurs, S1 normal and S2 normal ABDOMEN: abdomen soft, mild tenderness in right upper quadrant, normo-active bowel sounds, no masses, no rebound or guarding. UPPER EXTREMITIES: upper extremities are grossly normal. LOWER EXTREMITIES: No pitting edema. NEURO EXAM: Normal sensorium, cranial nerves II-XII grossly intact, normal speech, no gross weakness of arms, no gross weakness of legs. MEDICAL DECISION MAKING: Patient is a 75-year-old male who presents ER for above-stated complaint. He does have some tenderness in the right upper quadrant. IV was established blood was obtained. Labs show leukocytosis of 13,000. No significant anemia. BMP with LFTs bilirubin and lipase is unremarkable. UA with small amount of blood. Covid was negative. CT abdomen pelvis shows gallbladder wall thickening and pericholecystic fluid with a stone either in or just addition to the cystic duct. Stent is in good position. There is concern for cholecystitis. Discussed with general surgery Barry Rivera as well as the hospitalist for admission. Patient was given IV Zosyn. Patient was updated bedside. Declines any pain medications. Triage Nursing notes reviewed. Limited review of prior medical records performed Vital Signs: reviewed and remarkable for HTN Differential diagnosis: Differential diagnoses includes but is not limited to gastritis, peptic ulcer disease, GERD, gallbladder disease, pancreatitis, small bowel obstruction, acute coronary syndrome, pericarditis, ischemic bowel, irritable bowel disease, irritable bowel syndrome, appendicitis, diverticulitis, malignancy, hernia, urinary tract infection, torsion, perforation, trauma, infectious. ER treatment provided: See below Diagnostics interpreted by me: ECG: none Cardiac Monitoring: An order was placed for continuous cardiac monitoring. The monitor shows a rate of 92 with sinus rhythm. Laboratory studies: As stated above and show below. Imaging studies: CT abdomen pelvis suggest cholecystitis Consultation(s): Discussed with general surgery Dr. Jennings Discussed with the hospitalist for further evaluation [facility] Procedures: none Critical Care: None Past Med/Surg History Medical History Abdominal pain, LLQ (left lower quadrant) Allergic rhinitis due to pollen Anemia Arthritis Atopic dermatitis Atrial fibrillation post PR on 11/14; w/ RVR Benign colonic polyp Benign localized hyperplasia of prostate with urinary obstruction Bladder calculus Carotid artery plaque Carotid bruit Cellulitis Depression Diabetes mellitus Type 2 Diverticular disease Diverticulitis of colon Diverticulosis of colon Erectile dysfunction Facial skin lesion Fatty liver H/O renal calculi Hearing deficit Heart murmur Hematuria Hemochromatosis PHLEBOTOMY TREATMENTS EVERY 3 MONTHS- FERRITIN LEVELS MONITORED BY HEMATOLOGY; LAST PHLEBOTOMY 2 MONTHS AGO History of colon polyps History of diverticulitis 09/2018= RESOLVED S/P ABX Hyperlipidemia Hypertension Irritable bowel syndrome Joint pain, knee Laceration of thumb, left Lower back pain Microscopic hematuria Obesity Ocular hypertension, unspecified eye Pain due to ureteral stent Renal calcification Renal colic Right leg pain Type 2 diabetes mellitus Ureteral calculus, right Urinary frequency Xerosis cutis Surgical History H/O cataract extraction History of colonoscopy History of heart artery stent Inf STEMI on 11/14:subtotal occ. Large distal Cx s/p PCI of m/dCx w/single DARLENE History of tonsillectomy and adenoidectomy History of umbilical hernia repair History of vasectomy Hx of cystoscopy CYSTOSCOPY/LASER LITHOTRIPSY/STENT= 01/23/17= LMA#5 AT [facility] Hx of hand surgery LEFT HAND TENDON SURGERY Hx of transurethral resection of prostate AND BLADDER STONES REMOVED on 10/26/18 with LMA#5 Family History Mother Multiple myeloma Stroke Father Laryngeal cancer Grandfather (Maternal) Stroke Uncle Stroke Denies family history of Ovarian cancer Prostate cancer Coronary heart disease Myocardial infarction Breast cancer Colorectal cancer Social History (Updated 07/23/21 @ 15:10 by Michell Doshi LPN) Smoking Status: Never smoker Second Hand Exposure: Yes; Hx Alcohol Use: No Hx Substance Use: No Preferred Language: Citizen Of [place] Communication Ability: Effective Visual Impairment: No Limitations Hearing Ability: Use of Hearing Aid Beater Boss Required: No Beliefs That Will Affect Care: None marital status: Current Living Situation: Spouse current occupational status: retired 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 Feels Safe at Home: Yes Childhood Exposure to Second-Hand Smoke: Yes caffeine: Yes Dental Care, Regularly: Yes Physical Activity Frequency: 5-6 Times per Week Seatbelt Use: always Sunscreen Use: No Assistive Devices: Glasses and Hearing Aid - Bilateral Allergies Allergies Allergy/AdvReac Type Severity Reaction Status Date / Time cefoxitin Allergy Intermediate HIVES Verified 07/26/21 11:08 clavulanic acid Allergy Intermediate Hives Verified 07/26/21 11:08 [From Timentin] ticarcillin [From Timentin] Allergy Intermediate Hives Verified 07/26/21 11:08 atorvastatin AdvReac Mild Joint Pain Verified 07/26/21 11:08 pravastatin AdvReac Mild Joint Pain Verified 07/26/21 11:08 Home Meds Home Medications Medication Instructions Recorded Confirmed aspirin 81 mg tablet,delayed 81 mg PO HS 10/12/18 07/26/21 release (Aspirin Low Dose) glimepiride 1 mg tablet 1 mg PO QAM tab 02/16/20 07/26/21 acetaminophen 650 mg 1,300 mg PO Q8H tab 11/23/20 07/26/21 tablet,extended release (Tylenol 8 Hour) dpkixwpw-fgvoznbd-quxyi acid 400 1 tab PO QAM 06/22/21 07/26/21 mcg-vit K 20 mcg-lycop 300 mcg tablet (Men's Multivitamin) olopatadine 0.2 % eye drops 1 drp OPB DAILY PRN 06/22/21 07/26/21 canagliflozin 300 mg tablet 300 mg PO QAM 07/04/21 07/26/21 (Invokana) fexofenadine 180 mg tablet 180 mg PO DAILY PRN 07/04/21 07/26/21 metoprolol succinate 100 mg 100 mg PO QAM 07/04/21 07/26/21 tablet,extended release 24 hr sertraline 100 mg tablet 100 mg PO QAM 07/04/21 07/26/21 Previous Rx's Medication Instructions Recorded pen needle, diabetic 31 gauge x #100 ea 07/19/2011/14" (BD Ultra-Fine Mini Pen Needle) albuterol sulfate 90 mcg/actuation 2 puff INHALATION Q4H PRN #6.7 g 10/23/20 aerosol inhaler diclofenac sodium 1 % topical gel 2 g TOP QID PRN #200 g 10/23/20 nitroglycerin 0.4 mg sublingual 0.4 mg SUBLINGUAL Q5M PRN #30 tab 11/15/20 tablet (Nitrostat) losartan 100 mg tablet 100 mg PO QAM #90 tab 11/17/20 rosuvastatin 20 mg tablet (Crestor) 20 mg PO HS #30 tab 06/18/21 liraglutide 0.6 mg/0.1 mL (18 mg/3 1.8 mg SUBCUT DAILY #18 ml 07/16/21 mL) subcutaneous pen injector (Victoza 3-Josr) Results & Data (ED) Vital Signs Vital Signs - 24 hr 07/26/21 06:56 07/26/21 10:25 Temperature 35.5 C L Temperature Source Temporal Artery Scan Pulse Rate 97 H Pulse Rate [Right Radial] 88 Pulse Rhythm Regular Pulse Rhythm [Right Radial] Regular Pulse Strength Normal Pulse Strength [Right Radial] Normal Respiratory Rate 18 17 Respiratory Effort / Characteristics Non-Labored Spontaneous Non-Labored Spontaneous Respiratory Depth Normal Normal Respiratory Pattern Regular Regular Blood Pressure 174/99 H Blood Pressure [Right Arm] 169/84 H Blood Pressure Mean 124 Blood Pressure Mean [Right Arm] 112 Blood Pressure Position Sitting Blood Pressure Position [Right Arm] Lying Pulse Oximetry 98 96 Oxygen Delivery Method Room Air Room Air Sepsis Recent Fever Within 48 Hours No Sepsis New/Unexplained Change in Mental Status N/A Sepsis Action Taken by Nursing No Action Required Laboratory Data Result diagrams: 07/26/21 08:42 07/26/21 08:42 Lab Results 07/26/21 07/26/21 07/26/21 Range/Units 08:42 08:42 08:42 WBC 12.98 H (4.8-10.8) K/uL RBC 5.61 (4.7-6.1) M/uL Hgb 15.9 (14.0-18.0) g/dL Hct 48.9 (42-52) % MCV 87.2 (80-100) fL MCH 28.3 (25-34) pg MCHC 32.5 (32-36) g/dL RDW Std Deviation 49.9 H (36.4-46.3) fL RDW Coeff of Aria 15.6 H (11.5-14.5) % Plt Count 244 (130-400) K/uL MPV 8.9 (7.4-10.4) fL Sodium 138 (136-145) mmol/L Potassium 4.0 (3.5-5.1) mmol/L Chloride 103 (98-107) mmol/L Carbon Dioxide 28 (21-32) mmol/L Anion Gap 7.0 (3-11) BUN 16 (7-18) mg/dl Creatinine 0.91 (0.6-1.4) mg/dl Est Cr Clr Drug Dosing Not Reportable Est GFR ( Amer) 95.2 ml/min Est GFR (Non-Af Amer) 82.2 ml/min BUN/Creatinine Ratio 18.1 (10-20) Glucose 140 H (70-99) mg/dl Calcium 9.6 (8.5-10.1) mg/dl Total Bilirubin 0.7 (0.2-1) mg/dl Direct Bilirubin 0.2 (0-0.2) mg/dl AST 31 (15-37) U/L ALT 59 (12-78) U/L Alkaline Phosphatase 111 (45-117) U/L Total Protein 8.4 H (6.4-8.2) gm/dl Albumin 4.2 (3.4-5.0) gm/dl Lipase 254 (73-393) U/L Urine Color Yellow Urine Appearance Clear (Clear) Urine pH 5.0 (4.5-7.5) Ur Specific Kite 1.037 H (1.000-1.030) Urine Protein Negative (Negative) Urine Glucose (UA) 3+ H (Negative) Urine Ketones Negative (Negative) Urine Blood Trace H (Negative) Urine Nitrite Negative (Negative) Urine Bilirubin Negative (Negative) Urine Urobilinogen Negative (Negative) Ur Leukocyte Esterase Negative (Negative) Urine WBC (Auto) 1-5 (0-5) /hpf Urine RBC (Auto) 0-4 (0-4) /hpf U Hyaline Cast (Auto) 1-5 (0-5) /lpf U Epithel Cells (Auto) 10-20 H (0-5) /lpf Urine Bacteria (Auto) Negative (Negative) SARS-CoV-2, RNA, NAAT (NEGATIVE) 07/26/21 Range/Units 10:35 WBC (4.8-10.8) K/uL RBC (4.7-6.1) M/uL Hgb (14.0-18.0) g/dL Hct (42-52) % MCV (80-100) fL MCH (25-34) pg MCHC (32-36) g/dL RDW Std Deviation (36.4-46.3) fL RDW Coeff of Aria (11.5-14.5) % Plt Count (130-400) K/uL MPV (7.4-10.4) fL Sodium (136-145) mmol/L Potassium (3.5-5.1) mmol/L Chloride (98-107) mmol/L Carbon Dioxide (21-32) mmol/L Anion Gap (3-11) BUN (7-18) mg/dl Creatinine (0.6-1.4) mg/dl Est Cr Clr Drug Dosing Est GFR ( Amer) ml/min Est GFR (Non-Af Amer) ml/min BUN/Creatinine Ratio (10-20) Glucose (70-99) mg/dl Calcium (8.5-10.1) mg/dl Total Bilirubin (0.2-1) mg/dl Direct Bilirubin (0-0.2) mg/dl AST (15-37) U/L ALT (12-78) U/L Alkaline Phosphatase (45-117) U/L Total Protein (6.4-8.2) gm/dl Albumin (3.4-5.0) gm/dl Lipase (73-393) U/L Urine Color Urine Appearance (Clear) Urine pH (4.5-7.5) Ur Specific Kite (1.000-1.030) Urine Protein (Negative) Urine Glucose (UA) (Negative) Urine Ketones (Negative) Urine Blood (Negative) Urine Nitrite (Negative) Urine Bilirubin (Negative) Urine Urobilinogen (Negative) Ur Leukocyte Esterase (Negative) Urine WBC (Auto) (0-5) /hpf Urine RBC (Auto) (0-4) /hpf U Hyaline Cast (Auto) (0-5) /lpf U Epithel Cells (Auto) (0-5) /lpf Urine Bacteria (Auto) (Negative) SARS-CoV-2, RNA, NAAT NEGATIVE (NEGATIVE) Administered Medications Discontinued Medications Piperacillin Sod/Tazobactam Sod (Zosyn) 4.5 gm in 120 mls @ 240 mls/hr IV NOW ONE Stop: 07/26/21 10:50 Last Infusion: 07/26/21 11:22 Dose: 0 mls/hr Documented by: [id number] Admin: 07/26/21 10:40 Dose: 240 mls/hr Documented by: [id number] Ioversol (Optiray 320 100ml) 93 ml IV ONCE ONE Stop: 07/26/21 09:36 Last Admin: 07/26/21 09:36 Dose: 93 ml Documented by: [id number] Losartan Potassium (Losartan Potassium 50 Mg Tab) 100 mg PO ONE STA Stop: 07/26/21 11:30 Last Admin: 07/26/21 12:33 Dose: 100 mg Documented by: [id number] Metoprolol Succinate (Metoprolol Succ 50mg Ext Rel Tab) 100 mg PO NOW STA Stop: 07/26/21 11:30 Last Admin: 07/26/21 12:32 Dose: 100 mg Documented by: [id number] Imaging Data Radiologist's Impression: Abdomen/Pelvis CT 07/26/21 09:01 CT OF THE ABDOMEN AND PELVIS WITH CONTRAST CLINICAL HISTORY: Right upper quadrant abdominal pain. Stent in place. COMPARISON STUDY: CT of the abdomen and pelvis and right upper quadrant ultrasound July 08, 2021. TECHNIQUE: Following IV administration of 93 mL of Optiray, axial images of the abdomen and pelvis were obtained from the lung bases to the proximal femurs. Images were reviewed in the axial, sagittal, and coronal planes. IV contrast was administered without complication. Automated exposure control was utilized for the study. A dose lowering technique was utilized adhering to the principles of ALARA. CT DOSE: 941.36 mGy.cm FINDINGS: Lung bases are unremarkable. No pneumatosis, free air or portal venous gas is present. Biliary stent remains in place. As expected, there is pneumobilia. There is gas within the gallbladder. There is no biliary ductal dilatation. No radiopaque calculi are identified within the common bile duct. There is no peripancreatic infiltration. No pancreatic ductal dilatation is present. Mild gallbladder distention is similar to prior exam. However, pericholecystic stranding has increased. A 6 mm calculus within the gallbladder neck or proximal cystic duct is noted. This has changed in position since prior CT. There is no evidence for a bowel obstruct. Colonic diverticulosis is noted without evidence for acute diverticulitis. Several left renal calculi measure up to 1 cm. Punctate calculus within the upper pole the right kidney is noted. Partially peripherally calcified 2 cm right renal lesion is probably benign. Prostate is enlarged. There is no hydronephrosis. No acute fracture or suspicious lesion is identified within visualized skeletal structures. L1 compression fracture remains unchanged in appearance. IMPRESSION: 1. Biliary stent in place with pneumobilia, as expected. No biliary ductal dilatation. 2. Mild gallbladder distention with pericholecystic infiltration and a gallstone within the gallbladder neck or proximal cystic duct. This raises the possibility of acute cholecystitis. Right upper quadrant ultrasound could be obtained for further evaluation. 3. Bilateral nephrolithiasis. No ureteral calculi or hydronephrosis. 4. No evidence for a bowel obstruction. ACT 112: Negative or not required by law. Electronically signed by: Ruperto Lee M.D. 07/26/2021 10:16 AM Chest X-Ray 07/26/21 10:45 XR chest 1V portable CLINICAL HISTORY: pre-op COMPARISON STUDY: Chest radiograph July 08, 2021. FINDINGS: Lung volumes are normal. Minimal left basilar opacity favors atelecta sis. There is no pneumothorax or pleural effusion. Cardiac size is normal. Mediastinal contours are normal. There is no evidence for pulmonary edema. IMPRESSION: No acute cardiopulmonary findings. ACT 112: Negative or not required by law. Electronically signed by: Ruperto Lee M.D. 07/26/2021 11:48 AM Discharge Plan Visit Data Chief Complaint: Flank Pain Stated Complaint: SEVERE GALLBLADDER PAIN X SEVERAL HRS- COMPLICATED ED Provider: Daniel Landon Discharge Problem: Cholecystitis, Abdominal pain, Leukocytosis Patient Disposition: Admitted As Inpatient Discharge Instructions Interventions: ED Discharge Assessment Last Done: 07/26/21 13:46
[2021-07-26 09:19] LABS: BUN Creatinine Ratio 18.1 (10-20); Blood Urea Nitrogen 16 mg/dl (7-18); Calcium 9.6 mg/dl (8.5-10.1); Carbon Dioxide 28 mmol/L (21-32); Chloride 103 mmol/L (98-107); Est GFR (African American) 95.2 ml/min; Est GFR (Non-African American) 82.2 ml/min; Glucose 140 mg/dl (70-99); Lipase 254 U/L (73-393); Sodium 138 mmol/L (136-145)
[2021-07-26] MEDS ORDERED: OPTIRAY 320 100ml IV ONE (09:35)
[2021-07-26 10:16] LABS: Alanine Aminotransferase 59 U/L (12-78); Alkaline Phosphatase 111 U/L (45-117); Aspartate Aminotransferase 31 U/L (15-37); Bilirubin Direct 0.2 mg/dl (0-0.2); Bilirubin,Total 0.7 mg/dl (0.2-1); Total Protein 8.4 gm/dl (6.4-8.2)
--- NOTE | 2021-07-26 10:17 | CT Scan Report ---
CT OF THE ABDOMEN AND PELVIS WITH CONTRAST CLINICAL HISTORY: Right upper quadrant abdominal pain. Stent in place. COMPARISON STUDY: CT of the abdomen and pelvis and right upper quadrant ultrasound July 08, 2021. TECHNIQUE: Following IV administration of 93 mL of Optiray, axial images of the abdomen and pelvis we re obtained from the lung bases to the proximal femurs. Images were reviewed in the axial, sagittal, and coronal planes. IV contrast was administered without complication. Automated exposure control wa s utilized for the study. A dose lowering technique was utilized adhering to the principles of ALARA . CT DOSE: 941.36 mGy.cm FINDINGS: Lung bases are unremarkable. No pneumatosis, free air or portal venous gas is present. Bili renetta stent remains in place. As expected, there is pneumobilia. There is gas within the gallbladder. T here is no biliary ductal dilatation. No radiopaque calculi are identified within the common bile cristina t. There is no peripancreatic infiltration. No pancreatic ductal dilatation is present. Mild gallblad yury distention is similar to prior exam. However, pericholecystic stranding has increased. A 6 mm emily culus within the gallbladder neck or proximal cystic duct is noted. This has changed in position sinc e prior CT. There is no evidence for a bowel obstruct. Colonic diverticulosis is noted without eviden ce for acute diverticulitis. Several left renal calculi measure up to 1 cm. Punctate calculus within the upper pole the right kidney is noted. Partially peripherally calcified 2 cm right renal lesion is probably benign. Prostate is enlarged. There is no hydronephrosis. No acute fracture or suspicious l esion is identified within visualized skeletal structures. L1 compression fracture remains unchanged in appearance. IMPRESSION: 1. Biliary stent in place with pneumobilia, as expected. No biliary ductal dilatation. 2. Mild gallbladder distention with pericholecystic infiltration and a gallstone within the gallbladd er neck or proximal cystic duct. This raises the possibility of acute cholecystitis. Right upper quad rant ultrasound could be obtained for further evaluation. 3. Bilateral nephrolithiasis. No ureteral calculi or hydronephrosis. 4. No evidence for a bowel obstruction. ACT 112: Negative or not required by law. Electronically signed by: Ruperto Lee M.D. 07/26/2021 10:16 AM
[2021-07-26] MEDS ORDERED: PIPERACILLIN/TAZOBACTAM 4.5 GM/120 ML BAG IV ONE (10:21)
[2021-07-26] MEDS ORDERED: PIPERACILL/TAZOBAC CONSULT ACTIVE PRN (10:21)
[2021-07-26 10:23] LABS: Albumin Level 4.2 gm/dl (3.4-5.0)
--- NOTE | 2021-07-26 10:49 | History & Physical Report ---
Date of Service July 26, 2021 Assessment & Plan (1) Acute cholecystitis: Plan: Discussed with Dr Rivera at bedside. Agree patient is high risk for surgery and will treat conservatively with IV Zosyn and NPO status at the current time. Appreciate surgery consult (2) Right upper quadrant abdominal pain: Plan: As above (3) History of heart artery stent: Plan: STEMI s/p PCI with DARLENE to distal circumflex in 10/2020. No longer on Brillinta due to subarachnoid hemorrhage. Continue aspirin, metoprolol, losartan, rosuvastatin (4) Type 2 diabetes mellitus: Plan: HbA1C 6.9 in Jun, 2021. Hold his home medications. Novolog: Goal BSG Range: Low 110_mg/dL, High 140_mg/dL Correction Factor: 25_mg/dL/unit INS:Carbohydrate ratio = 8 g/unit BSGs ACHS if eating, q6h if npo (5) History of subarachnoid hemorrhage: Plan: Would need to call neurosurgery prior to any intervention. Now back on aspirin since yesterday. (6) History of subdural hematoma: Plan: As above (7) Hypertension: Plan: Continue metoprolol and losartan home doses (8) Paroxysmal atrial fibrillation: Plan: [facility] in 10/2020. No need for anticoagulation and contraindicated in setting of recent subarachnoid hemorrhage. (9) Hemochromatosis: Plan: Phlebotomy treatment every 3 months. Outpatient management per hematology. Plan: VTE Prophylaxis - chemical contraindicated Diet - NPO (management by surgery) Disposition - admit to med/surg Admission and Anticipated Discharge Date Admission Date: July 26, 2021 History of Present Illness Chief Complaint: RUQ abdominal pain Primary Care Provider: Tony Engel MD Fabian Bryan is a 75 year old male with recent STEMI (10/2020), choledocholithiasis/gallstone pancreatitis (06/2021), subarachnoid hemorrhage and subdural hematoma (07/2021) who presents to the ER with right upper quadrant abdominal pain. He reports waking up around 3am this morning with severe 8/10 right upper quadrant abdominal pain. Lasted until about 10am and now severity 4/10 and moved around the back. He denies any fever or chills. This is the first time he has had pain since his gallstone pancreatitis in June. At that time the pain was more widespread and epigastric. He was treated with a biliary stent at the time but was felt to be too high risk for cholecystectomy as he had a recent STEMI in October and was on Brillinta at that time. Unfortunately in the interim since he had a unwitnessed syncopal episode and hit his head. He was diagnosed with a subarachnoid and subdural hematoma on July 04, 2021 and emergently transferred to [place]. He was treated conservatively and taken off aspirin and Brillinta. Bleed remained stable and on follow up with neurosurgery yesterday his aspirin was restarted. He was told not to restart on Brillinta. The patient since his heart attack has no chest pain or shortness of breath. Since his head trauma he has gone through rehabilitation but still has some trouble remembering, cognition, balance and double vision. He reports he has significantly improved with these things however is still using a walker for balance. In the ER CT A/P with contrast is concerning for mild jemal cystitis however LFTs are normal and biliary stent positioning appears to be normal. He was referred to medicine for admission and ongoing management of cholecystectomy. Allergies Allergy/AdvReac Type Severity Reaction Status Date / Time cefoxitin Allergy Intermediate HIVES Verified 07/26/21 11:08 clavulanic acid Allergy Intermediate Hives Verified 07/26/21 11:08 [From Timentin] ticarcillin [From Timentin] Allergy Intermediate Hives Verified 07/26/21 11:08 atorvastatin AdvReac Mild Joint Pain Verified 07/26/21 11:08 pravastatin AdvReac Mild Joint Pain Verified 07/26/21 11:08 Home Medications Medication Instructions Recorded Confirmed Type aspirin 81 mg tablet,delayed 81 mg PO HS 10/12/18 07/26/21 History release (Aspirin Low Dose) glimepiride 1 mg tablet 1 mg PO QAM tab 02/16/20 07/26/21 History pen needle, diabetic 31 gauge x #100 ea 07/19/20 07/23/21 Rx 3/16" (BD Ultra-Fine Mini Pen Needle) albuterol sulfate 90 mcg/actuation 2 puff INHALATION Q4H PRN #6.7 g 10/23/20 07/26/21 Rx aerosol inhaler diclofenac sodium 1 % topical gel 2 g TOP QID PRN #200 g 10/23/20 07/26/21 Rx nitroglycerin 0.4 mg sublingual 0.4 mg SUBLINGUAL Q5M PRN #30 tab 11/15/20 07/26/21 Rx tablet (Nitrostat) losartan 100 mg tablet 100 mg PO QAM #90 tab 11/17/20 07/26/21 Rx acetaminophen 650 mg 1,300 mg PO Q8H tab 11/23/20 07/26/21 History tablet,extended release (Tylenol 8 Hour) rosuvastatin 20 mg tablet (Crestor) 20 mg PO HS #30 tab 06/18/21 07/26/21 Rx uaadrqav-vzadldzb-klvgm acid 400 1 tab PO QAM 06/22/21 07/26/21 History mcg-vit K 20 mcg-lycop 300 mcg tablet (Men's Multivitamin) olopatadine 0.2 % eye drops 1 drp OPB DAILY PRN 06/22/21 07/26/21 History canagliflozin 300 mg tablet 300 mg PO QAM 07/04/21 07/26/21 History (Invokana) fexofenadine 180 mg tablet 180 mg PO DAILY PRN 07/04/21 07/26/21 History metoprolol succinate 100 mg 100 mg PO QAM 07/04/21 07/26/21 History tablet,extended release 24 hr sertraline 100 mg tablet 100 mg PO QAM 07/04/21 07/26/21 History liraglutide 0.6 mg/0.1 mL (18 mg/3 1.8 mg SUBCUT DAILY #18 ml 07/16/21 07/26/21 Rx mL) subcutaneous pen injector (Victoza 3-Josr) Past Med/Surg History Medical History Abdominal pain, LLQ (left lower quadrant) Allergic rhinitis due to pollen Anemia Arthritis Atopic dermatitis Atrial fibrillation post NH on 11/14; w/ RVR Benign colonic polyp Benign localized hyperplasia of prostate with urinary obstruction Bladder calculus Carotid artery plaque Carotid bruit Cellulitis Depression Diabetes mellitus Type 2 Diverticular disease Diverticulitis of colon Diverticulosis of colon Erectile dysfunction Facial skin lesion Fatty liver H/O renal calculi Hearing deficit Heart murmur Hematuria Hemochromatosis PHLEBOTOMY TREATMENTS EVERY 3 MONTHS- FERRITIN LEVELS MONITORED BY HEMATOLOGY; LAST PHLEBOTOMY 2 MONTHS AGO History of colon polyps History of diverticulitis 09/2018= RESOLVED S/P ABX Hyperlipidemia Hypertension Irritable bowel syndrome Joint pain, knee Laceration of thumb, left Lower back pain Microscopic hematuria Obesity Ocular hypertension, unspecified eye Pain due to ureteral stent Renal calcification Renal colic Right leg pain Type 2 diabetes mellitus Ureteral calculus, right Urinary frequency Xerosis cutis Surgical History H/O cataract extraction History of colonoscopy History of heart artery stent Inf STEMI on 11/14:subtotal occ. Large distal Cx s/p PCI of m/dCx w/single DARLENE History of tonsillectomy and adenoidectomy History of umbilical hernia repair History of vasectomy Hx of cystoscopy CYSTOSCOPY/LASER LITHOTRIPSY/STENT= 01/23/17= LMA#5 AT [facility] Hx of hand surgery LEFT HAND TENDON SURGERY Hx of transurethral resection of prostate AND BLADDER STONES REMOVED on 10/26/18 with LMA#5 Family History Mother Multiple myeloma Stroke Father Laryngeal cancer Grandfather (Maternal) Stroke Uncle Stroke Denies family history of Ovarian cancer Prostate cancer Coronary heart disease Myocardial infarction Breast cancer Colorectal cancer Social History (Updated 07/23/21 @ 15:10 by Michell Doshi LPN) Smoking Status: Never smoker Second Hand Exposure: Yes; Hx Alcohol Use: No Hx Substance Use: No Preferred Language: Greenlandic Communication Ability: Effective Visual Impairment: No Limitations Hearing Ability: Use of Hearing Aid Capacitor Assembler Required: No Beliefs That Will Affect Care: None marital status: Current Living Situation: Spouse current occupational status: retired 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 Safe at Home: Yes Childhood Exposure to Second-Hand Smoke: Yes caffeine: Yes Dental Care, Regularly: Yes Physical Activity Frequency: 5-6 Times per Week Seatbelt Use: always Sunscreen Use: No Assistive Devices: Glasses Review of Systems Review of Systems: All systems reviewed & are unremarkable except as noted in HPI & below Physical Exam Eyes: PERRL and EOM intact bilaterally (diplopia with leftward gaze) ENMT: external ear and nose normal, oropharynx normal Neck: trachea midline, no thyromegaly Cardiovascular: Rate/Rhythm: regular rate and regular rhythm Heart Sounds: + murmur (4/6 MANI loudest RUSB, 2/6 apex) Vessels: no JVD Extremities: normal capillary refill; no calf tenderness and no pedal edema Gastrointestinal (Abdomen): Inspection/Auscultation: normal bowel sounds Percussion/Palpation: + abdomen tender (mild RUQ pain) and abdomen soft; no guarding and abdomen not rigid Skin: no rashes, warm and dry Neurologic: moves all extremities, + focal motor deficit (knee extension 4/5 L, otherwise 5/5 throughout) and awake; not confused Speech / Cognition: normal speech Motor/Sensory: + sensory deficit (peripheral neuropathy longstanding in toes); no tremor and no pronator drift Psychiatric: A+Ox3, euthymic affect Genitourinary: no CVA tenderness Results & Data Results & Data ([facility]) Vital Signs (Past 12 Hours) Vital Signs Temp Pulse Pulse Resp BP BP Pulse Ox 07/26/21 10:25 88 17 169/84 H 96 07/26/21 06:56 35.5 C L 97 H 18 174/99 H 98 Laboratory Results Abnormal lab results 07/26/21 07/26/21 07/26/21 Range/Units 08:42 08:42 08:42 WBC 12.98 H (4.8-10.8) K/uL RDW Std Deviation 49.9 H (36.4-46.3) fL RDW Coeff of Aria 15.6 H (11.5-14.5) % Glucose 140 H (70-99) mg/dl POC Glucose (70-99) mg/dl Total Protein 8.4 H (6.4-8.2) gm/dl Ur Specific Dillon 1.037 H (1.000-1.030) Urine Glucose (UA) 3+ H (Negative) Urine Blood Trace H (Negative) U Epithel Cells (Auto) 10-20 H (0-5) /lpf 07/26/21 07/27/21 Range/Units 23:56 06:18 WBC (4.8-10.8) K/uL RDW Std Deviation (36.4-46.3) fL RDW Coeff of Aria (11.5-14.5) % Glucose (70-99) mg/dl POC Glucose 103 H 100 H (70-99) mg/dl Total Protein (6.4-8.2) gm/dl Ur Specific Dillon (1.000-1.030) Urine Glucose (UA) (Negative) Urine Blood (Negative) U Epithel Cells (Auto) (0-5) /lpf Diagnostic Findings CT OF THE ABDOMEN AND PELVIS WITH CONTRAST CLINICAL HISTORY: Right upper quadrant abdominal pain. Stent in place. COMPARISON STUDY: CT of the abdomen and pelvis and right upper quadrant ultrasound July 08, 2021. TECHNIQUE: Following IV administration of 93 mL of Optiray, axial images of the abdomen and pelvis were obtained from the lung bases to the proximal femurs. Images were reviewed in the axial, sagittal, and coronal planes. IV contrast was administered without complication. Automated exposure control was utilized for the study. A dose lowering technique was utilized adhering to the principles of ALARA. CT DOSE: 941.36 mGy.cm FINDINGS: Lung bases are unremarkable. No pneumatosis, free air or portal venous gas is present. Biliary stent remains in place. As expected, there is pneumobilia. There is gas within the gallbladder. There is no biliary ductal dilatation. No radiopaque calculi are identified within the common bile duct. There is no peripancreatic infiltration. No pancreatic ductal dilatation is present. Mild gallbladder distention is similar to prior exam. However, pericholecystic stranding has increased. A 6 mm calculus within the gallbladder neck or proximal cystic duct is noted. This has changed in position since prior CT. There is no evidence for a bowel obstruct. Colonic diverticulosis is noted without evidence for acute diverticulitis. Several left renal calculi measure up to 1 cm. Punctate calculus within the upper pole the right kidney is noted. Partially peripherally calcified 2 cm right renal lesion is probably benign. Prostate is enlarged. There is no hydronephrosis. No acute fracture or suspicious lesion is identified within visualized skeletal structures. L1 compression fracture remains unchanged in appearance. IMPRESSION: 1. Biliary stent in place with pneumobilia, as expected. No biliary ductal dilatation. 2. Mild gallbladder distention with pericholecystic infiltration and a gallstone within the gallbladder neck or proximal cystic duct. This raises the possibility of acute cholecystitis. Right upper quadrant ultrasound could be obtained for further evaluation. 3. Bilateral nephrolithiasis. No ureteral calculi or hydronephrosis. 4. No evidence for a bowel obstruction. Medications Administered ER Medications Given: Zosyn 4.5g IV NSS 500 ml bolus ECG Indication: abdominal pain Code Status & VTE Plan Code Status Full VTE Prophylaxis Plan VTE Prophylaxis will be ordered: Yes Reason for no VTE drug order: Contraindicated PG Care Time/CCT Total # of Minutes Spent Total Time Spent with Patient: Total time spent is greater than 50% in coordination of care (as documented) at patient's floor/unit and/or counseling patient: Coding Level of Care Code 66330 Initial Inpt Care Lvl 3 Diagnoses Acute cholecystitis K81.0 History of heart artery stent Z95.5 Right upper quadrant abdominal pain R10.11 Type 2 diabetes mellitus E11.9; Z79.4 Diabetes mellitus intermediate insulin use: with terminal block assembler use Diabetes mellitus complication status: without complication History of subarachnoid hemorrhage Z86.79 History of subdural hematoma Z86.79 Hypertension I10 Hypertension type: essential hypertension Paroxysmal atrial fibrillation I48.0 Hemochromatosis E83.119 (1) Type 2 diabetes mellitus Diabetes mellitus terminal block assembler insulin use: with intermediate use Diabetes mellitus complication status: without complication Qualified Code(s): E11.9 - Type 2 diabetes mellitus without complications; Z79.4 - senior care (current) use of insulin (2) Hypertension Hypertension type: essential hypertension Qualified Code(s): I10 - Essential (primary) hypertension
[2021-07-26] MEDS ORDERED: CONSULT PHARMACY STA (11:29)
[2021-07-26] MEDS ORDERED: METOPROLOL SUCC 50MG EXT REL TAB PO STA (11:29)
[2021-07-26] MEDS ORDERED: LOSARTAN POTASSIUM 50 MG TAB PO STA (11:29)
--- NOTE | 2021-07-26 11:34 | Surgery Consultation ---
Date of Consultation July 26, 2021 Assessment & Plan (1) Acute cholecystitis: Normally in this scenario I would recommend more urgent cholecystectomy. However in light of his comorbidities, relatively recent cardiac stents, recent intracranial bleed etc. I believe we should take a slightly more conservative approach. I discussed with the hospitalist Dr. Lin. We will proceed with keeping him n.p.o. and starting IV antibiotics. We will follow him clinically as well as with lab work. If he clinically worsens then we would then have to make a decision of surgery versus a percutaneous cholecystostomy tube. The patient is currently feeling better already. Hopefully we can get him through this without surgery and perhaps consider elective cholecystectomy in a couple of months. The patient agrees with the plan I have answered all of his questions. I will continue to follow closely. (2) Obesity: (3) Hypertension: (4) CAD (coronary artery disease): (5) History of heart artery stent: History of Present Illness History of Present Illness Mr. Bryan is known to me from a prior admission. Back in June he came in with choledocholithiasis and pancreatitis. He ended up undergoing an ERCP with stent placement and improved. He was set to see me as an outpatient for elective cholecystectomy when he fell and hit his head and had a small intracranial bleed. He was seen at [facility] and also seen by neurosurgery. He was also in rehab hospital temporarily. He was just cleared yesterday by neurosurgery and no longer needs to be seen by them. They had stopped his anticoagulation that he had been on for his heart stents. Dr. Solares his actuarial manager was in agreement with stopping the anticoagulation. Through the night he had acute right upper quadrant abdominal pain as well as nausea. He presented to the emergency room has a slight leukocytosis. CT scan consistent with likely acute cholecystitis. His amylase lipase and LFTs are all normal. Allergies Allergy/AdvReac Type Severity Reaction Status Date / Time cefoxitin Allergy Intermediate HIVES Verified 07/26/21 11:08 clavulanic acid Allergy Intermediate Hives Verified 07/26/21 11:08 [From Timentin] ticarcillin [From Timentin] Allergy Intermediate Hives Verified 07/26/21 11:08 atorvastatin AdvReac Mild Joint Pain Verified 07/26/21 11:08 pravastatin AdvReac Mild Joint Pain Verified 07/26/21 11:08 Home Medications Medication Instructions Recorded Confirmed Type aspirin 81 mg tablet,delayed 81 mg PO HS 10/12/18 07/26/21 History release (Aspirin Low Dose) glimepiride 1 mg tablet 1 mg PO QAM tab 02/16/20 07/26/21 History pen needle, diabetic 31 gauge x #100 ea 07/19/20 07/23/21 Rx 3/16" (BD Ultra-Fine Mini Pen Needle) albuterol sulfate 90 mcg/actuation 2 puff INHALATION Q4H PRN #6.7 g 10/23/20 07/26/21 Rx aerosol inhaler diclofenac sodium 1 % topical gel 2 g TOP QID PRN #200 g 10/23/20 07/26/21 Rx nitroglycerin 0.4 mg sublingual 0.4 mg SUBLINGUAL Q5M PRN #30 tab 11/15/20 07/26/21 Rx tablet (Nitrostat) losartan 100 mg tablet 100 mg PO QAM #90 tab 11/17/20 07/26/21 Rx acetaminophen 650 mg 1,300 mg PO Q8H tab 11/23/20 07/26/21 History tablet,extended release (Tylenol 8 Hour) rosuvastatin 20 mg tablet (Crestor) 20 mg PO HS #30 tab 06/18/21 07/26/21 Rx vgkwnlbw-bvdlcluc-lokqy acid 400 1 tab PO QAM 06/22/21 07/26/21 History mcg-vit K 20 mcg-lycop 300 mcg tablet (Men's Multivitamin) olopatadine 0.2 % eye drops 1 drp OPB DAILY PRN 06/22/21 07/26/21 History canagliflozin 300 mg tablet 300 mg PO QAM 07/04/21 07/26/21 History (Invokana) fexofenadine 180 mg tablet 180 mg PO DAILY PRN 07/04/21 07/26/21 History metoprolol succinate 100 mg 100 mg PO QAM 07/04/21 07/26/21 History tablet,extended release 24 hr sertraline 100 mg tablet 100 mg PO QAM 07/04/21 07/26/21 History liraglutide 0.6 mg/0.1 mL (18 mg/3 1.8 mg SUBCUT DAILY #18 ml 07/16/21 07/26/21 Rx mL) subcutaneous pen injector (ZikBittoza 3-Josr) Patient History Medical History Abdominal pain, LLQ (left lower quadrant) Allergic rhinitis due to pollen Anemia Arthritis Atopic dermatitis Atrial fibrillation post [place] on 11/14; w/ RVR Benign colonic polyp Benign localized hyperplasia of prostate with urinary obstruction Bladder calculus Carotid artery plaque Carotid bruit Cellulitis Depression Diabetes mellitus Type 2 Diverticular disease Diverticulitis of colon Diverticulosis of colon Erectile dysfunction Facial skin lesion Fatty liver H/O renal calculi Hearing deficit Heart murmur Hematuria Hemochromatosis PHLEBOTOMY TREATMENTS EVERY 3 MONTHS- FERRITIN LEVELS MONITORED BY HEMATOLOGY; LAST PHLEBOTOMY 2 MONTHS AGO History of colon polyps History of diverticulitis 09/2018= RESOLVED S/P ABX Hyperlipidemia Hypertension Irritable bowel syndrome Joint pain, knee Laceration of thumb, left Lower back pain Microscopic hematuria Obesity Ocular hypertension, unspecified eye Pain due to ureteral stent Renal calcification Renal colic Right leg pain Type 2 diabetes mellitus Ureteral calculus, right Urinary frequency Xerosis cutis Surgical History H/O cataract extraction History of colonoscopy History of heart artery stent Inf STEMI on 11/14:subtotal occ. Large distal Cx s/p PCI of m/dCx w/single DARLENE History of tonsillectomy and adenoidectomy History of umbilical hernia repair History of vasectomy Hx of cystoscopy CYSTOSCOPY/LASER LITHOTRIPSY/STENT= 01/23/17= LMA#5 AT [facility] Hx of hand surgery LEFT HAND TENDON SURGERY Hx of transurethral resection of prostate AND BLADDER STONES REMOVED on 10/26/18 with LMA#5 Family History Mother Multiple myeloma Stroke Father Laryngeal cancer Grandfather (Maternal) Stroke Uncle Stroke Denies family history of Ovarian cancer Prostate cancer Coronary heart disease Myocardial infarction Breast cancer Colorectal cancer Social History (Updated 07/23/21 @ 15:10 by Michell Doshi LPN) Smoking Status: Never smoker Second Hand Exposure: Yes; Hx Alcohol Use: No Hx Substance Use: No Preferred Language: South Sudanese Communication Ability: Effective Visual Impairment: No Limitations Hearing Ability: Use of Hearing Aid Motor Hotel Manager Required: No Beliefs That Will Affect Care: None marital status: Current Living Situation: Spouse current occupational status: retired 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 Safe at Home: Yes Childhood Exposure to Second-Hand Smoke: Yes caffeine: Yes Dental Care, Regularly: Yes Physical Activity Frequency: 5-6 Times per Week Seatbelt Use: always Sunscreen Use: No Assistive Devices: Glasses and Hearing Aid - Bilateral Review of Systems Review of Systems: All systems reviewed & are unremarkable except as noted in HPI & below Physical Exam Constitutional: WD/WN, vitals as above no acute distress and not ill appearing Eyes: PERRL, conjunctivae normal, anicteric sclerae EOM intact bilaterally ENMT: external ear and nose normal, oropharynx normal Ears: no hearing impairment Neck: trachea midline, no thyromegaly Respiratory: normal respiratory effort; no respiratory distress and does not use accessory muscles Cardiovascular: Rate/Rhythm: regular rate and regular rhythm Gastrointestinal (Abdomen): Soft. Mild epigastric and right upper quadrant tenderness. Mild guarding. Skin: no rashes, warm and dry Psychiatric: Orientation: alert, oriented x 3 and cooperative Results & Data ([facility]) Vital Signs (Past 12 Hours) Vital Signs Temp Pulse Pulse Resp BP BP Pulse Ox 07/26/21 10:25 88 17 169/84 H 96 07/26/21 06:56 35.5 C L 97 H 18 174/99 H 98 PG Care Time/CCT Total # of Minutes Spent Total Time Spent with Patient: Total time spent is greater than 50% in coordination of care (as documented) at patient's floor/unit and/or counseling patient: Coding Level of Care Code 02361 Initial Inpt Care Lvl 3 Diagnoses Acute cholecystitis K81.0 Obesity E66.9 Hypertension I10 Hypertension type: essential hypertension CAD (coronary artery disease) I25.10 History of heart artery stent Z95.5 (1) Hypertension Hypertension type: essential hypertension Qualified Code(s): I10 - Essential (primary) hypertension
--- NOTE | 2021-07-26 11:50 | XRay Report ---
XR chest 1V portable CLINICAL HISTORY: pre-op COMPARISON STUDY: Chest radiograph July 08, 2021. FINDINGS: Lung volumes are normal. Minimal left basilar opacity favors atelectasis. There is no pneum othorax or pleural effusion. Cardiac size is normal. Mediastinal contours are normal. There is no basil dence for pulmonary edema. IMPRESSION: No acute cardiopulmonary findings. ACT 112: Negative or not required by law. Electronically signed by: Ruperto Lee M.D. 07/26/2021 11:48 AM
[2021-07-26] MEDS ORDERED: ONDANSETRON INJ 2 MG/ML 2 ML VIAL IV PRN (14:09)
[2021-07-26] MEDS ORDERED: HYDROmorphone INJ 0.5 MG/0.5 ML SYR IV PRN (14:09)
[2021-07-26] MEDS ORDERED: PHARMACY GLYCEMIC MGMT CONSULT PRN (14:09)
[2021-07-26] MEDS ORDERED: GLUCOSE 10 TABS/TUBE PO PRN (14:45)
[2021-07-26] MEDS ORDERED: GLUCAGON FOR INJ 1 MG VIAL IM PRN (14:45)
[2021-07-26] MEDS ORDERED: CARBOHYDRATES FOR HYPOGLYCEMIA PO PRN (14:45)
[2021-07-26] MEDS ORDERED: DEXTROSE 50% 50 ML SYRINGE IV PRN (14:45)
[2021-07-26] MEDS ORDERED: GLUCOSE 40% GEL 15 GM TUBE PO PRN (14:45)
[2021-07-26] MEDS: LACTATED RINGER'S 1,000 ML IV SCH ×2 (15:45→23:06)
[2021-07-26] MEDS: ACETAMINOPHEN 1,000 MG/100 ML VIAL IV SCH ×2 (15:45→23:05)
[2021-07-26] MEDS: PIPERACILLIN/TAZOBACTAM 3.375 GM in DEXTROSE 5% 100 ML IV SCH (17:40)
[2021-07-26] MEDS: INSULIN ASPART 100 UNITS/ML 3 ML PEN SC SCH (18:20)
[2021-07-26] MEDS: ROSUVASTATIN CALCIUM 20 MG TAB PO SCH (21:46)
[2021-07-26] MEDS: ASPIRIN 81 MG ECTAB PO SCH (21:46)
[2021-07-27] MEDS: PIPERACILLIN/TAZOBACTAM 3.375 GM in DEXTROSE 5% 100 ML IV SCH ×3 (00:01→17:38)
[2021-07-27] MEDS: INSULIN ASPART 100 UNITS/ML 3 ML PEN SC SCH ×5 (00:08→20:52)
[2021-07-27] MEDS: ACETAMINOPHEN 1,000 MG/100 ML VIAL IV SCH ×3 (06:08→22:33)
[2021-07-27] MEDS: LACTATED RINGER'S 1,000 ML IV SCH ×3 (06:09→22:33)
--- NOTE | 2021-07-27 07:38 | Electrocardiogram Report ---
Test Reason : Blood Pressure : / mmHG Vent. Rate : 080 BPM Atrial Rate : 080 BPM P-R Int : 196 ms QRS Dur : 092 ms QT Int : 386 ms P-R-T Axes : 037 -49 028 degrees QTc Int : 445 ms Normal sinus rhythm Left anterior fascicular block possible Inferior infarct (cited on or before 23-JAN-2017) Abnormal ECG When compared with ECG of 08-JUL-2021 15:18, Premature ventricular complexes are no longer Present Confirmed by Tony Nye ([id number]) on 07/27/2021 7:38:05 AM Referred By: REFERRED SELF Confirmed By:Fortino Nye
[2021-07-27 08:32] LABS: Basophils # (auto) 0.01 K/uL (0-0.2); Basophils % (auto) 0.2 %; Eosinophils # (auto) 0.16 K/uL (0-0.5); Eosinophils % (auto) 2.7 %; Hematocrit (blood only) 44.7 % (42-52); Hemoglobin 14.4 g/dL (14.0-18.0); Lymphocytes # (auto) 1.24 K/uL (1.2-3.4); Lymphocytes % (auto) 20.8 %; Mean Corpuscular Hemoglobin 27.9 pg (25-34); Mean Corpuscular Volume 86.5 fL (80-100); Mean Platelet Volume 8.8 fL (7.4-10.4); Monocytes # (auto) 0.29 K/uL (0.11-0.59); Monocytes % (auto) 4.9 %; Neutrophils # (auto) 4.25 K/uL (1.4-6.5); Neutrophils % (auto) 71.4 %; Platelet Count 186 K/uL (130-400); RDW Coefficient of Variation 15.6 % (11.5-14.5); Red Blood Count 5.17 M/uL (4.7-6.1); White Blood Count 5.95 K/uL (4.8-10.8)
[2021-07-27 09:13] LABS: Albumin Globulin Ratio 0.8 (0.9-2); BUN Creatinine Ratio 14.7 (10-20); Bilirubin,Total 0.8 mg/dl (0.2-1); Creatinine Clr Calc Pharmacy 99.4 ml/min; Est GFR (African American) 99.3 ml/min; Est GFR (Non-African American) 85.7 ml/min; Globulin 3.7 gm/dl (2.5-4.0); Potassium 4.5 mmol/L (3.5-5.1); Total Protein 6.7 gm/dl (6.4-8.2)
[2021-07-27 09:18] LABS: Mean Corpuscular Hgb Conc 32.2 g/dL (32-36)
[2021-07-27 09:24] VITALS: O2SAT 96
[2021-07-27] MEDS: LOSARTAN POTASSIUM 50 MG TAB PO SCH (09:29)
[2021-07-27] MEDS: METOPROLOL SUCC 50MG EXT REL TAB PO SCH (09:30)
[2021-07-27] MEDS: SERTRALINE HCL 100 MG TABLET PO SCH (09:30)
--- NOTE | 2021-07-27 09:55 | Pharmacy Report ---
Pharmacy Glycemic Short Note 2 - Date of Service July 27, 2021 - Glycemic Short BSG Results (Last 24 hours): 07/26/21 07/26/21 07/27/21 17:55 23:56 06:18 Glucose POC Glucose 99 103 H 100 H 07/27/21 08:16 Glucose 116 H POC Glucose OUTPATIENT ANTIDIABETIC REGIMEN: * Victoza 1.8 mg SC daily * Invokana 300 mg PO daily * Glimepiride 1 mg PO daily * HbA1c: 6.9% (06/12/21) ASSESSMENT: * CC is a 75 year old male admitted on 07/27/21 for acute cholecystitis * Surgery recommending conservative management at this time with IV antibiotics * Originally kept NPO, now ordered diet - if tolerates patient will likely be discharged today or tomorrow * BSGs have been very well controlled with no insulin * Will maintain current Novolog parameters and low-dose basal scale this evening now that diet is ordered PLAN FOR INPATIENT GLYCEMIC CONTROL: * Hold outpatient oral diabetes medications * Basal insulin * conservative Lantus scale HS to provide 0-10 units (see EHR for details) * Bolus insulin * NovoLog per scale ACHS or Q6hrs while NPO * Goal Range: Low 110 mg/dL - High 140 mg/dL * Correction Factor: 25 mg/dL/unit * Nutritional / Prandial insulin per carb ratio of 1 unit per 8 grams CHO consumed PLAN FOR DISCHARGE: * HbA1c of 6.9% is at goal for patient * Reasonable to continue current outpatient regimen at discharge, assuming normal PO intake and no contraindications at discharge
--- NOTE | 2021-07-27 10:48 | Surgery Progress Note ---
Date of Service July 27, 2021 Assessment & Plan (1) Acute cholecystitis: Plan: He is clinically doing much better. We will initiate a diet. If he tolerates this he could be discharged either later today or tomorrow. He should follow-up with me in the next 2 to 3 weeks to discuss timing for elective cholecystectomy in a couple of months. Admission and Anticipated Discharge Date Admission Date: July 26, 2021 Subjective Fabian is feeling much better. In fact he has no pain whatsoever today. He is hungry. Physical Exam Constitutional: WD/WN, vitals as above no acute distress and not ill appearing Eyes: PERRL, conjunctivae normal, anicteric sclerae EOM intact bilaterally ENMT: external ear and nose normal, oropharynx normal Ears: no hearing impairment Neck: trachea midline, no thyromegaly Respiratory: normal respiratory effort; no respiratory distress and does not use accessory muscles Cardiovascular: Rate/Rhythm: regular rate and regular rhythm Skin: no rashes, warm and dry Psychiatric: Orientation: alert, oriented x 3 and cooperative Results & Data ([facility]) Vital Signs (Past 12 Hours) Vital Signs Temp Pulse Resp BP Pulse Ox 07/27/21 09:21 67 128/69 96 07/27/21 07:43 36.8 C 64 16 127/74 92 07/26/21 23:24 36.4 C L 60 16 121/69 93 PG Care Time/CCT Total # of Minutes Spent Total Time Spent with Patient: Total time spent is greater than 50% in coordination of care (as documented) at patient's floor/unit and/or counseling patient: Coding Level of Care Code 90433 Subseq Hosp Care Lvl 3 Diagnoses Acute cholecystitis K81.0
[2021-07-27] MEDS ORDERED: Nursing to Pharmacy Communication SCH (12:00)
--- NOTE | 2021-07-27 17:14 | Hospitalist Progress Note ---
Date of Service July 27, 2021 Assessment & Plan (1) Acute cholecystitis: Plan: Patient presented with abdominal pain. Does have a history of gallstone pancreatitis in the past Unfortunately, very poor surgical candidate as recent NSTEMI. Was on aspirin/Brilinta July 2021 sustained a fall resulting in subdural and subarachnoid hemorrhage. Dual antiplatelet therapy was stopped by neurosurgery and just restarted on aspirin 1 day [employer] At any rate, plan was for removal of gallbladder once more medically optimized. Had an abrupt onset of abdominal pain yesterday prompting him to seek medical attention Was afebrile and hemodynamically stable White blood cell count was slightly elevated at 12.98 CT of the abdomen and pelvis showed biliary stent with pneumobilia. Mild gallbladder distention and stone seen in the gallbladder neck and gallbladder wa ll thickening consistent with cholecystitis Total bilirubin normal at 0.7. AST/ALT normal at 31/59 respectively. Lipase level normal at 254 Patient initially made n.p.o. and empirically started on Zosyn Seen by general surgery who recommends conservative measures for now and if tolerating, bring him back as an outpatient for cholecystectomy Patient seems to be showing favorable response. He is not having any abdominal pain or nausea. His WBC count has normalized Initiate a low-fat diet. If patient can tolerate, plan to likely discharge tomorrow. If patient unable to tolerate oral intake, will reach out to general surgery to determine if patient would need transfer to a tertiary center for a cholecystectomy or if they would feel comfortable that taking place here given his chronic comorbidities (2) Right upper quadrant abdominal pain: Plan: As above (3) History of heart artery stent: Plan: STEMI s/p PCI with DARLENE to distal circumflex in 10/2020. No longer on Brillinta due to subarachnoid hemorrhage. Continue aspirin, metoprolol, losartan, rosuvastatin (4) Type 2 diabetes mellitus: Plan: HbA1C 6.9 in Jun, 2021. Hold his home medications. Novolog: Goal BSG Range: Low 110_mg/dL, High 140_mg/dL Correction Factor: 25_mg/dL/unit INS:Carbohydrate ratio = 8 g/unit BSGs ACHS if eating, q6h if npo (5) History of subarachnoid hemorrhage: Plan: Now back on aspirin (resumed 1 day [employer]) (6) History of subdural hematoma: Plan: As above (7) Hypertension: Plan: Continue metoprolol and losartan home doses (8) Paroxysmal atrial fibrillation: Plan: Karen-[place] in 10/2020. No need for anticoagulation and contraindicated in setting of recent subarachnoid hemorrhage. (9) Hemochromatosis: Plan: Phlebotomy treatment every 3 months. Outpatient management per hematology. Admission and Anticipated Discharge Date Admission Date: July 26, 2021 Subjective Patient seen on daily rounds today. Was hospitalized yesterday with abd pain and cound to have evidence of a GB neck stone and radiographic evidence of c holescystitis. WBC was 12.98 but was otherwise HD stable. Does have a history of gallstone pancreatitis in June but subsequently this was just following a NSTEMI and he was deemed a poor surgical candidate at that time. Plan was for removal of gallbladder once more medically optimized. Unfortunately, following that he had a fall resulting in a subdural and subarachnoid hemorrhage. Followed up with neurosurgery and just started back on aspirin 2 days [employer]. At any rate, he was hospitalized and made NPO. Started on Zosyn and has since been seen by general surgery. Seems to be responding favorably to a antibiotics and plan is for continued antibiotic therapy and elective cholecystectomy in the near future if responding to conservative measures. Currently, he denies fevers, chills, chest pain, shortness of breath, abdominal pain, nausea or vomiting. Review of Systems Review of Systems: All systems reviewed and are unremarkable except as noted in HPI and below Denies fevers, chills, headache, nasal congestion, sore throat, cough, chest pain, shortness of breath, palpitations, orthopnea, PND, abdominal pain, nausea, vomiting, diarrhea, constipation, dysuria, hematuria, frequency, back pain, joint pain or swelling, easy bruising or bleeding, skin lesions or rashes. Physical Exam Physical Exam: General: Resting comfortably in his hospital bed. He does not appear ill or toxic. NAD. HEENT: Head is AT/NC buccal mucosa is moist and pink Neck: No JVD. Negative hepatojugular reflex Cardiac: Currently seems in a regular rate and rhythm with controlled ventricular rate Lungs: CTA without W/R/R Abdomen: Normoactive X4. Soft and nontender in all quadrants. Extremities: No peripheral clubbing cyanosis or edema Neuro: A&O X4 cranial nerves II through XII are grossly intact no focal neuro deficits Skin: No obvious skin lesions or rashes Psych: Appropriate affect pleasant and cooperative Results & Data Results & Data ([facility]) Vital Signs (Past 12 Hours) Vital Signs Temp Pulse Resp BP Pulse Ox 07/27/21 16:52 36.6 C 67 16 145/76 H 96 07/27/21 09:21 67 128/69 96 07/27/21 07:43 36.8 C 64 16 127/74 92 Laboratory Results 07/27/21 08:16 07/27/21 08:16 PG Care Time/CCT Total # of Minutes Spent Total Time Spent with Patient: Total time spent is greater than 50% in coordination of care (as documented) at patient's floor/unit and/or counseling patient: Coding Level of Care Code 17578 Subseq Hosp Care Lvl 2 Diagnoses Acute cholecystitis K81.0 Right upper quadrant abdominal pain R10.11 History of heart artery stent Z95.5 Type 2 diabetes mellitus E11.9; Z79.4 Diabetes mellitus detention insulin use: with detention use Diabetes mellitus complication status: without complication History of subarachnoid hemorrhage Z86.79 History of subdural hematoma Z86.79 Hypertension I10 Hypertension type: essential hypertension Paroxysmal atrial fibrillation I48.0 Hemochromatosis E83.119 (1) Type 2 diabetes mellitus Diabetes mellitus detention insulin use: with detention use Diabetes mellitus complication status: without complication Qualified Code(s): E11.9 - Type 2 diabetes mellitus without complications; Z79.4 - prison (current) use of insulin (2) Hypertension Hypertension type: essential hypertension Qualified Code(s): I10 - Essential (primary) hypertension
[2021-07-27] MEDS: ASPIRIN 81 MG ECTAB PO SCH (20:58)
[2021-07-27] MEDS: ROSUVASTATIN CALCIUM 20 MG TAB PO SCH (20:58)
[2021-07-27] MEDS ORDERED: INSULIN GLARGINE SOLOSTAR 100 UNITS/ML 3 ML PEN SC SCH (21:00)
[2021-07-28] MEDS: PIPERACILLIN/TAZOBACTAM 3.375 GM in DEXTROSE 5% 100 ML IV SCH ×2 (00:31→08:13)
[2021-07-28] MEDS: ACETAMINOPHEN 1,000 MG/100 ML VIAL IV SCH (06:33)
[2021-07-28] MEDS: LACTATED RINGER'S 1,000 ML IV SCH (06:33)
[2021-07-28 07:10] VITALS: PULSE 72; TEMP 97.7
[2021-07-28 07:23] LABS: Basophils # (auto) 0.01 K/uL (0-0.2); Basophils % (auto) 0.2 %; Eosinophils # (auto) 0.18 K/uL (0-0.5); Eosinophils % (auto) 3.5 %; Hematocrit (blood only) 42.3 % (42-52); Hemoglobin 13.6 g/dL (14.0-18.0); Immature Granulocytes # (auto) 0.01 K/uL (0.00-0.02); Immature Granulocytes % (auto) 0.2 %; Lymphocytes % (auto) 23.6 %; Mean Corpuscular Hemoglobin 27.6 pg (25-34); Mean Corpuscular Hgb Conc 32.2 g/dL (32-36); Mean Platelet Volume 9.1 fL (7.4-10.4); Monocytes % (auto) 5.9 %; Neutrophils # (auto) 3.39 K/uL (1.4-6.5); Neutrophils % (auto) 66.6 %; Platelet Count 196 K/uL (130-400); RDW Coefficient of Variation 15.5 % (11.5-14.5); RDW Standard Deviation 49.3 fL (36.4-46.3); Red Blood Count 4.92 M/uL (4.7-6.1); White Blood Count 5.09 K/uL (4.8-10.8)
[2021-07-28 07:38] LABS: Albumin Level 2.8 gm/dl (3.4-5.0); BUN Creatinine Ratio 14.4 (10-20); Creatinine Clr Calc Pharmacy 100.6 ml/min; Est GFR (African American) 99.8 ml/min; Est GFR (Non-African American) 86.1 ml/min; Potassium 3.9 mmol/L (3.5-5.1)
[2021-07-28 07:41] LABS: Albumin Globulin Ratio 0.8 (0.9-2); Bilirubin,Total 0.7 mg/dl (0.2-1); Globulin 3.7 gm/dl (2.5-4.0); Total Protein 6.5 gm/dl (6.4-8.2)
[2021-07-28] MEDS: INSULIN ASPART 100 UNITS/ML 3 ML PEN SC SCH ×2 (09:47→13:20)
[2021-07-28 09:50] VITALS: BP 144/75
[2021-07-28] MEDS: LOSARTAN POTASSIUM 50 MG TAB PO SCH (09:51)
[2021-07-28] MEDS: SERTRALINE HCL 100 MG TABLET PO SCH (09:51)
[2021-07-28] MEDS: METOPROLOL SUCC 50MG EXT REL TAB PO SCH (09:51)
--- NOTE | 2021-07-28 11:46 | Surgery Progress Note ---
Date of Service July 28, 2021 Assessment & Plan (1) Acute cholecystitis: Plan: Patient started diet yesterday, minimal pain noticed after eating. Much improved since admission. Instructed patient to eat multiple small meals a day instead of 2-3 larger ones Plan to wait for surgical intervention for a few more months to allow patient to get further from his recent head bleed and stents If increased pain, fevers, nausea/vomiting patient instructed to return to the ER and may need to perform more urgent cholecystectomy at that time F/u with dr. angeles in a few weeks for elective surgical planning Admission and Anticipated Discharge Date Admission Date: July 26, 2021 Subjective Patient is feeling well. Since starting a diet he noticed mild pains after eating, but rates it a 2-3/10, nothing like when he initially came in. Otherwise offers no complaints. Physical Exam Physical Exam: awake/alert, sitting up in chair Results & Data ([facility]) Vital Signs (Past 12 Hours) Vital Signs Temp Pulse Resp BP Pulse Ox 07/28/21 09:50 72 144/75 H 07/28/21 07:08 36.5 C 72 16 122/70 96 PG Care Time/CCT Total # of Minutes Spent Total Time Spent with Patient: Total time spent is greater than 50% in coordination of care (as documented) at patient's floor/unit and/or counseling patient: Coding Level of Care Code 02731 Subseq Hosp Care Lvl 1 Diagnoses Acute cholecystitis K81.0
--- NOTE | 2021-07-28 17:00 | Discharge Summary ---
Date of Service July 28, 2021 Admission HPI Per Admitting Provider Fabian Bryan is a 75 year old male with recent STEMI (10/2020), choledocholithiasis/gallstone pancreatitis (06/2021), subarachnoid hemorrhage and subdural hematoma (07/2021) who presents to the ER with right upper quadrant abdominal pain. He reports waking up around 3am this morning with severe 8/10 right upper quadrant abdominal pain. Lasted until about 10am and now severity 4/10 and moved around the back. He denies any fever or chills. This is the first time he has had pain since his gallstone pancreatitis in June. At that time the pain was more widespread and epigastric. He was treated with a biliary stent at the time but was felt to be too high risk for cholecystectomy as he had a recent STEMI in October and was on Brillinta at that time. Unfortunately in the interim since he had a unwitnessed syncopal episode and hit his head. He was diagnosed with a subarachnoid and subdural hematoma on July 04, 2021 and emergently transferred to [place]. He was treated conservatively and taken off aspirin and Brillinta. Bleed remained stable and on follow up with neurosurgery yesterday his aspirin was restarted. He was told not to restart on Brillinta. The patient since his heart attack has no chest pain or shortness of breath. Since his head trauma he has gone through rehabilitation but still has some trouble remembering, cognition, balance and double vision. He reports he has significantly improved with these things however is still using a walker for balance. In the ER CT A/P with contrast is concerning for mild jemal cystitis however LFTs are normal and biliary stent positioning appears to be normal. He was referred to medicine for admission and ongoing management of cholecystectomy. Principal Diagnosis 1. Acute cholecystitis/cholelithiasis 2. Leukocytosisresolved Discharge Exam General: Resting comfortably in his hospital bed. He does not appear ill or toxic. NAD. HEENT: Head is AT/NC buccal mucosa is moist and pink Neck: No JVD. Negative hepatojugular reflex Cardiac: Currently seems in a regular rate and rhythm with controlled ventricular rate Lungs: CTA without W/R/R Abdomen: Normoactive X4. Soft and nontender in all quadrants. Extremities: No peripheral clubbing cyanosis or edema Neuro: A&O X4 cranial nerves II through XII are grossly intact no focal neuro de ficits Skin: No obvious skin lesions or rashes Psych: Appropriate affect pleasant and cooperative Discharge Data Allergies Allergy/AdvReac Type Severity Reaction Status Date / Time cefoxitin Allergy Intermediate HIVES Verified 07/26/21 11:08 clavulanic acid Allergy Intermediate Hives Verified 07/26/21 11:08 [From Timentin] melon Allergy Intermediate Unknown Verified 07/27/21 14:40 ticarcillin [From Timentin] Allergy Intermediate Hives Verified 07/26/21 11:08 atorvastatin AdvReac Mild Joint Pain Verified 07/26/21 11:08 pravastatin AdvReac Mild Joint Pain Verified 07/26/21 11:08 Consultations 07/26/21 10:23 ED Decision to Admit Stat 07/26/21 10:47 Consult General Surgery Routine Assessment & Plan (1) Acute cholecystitis: Plan: Patient started diet yesterday, minimal pain noticed after eating. Much improved since admission. Instructed patient to eat multiple small meals a day instead of 2-3 larger ones Plan to wait for surgical intervention for a few more months to allow patient to get further from his recent head bleed and stents If increased pain, fevers, nausea/vomiting patient instructed to return to the ER and may need to perform more urgent cholecystectomy at that time F/u with dr. rivera in a few weeks for elective surgical planning Admission and Anticipated Discharge Date Admission Date: July 26, 2021 Ordered Studies 07/26/21 09:01 CT abd pelvis IV con only Stat IMPRESSION: 1. Biliary stent in place with pneumobilia, as expected. No biliary ductal dilatation. 2. Mild gallbladder distention with pericholecystic infiltration and a gallstone within the gallbladder neck or proximal cystic duct. This raises the possibility of acute cholecystitis. Right upper quadrant ultrasound could be obtained for further evaluation. 3. Bilateral nephrolithiasis. No ureteral calculi or hydronephrosis. 4. No evidence for a bowel obstruction. US of the GB done 07/2021 IMPRESSION: 1. Cholelithiasis is again identified with no ultrasound evidence for acute cholecystitis. 2. Evidence for 1.9 cm Bosniak type II cyst of the right kidney. This essentially unchanged from the previous study. Hospital Course (1) Acute cholecystitis: Patient presented with abdominal pain. Does have a history of gallstone pancreatitis in the past Unfortunately, very poor surgical candidate as recent NSTEMI. Was on aspirin/Brilinta July 2021 sustained a fall resulting in subdural and subarachnoid hemorrhage. Dual antiplatelet therapy was stopped by neurosurgery and just restarted on aspirin 1 day [employer] At any rate, plan was for removal of gallbladder once more medically optimized. Had an abrupt onset of abdominal pain prompting him to seek medical attention Was afebrile and hemodynamically stable White blood cell count was slightly elevated at 12.98 CT of the abdomen and pelvis showed biliary stent with pneumobilia. Mild gallbladder distention and stone seen in the gallbladder neck and gallbladder wall thickening consistent with cholecystitis Total bilirubin normal at 0.7. AST/ALT normal at 31/59 respectively. Lipase level normal at 254 Patient initially made n.p.o. and empirically started on Zosyn Seen by general surgery who recommends conservative measures for now and if tolerating, bring him back as an outpatient for cholecystectomy (with hopes to postpone for as long as possible) Patient seems to be showing favorable response. He is not having any abdominal pain or nausea. His WBC count has normalized currently tolerating a low fat diet At this point time, patient is medically and hemodynamically stable for discharge to home with continued antibiotic therapy and a low-fat diet To follow-up with general surgery as an outpatient to discuss cholecystectomy (2) Right upper quadrant abdominal pain: As above (3) History of heart artery stent: STEMI s/p PCI with DARLENE to distal circumflex in 10/2020. No longer on Brillinta due to subarachnoid hemorrhage. Continue aspirin, metoprolol, losartan, rosuvastatin (4) Type 2 diabetes mellitus: Resume prehospital antihyperglycemic agents (5) History of subarachnoid hemorrhage: Now back on aspirin (resumed 1 day [employer]) (6) History of subdural hematoma: As above (7) Hypertension: Continue metoprolol and losartan home doses (8) Paroxysmal atrial fibrillation: Karen-[place] in 10/2020. No need for anticoagulation and contraindicated in setting of recent subarachnoid hemorrhage. (9) Hemochromatosis: Phlebotomy treatment every 3 months. Outpatient management per hematology. Total Time Total Time Spent Total Time Spent (In Minutes): 40 min including time spent with patient, discussion with general surgery, discussion with attending physician, and preparation of documentation Discharge Plan Discharge Items Patient Disposition: Home - Self-Care Reason For Visit: CHOLECYSTITIS Discharge Diagnosis: 1. Acute Cholecystitis- (inflammation/infection of the gallbladder) Activity: Resume your previous activity Non-emergency contact: Primary Care Provider and Surgeon Call non-emergency contact if: you have any medication questions Follow-up/Referrals: Tony Engel MD [Primary Care Provider] - Abimael Rivera DO [Surgeon] - (Follow up in 2-3 weeks) Diet: Low Fat Addtl Attending Provider Instructions: - you were hospitalized with acute cholecystitis (infection/inflammation of the gallbladder) - you have responded well to antibiotics; however, this will likely reoccur without removal of the gallbladder - continue/complete full course of antibiotics (next dose due tonight and take until completed) --because of your allergy to Clavulanic, we are using cipro (which is twice a day) and flagyl (which is 3x/day). --while you were in the hospital, we were giving you 1 medication which was a combination antibiotic. Unfortunately, the oral version of this contains the clavulanic acid so we have to use 2 different antibiotics - follow up with General Surgery to discuss removal of the gallbladder (which ultimately is a risk given your chronic medical conditions) - maintain a LOW FAT DIET as discussed as fat will increase the work/contractions of the gallbladder which can lead to pain - return to the ED for new or worsening symptoms Pending Studies at Discharge: No Stand-Alone Forms: My [facility] [employer], Smoking Cessation Medications and DC Order Prescriptions: New ciprofloxacin HCl [Cipro] 500 mg tablet 500 mg PO BID Qty: 12 RF: 0 metronidazole 500 mg tablet 500 mg PO Q8H 7 Days Qty: 18 RF: 0 Continued (DME) pen needle, diabetic [BD Ultra-Fine Mini Pen Needle] 31 gauge x 3/16" needle See Dose Instructions .ROUTE .MEDSUPPLY Qty: 100 RF: 3 albuterol sulfate 90 mcg/actuation HFA aerosol inhaler 2 puff inhalation Q4H PRN (Reason: shortness of breath or wheezing) Qty: 6.7 RF: 5 diclofenac sodium 1 % gel 2 g TOP QID PRN (Reason: pain ) Qty: 200 RF: 3 rosuvastatin [Crestor] 20 mg tablet 20 mg PO HS Qty: 30 RF: 6 Victoza 3-Josr 0.6 mg/0.1 mL (18 mg/3 mL) pen injector 1.8 mg SUBCUT DAILY Qty: 18 RF: 3 acetaminophen [Tylenol 8 Hour] 650 mg tablet extended release 1,300 mg PO Q8H RF: 0 losartan 100 mg tablet 100 mg PO QAM Qty: 90 RF: 3 glimepiride 1 mg tablet 1 mg PO QAM RF: 0 aspirin [Aspirin Low Dose] 81 mg Tablet,Delayed Release (Dr/Ec) 81 mg PO HS RF: 0 nitroglycerin [Nitrostat] 0.4 mg Tablet, Sublingual 0.4 mg sublingual Q5M PRN (Reason: chest pain) Qty: 30 RF: 1 sertraline 100 mg tablet 100 mg PO QAM RF: 0 fexofenadine 180 mg Tablet 180 mg PO DAILY PRN (Reason: Allergy Symptoms) RF: 0 metoprolol succinate 100 mg tablet extended release 24 hr 100 mg PO QAM RF: 0 Invokana 300 mg tablet 300 mg PO QAM RF: 0 Men's Multivitamin 400-20-300 mcg Tablet 1 tab PO QAM RF: 0 olopatadine 0.2 % drops 1 drp OPB DAILY PRN (Reason: Allergy Symptoms) RF: 0 Discharge Orders: Discharge Order (Routine); Ordered 07/28/21 Ordered By: Bianca Acuña/Other Patient Handouts: ED Cholecystitis, Confirmed, ED Diet, Low Fat Admission Data Admit Date/Time: 07/26/21 11:29 Attending Provider: Doug aLzo Admit Provider: Angel Luis Lin Primary Care Provider: Tony Engel Other Providers: Abimael Rivera ; Doug Lazo Other Interventions: Discharge Summary Assessment (RN) Last Done: 07/28/21 13:31 Supervising Physician Co-Signing Physician Notes I supervised Bianca Macario PA-C on the care of this patient. I interviewed and examined the patient independently of her. The plan is as written in her note except for any following changes/exceptions: None Doing well today. Tolerating a diet and LFTs are downtrending. Hoping that we can avoid surgery until October to give his 1 year from his stent placement. Will f/u with Dr. Rivera soon. Discharge on oral abx. Coding Level of Care Code D/C DAY MANAGEMENT >30 MINS Diagnoses Acute cholecystitis K81.0 Right upper quadrant abdominal pain R10.11 History of heart artery stent Z95.5 Type 2 diabetes mellitus E11.9; Z79.4 Diabetes mellitus complication status: without complication Diabetes mellitus long term acute care registered nurse insulin use: with long term acute care registered nurse use History of subarachnoid hemorrhage Z86.79 History of subdural hematoma Z86.79 Hypertension I10 Hypertension type: essential hypertension Paroxysmal atrial fibrillation I48.0 Hemochromatosis E83.119
== END 2021-07-28 14:10 | disposition home or self-care (01) | DRG 446 ==
LOC: ED 06:48 → SUATTDRO 11:29 → EDINP 11:29 → 3W 14:03

== ENCOUNTER 2022-08-08 05:18 | Observation (INO) ==
--- NOTE | 2022-07-23 10:53 | PAT Medication Instructions ---
Medication Instructions Date of Service July 23, 2022 Home Medications Medication Instructions Recorded albuterol sulfate 90 mcg/actuation 2 puff inhalation Q4H PRN 10/23/20 aerosol inhaler shortness of breath or wheezing #6.7 grams pen needle, diabetic 31 gauge x #100 ea 08/06/21 3/16" (BD Ultra-Fine Mini Pen Needle) losartan 100 mg tablet 100 mg PO QAM #90 tabs 11/19/21 metoprolol succinate 100 mg 100 mg PO QAM #90 tabs 02/08/22 tablet,extended release 24 hr nitroglycerin 0.4 mg sublingual 0.4 mg sublingual Q5M PRN chest 03/20/22 tablet (Nitrostat) pain #30 tabs rosuvastatin 20 mg tablet (Crestor) 20 mg PO HS #90 tabs 03/20/22 liraglutide 0.6 mg/0.1 mL (18 mg/3 1.8 mg (0.3 mL) subcut QAM #9 mL 03/22/22 mL) subcutaneous pen injector (MixVilleza 3-Josr) diclofenac sodium 1 % topical gel 2 g topical QID PRN pain #200 04/16/22 grams sertraline 100 mg tablet 100 mg PO QAM #90 tabs 04/22/22 aspirin 81 mg tablet,delayed release (Ceasar Low Dose Aspirin) 81 mg PO HS albuterol sulfate 90 mcg/actuation aerosol inhaler 2 puff inhalation Q4H PRN shortness of breath or wheezing Men's Multivitamin 1 tab PO QAM olopatadine 0.2 % eye drops 1 drp OPB UD PRN Allergy Symptoms fexofenadine 180 mg tablet 180 mg PO UD PRN Allergy Symptoms polyethylene glycol 3350 17 gram oral powder packet (Miralax) 17 g PO HS losartan 100 mg tablet 100 mg PO QAM cholecalciferol (vitamin D3) 25 mcg (1,000 unit) capsule 25 mcg PO QAM metoprolol succinate 100 mg tablet,extended release 24 hr 100 mg PO QAM nitroglycerin 0.4 mg sublingual tablet (Nitrostat) 0.4 mg sublingual Q5M PRN chest pain rosuvastatin 20 mg tablet (Crestor) 20 mg PO HS liraglutide 0.6 mg/0.1 mL (18 mg/3 mL) subcutaneous pen injector (Victoza 3-Josr) 1.8 mg (0.3 mL) subcut QAM diclofenac sodium 1 % topical gel 2 g topical QID PRN pain sertraline 100 mg tablet 100 mg PO QAM betamethasone dipropionate 0.05 % topical ointment 1 applic topical DAILY PRN Rash dutasteride 0.5 mg capsule 0.5 mg PO QAM empagliflozin 25 mg tablet (Jardiance) 25 mg PO QAM Continue as directed nitroglycerin 0.4 mg sublingual tablet (Nitrostat) 0.4 mg sublingual Q5M PRN chest pain (if needed) ASK your surgeon for instructions diclofenac sodium 1 % topical gel 2 g topical QID PRN pain STOP taking 24 hours before surgery betamethasone dipropionate 0.05 % topical ointment 1 applic topical DAILY PRN Rash DO NOT take the morning of surgery Men's Multivitamin 1 tab PO QAM fexofenadine 180 mg tablet 180 mg PO UD PRN Allergy Symptoms losartan 100 mg tablet 100 mg PO QAM cholecalciferol (vitamin D3) 25 mcg (1,000 unit) capsule 25 mcg PO QAM STOP taking 3 days before surgery empagliflozin 25 mg tablet (Jardiance) 25 mg PO QAM Take morning of surgery With a small sip of water, OTHERWISE NOTHING TO EAT OR DRINK AFTER MIDNIGHT: albuterol sulfate 90 mcg/actuation aerosol inhaler 2 puff inhalation Q4H PRN shortness of breath or wheezing (use if needed; please bring rescue inhaler with you to hospital day of surgery if possible) olopatadine 0.2 % eye drops 1 drp OPB UD PRN Allergy Symptoms (if needed) metoprolol succinate 100 mg tablet,extended release 24 hr 100 mg PO QAM liraglutide 0.6 mg/0.1 mL (18 mg/3 mL) subcutaneous pen injector (Victoza 3-Josr) 1.8 mg (0.3 mL) subcut QAM sertraline 100 mg tablet 100 mg PO QAM dutasteride 0.5 mg capsule 0.5 mg PO QAM Take evening before surgery aspirin 81 mg tablet,delayed release (Ceasar Low Dose Aspirin) 81 mg PO HS (continue as normal unless told otherwise by surgeon) albuterol sulfate 90 mcg/actuation aerosol inhaler 2 puff inhalation Q4H PRN shortness of breath or wheezing (if needed) olopatadine 0.2 % eye drops 1 drp OPB UD PRN Allergy Symptoms (if needed) fexofenadine 180 mg tablet 180 mg PO UD PRN Allergy Symptoms (if needed) polyethylene glycol 3350 17 gram oral powder packet (Miralax) 17 g PO HS rosuvastatin 20 mg tablet (Crestor) 20 mg PO HS Other Notes If you have any questions please call us at [phone] or [phone] or [phone] or [phone]
--- NOTE | 2022-07-30 15:37 | Anesthesiology Consultation ---
Date of Service July 30, 2022 Assessment & Plan (1) Encounter for pre-operative examination: Chart Review Chart Review: Acceptable Risk for Surgery (pending final PCP clearance ) and Patient seen in Pre Admission Testing -Awaiting PCP clearance final PCP clearance (seen 07/15/22)- PCP awaiting preop testing results - Check BSG AM DOS -Due to age and comorbidities - patient is NOT a Same Day Joint candidate Per PAT appt on 07/30/22, patient denies any recent travel or large group activities. Pt is vaccinated for Covid. Will leave to surgeon's discretion if preop Covid testing needed. Educated on importance of using Covid precautions one week prior to surgery Laparoscopic cholecystectomy 10/18/21= Done under [facility] with Grade 1-2 view with Glidescope #4.0. ETT #8.0. Atraumatic. Pt seen by PCP 07/15/22= seen for preoperative clearance prior to right TKA to be done 08/08/22. Has been cleared by cardiology 07/04/22. Preadmission work up to be done 07/30/22. Final medical clearance pending results of those labs. Pt seen by cardio 07/04/22= Pt seen for preoperative cardiac evaluation. Pt is planning to have both knees placed- initial knee replacement scheduled 08/08/22. Pt has been doing well from cardiac standpoint. Pt goes to the gym routinely until about two months ago- knee pain got worse. "Based on patient's functional status up until 2 months ago without limiting cardiopulmonary symptoms, negative dobutamine stress echocardiogram September 2021, normal LV systolic function, and known coronary anatomy -- patient is an acceptable surgical risk to proceed with knee surgeries as planned provided he take his usual doses of Metoprolol Succinate ER 100 mg on the morning of surgery with sips of water. He will also continue his Aspirin 81 mg every evening including the evening before his surgery. There is no need for further ischemic workup at this time" Teaching & Discussion Pre-Anesthesia Teaching/Discussion Notes: Instructed NPO after midnight before surgery,except medications with 15 cc of water. Medication instructions provided according to the PAT guidelines. History Surgery Operation Date: 08/08/22 10:40 Proposed Procedures p Right Total Knee Arthroplasty - Nain Darling MD Height/Weight Height: 6 ft 1 in Weight: 106 kg Allergies Allergy/AdvReac Type Severity Reaction Status Date / Time cefoxitin Allergy Unknown HIVES Verified 07/22/22 08:48 clavulanic acid Allergy Unknown Hives Verified 07/22/22 08:48 [From Timentin] melon Allergy Unknown Hives Verified 07/22/22 08:48 ticarcillin [From Timentin] Allergy Unknown Hives Verified 07/22/22 08:48 atorvastatin AdvReac Unknown Joint Pain Verified 07/22/22 08:48 pravastatin AdvReac Unknown Joint Pain Verified 07/22/22 08:48 Medications Home Medications Medication Instructions Recorded Confirmed Last Taken aspirin 81 mg tablet,delayed 81 mg PO HS 10/12/18 07/22/22 10/17/21 19:00 release (Ceasar Low Dose Aspirin) albuterol sulfate 90 mcg/actuation 2 puff inhalation Q4H PRN 10/23/20 07/22/22 Unknown aerosol inhaler shortness of breath or wheezing #6.7 grams cqaryihi-vvfufyvy-svred acid 400 1 tab PO QAM 06/22/21 07/22/22 10/17/21 20:00 mcg-vit K 20 mcg-lycop 300 mcg tablet (Men's Multivitamin) olopatadine 0.2 % eye drops 1 drp OPB UD PRN Allergy Symptoms 06/22/21 07/22/22 Unknown fexofenadine 180 mg tablet 180 mg PO UD PRN Allergy Symptoms 07/04/21 07/22/22 09/27/21 07:00 pen needle, diabetic 31 gauge x #100 ea 08/06/21 07/22/22 Unknown 3/16" (BD Ultra-Fine Mini Pen Needle) polyethylene glycol 3350 17 gram 17 g PO HS 10/09/21 07/22/22 10/17/21 18:00 oral powder packet (Miralax) losartan 100 mg tablet 100 mg PO QAM #90 tabs 11/19/21 07/22/22 Unknown cholecalciferol (vitamin D3) 25 25 mcg PO QAM 12/18/21 07/22/22 Unknown mcg (1,000 unit) capsule metoprolol succinate 100 mg 100 mg PO QAM #90 tabs 02/08/22 07/22/22 Unknown tablet,extended release 24 hr nitroglycerin 0.4 mg sublingual 0.4 mg sublingual Q5M PRN chest 03/20/22 07/22/22 Unknown tablet (Nitrostat) pain #30 tabs rosuvastatin 20 mg tablet (Crestor) 20 mg PO HS #90 tabs 03/20/22 07/22/22 Unknown liraglutide 0.6 mg/0.1 mL (18 mg/3 1.8 mg (0.3 mL) subcut QAM #9 mL 03/22/22 07/22/22 Unknown mL) subcutaneous pen injector (Lavish Skate 3-Josr) diclofenac sodium 1 % topical gel 2 g topical QID PRN pain #200 04/16/22 07/22/22 Unknown grams sertraline 100 mg tablet 100 mg PO QAM #90 tabs 04/22/22 07/22/22 Unknown betamethasone dipropionate 0.05 % 1 applic topical DAILY PRN Rash 07/22/22 07/22/22 Unknown topical ointment dutasteride 0.5 mg capsule 0.5 mg PO QAM 07/22/22 07/22/22 Unknown empagliflozin 25 mg tablet 25 mg PO QAM 07/22/22 07/22/22 Unknown (Jardiance) Past Medical History Medical History (Updated 07/31/22 @ 13:33 by FRIEDA OrtegaC) Asthma Well controlled per pt > no inhaler use for several yrs per pt Atopic dermatitis Noted to hands Atrial fibrillation x1 episode > no further problems > Post DC on 11/14/2020; w/ RVR No AC needed per cardio records CAD (coronary artery disease) S/p mid to distal LCx DARLENE Carotid artery plaque <50% stenosis in internal carotid arteries bilaterally per 01/2021 carotid duplex > no further interventions or problems COVID-19 virus detected HX COVID 19 ANTIBODIES DETECTED BY BLOOD TEST 01/2020 >no reoccurrences Depression Diabetes mellitus Type 2 Glucose well controlled per patient Fatty liver HX MENTIONED IN PAST, NO PROBLEMS WITH Incidentally noted on imaging Hearing deficit Heart murmur Per 01/2021 ECHO- mild MR. Hemochromatosis PHLEBOTOMY TREATMENTS EVERY 3 MONTHS- FERRITIN LEVELS MONITORED BY HEMATOLOGY;-DR GUPTA- LAST PHLEBOTOMY 6 MONTHS AGO Hyperlipidemia Hypertension Irritable bowel syndrome HX Kidney stone HX AND 1 LARGE ONE PRESENT (ASYMPTOMATIC)- HX BLADDER STONES - CONTINUES CARE WITH DR MCDANIEL Seasonal allergies STEMI (ST elevation myocardial infarction) October 2020 > stent Syncope and collapse 07/2021-FALL VS SYNCOPE- HAD BRAIN BLEED-SUBDURAL HEMATOMA-ADMITTED [facility] [place] DIS[place]GED WITHOUT SURGERY AND FROM NEUROSURGERY 07/24/21 OPTHAMOLOGY VISIT WITHIN LAST MONTH AND HAS BEEN CLEARED FOR DRIVING- NO CUR RENT PROBLEMS ; F/U IN 6 MONTHS Exercise / Class Metabolic Activity II 4-5 Yardwork/Stairs/Walk up hill (ONE FLIGHT OF STAIRS- NO CHEST PAIN OR SOB) Past Family History Family History Mother Multiple myeloma Stroke Father Laryngeal cancer Grandfather (Maternal) Stroke Uncle Stroke Denies family history of Ovarian cancer Prostate cancer Coronary heart disease Myocardial infarction Breast cancer Colorectal cancer Past Surgical History Surgical History H/O cataract extraction BOTH EYES History of biliary stent insertion S/p removal History of colonoscopy History of ERCP WITH STENT 06/2021 [facility] - [facility] RECENT SEP 28 2021 ([facility]) TO EXHANGE SENT History of heart artery stent Inf STEMI on 11/14/2020 :subtotal occ. Large distal Cx s/p PCI of m/dCx w/single DARLENE History of tonsillectomy and adenoidectomy History of umbilical hernia repair History of vasectomy Hx laparoscopic cholecystectomy (10/18/21) Laparoscopic Cholecystectomy; enterolysis- Abimael Rivera, DO 10/18/2021 Hx of cystoscopy CYSTOSCOPY/LASER LITHOTRIPSY/STENT= 01/23/17= LMA#5 AT [facility] Hx of hand surgery LEFT HAND TENDON SURGERY Hx of transurethral resection of prostate AND BLADDER STONES REMOVED on 10/26/18 with LMA#5 Past Anesthesia History No Hx of Anesthesia Complications and No Family Hx of Anesthesia Complications History of PONV No Hx of PONV and No Hx of Motion Sickness Social History Smoking Status: Never smoker Do You Dip or Chew Tobacco: No Hx Alcohol Use: No Hx Substance Use: No substance use type: does not use Review of Systems Occ reflux- mild- no treatment needed Hx of snoring- sleep study 15 years ago- no LETTY- snoring stable since that time Patient denies chest pain, shortness of breath, dyspnea on exertion, cough, wheezing, palpitations. No hx of seizures, stroke. No hx of blood clots or blood transfusions Physical Exam Vital Signs VITALS BP 130/74 P 63 TEMP 98.2 SP02 94% RESP 16 Constitutional no acute distress ENMT Mouth: no TMJ clicking Thyromental Distance: > or= 3.5 Finger Breadths (3.5) Mallampati Class: II Crowns to molars Neck + limited neck extension (significant) and + facial hair (advised to trim/shave tobar ) Respiratory normal respiratory effort; no respiratory distress Auscultation: lungs clear to auscultation bilaterally; no wheezes Cardiovascular Rate/Rhythm: regular rate and regular rhythm Heart Sounds: + murmur (III/ murmur ) Vessels: + carotid bruit (faint bruits bilaterally L>R (presumed radiation from the murmur)) Musculoskeletal Spine: no pain with cervical ROM Extremities: extremities normal to inspection Psychiatric Orientation: alert Lab Results Anesthesia Preop Results Results Anesthesia Widget: WBC 8.27 K/ul (4.8-10.8) 07/30/22 Hgb 16.3 g/dl (14.0-18.0) 07/30/22 Hct 47.2 % (40.1-51.0) 07/30/22 Plt 206 K/uL (130-400) 07/30/22 Na 139 mmol/L (136-145) 07/30/22 K 4.2 mmol/L (3.5-5.1) 07/30/22 Cl 105 mmol/L (98-107) 07/30/22 CO2 25 mmol/L (21-32) 07/30/22 BUN 25 mg/dl (6-23) H 07/30/22 Creat 0.92 mg/dl (0.6-1.4) 07/30/22 Glucose Level 97 mg/dl (70-99(Fasting)) 07/30/22 PT 10.6 Seconds (9.0-12.0) 07/30/22 PTT 26.2 Seconds (21.0-31.0) 07/30/22 INR 1.0 (0.9-1.1) 07/30/22 HA1c 6.7 % (4.5-5.6) H 07/30/22 Urine Color Yellow 07/30/22 Urine Appearance Clear (Clear) 07/30/22 Urine pH 5.0 (4.5-7.5) 07/30/22 Urine Specific [place]ver 1.023 (1.000-1.030) 07/30/22 Urine Protein Negative (Negative) 07/30/22 Urine Glucose (UA) 3+ (Negative) H 07/30/22 Urine Ketones Negative (Negative) 07/30/22 Urine Blood 3+ (Negative) H 07/30/22 Urine Nitrite Negative (Negative) 07/30/22 Urine Bilirubin Negative (Negative) 07/30/22 Urine Urobilinogen Negative (Negative) 07/30/22 Urine Leukocyte Esterase Negative (Negative) 07/30/22 Urine WBC (Auto) 1-5 /hpf (0-5) 07/30/22 Urine RBC (Auto) >30 /hpf (0-4) H 07/30/22 Urine Hyaline Casts (Auto) 0 /lpf (0-5) 07/30/22 Urine Epithelial Cells (Auto) 0-5 /lpf (0-5) 07/30/22 Urine Bacteria (Auto) Negative (Negative) 07/30/22 Blood Type A Negative 07/30/22 Antibody Screen NEGATIVE 07/30/22 Testing Electrocardiogram Date: 07/30/22 SR with 1st degree AVB at 60bpm. Left axis deviation. When compared to EKG from Jul 26, 2021- criteria for inferior infarct are no longer present Chest X-Ray Date: 07/30/22 Findings: + NAD Echocardiogram Date: 02/16/21 EF: 55-60% LV Function: normal Other Findings: + LVH (Mild/concentric) Valvular Disease: + MR (Mild) Mild inferior lateral hypokinesis. Normal RV size and function. Aortic valve sclerosis without stenosis. Borderline ascending aortic dilation (4.0 cm). Normal estimated RA and PA pressures. When compared to study from 11/14/2020now in sinus rhythm. Regional wall motion abnormalities improved. Mitral regurgitation now only mild. Stress Test Date: 09/25/21 Type: DSE Findings: + WNL Resting EF: 50-55% Resting LV Function: normal Valvular Disease: no significant valvular disease Negative dobutamine stress echo for ischemia at 86% MPHR. Negative dobutamine stress EKG for ischemia. Mildly dilated RV with normal function. Moderate cLVH. Mildly dilated ascending aorta (4.2 cm). Cardiac Catheterization Date: 11/14/20 Intervention: + DARLENE placed Location: Distal Circumflex Findings: LM -Short, luminal regularities LAD -medium caliber vessel, 40 to 50% mid segment disease, distal vessel with luminal regularities and wraps around apex.. Medium caliber D1 50% ostial Circumflex -large caliber, mid segment luminal irregularities. Distal circumflex with 99% acute stenosis and ALVARADO I terminal OM. RCA -medium caliber vessel, dominant, 40% distal stenosis. PDA without significant disease. Other Testing Head CT 07/24/21= Interval significant improvement in the intracranial hemorrhage compared to the prior exam, with minimal persistent subarachnoid hemorrhage and cortical contusions described above. No new intracranial hemorrhage. Resolving right temporal occipital scalp hematoma. Carotid duplex 02/28/2021 = <50% stenosis of the internal carotid arteries bilaterally. Antegrade flow in both vertebral arteries. No significant change compared with previous exam done 02/08/2019. COVID-19 Risk Screen Screening Information COVID-19 Screen Date: 07/30/22 Exposure 21 Days Family/Household +COVID Last 21 Days: No Exposure 10 Days Any COVID Exposure Last 10 Days: No Symptoms Last 10 Days Experienced COVID Sx Last 10 Days: No + COVID 0-90 Days COVID + in Last 0-90 Days: No Risk Plan COVID Risk Plan: No Risk Identified Patient Education COVID Preop Screening Education Complete: Yes
[2022-08-08] MEDS ORDERED: Scopolamine 1 MG TDSY TD SCH (06:00)
[2022-08-08] MEDS ORDERED: FAMOTIDINE 20 MG TAB PO SCH (06:00)
[2022-08-08] MEDS ORDERED: LR 60ML/HR IV SCH (06:00)
[2022-08-08] MEDS ORDERED: ROPIVACAINE 0.5% HCL/PF 150 MG, BUPIVACAINE 0.75% MPF 20 ML, EPINEPHrine 0.15 MG, Ketor... INFIL SCH (06:00)
[2022-08-08] MEDS ORDERED: ACETAMINOPHEN 500 MG TAB PO SCH (06:00)
[2022-08-08] MEDS ORDERED: TRANEXAMIC ACID 1,000 MG **IV Intra-op IV SCH (06:00)
[2022-08-08] MEDS ORDERED: LR 500ML BOLUS, THEN 15ML/HR IV SCH (06:00)
[2022-08-08] MEDS ORDERED: TRANEXAMIC ACID 1,000 MG **IV Pre-op IV SCH (06:00)
[2022-08-08] MEDS ORDERED: traMADol HCL 50 MG TABLET PO SCH (06:00)
[2022-08-08] MEDS ORDERED: CeleBREX 200 MG CAP PO SCH (06:00)
[2022-08-08] MEDS ORDERED: dexAMETHasone 4 MG TAB PO SCH (06:00)
[2022-08-08] MEDS ORDERED: ceFAZolin 2000MG 2,000 MG/15 ML SYR IV SCH (06:00)
[2022-08-08] MEDS ORDERED: ROPIVACAINE 0.5% 5 MG/ML 30 ML VIAL ONE (06:29)
[2022-08-08] MEDS ORDERED: BUPIVACAINE 0.5 % 5 MG/1 ML PF 10ML VIAL ONE (06:29)
[2022-08-08] MEDS ORDERED: ORTHO JOINT ANESTHETIC ONE (06:35)
[2022-08-08] MEDS ORDERED: MIDAZOLAM HCL 1 MG/ML 2ML VIAL ONE (06:43)
[2022-08-08] MEDS ORDERED: fentaNYL citrate 100 MCG/2 ML VIAL ONE (06:43)
--- NOTE | 2022-08-08 06:45 | History & Physical Bridge Note ---
Date of Service August 08, 2022 History & Physical Bridge Note I have examined the patient, reviewed the History & Physical and in the interval since the performance of the History & Physical I have noted the following changes of clinical significance: no changes noted
[2022-08-08] MEDS ORDERED: ONDANSETRON INJ 2 MG/ML 2 ML VIAL IV PRN ×2 (06:59→08:46)
[2022-08-08] MEDS ORDERED: fentaNYL citrate 100 MCG/2 ML VIAL IV PRN (06:59)
[2022-08-08] MEDS ORDERED: ePHEDrine sulfate 50 MG/ML AMP IV PRN (06:59)
[2022-08-08] MEDS ORDERED: ATROPINE SULFATE 0.1 MG/ML 10ML SYR IV PRN (06:59)
[2022-08-08] MEDS ORDERED: ePHEDrine sulfate 50 MG/ML AMP ONE (07:23)
[2022-08-08] MEDS ORDERED: PHENYLEPHRINE 100MCG/ML 5ML SYR ONE (07:23)
[2022-08-08] MEDS ORDERED: PROPOFOL IV EMULSION 10 MG/ML 20 ML VIAL IV ONE ×3 (07:23→08:07)
[2022-08-08] MEDS ORDERED: diphenhydrAMINE 50 MG/ML VIAL IV PRN (08:46)
[2022-08-08] MEDS ORDERED: PHARMACY GLYCEMIC MGMT CONSULT PRN (08:46)
[2022-08-08] MEDS ORDERED: HYDROmorphone INJ 0.5 MG/0.5 ML SYR IV PRN (08:46)
[2022-08-08] MEDS ORDERED: ALUMINUM/MAGNESIUM SUSP 30 ML UDC PO PRN (08:46)
[2022-08-08] MEDS ORDERED: MAGNESIUM HYDROXIDE SUSP 30 ML UDC PO PRN (08:46)
[2022-08-08] MEDS ORDERED: NALOXONE HCL 0.4 MG/1 ML VIAL/CARP IV PRN (08:46)
[2022-08-08] MEDS ORDERED: METOCLOPRAMIDE HCL INJ 5 MG/ML 2 ML VIAL IV PRN (08:46)
[2022-08-08] MEDS ORDERED: bisacodyL 10 MG SUPP PR PRN (08:46)
[2022-08-08] MEDS ORDERED: TAMSULOSIN HCL 0.4 MG CAP PO PRN (08:46)
--- NOTE | 2022-08-08 08:46 | Operative Report ---
Post Operative Report Pre & Post Diagnosis Operation Date: 08/08/22 07:00 Pre-Op Diagnosis: Right Knee Osteoarthritis Post-Op Diagnosis: Right Knee Osteoarthritis I identified the patient and participated in the time-out.: Yes Procedure Operation Date: 08/08/22 07:00 Actual Procedures p Right Total Knee Arthroplasty(Right) - Nain Darling MD Surgeon Nain Darling MD Application Helper Karen Adam PAJesús Estimated Blood Loss 50 Findings Consistent with Post-Op Diagnosis Specimens none Description of Procedure I was present during the entire case assisting with positioning, prepping, draping, wound retraction, wound closure, dressing and immobilizer application. No fellow present. Please see Dr. Darling procedure note for specifics of the case. I attest to the content of the Intraoperative Record and any orders documented therein. Any exceptions are noted below.
--- NOTE | 2022-08-08 08:48 | Operative Report ---
Post Operative Report Pre & Post Diagnosis Operation Date: 08/08/22 07:00 Pre-Op Diagnosis: Right Knee Osteoarthritis Post-Op Diagnosis: Right Knee Osteoarthritis I identified the patient and participated in the time-out.: Yes Procedure Operation Date: 08/08/22 07:00 Actual Procedures p Right Total Knee Arthroplasty(Right) - Nain Darling MD Surgeon Nain Darling MD Workday Manager GE Adam PA-C. No resident or fellow was available to assist. Estimated Blood Loss 50 Findings Consistent with Post-Op Diagnosis Specimens Right knee bone and soft tissue contents Anesthesia Type Spinal MAC Complications none Disposition Disposition: Recovery Room Indications 77-year-old male with right knee osteoarthritis refractory to conservative management. He has a history of patella fracture several years ago. Evidence of the fracture was still seen on his x-rays and therefore a CT scan was obtained which demonstrated union of the fracture. X-rays and CT scan were also notable for severe osteoarthritis. I had a long discussion with him about the risks and benefits of surgery, alternatives to surgery, and expected outcomes. After reviewing all these he elected proceed with surgery. All questions were answered. Informed consent was signed. Description of Procedure Patient was identified in the preoperative holding area where the surgical site, right knee, was marked. Patient was brought back to the operating room, placed on the operating room table, and IV sedation was administered. All bony prominences were padded. Perioperative antibiotics and tranexamic acid were administered. Exam under anesthesia was performed. This revealed the patient have approximately 8 degree flexion contracture. He could flex up to approximately 100 degrees. Stable ligamentous exam. The surgical site was prepped and draped in the normal sterile fashion. Prior to incision a multidisciplinary timeout was called. All in the room were in agreement. We began by exsanguinating the limb with an Esmarch bandage. Tourniquet was inflated to 250 mmHg. A 14 cm long incision was made over the anterior aspect of the knee. I dissected through the subcutaneous tissues to the level of the fascia. Full-thickness flaps were raised above the fascia. A median parapatellar arthrotomy was made. Half the fat pad was excised. A medial release was performed with Bovie electrocautery on the proximal tibia. Synovitis in the knee and suprapatellar pouch was removed. The patella was then everted and held with 2 towel clips. The thickness of the patella was measured at 23 mm. Patellar resection was performed. Caliper showed the patella thickness now to be 15 mm. A size 38 trial was placed and had a great fit. The 3 drill holes were placed then the trial button was placed. The patellar thickness was now 24 mm which I was very happy with. The patellar trial was then removed, the patella was everted and the knee was flexed up. Osteophytes were removed from the femoral condyles and intercondylar notch. The ACL and PCL were excised. Intramedullary drill guide was drilled into the femur. Distal femoral cutting guide was placed set at 5 degrees of valgus to resect 10 mm off the distal femur. Distal femoral resection was made without difficulty. The tibia was then exposed. The lateral meniscus was sharply excised. The tibial cutting jig was positioned to resect 9 mm off the less involved compartment. The jig was then pinned in position and the tibial cut was made. We then brought the knee into full extension. Lamina spreaders were placed. The medial meniscus was excised. The extension block was then placed for 5 mm thickness poly. This gave us full extension and excellent stability to varus and valgus. Next the knee was flexed up and the femoral sizing guide was placed. The patient sized to a size 6 femur. The external rotation jig was set at 5 degrees in order to create 2 holes in the distal femur which would be parallel to the epicondylar axis and perpendicular to Whitesides line. We then placed a size 6 4-in-1 cutting jig and pinned this into position. Our 4 cuts were made. The cutting jig was removed. The flexion block was then placed with the knee held at 90 degrees. There was excellent stability to varus and valgus at 90 degrees with no gapping medially or laterally. Next the box cutting jig was placed on the distal femur. The box cut was made and the femoral trial was impacted into position. The tibia was sized to a 6 for a fixed bearing component. The tibial tray was positioned in external rotation on the cut tibial surface and the knee was brought through a full range of motion. We then pinned the tibial tray into position and used the intramedullary drill followed by the keel punch. The trial polyethylene was then placed and the knee was brought through a full range of motion. I was very happy with the stability through a full range of motion, and the patellar tracking was excellent. Next the trial components were removed. I then injected the posterior capsule and periosteum with the periarticular injection cocktail. The bone cuts were then irrigated and dried while the cement was mixed on the back table. The femoral component was cemented on first. Excess cement was removed. A lap sponge was placed over the femoral component for protection, then the tibia was subluxated anteriorly. The all polyethylene tibial component was then cemented in place. Again excess cement was removed. The knee was brought into full extension and held there until the cement cured. The patella was cemented and clamped. Dilute Betadine solution was then allowed to irrigate the knee while the cement cured. Once the cement was fully cured, the tourniquet was let down and meticulous hemostasis was ensured. The wound was irrigated out with copious amounts normal saline. The knee was brought through a full range of motion and we were very happy with the patella tracking and the stability. We then began to close. Interrupted 0 Vicryl suture was used to repair the patellar retinaculum in [id number] fashion. The quadriceps and patellar tendons were run with #1 Ethibond. The deep dermal layer was closed with interrupted 2-0 Vicryl. Dermabond and Zipline was used for the skin. A compressive dressing was placed. Patient's sedation was lifted and was transferred to recovery room in stable condition. Summary of implants: Depuy Attune Posterior Stabilized Cemented Femur, size 6 right Attune All-polyethylene tibial component, posterior stabilized 5 mm thickness, size 6 Attune patella medialized dome, size 38 2 batches of simplex high viscosity bone cement Postoperative course: Patient will be admitted to the floor for pain control and monitoring. Tight glucose control will be implemented with pharmacy because the patient has diabetes to reduce his risk of infection. Weightbearing as tolerated with a walker with no knee range of motion for 48 hours. Aspirin for DVT prophylaxis. I attest to the content of the Intraoperative Record and any orders documented therein. Any exceptions are noted below.
[2022-08-08] MEDS ORDERED: ALBUTEROL HFA 8 GM INHALER INH PRN (08:51)
[2022-08-08] MEDS ORDERED: NITROGLYCERIN SL 0.4 MG/TAB TAB SL PRN (08:51)
[2022-08-08] MEDS ORDERED: FEXOFENADINE HCL 180 MG TAB PO PRN (08:51)
[2022-08-08] MEDS ORDERED: MULTIVIT MIN FOLIC VIT K LYCOP PO SCH (09:00)
[2022-08-08] MEDS ORDERED: ASPIRIN 81 MG ECTAB PO SCH (09:00)
--- NOTE | 2022-08-08 10:12 | XRay Report ---
TWO VIEWS RIGHT KNEE CLINICAL HISTORY: Postoperative examination. FINDINGS: AP and crosstable lateral portable views of the right knee are obtained. A right knee arthr oplasty is in near anatomic alignment. There has been undersurface remodeling of the patella. No acut e fracture is seen. There are expected postoperative changes around the knee including soft tissue ed yessenia and subcutaneous gas. IMPRESSION: Expected postoperative changes status post right knee arthroplasty. No acute fracture is seen. ACT 112: Negative or not required by law. Electronically signed by: Enrique Ring M.D. 08/08/2022 10:11 AM
--- NOTE | 2022-08-08 10:24 | Anesthesiology Progress Note ---
Date of Service August 08, 2022 Anesthesia Post Procedure Vital Signs Vital Signs: Temp Pulse Pulse Resp BP Pulse Ox O2 Del Method 08/08/22 10:10 63 16 112/70 92 Room Air 08/08/22 09:40 98.1 F 77 16 117/62 93 Room Air 08/08/22 09:25 98.2 F 74 17 110/67 94 Room Air 08/08/22 09:15 75 14 114/64 93 Room Air 08/08/22 09:05 73 15 105/77 98 Oxymask 08/08/22 08:55 70 14 117/73 98 Oxymask 08/08/22 08:45 97.5 F L 84 20 118/72 95 Oxymask 08/08/22 05:39 98.2 F 66 20 159/82 H 96 Room Air O2 Flow Rate 08/08/22 10:10 08/08/22 09:40 08/08/22 09:25 08/08/22 09:15 08/08/22 09:05 2 08/08/22 08:55 5 08/08/22 08:45 5 08/08/22 05:39 Transfer of Care Handoff Completed per policy Notes Mental Status: alert / awake / arousable and participated in evaluation Patient Amnestic to Procedure: Yes Nausea / Vomiting: adequately controlled Pain: adequately controlled Airway Patency, RR, SpO2: stable & adequate BP & HR: stable & adequate Hydration State: stable & adequate Neuraxial Anesthesia: was administered and sensory block is resolving Anesthetic Complications: no major complications apparent and Pt Satisfied with anesthetic care
[2022-08-08] MEDS: SODIUM CHLORIDE 0.9% 1000ML 1,000 ML IV SCH ×2 (10:56→20:32)
--- NOTE | 2022-08-08 11:05 | Pharmacy Report ---
Pharmacy Glycemic Short Note 2 - Date of Service August 08, 2022 - Glycemic Short BSG Results (Last 24 hours): 08/08/22 08/08/22 05:50 08:50 POC Glucose 150 H 163 H OUTPATIENT ANTIDIABETIC REGIMEN: * Jardiance 25 mg orally qAM * Victoza 1.8 mg subq qAM ASSESSMENT: * Patient is admitted for post-surgical observation after TKA surgery * Patient is on non-insulin regimen at home * Received decadron 8 mg orally preop dose x 1 * Diet is ordered * Plan to give novolog with a stress of 3 for meal time coverage * May consider adding NPH if steroid effects from decadron occurs PLAN FOR INPATIENT GLYCEMIC CONTROL: * Hold outpatient oral diabetes medications * Basal insulin * hold: may add NPH if steroid effects occurs * Bolus insulin * NovoLog per scale ACHS or Q6hrs while NPO * Goal Range: Low 110 mg/dL - High 140 mg/dL * Correction Factor: 15 mg/dL/unit * Nutritional / Prandial insulin per carb ratio of 1 unit per 5 grams CHO consumed
[2022-08-08] MEDS: SERTRALINE HCL 100 MG TABLET PO SCH (11:29)
[2022-08-08] MEDS: METOPROLOL SUCC 50MG EXT REL TAB PO SCH (11:29)
[2022-08-08] MEDS: KETOROLAC TROMETHAMINE 15 MG/ML VIAL IV SCH ×3 (11:31→22:02)
[2022-08-08] MEDS: LOSARTAN POTASSIUM 50 MG TAB PO SCH (11:32)
[2022-08-08] MEDS: ASPIRIN 81 MG ECTAB PO SCH ×2 (11:32→20:35)
[2022-08-08] MEDS: CHOLECALCIFEROL 1,000 UNITS 25 MCG TAB PO SCH (11:32)
[2022-08-08] MEDS: DOCUSATE SODIUM 100 MG CAP PO SCH ×2 (11:32→20:35)
[2022-08-08] MEDS: MULTIVITAMIN TAB PO SCH (11:33)
[2022-08-08] MEDS: INSULIN ASPART PER UNIT SC SCH ×3 (13:01→20:45)
[2022-08-08] MEDS: oxyCODONE HCL IR 5 MG TAB (IMMEDIATE RELEASE) PO PRN (14:16)
[2022-08-08] MEDS: ACETAMINOPHEN 500 MG TAB PO SCH ×2 (14:17→22:02)
[2022-08-08] MEDS ORDERED: TRANEXAMIC ACID / 0.7% NACL 1,000 MG/100 ML BAG IV SCH (15:00)
[2022-08-08] MEDS ORDERED: NovoLIN-N (NPH) PER UNIT CHARGE SQ ONE (15:15)
[2022-08-08] MEDS: Scopolamine CHECK PATCH PLACEMENT SCH (16:54)
[2022-08-08] MEDS: OLOPATADINE~ORDER AWAITING ACTION SCH (16:54)
[2022-08-08] MEDS: ceFAZolin 2000MG 2,000 MG/15 ML SYR IV SCH ×2 (17:28→22:02)
[2022-08-08] MEDS ORDERED: SENNA 8.6 MG TAB PO SCH (21:00)
[2022-08-08] MEDS ORDERED: ROSUVASTATIN CALCIUM 20 MG TAB PO SCH (21:00)
[2022-08-08] MEDS ORDERED: POLYETHYLENE (MIRALAX) 17 GM PACK PO SCH (21:00)
[2022-08-09] MEDS: Scopolamine CHECK PATCH PLACEMENT SCH ×2 (00:04→07:59)
[2022-08-09] MEDS: INSULIN ASPART PER UNIT SC SCH ×3 (00:22→09:18)
[2022-08-09] MEDS: OLOPATADINE~ORDER AWAITING ACTION SCH ×2 (00:28→08:00)
[2022-08-09] MEDS: KETOROLAC TROMETHAMINE 15 MG/ML VIAL IV SCH (04:17)
[2022-08-09] MEDS: ACETAMINOPHEN 500 MG TAB PO SCH (05:34)
[2022-08-09] MEDS: SODIUM CHLORIDE 0.9% 1000ML 1,000 ML IV SCH (06:10)
[2022-08-09 07:31] LABS: Hematocrit (blood only) 38.7 % (40.1-51.0); Hemoglobin 12.7 g/dl (14.0-18.0); Mean Corpuscular Hemoglobin 30.4 pg (25.0-34.0); Mean Corpuscular Hgb Conc 32.8 g/dL (32.0-36.0); Mean Corpuscular Volume 92.6 fL (80.0-100.0); Mean Platelet Volume 9.8 fL (9.4-12.4); Platelet Count 164 K/uL (130-400); RDW Standard Deviation 43.7 fL (36.4-46.3); Red Blood Count 4.18 M/uL (4.63-6.08); White Blood Count 12.61 K/ul (4.8-10.8)
[2022-08-09 08:00] LABS: BUN Creatinine Ratio 39.8 (10-20); Creatinine Clr Calc Pharmacy 77.1 ml/min; Est GFR (African American) 80.8 ml/min; Est GFR (Non-African American) 69.7 ml/min
[2022-08-09] MEDS: MULTIVITAMIN TAB PO SCH (08:00)
[2022-08-09] MEDS: CHOLECALCIFEROL 1,000 UNITS 25 MCG TAB PO SCH (08:00)
[2022-08-09] MEDS: DOCUSATE SODIUM 100 MG CAP PO SCH (08:01)
[2022-08-09] MEDS: SERTRALINE HCL 100 MG TABLET PO SCH (08:01)
[2022-08-09] MEDS: ASPIRIN 81 MG ECTAB PO SCH (08:01)
[2022-08-09] MEDS: LOSARTAN POTASSIUM 50 MG TAB PO SCH (08:02)
[2022-08-09] MEDS: METOPROLOL SUCC 50MG EXT REL TAB PO SCH (08:02)
[2022-08-09] MEDS: oxyCODONE HCL IR 5 MG TAB (IMMEDIATE RELEASE) PO PRN (09:22)
--- NOTE | 2022-08-09 09:52 | Pharmacy Report ---
Pharmacy Glycemic Short Note 2 - Date of Service August 09, 2022 - Glycemic Short BSG Results (Last 24 hours): 08/08/22 08/08/22 08/08/22 11:57 17:06 20:33 Glucose POC Glucose 195 H 144 H 154 H 08/09/22 08/09/22 08/09/22 00:02 03:54 06:52 Glucose 130 H POC Glucose 133 H 163 H 08/09/22 08:00 Glucose POC Glucose 136 H OUTPATIENT ANTIDIABETIC REGIMEN: * Jardiance 25 mg orally qAM * Victoza 1.8 mg subq qAM ASSESSMENT: 08/09: * FBSG today came back within goal, no basal indicated because the steroid was not continued. Anticipate BSG to be trending down therefore loosened CF and CR starting at Breakfast (CF 20 and CR 7) 08/08 * Patient is admitted for post-surgical observation after TKA surgery * Patient is on non-insulin regimen at home * Received decadron 8 mg orally preop dose x 1 * Diet is ordered * Plan to give novolog with a stress of 3 for meal time coverage * May consider adding NPH if steroid effects from decadron occurs PLAN FOR INPATIENT GLYCEMIC CONTROL: * Hold outpatient oral diabetes medications * Bolus insulin * NovoLog per scale ACHS or Q6hrs while NPO * Goal Range: Low 110 mg/dL - High 140 mg/dL * Correction Factor: 20 mg/dL/unit * Nutritional / Prandial insulin per carb ratio of 1 unit per 7 grams CHO consumed
--- NOTE | 2022-08-09 10:13 | Orthopedic Progress Note ---
Date of Service August 09, 2022 Assessment & Plan (1) S/P total knee arthroplasty: Plan: Weightbearing as tolerated with walker assistance and immobilizer use for the first 48 hours postoperatively. Ice with easy wrap DVT prophylaxis with aspirin and ALETA stockings Keep Silverlon dressing in place Pain control with p.o. medication Plan is to discharge home this morning with in-home PT for the first 2 weeks postoperatively Patient is already scheduled for his 2-week postoperative follow-up visit with [facility] orthopedics With questions contact our clinic at [phone] Admission and Anticipated Discharge Date Admission Date: August 08, 2022 Subjective This 77-year-old male is day 1 status post right total knee arthroplasty. He s tates he is doing very well. He states his pain is well controlled with p.o. pain medication. He states he has been able to transition from his bed to the chair and from the chair to the bathroom with the aid of his walker and knee immobilizer in place. Patient denies chest pain, shortness of breath, fever, chills, sweats, lethargy or numbness and tingling in his right lower extremity. Review of Systems Review of Systems: All systems reviewed & are unremarkable except as noted in Subjective Physical Exam Physical Exam: Right knee: Outer dressing was removed. Silverlon is clean dry and intact. Patient does have some atrophy of the quad musculature but is able to perform an active straight leg raise test. Quad strength is 3/5. Patient is able to actively dorsi and plantarflex foot without issue. Active knee range of motion is from about 60 degrees of extension to about 80 degrees in flexion. Patient's calf is soft and supple nontender to palpation he is neurovascularly intact in the right lower extremity. Results & Data ([facility]) Vital Signs (Past 12 Hours) Vital Signs Temp Pulse Resp BP Pulse Ox O2 Del Method 08/09/22 07:36 36.7 C 62 16 98/56 L 94 Room Air 08/09/22 03:57 36.7 C 66 18 115/60 94 Room Air 08/08/22 22:57 36.9 C 69 18 116/62 94 Room Air Diagnostic Findings Laboratory Results WBC 12.61 K/ul (4.8-10.8) H 08/09/22 06:52 RBC 4.18 M/uL (4.63-6.08) L 08/09/22 06:52 Hgb 12.7 g/dl (14.0-18.0) L 08/09/22 06:52 Hct 38.7 % (40.1-51.0) L 08/09/22 06:52 MCV 92.6 fL (80.0-100.0) 12 06:52 MCH 30.4 pg (25.0-34.0) 08/09/22 06:52 MCHC 32.8 g/dL (32.0-36.0) 08/09/22 06:52 RDW Std Deviation 43.7 fL (36.4-46.3) 08/09/22 06:52 RDW Coeff of Aria 13.0 % (11.5-14.5) 08/09/22 06:52 Plt Count 164 K/uL (130-400) 08/09/22 06:52 MPV 9.8 fL (9.4-12.4) 08/09/22 06:52 Sodium 134 mmol/L (136-145) L 08/09/22 06:52 Potassium 4.0 mmol/L (3.5-5.1) 08/09/22 06:52 Chloride 106 mmol/L (98-107) 08/09/22 06:52 Carbon Dioxide 22 mmol/L (21-32) 08/09/22 06:52 Anion Gap 6 (3-11) 08/09/22 06:52 BUN 41 mg/dl (6-23) H 08/09/22 06:52 Creatinine 1.03 mg/dl (0.6-1.4) 08/09/22 06:52 Est Cr Clr Drug Dosing 77.1 ml/min 08/09/22 06:52 Est GFR ( Amer) 80.8 ml/min 08/09/22 06:52 Est GFR (Non-Af Amer) 69.7 ml/min 08/09/22 06:52 BUN/Creatinine Ratio 39.8 (10-20) H 08/09/22 06:52 Glucose 130 mg/dl (70-99(Fasting)) H 08/09/22 06:52 POC Glucose 136 mg/dl (70-99) H 08/09/22 08:00 Calcium 8.0 mg/dl (8.5-10.1) L 08/09/22 06:52 SARS-CoV-2, RNA, NAAT NEGATIVE (NEGATIVE) 08/08/22 05:25 Impressions Knee X-Ray 08/08/22 08:49 TWO VIEWS RIGHT KNEE CLINICAL HISTORY: Postoperative examination. FINDINGS: AP and crosstable lateral portable views of the right knee are obtained. A right knee arthroplasty is in near anatomic alignment. There has been undersurface remodeling of the patella. No acute fracture is seen. There are expected postoperative changes around the knee including soft tissue edema and subcutaneous gas. IMPRESSION: Expected postoperative changes status post right knee arthroplasty. No acute fracture is seen. ACT 112: Negative or not required by law. Electronically signed by: Enrique Ring M.D. 08/08/2022 10:11 AM
--- NOTE | 2022-08-09 10:48 | Discharge Summary ---
Date of Service August 09, 2022 Admission HPI Per Admitting Provider History of Present Illness Patient is a 77-year-old male who is a known patient Dr. Darling. He presents today for his preoperative history and physical exam for a right total knee arthroplasty on 08/08/2022. He explains he has had bilateral knee pain that has been ongoing for at least 4 years. He states right now the right knee is worse than the left. He states the pain has progressively gotten worse the past year. He does have a history of fracturing his patella on the right per patient in 1998. He states that he has pain that is 6/10 with sitting and increases to 8/10 with activities. He states getting up from sitting into a standing position increases the pain. He states he has stiffness after sitting for period of time. He has difficulty going up and down the stairs however he recently moved out of a three-story home into the 1 level home with 2 stairs to get in. He has utilized a cane and a walker in the past however he is not using anything at this time. He has tried modifying his activities without any lasting relief. He has tried a steroid injections in the past where he had a favorable response however the most recent injection only gave him a few weeks of relief. He has had imaging including a CT as well as x-rays which revealed moderate to severe try compartmental osteoarthritis. The CT of the right knee showed old healed fracture of his patella. 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 Due to progression of symptoms with functional activities after a lengthy course of failed conservative treatment patient will be taken to the OR for a right total knee arthroplasty. He has a history of a heart attack in 2020 and was on blood thinners at that time. He states he had fallen due to fainting and unsure what caused the fainting. He states at that time he developed a cerebral hemorrhage and was life flighted. At this time he is only on an aspirin. He denies any history of blood clots or DVTs he denies any history of cancer or MRSA. Admission Exam Per Admitting Provider Physical Exam Vitals & Measurements T: 36.1 C HR: 63 (Monitored) RR: 18 BP: 120/62 SpO2: 95% HT: 182 cm WT: 107.4 kg BMI: 32.42 General: Pt is alert and oriented x3. Wearing a mask. No acute distress. Well-dressed, well-nourished . HEENT: Head: Atraumatic, normocephalic. Eyes: Extraocular movements intact. Pupils equal, round, and reactive to light. Sclerae are normal. Ears: Hearing is grossly normal. Nose: Nares are patent bilaterally. Throat: Oropharynx clear. Mucous membranes moist. Good dentition. Uvula midline. Neg for erythema Neck: Supple. No lymphadenopathy. Nontender to palpation. Full range of motion. Lungs: Clear to auscultation bilaterally. No adventitious sounds. No accessory muscle use. Heart: Regular rate and rhythm. Normal S1, S2. No murmurs, rubs, or gallops appreciated. Abdomen: Soft, nontender, nondistended. Normal bowel sounds heard in all 4 quadrants. Musculoskeletal: Skin is normal in color and temperature over bilateral knees. Negative for effusion or edema. Palpable joint line tenderness bilaterally greatest on the right medial aspect. Crepitation with range of motion patient is able to get -5 degrees extension and flexion to 120 degrees on the right, 0 degrees extension and flexion to 120 degrees on the left. No laxity appreciated with varus and valgus stresses. Strength is 4+/5 bilateral lower extremities gait is antalgic without assistive device. Integumentary:normal in color neg for abrasion or rash Neuro: Cranial nerves II-XII grossly intact Psychiatric: Good eye contact, normal mood and affect, cooperative during exam, nonsuicidal Principal Diagnosis Right knee osteoarthritis Discharge Exam Right knee: Outer dressing was removed. Silverlon is clean dry and intact. Patient does have some atrophy of the quad musculature but is able to perform an active straight leg raise test. Quad strength is 3/5. Patient is able to actively dorsi and plantarflex foot without issue. Active knee range of motion is from about 60 degrees of extension to about 80 degrees in flexion. Patient's calf is soft and supple nontender to palpation he is neurovascularly intact in the right lower extremity. Discharge Data Allergies Allergy/AdvReac Type Severity Reaction Status Date / Time cefoxitin Allergy Unknown HIVES Verified 08/08/22 05:50 clavulanic acid Allergy Unknown Hives Verified 08/08/22 05:50 [From Timentin] melon Allergy Unknown Hives Verified 08/08/22 05:50 ticarcillin [From Timentin] Allergy Unknown Hives Verified 08/08/22 05:50 atorvastatin AdvReac Unknown Joint Pain Verified 08/08/22 05:50 pravastatin AdvReac Unknown Joint Pain Verified 08/08/22 05:50 Procedures Performed Operation Date: 08/08/22 07:00 Actual Procedures p Right Total Knee Arthroplasty(Right) - Nain Darling MD Ordered Studies 08/08/22 05:00 US - OR guided needle placemen Routine Hospital Course (1) S/P total knee arthroplasty: Patient had an uneventful overnight stay following right total knee arthroplasty. Patient will be discharged home later this morning with no physical therapy for the first 2 weeks postoperatively. Weightbearing as tolerated with walker assistance and immobilizer use for the first 48 hours postoperatively. Ice with easy wrap DVT prophylaxis with aspirin and ALETA stockings Keep Silverlon dressing in place Pain control with p.o. medication Plan is to discharge home this morning with in-home PT for the first 2 weeks postoperatively Patient is already scheduled for his 2-week postoperative follow-up visit with [facility] orthopedics With questions contact our clinic at [phone] Total Time Total Time Spent Total Time Spent (In Minutes): 20 mins Discharge Plan Discharge Items Patient Disposition: Home - Home Health Services Reason For Visit: Bilateral Osteoarthritis of Knee Discharge Diagnosis: Bilateral Knee osteoarthritis Activity: As commented below Lifting: None Bathing: Keep incision dry Bathing Comment: May shower tomorrow Sexual Activity: Wait until after follow-up appointment Exercise/Sports: Wait until after follow-up appointment Driving/Machine Use: No driving until cleared by patient centered care specialist Weightbearing: Right weightbearing Weightbearing Comment: as tolerated with immobilizer and walker Non-emergency contact: Surgeon Call non-emergency contact if: you have any medication questions, your pain is not controlled, your temperature is above 101.5, your wound has increased drainage and your wound pain has increased Follow-up/Referrals: Tony Engel MD [Primary Care Provider] - Diet: Carb Count or DM1 Addtl Attending Provider Instructions: Post-operative Instructions Dear Patient and Family/Friends, Before you are discharged from the hospital, it is important to know what to expect when you get home after surgery. To that end, we have created this sheet of discharge instructions which covers many commonly asked questions. Make sure you go through this sheet in its entirety with your nurse before you are discharged. Please note that we will go over the specifics of your surgery and recovery when you return for your first post-operative visit. Sincerely, Dr. Darling Medications 1. Oxycodone 5 mg: take 1-2 tabs every 4-6 hours as needed for post operative pain control. A prescription for this medication will be sent to your pharmacy. 2. Diclofenac Sodium 75 mg: take 1 tab twice daily for the first 30 days post operatively for pain and inflammation relief. A prescription for this medication will be sent to your pharmacy with 1 refill. 3. Aspirin 81 mg: increase your daily aspirin intake to twice daily for 30 days post operatively for blood clot prevention. 4. Extra Strength Tylenol 500 mg: take 2 tabs every 6-8 hours as needed for additional pain relief. Please purchase. Pain Expect to be in a fair amount of pain after surgery. Remember, our goal is not to eliminate your pain, but to make it tolerable. It is a good idea to stay ahead of your pain by taking the medications you were prescribed once you get home. Typically, the pain starts improving 3-7 days after surgery. You should start weaning off the narcotic pain medication (oxycodone, hydrocodone, hydromorphone, morphine) as soon as your pain improves. Please call our office if your pain is not adequately controlled. Ice Ice your operative site at least 5 times a day for 15-30 minutes at a time. Make sure you have a thin cloth between the ice or cooling unit and your skin to prevent hernandez bite. This is especially important if you received a nerve block. Continue icing your operative site for the first 5-7 days after surgery, then as needed. Diet/Nausea/Vomiting Start by drinking clear liquids and eating crackers. If you can tolerate this, then you may resume your normal diet. If you feel nauseated or vomit, take Zofran/ondansetron (if prescribed). Please call our office if you have intractable nausea or vomiting, or, if after hours, you may go to the Emergency Room for help. Constipation Constipation is a common side effect of narcotic pain medication. If you have not had a bowel movement within 2 days after surgery, we recommend purchasing an over the counter laxative such as Milk of Magnesia, Dulcolax, or Miralax from a local pharmacy, and taking it as instructed. Call our clinic if any questions. Slings and Braces If you were placed in a sling or brace, it must be worn at all times, including sleep. You may remove your sling or brace for physical therapy, home exercises, and showering. The length of time you will be in your brace and range of motion restrictions depends on what surgery you had; these details will be reviewed at your first post-operative appointment. Nerve block The anesthesia team sometimes places a nerve block to help with post-operative pain control. This results in significant numbness and inability to move the extremity. The nerve block usually wears off in 8-12 hours, but sometimes can last up to 24 hours. Please call our office if you are still unable to move your extremity after 24 hours, unless you received a pain pump to take home. Nerve blocks typically wear off quickly, so start taking pain medication as soon as you start feeling soreness near your surgical site. Weight bearing and Range of Motion. Do not bear any weight through your operative extremity immediately after surgery. If you had upper extremity surgery, do not lift anything with that arm. If you are in a knee brace, keep it locked in place until your follow-up. We will discuss your weight bearing, range of motion, and lifting restrictions in detail at your first post-operative appointment. Continuous Passive Motion (CPM) Machine If you were prescribed a CPM machine, it will start after your first post- operative appointment, at which time we will give you instructions on the range of motion settings and duration of treatment Physical therapy You will be given a prescription for physical therapy or occupational therapy at your first post-operative appointment. Typically, patients start therapy within 1 week of surgery Wound care and showering We will inspect your wound at your first post-operative visit, and may do a dressing change at that time. Most patients will be in a water-proof dressing that is removed 14 days after surgery. It is normal to see some dried blood on the dressing. Do not remove your dressing, paper strips or sutures yourself unless you are given permission. Showering is allowed the day after surgery. Do not scrub or remove any dressings. The wound should not be submerged underwater (i.e. in a bathtub or pool) until 4 weeks after surgery ALETA stockings If you were given white stockings, these are to be worn at all times except to shower (on both legs) for the first 2 weeks after surgery. Driving You may not drive while taking narcotic pain medication or while in a cast, splint, sling or brace. You, the patient, need to make the final determination about when you are safe to drive, however, the earliest you may consider driving after surgery is below: Hand/Wrist/Elbow Surgery: 3 days Shoulder Surgery: 2 weeks Hip,/Knee/Ankle Surgery: 4 weeks Fracture repair: 6 weeks Return to Work Your return to work depends on what surgery was done and what type of work you do. Please bring any paperwork your employer needs completed to your first post-operative visit. Also, bring a description of your job duties, as this helps us to understand what risks you may face at work. Travel Avoid long distance travel (greater than 1 hour) in airplanes and cars for the first 6 weeks after surgery. If you must travel, you need to have a Doppler ultrasound done before you travel to rule out a blood clot in your legs. Follow-up You should have a follow-up appointment already scheduled 1-2 days after surgery. If not, please contact our office to make this appointment before you leave the hospital. When to call the office It is normal to have swelling and bruising in the limb that was operated on. This will improve with time. It is also normal to have fevers for the first 2 days after surgery. Reasons you should call your doctor include: Uncontrolled pain; Nausea, vomiting, or constipation that does not improve with medication; Fevers over 101.5, chills, sweats; Drainage or bleeding from the wound; Foul odor; Spreading areas of redness; Any other concerns Pending Studies at Discharge: No Stand-Alone Forms: My [facility] Medications and DC Order Prescriptions: New oxycodone 5 mg tablet 5 mg PO Q4H Qty: 28 0RF diclofenac sodium 75 mg tablet,delayed release (DR/EC) 75 mg PO BID 30 Days Qty: 60 1RF Continued albuterol sulfate 90 mcg/actuation HFA aerosol inhaler 2 puff inhalation Q4H PRN (Reason: shortness of breath or wheezing) Qty: 6.7 5RF Label Comments: NO USE OF A YR OR MORE (DME) pen needle, diabetic [BD Ultra-Fine Mini Pen Needle] 31 gauge x 3/16" needle See Dose Instructions .ROUTE .MEDSUPPLY Qty: 100 3RF Dose Instruction: As directed Rx Instructions: use daily with insulin losartan 100 mg tablet 100 mg PO QAM Qty: 90 3RF cholecalciferol (vitamin D3) 25 mcg (1,000 unit) capsule 25 mcg PO QAM metoprolol succinate 100 mg tablet extended release 24 hr 100 mg PO QAM Qty: 90 3RF nitroglycerin [Nitrostat] 0.4 mg tablet, sublingual 0.4 mg sublingual Q5M PRN (Reason: chest pain) Qty: 30 5RF Label Comments: NEVER USED rosuvastatin [Crestor] 20 mg tablet 20 mg PO HS Qty: 90 3RF Victoza 3-Josr 0.6 mg/0.1 mL (18 mg/3 mL) pen injector 1.8 mg SUBCUT QAM Qty: 9 3RF sertraline 100 mg tablet 100 mg PO QAM Qty: 90 3RF fexofenadine 180 mg Tablet 180 mg PO UD PRN (Reason: Allergy Symptoms) polyethylene glycol 3350 [Miralax] 17 gram Powder In Packet 17 g PO HS Men's Multivitamin 400-20-300 mcg Tablet 1 tab PO QAM olopatadine 0.2 % drops 1 drp OPB UD PRN (Reason: Allergy Symptoms) betamethasone dipropionate 0.05 % ointment 1 applic topical DAILY PRN (Reason: Rash) Rx Instructions: Apply to areas of the hands once daily at bedtime for up to 2 weeks as needed for flaring. dutasteride 0.5 mg capsule 0.5 mg PO QAM Jardiance 25 mg tablet 25 mg PO QAM Changed aspirin [Ceasar Low Dose Aspirin] 81 mg Tablet,Delayed Release (Dr/Ec) 81 mg PO BID 30 Days Qty: 60 0RF Discontinued diclofenac sodium 1 % gel 2 g TOP QID PRN (Reason: pain ) Qty: 200 3RF Rx Instructions: apply to single wrist or hand; Discharge Orders: Discharge Order (Routine); Ordered 08/09/22 Ordered By: Yusuf Acuña/Other Patient Handouts: Total Knee Replacement Admission Data Admit Date/Time: 08/08/22 08:46 Attending Provider: Nain Darling Admit Provider: Nain Darling Primary Care Provider: Tony Engel Other Interventions: Discharge Summary Assessment (RN) Last Done: 08/09/22 10:26
== END 2022-08-09 11:31 | disposition home health service (06) ==
LOC: ASU 05:18 → 3W 05:18

== ENCOUNTER 2022-10-24 06:48 | Observation (INO) ==
--- NOTE | 2022-10-16 15:20 | History & Physical Report ---
Date of Service October 16, 2022 Assessment & Plan (1) Osteoarthritis of left knee: Plan: PRE-OP Diagnosis: Left knee osteoarthritis Planned Procedure: Left total knee arthroplasty Plan: Patient is scheduled to undergo this procedure at the [facility] with Dr. Darling on October. Risks and complications of the procedure such as: Infection, bleeding, pain, scarring, nerve blood vessel damage, weakness, wound problems, stiffness, incomplete relief of symptoms, hardware failure, hardware loosening, wear, fracture, tendon or ligament injury, blood clots, embolism, heart attack, stroke and were explained to the patient at his visit today and informed consent for the procedure was obtained. Patient also understands risks of proceeding with surgical intervention during the COVID-19 pandemic. Currently he is asy mptomatic and states that he has not been in contact with anyone positive for the virus recently. We have obtained preoperative medical clearance from the patient's lie detector operator Dr. Solares. Patient is scheduled to meet with his primary care provider on the for PCP clearance. Patient does not need to see anesthesia due to his recent right total knee arthroplasty, however we will obtain a CBC with differential, complete metabolic panel, PT/INR, PTT, blood type and screen, urinalysis, urine culture and sensitivity, and a nasal culture for MRSA. Patient's EKG is up-to-date. During today's visit we reviewed the total knee packet. Patient states he still has the handicap placard for his vehicle from his previous surgery. He states that he watched one of the lectures in regards to joint replacement surgery before his right total knee arthroplasty and knows exactly what to expect. Patient states that he has a walker, already so is he in a shower chair. He also has his knee immobilizer and will bring it with him on the morning of his procedure. We discussed discharge planning from the hospital. Patient states he do in-home physical therapy for the first 2 weeks before transitioning to outpatient physical therapy. I advised the patient that he will be provided with a prescription for narcotic pain medication for postoperative pain control. We will have him on aspirin twice daily for the first 30 days postoperatively for blood clot prevention. Patient verbalized understanding of all information provided during today's visit. He thanks for the care that he received. If he has questions or concerns prior to his surgery, he will contact clinic. Patient be scheduled for 2-week postoperative follow-up visit with myself on November 06 at 10 AM. This chart was completed utilizing [employer] voice recognition software. Grammatical errors, random word insertions, pronoun errors, and in complete sentences are an occasional consequence of the system. Any questions or concerns about the content, text, or information contained within the body of this dictation should be addressed directly to the physician for clarification. History of Present Illness Chief Complaint: Chief Complaint: Left knee pain Primary Care Provider: Tony Engel MD History of Present Illness (including history relevant to procedure): This 77-year-old male presents to the clinic today for his preoperative history and physical. Patient has a longstanding history of bilateral knee pain. He recently had his right knee replaced by Dr. Darling on August 08, 2022 and has had great results and is ready to proceed with surgical intervention for his left knee degenerative joint issues. Review Of Systems: A 12 point review of systems is performed and is unremarkable except for those things stated in the HPI and past medical history. Past Medical History: Problems: Total knee replacement status Surgical followup Preop examination Osteoarthritis of right knee Knee pain Depression Hypertension Diabetes Hemochromatosis Heart murmur History of myocardial infarction BPH History of renal calculi Procedure History Procedure Procedure Date Comments Repair of tendon of hand 2016 - left Cataract surgery 2015 Tonsillectomy Right total knee arthroplasty Cardiac catheterization Angioplasty Cholecystectomy Hernia repair 1950 2021 Allergies and Sensitivities: Timentin(Unsure of self) Current Home Meds: (Last Updated 10/15 14:35) aspirin (aspirin 81 mg oral capsule) betamethasone topical (betamethasone dipropionate 0.05% topical ointment) 1 appl topical Daily diclofenac topical (Voltaren 1% topical gel) 1 appl topical qid PRN: Pain 4g to affected area 4 times a day dutasteride (dutasteride 0.5 mg oral capsule) 0.5 mg PO Daily empagliflozin (Jardiance 25 mg oral tablet) 25 mg PO Daily liraglutide (Victoza 18 mg/3 mL subcutaneous solution) subQ Daily losartan (losartan 100 mg oral tablet) 100 mg PO Daily metoprolol (Metoprolol Succinate ER 100 mg oral tablet, extended release) TAKE 1 TABLET BY MOUTH IN THE MORNING rosuvastatin (rosuvastatin 20 mg oral tablet) 20 mg PO Daily sertraline (sertraline 50 mg oral tablet) 50 mg PO Daily Allergies Allergy/AdvReac Type Severity Reaction Status Date / Time cefoxitin Allergy Unknown HIVES Verified 09/10/22 10:35 clavulanic acid Allergy Unknown Hives Verified 09/10/22 10:35 [From Timentin] melon Allergy Unknown Hives Verified 09/10/22 10:35 ticarcillin [From Timentin] Allergy Unknown Hives Verified 09/10/22 10:35 atorvastatin AdvReac Unknown Joint Pain Verified 09/10/22 10:35 pravastatin AdvReac Unknown Joint Pain Verified 09/10/22 10:35 Home Medications Medication Instructions Recorded Confirmed Type albuterol sulfate 90 mcg/actuation 2 puff inhalation Q4H PRN 10/23/20 09/10/22 Rx aerosol inhaler shortness of breath or wheezing #6.7 grams itlawaps-ixyputys-rpnie acid 400 1 tab PO QAM 06/22/21 09/10/22 History mcg-vit K 20 mcg-lycop 300 mcg tablet (Men's Multivitamin) olopatadine 0.2 % eye drops 1 drp OPB UD PRN Allergy Symptoms 06/22/21 09/10/22 History fexofenadine 180 mg tablet 180 mg PO UD PRN Allergy Symptoms 07/04/21 09/10/22 History pen needle, diabetic 31 gauge x #100 ea 08/06/21 09/10/22 Rx 3/16" (BD Ultra-Fine Mini Pen Needle) polyethylene glycol 3350 17 gram 17 g PO HS 10/09/21 09/10/22 History oral powder packet (Miralax) cholecalciferol (vitamin D3) 25 25 mcg PO QAM 12/18/21 09/10/22 History mcg (1,000 unit) capsule metoprolol succinate 100 mg 100 mg PO QAM #90 tabs 02/08/22 09/10/22 Rx tablet,extended release 24 hr nitroglycerin 0.4 mg sublingual 0.4 mg sublingual Q5M PRN chest 03/20/22 09/10/22 Rx tablet (Nitrostat) pain #30 tabs rosuvastatin 20 mg tablet (Crestor) 20 mg PO HS #90 tabs 03/20/22 09/10/22 Rx sertraline 100 mg tablet 100 mg PO QAM #90 tabs 04/22/22 09/10/22 Rx betamethasone dipropionate 0.05 % 1 applic topical DAILY PRN Rash 07/22/22 09/10/22 History topical ointment dutasteride 0.5 mg capsule 0.5 mg PO QAM 07/22/22 09/10/22 History empagliflozin 25 mg tablet 25 mg PO QAM 07/22/22 09/10/22 History (Jardiance) aspirin 81 mg tablet,delayed 81 mg PO BID 30 days #60 tabs 08/09/22 09/10/22 Rx release (Ceasar Low Dose Aspirin) diclofenac sodium 75 mg 75 mg PO BID Postoperative pain 08/09/22 09/10/22 Rx tablet,delayed release and inflammation relief 30 days #60 tabs oxycodone 5 mg tablet 5 mg PO Q4H Postoperative pain 08/09/22 09/10/22 Rx control #28 tabs liraglutide 0.6 mg/0.1 mL (18 mg/3 1.8 mg (0.3 mL) subcut QAM #27 mL 09/19/22 Rx mL) subcutaneous pen injector (Victoza 3-Josr) losartan 100 mg tablet 100 mg PO QAM #90 tabs 10/04/22 Rx Past Med/Surg History Medical History Asthma Well controlled per pt > no inhaler use for several yrs per pt Atopic dermatitis Noted to hands Atrial fibrillation x1 episode > no further problems > Post [place] on 11/14/2020; w/ RVR No AC needed per cardio records CAD (coronary artery disease) S/p mid to distal LCx DARLENE Carotid artery plaque <50% stenosis in internal carotid arteries bilaterally per 01/2021 carotid duplex > no further interventions or problems COVID-19 virus detected HX COVID 19 ANTIBODIES DETECTED BY BLOOD TEST 01/2020 >no reoccurrences Depression Diabetes mellitus Type 2 Glucose well controlled per patient Fatty liver HX MENTIONED IN PAST, NO PROBLEMS WITH Incidentally noted on imaging Hearing deficit Heart murmur Per 01/2021 ECHO- mild MR. Hemochromatosis PHLEBOTOMY TREATMENTS EVERY 3 MONTHS- FERRITIN LEVELS MONITORED BY HEMATOLOGY;-DR GUPTA- LAST PHLEBOTOMY 6 MONTHS AGO Hyperlipidemia Hypertension Irritable bowel syndrome HX Kidney stone HX AND 1 LARGE ONE PRESENT (ASYMPTOMATIC)- HX BLADDER STONES - CONTINUES CARE WITH DR VIOLETA Seasonal allergies STEMI (ST elevation myocardial infarction) October 2020 > stent Syncope and collapse 07/2021-FALL VS SYNCOPE- HAD BRAIN BLEED-SUBDURAL HEMATOMA-ADMITTED [facility] [place] AND DISCHARGED WITHOUT SURGERY AND FROM NEUROSURGERY 07/24/21 OPTHAMOLOGY VISIT WITHIN LAST MONTH AND HAS BEEN CLEARED FOR DRIVING- NO CURRENT PROBLEMS ; F/U IN 6 MONTHS Surgical History H/O cataract extraction BOTH EYES History of biliary stent insertion S/p removal History of colonoscopy History of ERCP WITH STENT 06/2021 [facility] - MOST RECENT SEP 28 2021 ([facility]) TO EXHANGE SENT History of heart artery stent Inf STEMI on 11/14/2020 :subtotal occ. Large distal Cx s/p PCI of m/dCx w /single DARLENE History of tonsillectomy and adenoidectomy History of umbilical hernia repair History of vasectomy Hx laparoscopic cholecystectomy (10/18/21) Laparoscopic Cholecystectomy; enterolysis- Abimael Rivera, 10/18/2021 Hx of cystoscopy CYSTOSCOPY/LASER LITHOTRIPSY/STENT= 01/23/17= LMA#5 AT [facility] Hx of hand surgery LEFT HAND TENDON SURGERY Hx of transurethral resection of prostate AND BLADDER STONES REMOVED on 10/26/18 with LMA#5 Family History Mother Multiple myeloma Stroke Father Laryngeal cancer Grandfather (Maternal) Stroke Uncle Stroke Denies family history of Ovarian cancer Prostate cancer Coronary heart disease Myocardial infarction Breast cancer Colorectal cancer Social History Smoking Status: Never smoker Second Hand Exposure: No; Hx Alcohol Use: No Hx Substance Use: No Preferred Language: Tuvaluan Communication Ability: Effective Visual Impairment: No Limitations Hearing Ability: Use of Hearing Aid Supervisor Smoke Control Required: No Beliefs That Will Affect Care: None marital status: Current Living Situation: Spouse current occupational status: retired 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 How many Children do You have: 2 Feels Safe at Home: Yes Childhood Exposure to Second-Hand Smoke: Yes Diet Comment: low sugar caffeine: Yes Dental Care, Regularly: Yes Physical Activity Frequency: 1-2 Times per Week Seatbelt Use: always Sunscreen Use: No Assistive Devices: Cane and Walker Review of Systems All systems reviewed & are unremarkable except as noted in Subjective Physical Exam Physical Exam: Physical Exam: (relevant to the procedure, including heart and lung evaluation) General: Alert and oriented x3 with proper grooming and hygiene Eyes: Pupils are equal and reactive to light with accommodation. Extraocular movements are intact Throat: Posterior oropharynx is clear with absence of edema, erythema or exudate. Dentition is appropriate Cardiac: Regular rate and rhythm with a grade 3/6 holosystolic murmur heard in all areas Lungs: Clear to auscultation throughout with no wheezing, rales or rhonchi Abdomen: Obese, nondistended, nontender with NABS Extremities: Left knee; range of motion is from 8 degrees of extension to 105 degrees of flexion. There is audible crepitation with passive range of motion. Patient experiences medial and lateral joint line tenderness when the knee is palpated in the flexed position. His patella is not mobile due to arthritic change within the patellofemoral joint. There is no varus or valgus laxity with stressing. AP drawer sign and Anuj test are negative. Patient is neurovascularly intact in the left lower extremity. Neuro: Cranial nerves II through XII are intact no motor or sensory deficit Skin: Normal in appearance with no open skin areas or discharge Results & Data ([facility]) Diagnostic Findings Studies (relevant to the procedure): X-rays, 3 views of the right knee done show the hardware in good position with no evidence of complication. I reviewed x-rays of the left knee done several months ago which showed severe osteoarthritis in the left knee, near bone on bone in the lateral compartment, with tricompartmental osteophyte formation.
--- NOTE | 2022-10-18 14:39 | Anesthesiology Consultation ---
Date of Service October 18, 2022 Assessment & Plan (1) Encounter for pre-operative examination: Plan - awaiting finalized [place] PCP clearance note 10/17/22. - cardiology clearance 10/04/22: "...yes...medically cleared for surgery..." - h/o glidescope intubation. - Outpatient joint assessment: Patient is currently scheduled for inpatient pathway. If re-evaluated pending system levels during current pandemic/surgeon requests outpatient pathway, patient is not acceptable candidate for outpatient joint program from anesthesia standpoint. - COVID screening: Per pump house technician on 10/18/2022: Travel screen negative, no known COVID-19 positive contacts or current COVID-19 related symptoms in past 2 weeks. To surgeon's discretion if preop COVID testing is needed. Chart Review Chart Review: Pending: Refer to Additional Notes / Consult section and Patient NOT seen in Pre Admission Testing History Surgery Operation Date: 10/24/22 09:15 Proposed Procedures p Left Total Knee Arthroplasty - Nain Darling MD Height/Weight Height: 6 ft 1 in Weight: 104.326 kg Allergies Allergy/AdvReac Type Severity Reaction Status Date / Time cefoxitin Allergy Unknown HIVES Verified 10/18/22 13:20 clavulanic acid Allergy Unknown Hives Verified 10/18/22 13:20 [From Timentin] melon Allergy Unknown Hives Verified 10/18/22 13:20 ticarcillin [From Timentin] Allergy Unknown Hives Verified 10/18/22 13:20 atorvastatin AdvReac Unknown Joint Pain Verified 10/18/22 13:20 pravastatin AdvReac Unknown Joint Pain Verified 10/18/22 13:20 Medications Home Medications Medication Instructions Recorded Confirmed Last Taken albuterol sulfate 90 mcg/actuation 2 puff inhalation Q4H PRN 10/23/20 10/18/22 Unknown aerosol inhaler shortness of breath or wheezing #6.7 grams kdztsioj-ajyvpinz-zmwrr acid 400 1 tab PO QAM 06/22/21 10/18/22 08/07/22 08:00 mcg-vit K 20 mcg-lycop 300 mcg tablet (Men's Multivitamin) olopatadine 0.2 % eye drops 1 drp OPB UD PRN Allergy Symptoms 06/22/21 10/18/22 Unknown fexofenadine 180 mg tablet 180 mg PO UD PRN Allergy Symptoms 07/04/21 10/18/22 09/27/21 07:00 pen needle, diabetic 31 gauge x #100 ea 08/06/21 10/17/22 Unknown 11/14" (BD Ultra-Fine Mini Pen Needle) polyethylene glycol 3350 17 gram 17 g PO HS 10/09/21 10/18/22 08/07/22 20:00 oral powder packet (Miralax) cholecalciferol (vitamin D3) 25 25 mcg PO QAM 12/18/21 10/18/22 08/07/22 08:00 mcg (1,000 unit) capsule metoprolol succinate 100 mg 100 mg PO QAM #90 tabs 02/08/22 10/18/22 08/08/22 04:15 tablet,extended release 24 hr nitroglycerin 0.4 mg sublingual 0.4 mg sublingual Q5M PRN chest 03/20/22 10/18/22 Unknown tablet (Nitrostat) pain #30 tabs rosuvastatin 20 mg tablet (Crestor) 20 mg PO HS #90 tabs 03/20/22 10/18/22 08/07/22 20:00 sertraline 100 mg tablet 100 mg PO QAM #90 tabs 04/22/22 10/18/22 08/08/22 04:15 betamethasone dipropionate 0.05 % 1 applic topical DAILY PRN Rash 07/22/22 10/18/22 Unknown topical ointment dutasteride 0.5 mg capsule 0.5 mg PO QAM 07/22/22 10/18/22 08/07/22 08:00 empagliflozin 25 mg tablet 25 mg PO QAM 07/22/22 10/18/22 08/04/22 08:00 (Jardiance) liraglutide 0.6 mg/0.1 mL (18 mg/3 1.8 mg (0.3 mL) subcut QAM #27 mL 09/19/22 10/18/22 Unknown mL) subcutaneous pen injector (Victoza 3-Josr) losartan 100 mg tablet 100 mg PO QAM #90 tabs 10/04/22 10/18/22 Unknown aspirin 81 mg capsule 81 mg PO QPM 10/18/22 10/18/22 Unknown diclofenac sodium 1 % topical gel 2 g topical QID PRN Pain 10/18/22 10/18/22 Unknown Past Medical History Medical History (Updated 10/18/22 @ 14:37 by Shruti Mckenzie PA-C) Asthma Well controlled per pt > no inhaler use for several yrs per pt Atopic dermatitis Noted to hands Atrial fibrillation x1 episode > no further problems > Post [place] on 11/14/2020; w/ RVR No AC needed per cardio records CAD (coronary artery disease) S/p mid to distal LCx DARLENE Carotid artery plaque <50% stenosis in internal carotid arteries bilaterally per 01/2021 carotid duplex > no further interventions or problems COVID-19 virus detected HX COVID 19 ANTIBODIES DETECTED BY BLOOD TEST 01/2020 >no reoccurrences Depression Diabetes mellitus NIDDM Fatty liver HX MENTIONED IN PAST, NO PROBLEMS WITH Incidentally noted on imaging Hearing deficit Heart murmur Per 01/2021 ECHO- mild MR. Hemochromatosis PHLEBOTOMY TREATMENTS EVERY 3 MONTHS- FERRITIN LEVELS MONITORED BY HEMATOLOGY;-DR GUPTA- LAST PHLEBOTOMY 6 MONTHS AGO Hyperlipidemia Hypertension Irritable bowel syndrome HX Kidney stone HX AND 1 LARGE ONE PRESENT (ASYMPTOMATIC)- HX BLADDER STONES - CONTINUES CARE WITH DR MCDANIEL Seasonal allergies STEMI (ST elevation myocardial infarction) October 2020 > stent Syncope and collapse 07/2021-FALL VS SYNCOPE- HAD BRAIN BLEED-SUBDURAL HEMATOMA-ADMITTED [facility] [place] AND DISCHARGED WITHOUT SURGERY AND FROM NEUROSURGERY 07/24/21 OPTHAMOLOGY VISIT WITHIN LAST MONTH AND HAS BEEN CLEARED FOR DRIVING- NO CURRENT PROBLEMS ; F/U IN 6 MONTHS Past Family History Family History (Updated 10/18/22 @ 13:30 by Mary Ann Giang RN) Mother Multiple myeloma Stroke Father Laryngeal cancer Grandfather (Maternal) Stroke Uncle Stroke Other No family history of adverse response to anesthesia Denies family history of Ovarian cancer Prostate cancer Coronary heart disease Myocardial infarction Breast cancer Colorectal cancer Past Surgical History Surgical History (Updated 10/18/22 @ 14:44 by Shruti Mckenzie PA-C) H/O cataract extraction BOTH EYES History of biliary stent insertion S/p removal History of colonoscopy History of ERCP WITH STENT 06/2021 [facility] - MOST RECENT SEP 28 2021 ([facility]) TO EXHANGE SENT MAC 3, ETT 8. History of heart artery stent Inf STEMI on 11/14/2020 :subtotal occ. Large distal Cx s/p PCI of m/dCx w/single DARLENE History of tonsillectomy and adenoidectomy History of umbilical hernia repair History of vasectomy Hx laparoscopic cholecystectomy (10/18/21) Laparoscopic Cholecystectomy; enterolysis- Abimael Rivera, DO 10/18/2021 Grade 1 view, glidescope 4, ETT 8. Hx of cystoscopy CYSTOSCOPY/LASER LITHOTRIPSY/STENT= 01/23/17= LMA#5 AT [facility] Hx of hand surgery LEFT HAND TENDON SURGERY Hx of transurethral resection of prostate AND BLADDER STONES REMOVED on 10/26/18 with LMA#5 S/P total knee arthroplasty Right TKA L4-L5 1 attempt + PNB. Social History Smoking Status: Never smoker Do You Dip or Chew Tobacco: No Hx Alcohol Use: No alcohol intake frequency: 0-2 drinks per day Hx Substance Use: No substance use type: does not use Lab Results Anesthesia Preop Results Results Anesthesia Widget: WBC 6.21 K/ul (4.8-10.8) 10/16/22 Hgb 16.0 g/dl (14.0-18.0) 10/16/22 Hct 48.5 % (42.0-52.0) 10/16/22 Plt 192 K/uL (130-400) 10/16/22 Na 140 mmol/L (136-145) 10/16/22 K 4.1 mmol/L (3.5-5.1) 10/16/22 Cl 103 mmol/L (98-107) 10/16/22 CO2 32 mmol/L (21-32) 10/16/22 BUN 29 mg/dl (6-23) H 10/16/22 Creat 0.96 mg/dl (0.6-1.4) 10/16/22 Glucose Level 177 mg/dl (70-99(Fasting)) H 10/16/22 PT 10.5 Seconds (9.0-12.0) 10/16/22 INR 1.0 (0.9-1.1) 10/16/22 HA1c 6.8 % (4.5-5.6) H 10/16/22 Urine Color Yellow 10/16/22 Urine Appearance Clear (Clear) 10/16/22 Urine pH 5.0 (4.5-7.5) 10/16/22 Urine Specific [place] 1.035 (1.000-1.030) H 10/16/22 Urine Protein Negative (Negative) 10/16/22 Urine Glucose (UA) 3+ (Negative) H 10/16/22 Urine Ketones Negative (Negative) 10/16/22 Urine Blood Trace (Negative) H 10/16/22 Urine Nitrite Negative (Negative) 10/16/22 Urine Bilirubin Negative (Negative) 10/16/22 Urine Urobilinogen Negative (Negative) 10/16/22 Urine Leukocyte Esterase Negative (Negative) 10/16/22 Urine WBC (Auto) 1-5 /hpf (0-5) 10/16/22 Urine RBC (Auto) 0-4 /hpf (0-4) 10/16/22 Urine Hyaline Casts (Auto) 1-5 /lpf (0-5) 10/16/22 Urine Epithelial Cells (Auto) 5-10 /lpf (0-5) H 10/16/22 Urine Bacteria (Auto) Negative (Negative) 10/16/22 Testing Electrocardiogram Date: 07/30/22 Sinus rhythm with 1st degree AV block, rate 60 bpm Left axis deviation Chest X-Ray Date: 07/30/22 Cardiac mediastinal and hilar silhouettes are within normal limits. Coronary arterial stent. No pneumothorax, pleural effusion, airspace consolidation or overt pulmonary edema. Bones of the chest appear grossly intact. Chronic L1 compression deformity. IMPRESSION: No acute process. Echocardiogram Date: 02/16/21 EF 55-60% Mild inferolateral hypokinesis Mild cLVH Mild mitral regurgitation Aortic valve sclerosis without stenosis Borderline ascending aorta dilation 4 cm Stress Test Date: 09/25/21 Negative for ischemia MPHR 86% Mildly dilated RV No significant valvular pathology Mildly dilated ascending aorta 4.2 cm EF 50-55% Other Testing Abdomen CT 06/20/22 Stable 7 mm nodule within the base of the right lower lobe on image 59. The left lung base is essentially clear. No pneumoperitoneum. No pneumatosis. Old mild anterior wedge-shaped compression deformity at L1, unchanged. No acute fractures identified. Interval resolution of the 9.7 cm oval-shaped hypodense focus within the right hepatic lobe likely representing a resolved hematoma. There is a surgical clip and subtle heterogeneity within the inferior aspect of the right lower lobe, unchanged. No hepatic masses identified. Prior cholecystectomy with pneumobilia. The pancreas, spleen, and adrenal glands are unremarkable. The main portal vein is patent. Normal caliber abdominal aorta with mild calcified plaque. There is a left circumaortic renal vein. No retroperitoneal lymphadenopathy. Left-sided nephrolithiasis again noted. No hydronephrosis. There is a peripherally calcified 2.2 cm hypodense lesion within the right kidney. This remains stable and favors a cyst. The visualized loops of bowel show no wall thickening or obstruction. Colonic diverticulosis. No evidence for acute diverticulitis. Normal appendix. A few prominent periportal lymph nodes have decreased in size. IMPRESSION: 1. Interval resolution of the 9.7 cm hypodense focus within the right hepatic lobe likely representing a resolved hematoma. 2. No new hepatic lesions identified. 3. Additional findings as described above. Chest CT 02/06/22 1. No acute intrathoracic abnormality. 2. There are two solid nodules of the posterior basal segment right lower lobe measuring up to 7 mm which are stable dating back to the 09/18/2018 study. 3. Hepatic steatosis with partially imaged heterogeneity of the inferior right hepatic lobe. The previously described subcapsular and extracapsular fluid collections involving the liver are outside the [id number].
[~2022-10-24 06:48] MED LIST changes: +ACETAMINOPHEN 500 MG TAB PO SCH; +BUPIVACAINE 0.25% 30 ML VIAL ONE; +BUPIVACAINE 0.5 % 5 MG/1 ML PF 10ML VIAL ONE; +CeleBREX 200 MG CAP PO SCH; +FAMOTIDINE 20 MG TAB PO SCH; -HEPARIN (PORCINE) 1000 UNIT/ML 10 ML (CATH LAB USE ONLY) ONE; +LR 500ML BOLUS, THEN 15ML/HR IV SCH; +LR 60ML/HR IV SCH; -MIDAZOLAM HCL 1 MG/ML 2ML VIAL ONE; -NITROGLYCERIN/D5W 100MCG/ML 20ML SYR ONE; +ROPIVACAINE 0.5% HCL/PF 150 MG, BUPIVACAINE 0.75% MPF 20 ML, EPINEPHrine 0.15 MG, Ketor... INFIL SCH; +Scopolamine 1 MG TDSY TD SCH; +TRANEXAMIC ACID 1,000 MG **IV Intra-op IV SCH; +TRANEXAMIC ACID 1,000 MG **IV Pre-op IV SCH; +ceFAZolin 2000MG 2,000 MG/15 ML SYR IV SCH; +dexAMETHasone 4 MG TAB PO SCH; -fentaNYL citrate 100 MCG/2 ML VIAL ONE; -niCARdipine HCL INJ 2.5 MG/ML 10 ML AMP ONE; +traMADol HCL 50 MG TABLET PO SCH
[2022-10-24] MEDS ORDERED: ONDANSETRON INJ 2 MG/ML 2 ML VIAL ONE (07:47)
[2022-10-24] MEDS ORDERED: DEXAMETHASONE SOD INJ 4 MG/ML VIAL ONE (07:47)
[2022-10-24] MEDS ORDERED: PROPOFOL IV EMULSION 10 MG/ML 20 ML VIAL IV ONE (07:47)
[2022-10-24] MEDS ORDERED: MIDAZOLAM HCL 1 MG/ML 2ML VIAL ONE (07:48)
[2022-10-24] MEDS ORDERED: fentaNYL citrate 100 MCG/2 ML VIAL ONE (07:48)
[2022-10-24] MEDS ORDERED: fentaNYL citrate 100 MCG/2 ML VIAL IV PRN (08:01)
[2022-10-24] MEDS ORDERED: ePHEDrine sulfate 50 MG/ML AMP IV PRN (08:01)
[2022-10-24] MEDS ORDERED: ONDANSETRON INJ 2 MG/ML 2 ML VIAL IV PRN ×2 (08:01→11:12)
[2022-10-24] MEDS ORDERED: ATROPINE SULFATE 0.1 MG/ML 10ML SYR IV PRN (08:01)
--- NOTE | 2022-10-24 08:46 | History & Physical Bridge Note ---
Date of Service October 24, 2022 History & Physical Bridge Note I have examined the patient, reviewed the History & Physical and in the interval since the performance of the History & Physical I have noted the following changes of clinical significance: no changes noted
[2022-10-24] MEDS ORDERED: ORTHO JOINT ANESTHETIC ONE (09:04)
[2022-10-24] MEDS ORDERED: diphenhydrAMINE 50 MG/ML VIAL ONE (09:26)
[2022-10-24] MEDS ORDERED: PHARMACY GLYCEMIC MGMT CONSULT PRN (11:12)
[2022-10-24] MEDS ORDERED: bisacodyL 10 MG SUPP PR PRN (11:12)
[2022-10-24] MEDS ORDERED: METOCLOPRAMIDE HCL INJ 5 MG/ML 2 ML VIAL IV PRN (11:12)
[2022-10-24] MEDS ORDERED: ALUMINUM/MAGNESIUM SUSP 30 ML UDC PO PRN (11:12)
[2022-10-24] MEDS ORDERED: TAMSULOSIN HCL 0.4 MG CAP PO PRN (11:12)
[2022-10-24] MEDS ORDERED: HYDROmorphone INJ 0.5 MG/0.5 ML SYR IV PRN (11:12)
[2022-10-24] MEDS ORDERED: MAGNESIUM HYDROXIDE SUSP 30 ML UDC PO PRN (11:12)
[2022-10-24] MEDS ORDERED: oxyCODONE HCL IR 5 MG TAB (IMMEDIATE RELEASE) PO PRN (11:12)
[2022-10-24] MEDS ORDERED: diphenhydrAMINE 50 MG/ML VIAL IV PRN (11:12)
[2022-10-24] MEDS ORDERED: NALOXONE HCL 0.4 MG/1 ML VIAL/CARP IV PRN (11:12)
--- NOTE | 2022-10-24 11:12 | Operative Report ---
Post Operative Report Pre & Post Diagnosis Operation Date: 10/24/22 09:15 Pre-Op Diagnosis: Left Knee Osteoarthritis Post-Op Diagnosis: Left Knee Osteoarthritis I identified the patient and participated in the time-out.: Yes Procedure Operation Date: 10/24/22 09:15 Actual Procedures p Left Total Knee Arthroplasty(Left) - Nain Darling MD Surgeon Nain Darling MD Powder Hand Karen Adam PAJesús Estimated Blood Loss 50 Findings Consistent with Post-Op Diagnosis Specimens none Description of Procedure I was present during the entire case assisting with positioning, prepping, draping, wound retraction, wound closure, dressing and immobilizer placement. No fellow present. Please see Dr. Darling procedure note for specifics of the case. I attest to the content of the Intraoperative Record and any orders documented therein. Any exceptions are noted below.
--- NOTE | 2022-10-24 11:14 | Operative Report ---
Post Operative Report Pre & Post Diagnosis Operation Date: 10/24/22 09:15 Pre-Op Diagnosis: Left Knee Osteoarthritis Post-Op Diagnosis: Left Knee Osteoarthritis I identified the patient and participated in the time-out.: Yes Procedure Operation Date: 10/24/22 09:15 Actual Procedures p Left Total Knee Arthroplasty(Left) - Nain Darling MD Surgeon Nain Darling MD Clinical Psychiatrist GE Adam PA-C. No resident or fellow was available to assist. Estimated Blood Loss 50 Findings Consistent with Post-Op Diagnosis Specimens Bone and soft tissue contents, left knee Anesthesia Type Spinal MAC Complications none Disposition Disposition: Recovery Room Indications 77-year-old male, with left knee osteoarthritis refractory to conservative management. X-rays demonstrate joint space narrowing subchondral sclerosis and marginal osteophyte formation. He has previously undergone a right total knee arthroplasty by myself with a good result. He desires to have the same surgery done on his left knee. I had a long discussion with him about the risks and benefits of surgery, alternatives, and expected outcomes. After reviewing all these he elected to proceed with surgery. All questions were answered. Informed consent was signed. Description of Procedure Patient was identified in the preoperative holding area where the surgical site, left knee, was marked. Spinal anesthetic was placed by anesthesia. Patient was brought back to the operating room, placed on the operating room table, and IV sedation was administered. A bump was placed underneath the ipsilateral hip. All bony prominences were padded. Perioperative antibiotics and tranexamic acid were administered. Exam under anesthesia was performed. This demonstrated patient's arc of motion to be approximately 10 degrees to 105 degrees. He was stable to varus and valgus stress test at 10 and 30 degrees the surgical site was prepped and draped in the normal sterile fashion. Prior to incision a multidisciplinary timeout was called. All in the room were in agreement. We began by exsanguinating the limb with an Esmarch bandage. Tourniquet was inflated to 250 mmHg. A 14 cm long incision was made over the anterior aspect of the knee. I dissected through the subcutaneous tissues to the level of the fascia. Full-thickness flaps were raised above the fascia. A median parapatellar arthrotomy was made. Half the fat pad was excised. A medial release was performed with Bovie electrocautery on the proximal tibia. Synovitis in the knee and suprapatellar pouch was removed. The patella was then everted and held with 2 towel clips. The thickness of the patella was measured at 24 mm. Patellar resection was performed. Caliper showed the patella thickness now to be 15 mm. A size 38 trial was placed and had a great fit. The 3 drill holes were placed then the trial button was placed. The patellar thickness was now 25 mm which I was very happy with. The patellar trial was then removed, and the knee was flexed up. Retractors were placed to protect the MCL and LCL. Osteophytes were removed from the femoral condyles and intercondylar notch. The ACL and PCL were excised. Intramedullary drill guide was drilled into the femur. Distal femoral cutting guide was placed set at 5 degrees of valgus to resect 10 mm off the distal femur. Distal femoral resection was made without difficulty. The tibia was then exposed. The lateral meniscus was sharply excised. The tibial cutting jig was positioned in line with the tibial shaft in the coronal plane and with 3 degrees of posterior slope in the sagittal plane to resect 9 mm off the less involved compartment. The jig was then pinned in position and the tibial cut was made. We then brought the knee into full extension. Lamina spreaders were placed. The medial meniscus was excised. The extension block was then placed for 5 mm thickness poly. This gave us full extension and excellent stability to varus and valgus stress. Next the extension block was removed, the knee was flexed up, collateral ligaments were protected, and the epicondylar axis and Whitesides line were marked out on the distal femoral cut. Femoral sizing guide was placed. External rotation was set at 5 degrees so that the posterior cut would be parallel with the epicondylar axis and perpendicular with Whitesides line. The patient sized to a size 6 femur. 2 pins were then placed through the jig into the distal femur. The jig was removed and the appropriately sized 4-in-1 cutting jig was placed over the pins, then fixated to the bone using threaded, headed pins. We confirmed that we would not notch the femur with our anterior cut. Our 4 cuts were then made. The cutting jig was removed. The flexion block was then placed with the knee held at 90 degrees. There was excellent stability to varus and valgus at 90 degrees with no gapping medially or laterally. Next the box cutting jig was placed on the distal femur. The box cut was made and the femoral trial was impacted into position. Lug holes were drilled in the distal femur. We then reexposed the tibia. The tibia was sized to a 6 for a fixed bearing component. The tibial tray with a 5 mm thickness polyethylene liner was placed on the cut tibial surface and the knee was brought through a full range of motion. There was excellent stability to varus valgus stress throughout a full range of motion, which was approximately 0-125 degrees. Bovie electrocautery was used to vanda the tibia at the site where the tibial tray rested in full extension. We then flexed up the knee, removed the polyethylene liner, and pinned the tibial tray into position to match the cautery vanda. The intramedullary drill followed by the keel punch were used to prepare the tibia. Next the trial components were removed. I then injected the posterior capsule and periosteum with the periarticular injection cocktail. The bone cuts were then irrigated and dried while the cement was mixed on the back table. The femoral component was cemented on first. Excess cement was removed. A lap sponge was placed over the femoral component for protection, then the tibia was subluxated anteriorly. The all polyethylene tibial component was then cemented in place. Again excess cement was removed. The knee was brought into full extension and held there until the cement cured. The patella was cemented and clamped. Dilute Betadine solution was then allowed to soak in the knee while the cement cured. Once the cement was fully cured, the knee was irrigated out, the tourniquet was let down and meticulous hemostasis was ensured. The knee was brought through a full range of motion. I was were very happy with the patella tracking and the stability. We then began to close. Interrupted 0 Vicryl suture was used to repair the patellar retinaculum in [id number] fashion. The quadriceps and patellar tendons were run with #1 Vicryl. The deep dermal layer was closed with interrupted 2-0 Vicryl. Dermabond and Zipline was used for the skin, followed by a Silverlon dressing. A compressive Jon wrap was placed and the knee was placed into a knee immobilizer. Patient's sedation was lifted and was transferred to recovery room in stable condition. Summary of implants: Depuy Attune Posterior Stabilized Cemented Femur, size 6 left Attune All-polyethylene tibial component, posterior stabilized 5 mm thickness, size 6 Attune patella medialized dome, size 38 2 batches of simplex high viscosity bone cement Postoperative course: Patient will be admitted to the floor for pain control and monitoring. Weightbearing as tolerated with a walker with no knee range of motion for 48 hours. Aspirin for DVT prophylaxis. I attest to the content of the Intraoperative Record and any orders documented therein. Any exceptions are noted below.
[2022-10-24] MEDS ORDERED: SODIUM CHLORIDE 0.9% 1000ML 1,000 ML IV SCH (11:15)
[2022-10-24] MEDS ORDERED: ALBUTEROL HFA 8 GM INHALER INH PRN (11:17)
[2022-10-24] MEDS ORDERED: NITROGLYCERIN SL 0.4 MG/TAB TAB SL PRN (11:17)
[2022-10-24] MEDS ORDERED: FEXOFENADINE HCL 180 MG TAB PO PRN (11:17)
--- NOTE | 2022-10-24 12:19 | XRay Report ---
LEFT KNEE 2 VIEWS History: Left total knee arthroplasty. Degenerative arthritis. Postop. FINDINGS: The patient is status post a left total knee arthroplasty. The hardware is intact. No fract ure or dislocation. IMPRESSION: Left total knee arthroplasty. No evidence for hardware complication. ACT 112: Negative or not required by law. Electronically signed by: Don Godoy M.D. 10/24/2022 12:17 PM
[2022-10-24] MEDS ORDERED: BETAMETHASONE DIP AUG (DIPROLENE) 0.05% CR 15 GM TUBE EXT PRN (12:49)
--- NOTE | 2022-10-24 12:51 | Anesthesiology Progress Note ---
Date of Service October 24, 2022 Anesthesia Post Procedure Vital Signs Vital Signs: Temp Pulse Pulse Pulse Resp BP Pulse Ox 10/24/22 12:30 36.4 C L 64 16 135/76 96 10/24/22 12:00 36.4 C L 58 L 16 133/75 97 10/24/22 11:50 67 19 131/72 97 10/24/22 11:40 36.3 C L 65 18 126/69 96 10/24/22 11:30 63 18 128/64 96 10/24/22 11:20 36.3 C L 66 18 127/64 98 10/24/22 11:11 36.3 C L 69 19 121/77 96 10/24/22 07:22 36.8 C 64 20 156/81 H 97 O2 Del Method O2 Flow Rate 10/24/22 12:30 Nasal Cannula 2 10/24/22 12:00 Nasal Cannula 2 10/24/22 11:50 Nasal Cannula 2 10/24/22 11:40 Nasal Cannula 2 10/24/22 11:30 Nasal Cannula 3 10/24/22 11:20 Nasal Cannula 3 10/24/22 11:11 Oxymask 5 10/24/22 07:22 Room Air Transfer of Care Handoff Completed per policy Notes Mental Status: alert / awake / arousable and participated in evaluation Patient Amnestic to Procedure: Yes Nausea / Vomiting: adequately controlled Pain: adequately controlled Airway Patency, RR, SpO2: stable & adequate BP & HR: stable & adequate Hydration State: stable & adequate Neuraxial Anesthesia: was administered and sensory block is resolving Anesthetic Complications: no major complications apparent and Pt Satisfied with anesthetic care
[2022-10-24] MEDS: KETOROLAC TROMETHAMINE 15 MG/ML VIAL IV SCH ×2 (13:16→19:39)
[2022-10-24] MEDS ORDERED: GLUCAGON FOR INJ 1 MG VIAL IM PRN (13:30)
[2022-10-24] MEDS ORDERED: DEXTROSE 50% 50 ML SYRINGE IV PRN (13:30)
[2022-10-24] MEDS ORDERED: CARBOHYDRATES FOR HYPOGLYCEMIA PO PRN (13:30)
[2022-10-24] MEDS ORDERED: LANTUS PER UNIT CHARGE SQ ONE (13:30)
[2022-10-24] MEDS ORDERED: GLUCOSE 10 TAB/TUBE PO PRN (13:30)
[2022-10-24] MEDS ORDERED: GLUCOSE 40% GEL 15 GM TUBE PO PRN (13:30)
--- NOTE | 2022-10-24 14:10 | Pharmacy Report ---
Pharmacy Glycemic Short Note 2 - Date of Service October 24, 2022 - Glycemic Short BSG Results (Last 24 hours): 10/24/22 10/24/22 10/24/22 07:18 11:13 12:20 POC Glucose 174 H 188 H 205 H OUTPATIENT ANTIDIABETIC REGIMEN: * Jardiance 25 mg PO QAM * A1c 6.8% 10/16/22 ASSESSMENT: * 77 year old male s/p L TKA, received dexamethasone 8mg PO and 8mg IV, blood sugars above goal as above. * Will give basal dose to cover steroids and tight CF/CR. * Will add more basal HS and overnight checks if blood sugars continue above goal this evening. PLAN FOR INPATIENT GLYCEMIC CONTROL: * Hold outpatient oral diabetes medications * Basal insulin * Lantus 40 units SQ x 1 dose now * Bolus insulin * NovoLog per scale ACHS or Q6hrs while NPO * Goal Range: Low 110 mg/dL - High 140 mg/dL * Correction Factor: 15 mg/dL/unit * Nutritional / Prandial insulin per carb ratio of 1 unit per 5 grams CHO consumed
[2022-10-24] MEDS: INSULIN ASPART PER UNIT SC SCH ×3 (14:27→20:46)
[2022-10-24] MEDS: ACETAMINOPHEN 500 MG TAB PO SCH ×2 (14:37→22:42)
[2022-10-24] MEDS: Scopolamine CHECK PATCH PLACEMENT SCH (16:28)
[2022-10-24] MEDS ORDERED: TRANEXAMIC ACID / 0.7% NACL 1,000 MG/100 ML BAG IV SCH (17:15)
[2022-10-24] MEDS: ceFAZolin 2000MG 2,000 MG/15 ML SYR IV SCH (19:38)
[2022-10-24] MEDS: DOCUSATE SODIUM 100 MG CAP PO SCH (19:41)
[2022-10-24] MEDS ORDERED: SENNA 8.6 MG TAB PO SCH (21:00)
[2022-10-24] MEDS ORDERED: POLYETHYLENE (MIRALAX) 17 GM PACK PO SCH (21:00)
[2022-10-24] MEDS ORDERED: ROSUVASTATIN CALCIUM 20 MG TAB PO SCH (21:00)
[2022-10-25] MEDS: ceFAZolin 2000MG 2,000 MG/15 ML SYR IV SCH (03:09)
[2022-10-25] MEDS: KETOROLAC TROMETHAMINE 15 MG/ML VIAL IV SCH ×2 (03:10→07:46)
[2022-10-25] MEDS: Scopolamine CHECK PATCH PLACEMENT SCH ×2 (03:11→09:20)
[2022-10-25] MEDS: ACETAMINOPHEN 500 MG TAB PO SCH (06:33)
[2022-10-25 06:52] LABS: Hematocrit (blood only) 37.5 % (42.0-52.0); Hemoglobin 12.7 g/dl (14.0-18.0); Mean Corpuscular Hemoglobin 29.9 pg (25.0-34.0); Mean Corpuscular Hgb Conc 33.9 g/dL (32.0-36.0); Mean Corpuscular Volume 88.2 fL (80.0-100.0); Mean Platelet Volume 9.9 fL (9.4-12.4); Platelet Count 188 K/uL (130-400); RDW Coefficient of Variation 12.4 % (11.5-14.5); RDW Standard Deviation 39.8 fL (36.4-46.3); Red Blood Count 4.25 M/uL (4.70-6.10); White Blood Count 14.02 K/ul (4.8-10.8)
[2022-10-25 07:09] LABS: BUN Creatinine Ratio 32.5 (10-20); Calcium 8.5 mg/dl (8.5-10.1); Creatinine Clr Calc Pharmacy 70.5 ml/min; Est GFR (African American) 71.5 ml/min; Est GFR (Non-African American) 61.7 ml/min; Potassium 4.5 mmol/L (3.5-5.1)
[2022-10-25] MEDS ORDERED: LOSARTAN POTASSIUM 50 MG TAB PO SCH (09:00)
[2022-10-25] MEDS ORDERED: MULTIVITAMIN TAB PO SCH (09:00)
[2022-10-25] MEDS ORDERED: SERTRALINE HCL 100 MG TABLET PO SCH (09:00)
[2022-10-25] MEDS ORDERED: ASPIRIN 81 MG ECTAB PO SCH (09:00)
[2022-10-25] MEDS ORDERED: EMPAGLIFLOZIN 25 MG TAB PO SCH (09:00)
[2022-10-25] MEDS ORDERED: METOPROLOL SUCC 50MG EXT REL TAB PO SCH (09:00)
[2022-10-25] MEDS ORDERED: LANTUS PER UNIT CHARGE SQ ONE (09:00)
[2022-10-25] MEDS ORDERED: CHOLECALCIFEROL 1,000 UNITS 25 MCG TAB PO SCH (09:00)
[2022-10-25] MEDS ORDERED: NON-FORMULARY MEDICATION (Aspirin 81 mg Capsule) PO SCH (09:00)
[2022-10-25] MEDS ORDERED: CEROVITE ADV FORMULA TAB PO SCH (09:00)
[2022-10-25] MEDS: INSULIN ASPART PER UNIT SC SCH ×2 (09:10→12:35)
[2022-10-25] MEDS: DOCUSATE SODIUM 100 MG CAP PO SCH (09:21)
--- NOTE | 2022-10-25 09:21 | Orthopedic Progress Note ---
Date of Service October 25, 2022 Assessment & Plan (1) S/P total knee arthroplasty: Plan: PT/OT Weightbearing as tolerated with walker assistance and immobilizer use for the first 48 hours postoperatively. Keep Silverlon dressing in place until follow-up DVT prophylaxis with aspirin and ALETA stockings Pain controlled p.o. medication Ice with easy wrap Plan is to discharge home later today with in-home physical therapy for the first 2 weeks postoperatively. Follow-up at [facility] orthopedics as previously scheduled With questions contact our clinic at [phone] Admission and Anticipated Discharge Date Admission Date: October 24, 2022 Subjective This 77-year-old male is day 1 status post left total knee arthroplasty. He states he is doing very well this morning. He states that last evening he did have some pain in his knee But was given some pain medication and it resolved. He states he has only been out of bed to use the restroom a few times. He states that he is anxious to be discharged home later today. Currently he denies any chest pain, shortness of breath, fever, chills, sweats, nausea, vomiting, difficulty voiding or numbness or tingling in his left lower extremity. Review of Systems Review of Systems: All systems reviewed & are unremarkable except as noted in Subjective Physical Exam Physical Exam: Left lower extremity: Outer dressing was removed. Silverlon is clean dry intact and left in place. Patient does have some mild edema and ecchymosis around the knee. He is able to perform an active straight leg raise test. He is able to actively dorsi and plantarflex foot without issue. Quad strength is 3+ out of 5. He is able to actively extend his knee to about 4 degrees short of terminal extension and flex to about 80 degrees before meeting some resistance. Patient is neurovascular intact in the left lower extremity. Results & Data ([facility]) Vital Signs (Past 12 Hours) Vital Signs Temp Pulse Pulse Resp BP BP Pulse Ox 10/25/22 07:51 36.8 C 59 L 14 110/64 95 10/25/22 06:32 37.2 C 59 L 15 112/66 96 10/25/22 04:31 36.8 C 59 L 15 115/68 95 10/24/22 22:42 36.9 C 61 15 109/61 93 O2 Del Method 10/25/22 07:51 Room Air 10/25/22 06:32 Room Air 10/25/22 04:31 Room Air 10/24/22 22:42 Room Air Diagnostic Findings Laboratory Results WBC 14.02 K/ul (4.8-10.8) H 10/25/22 06:08 RBC 4.25 M/uL (4.70-6.10) L 10/25/22 06:08 Hgb 12.7 g/dl (14.0-18.0) L 10/25/22 06:08 Hct 37.5 % (42.0-52.0) L 10/25/22 06:08 MCV 88.2 fL (80.0-100.0) 10/25/22 06:08 MCH 29.9 pg (25.0-34.0) 10/25/22 06:08 MCHC 33.9 g/dL (32.0-36.0) 10/25/22 06:08 RDW Std Deviation 39.8 fL (36.4-46.3) 10/25/22 06:08 RDW Coeff of Aria 12.4 % (11.5-14.5) 10/25/22 06:08 Plt Count 188 K/uL (130-400) 10/25/22 06:08 MPV 9.9 fL (9.4-12.4) 10/25/22 06:08 Sodium 134 mmol/L (136-145) L 10/25/22 06:08 Potassium 4.5 mmol/L (3.5-5.1) 10/25/22 06:08 Chloride 104 mmol/L (98-107) 10/25/22 06:08 Carbon Dioxide 25 mmol/L (21-32) 10/25/22 06:08 Anion Gap 5 (3-11) 10/25/22 06:08 BUN 37 mg/dl (6-23) H 10/25/22 06:08 Creatinine 1.14 mg/dl (0.6-1.4) 10/25/22 06:08 Est Cr Clr Drug Dosing 70.5 ml/min 10/25/22 06:08 Est GFR ( Amer) 71.5 ml/min 10/25/22 06:08 Est GFR (Non-Af Amer) 61.7 ml/min 10/25/22 06:08 BUN/Creatinine Ratio 32.5 (10-20) H 10/25/22 06:08 Glucose 134 mg/dl (70-99(Fasting)) H 10/25/22 06:08 POC Glucose 199 mg/dl (70-99) H 10/25/22 09:06 Calcium 8.5 mg/dl (8.5-10.1) 10/25/22 06:08 SARS-CoV-2, RNA, NAAT NEGATIVE (NEGATIVE) 10/24/22 06:53 Blood Type A Negative 10/24/22 07:09 Antibody Screen NEGATIVE 10/24/22 07:09 Impressions Knee X-Ray 10/24/22 11:16 LEFT KNEE 2 VIEWS History: Left total knee arthroplasty. Degenerative arthritis. Postop. FINDINGS: The patient is status post a left total knee arthroplasty. The hardware is intact. No fracture or dislocation. IMPRESSION: Left total knee arthroplasty. No evidence for hardware complication. ACT 112: Negative or not required by law. Electronically signed by: Don Godoy M.D. 10/24/2022 12:17 PM
--- NOTE | 2022-10-25 09:29 | Discharge Summary ---
Date of Service October 25, 2022 Admission HPI Per Admitting Provider History of Present Illness (including history relevant to procedure): This 77-year-old male presents to the clinic today for his preoperative history and physical. Patient has a longstanding history of bilateral knee pain. He recently had his right knee replaced by Dr. Darling on August 08, 2022 and has had great results and is ready to proceed with surgical intervention for his left knee degenerative joint issues. Review Of Systems: A 12 point review of systems is performed and is unremarkable except for those things stated in the HPI and past medical history. Past Medical History: Problems: Total knee replacement status Surgical followup Preop examination Osteoarthritis of right knee Knee pain Depression Hypertension Diabetes Hemochromatosis Heart murmur History of myocardial infarction BPH History of renal calculi Procedure History Procedure Procedure Date Comments Repair of tendon of hand 2016 - left Cataract surgery 2015 Tonsillectomy Right total knee arthroplasty Cardiac catheterization Angioplasty Cholecystectomy Hernia repair 1949 2021 Allergies and Sensitivities: Timentin(Unsure of self) Current Home Meds: (Last Updated 10/15 14:35) aspirin (aspirin 81 mg oral capsule) betamethasone topical (betamethasone dipropionate 0.05% topical ointment) 1 appl topical Daily diclofenac topical (Voltaren 1% topical gel) 1 appl topical qid PRN: Pain 4g to affected area 4 times a day dutasteride (dutasteride 0.5 mg oral capsule) 0.5 mg PO Daily empagliflozin (Jardiance 25 mg oral tablet) 25 mg PO Daily liraglutide (Victoza 18 mg/3 mL subcutaneous solution) subQ Daily losartan (losartan 100 mg oral tablet) 100 mg PO Daily metoprolol (Metoprolol Succinate ER 100 mg oral tablet, extended release) TAKE 1 TABLET BY MOUTH IN THE MORNING rosuvastatin (rosuvastatin 20 mg oral tablet) 20 mg PO Daily sertraline (sertraline 50 mg oral tablet) 50 mg PO Daily Admission Exam Per Admitting Provider Physical Exam: (relevant to the procedure, including heart and lung evaluation) General: Alert and oriented x3 with proper grooming and hygiene Eyes: Pupils are equal and reactive to light with accommodation. Extraocular movements are intact Throat: Posterior oropharynx is clear with absence of edema, erythema or exudate. Dentition is appropriate Cardiac: Regular rate and rhythm with a grade 3/6 holosystolic murmur heard in all areas Lungs: Clear to auscultation throughout with no wheezing, rales or rhonchi Abdomen: Obese, nondistended, nontender with NABS Extremities: Left knee; range of motion is from 8 degrees of extension to 105 degrees of flexion. There is audible crepitation with passive range of motion. Patient experiences medial and lateral joint line tenderness when the knee is palpated in the flexed position. His patella is not mobile due to arthritic change within the patellofemoral joint. There is no varus or valgus laxity with stressing. AP drawer sign and Anuj test are negative. Patient is neurovascularly intact in the left lower extremity. Neuro: Cranial nerves II through XII are intact no motor or sensory deficit Skin: Normal in appearance with no open skin areas or discharge Principal Diagnosis Left knee osteoarthritis Discharge Exam Left lower extremity: Outer dressing was removed. Silverlon is clean dry intact and left in place. Patient does have some mild edema and ecchymosis around the knee. He is able to perform an active straight leg raise test. He is able to actively dorsi and plantarflex foot without issue. Quad strength is 3+ out of 5. He is able to actively extend his knee to about 4 degrees short of terminal extension and flex to about 80 degrees before meeting some resistance. Patient is neurovascular intact in the left lower extremity. Discharge Data Allergies Allergy/AdvReac Type Severity Reaction Status Date / Time cefoxitin Allergy Unknown HIVES Verified 10/24/22 07:14 clavulanic acid Allergy Unknown Hives Verified 10/24/22 07:14 [From Timentin] melon Allergy Unknown Hives Verified 10/24/22 07:14 ticarcillin [From Timentin] Allergy Unknown Hives Verified 10/24/22 07:14 atorvastatin AdvReac Unknown Joint Pain Verified 10/24/22 07:14 pravastatin AdvReac Unknown Joint Pain Verified 10/24/22 07:14 Procedures Performed Operation Date: 10/24/22 09:15 Actual Procedures p Left Total Knee Arthroplasty(Left) - Nain Darling MD Ordered Studies 10/24/22 05:00 US - OR guided needle placemen Routine Hospital Course (1) S/P total knee arthroplasty: Patient had an uneventful overnight stay following total knee arthroplasty for his left knee. He is very pleased with the results and is anxious to be discharged home later today. PT/OT Weightbearing as tolerated with walker assistance and immobilizer use for the first 48 hours postoperatively. Keep Silverlon dressing in place until follow-up DVT prophylaxis with aspirin and ALETA stockings Pain controlled p.o. medication Ice with easy wrap Plan is to discharge home later today with in-home physical therapy for the first 2 weeks postoperatively. Follow-up at [facility] orthopedics as previously scheduled With questions contact our clinic at [phone] Total Time Total Time Spent Total Time Spent (In Minutes): 15 mins Discharge Plan Discharge Items Patient Disposition: Home - Home Health Services Reason For Visit: Left Knee Osteoarthritis Discharge Diagnosis: Left Knee Osteoarthritis Activity: As commented below Lifting: None Bathing: Keep incision dry Bathing Comment: May shower tomorrwo Sexual Activity: Wait until after follow-up appointment Exercise/Sports: Wait until after follow-up appointment Driving/Machine Use: No driving until cleared by animal care specialist Weightbearing: Left weightbearing Weightbearing Comment: as tolerated with walker and immobilizer use for first 48 hrs Non-emergency contact: Surgeon Call non-emergency contact if: you have any medication questions, your pain is not controlled, your temperature is above 101.5, your wound has increased drainage and your wound pain has increased Follow-up/Referrals: Tony Engel MD [Primary Care Provider] - Yusuf Adam PA-C [Physician Manager [employer]] - 11/06/22 10:00 am Diet: Heart Healthy Addtl Attending Provider Instructions: Post-operative Instructions Dear Patient and Family/Friends, Before you are discharged from the hospital, it is important to know what to expect when you get home after surgery. To that end, we have created this sheet of discharge instructions which covers many commonly asked questions. Make sure you go through this sheet in its entirety with your nurse before you are disc harged. Please note that we will go over the specifics of your surgery and recovery when you return for your first post-operative visit. Sincerely, Dr. Darling Medications 1. Oxycodone 5 mg: take 1-2 tabs every 4-6 hours as needed for pain control. This will be sent to your pharmacy. 2. Diclofenac Sodium 75 mg: take 1 tab twice daily for 30 days post operatively for relief pain and inflammation. This will be sent to your pharmacy with 1 refill. 3. Aspirin 81 mg: increase your daily aspirin to twice daily for 30 days post operatively for blood clot prevention. 4. Extra Strength Tylenol 500 mg: take 2 tabs every 6-8 hours as needed for additional pain relief. Please purchase. Pain Expect to be in a fair amount of pain after surgery. Remember, our goal is not to eliminate your pain, but to make it tolerable. It is a good idea to stay ahead of your pain by taking the medications you were prescribed once you get home. Typically, the pain starts improving 3-7 days after surgery. You should start weaning off the narcotic pain medication (oxycodone, hydrocodone, hydromorphone, morphine) as soon as your pain improves. Please call our office if your pain is not adequately controlled. Ice Ice your operative site at least 5 times a day for 15-30 minutes at a time. Make sure you have a thin cloth between the ice or cooling unit and your skin to prevent hernandez bite. This is especially important if you received a nerve block. Continue icing your operative site for the first 5-7 days after surgery, then as needed. Diet/Nausea/Vomiting Start by drinking clear liquids and eating crackers. If you can tolerate this, then you may resume your normal diet. If you feel nauseated or vomit, take Zofran/ondansetron (if prescribed). Please call our office if you have intractable nausea or vomiting, or, if after hours, you may go to the Emergency Room for help. Constipation Constipation is a common side effect of narcotic pain medication. If you have not had a bowel movement within 2 days after surgery, we recommend purchasing an over the counter laxative such as Milk of Magnesia, Dulcolax, or Miralax from a local pharmacy, and taking it as instructed. Call our clinic if any questions. Slings and Braces If you were placed in a sling or brace, it must be worn at all times, including sleep. You may remove your sling or brace for physical therapy, home exercises, and showering. The length of time you will be in your brace and range of motion restrictions depends on what surgery you had; these details will be reviewed at your first post-operative appointment. Nerve block The anesthesia team sometimes places a nerve block to help with post-operative pain control. This results in significant numbness and inability to move the extremity. The nerve block usually wears off in 8-12 hours, but sometimes can last up to 24 hours. Please call our office if you are still unable to move your extremity after 24 hours, unless you received a pain pump to take home. Nerve blocks typically wear off quickly, so start taking pain medication as soon as you start feeling soreness near your surgical site. Weight bearing and Range of Motion. Do not bear any weight through your operative extremity immediately after surgery. If you had upper extremity surgery, do not lift anything with that arm. If you are in a knee brace, keep it locked in place until your follow-up. We will discuss your weight bearing, range of motion, and lifting restrictions in detail at your first post-operative appointment. Continuous Passive Motion (CPM) Machine If you were prescribed a CPM machine, it will start after your first post- operative appointment, at which time we will give you instructions on the range of motion settings and duration of treatment Physical therapy You will be given a prescription for physical therapy or occupational therapy at your first post-operative appointment. Typically, patients start therapy within 1 week of surgery Wound care and showering We will inspect your wound at your first post-operative visit, and may do a dressing change at that time. Most patients will be in a water-proof dressing that is removed 14 days after surgery. It is normal to see some dried blood on the dressing. Do not remove your dressing, paper strips or sutures yourself unless you are given permission. Showering is allowed the day after surgery. Do not scrub or remove any dressings. The wound should not be submerged underwater (i.e. in a bathtub or pool) until 4 weeks after surgery ALETA stockings If you were given white stockings, these are to be worn at all times except to shower (on both legs) for the first 2 weeks after surgery. Driving You may not drive while taking narcotic pain medication or while in a cast, splint, sling or brace. You, the patient, need to make the final determination about when you are safe to drive, however, the earliest you may consider driving after surgery is below: Hand/Wrist/Elbow Surgery: 3 days Shoulder Surgery: 2 weeks Hip,/Knee/Ankle Surgery: 4 weeks Fracture repair: 6 weeks Return to Work Your return to work depends on what surgery was done and what type of work you do. Please bring any paperwork your employer needs completed to your first post-operative visit. Also, bring a description of your job duties, as this helps us to understand what risks you may face at work. Travel Avoid long distance travel (greater than 1 hour) in airplanes and cars for the first 6 weeks after surgery. If you must travel, you need to have a Doppler ultrasound done before you travel to rule out a blood clot in your legs. Follow-up You should have a follow-up appointment already scheduled 1-2 days after surgery. If not, please contact our office to make this appointment before you leave the hospital. When to call the office It is normal to have swelling and bruising in the limb that was operated on. This will improve with time. It is also normal to have fevers for the first 2 days after surgery. Reasons you should call your doctor include: Uncontrolled pain; Nausea, vomiting, or constipation that does not improve with medication; Fevers over 101.5, chills, sweats; Drainage or bleeding from the wound; Foul odor; Spreading areas of redness; Any other concerns Pending Studies at Discharge: No Stand-Alone Forms: [facility] Medications and DC Order Prescriptions: New acetaminophen [Tylenol Extra Strength] 500 mg Tablet 1,000 mg PO Q8 30 Days Qty: 180 0RF oxycodone 5 mg Tablet 5 - 10 mg PO Q4H PRN (Reason: Postoperative pain control) Qty: 28 0RF diclofenac sodium 75 mg tablet,delayed release (DR/EC) 75 mg PO BID 30 Days Qty: 60 1RF Continued albuterol sulfate 90 mcg/actuation HFA aerosol inhaler 2 puff inhalation Q4H PRN (Reason: shortness of breath or wheezing) Qty: 6.7 5RF Patient Comments: NO USE OF A YR OR MORE (DME) pen needle, diabetic [BD Ultra-Fine Mini Pen Needle] 31 gauge x 3/16" needle See Dose Instructions .ROUTE .MEDSUPPLY Qty: 100 3RF Dose Instruction: As directed Rx Instructions: use daily with insulin cholecalciferol (vitamin D3) 25 mcg (1,000 unit) capsule 25 mcg PO QAM metoprolol succinate 100 mg tablet extended release 24 hr 100 mg PO QAM Qty: 90 3RF nitroglycerin [Nitrostat] 0.4 mg tablet, sublingual 0.4 mg sublingual Q5M PRN (Reason: chest pain) Qty: 30 5RF Patient Comments: NEVER USED rosuvastatin [Crestor] 20 mg tablet 20 mg PO HS Qty: 90 3RF sertraline 100 mg tablet 100 mg PO QAM Qty: 90 3RF Victoza 3-Josr 0.6 mg/0.1 mL (18 mg/3 mL) pen injector 1.8 mg SUBCUT QAM Qty: 27 3RF losartan 100 mg tablet 100 mg PO QAM Qty: 90 3RF fexofenadine 180 mg Tablet 180 mg PO UD PRN (Reason: Allergy Symptoms) polyethylene glycol 3350 [Miralax] 17 gram Powder In Packet 17 g PO HS diclofenac sodium 1 % Gel 2 g TOPICAL QID PRN (Reason: Pain) Rx Instructions: apply to single elbow, wrist or hand; for hand includes palm/fingers/back of hand Men's Multivitamin 400-20-300 mcg Tablet 1 tab PO QAM olopatadine 0.2 % drops 1 drp OPB UD PRN (Reason: Allergy Symptoms) betamethasone dipropionate 0.05 % ointment 1 applic topical DAILY PRN (Reason: Rash) Rx Instructions: Apply to areas of the hands once daily at bedtime for up to 2 weeks as needed for flaring. dutasteride 0.5 mg capsule 0.5 mg PO QAM Jardiance 25 mg tablet 25 mg PO QAM Changed aspirin 81 mg Capsule 81 mg PO BID 30 Days Qty: 60 0RF Admission Data Admit Date/Time: 10/24/22 11:12 Attending Provider: Nain Darling Admit Provider: Nain Darling Primary Care Provider: Tony Engel Other Providers: [facility],Home Health
[2022-10-25] MEDS ORDERED: CeleBREX 200 MG CAP PO SCH (21:00)
== END 2022-10-25 13:01 | disposition home health service (06) ==
LOC: ASU 06:48 → 3E 06:48

== ENCOUNTER 2023-02-09 15:56 | Inpatient (IN) ==
[2023-02-09 16:25] LABS: Basophils # (auto) 0.05 K/uL (0-0.2); Basophils % (auto) 0.4 %; Eosinophils # (auto) 0.21 K/uL (0-0.50); Eosinophils % (auto) 1.7 %; Hematocrit (blood only) 49.4 % (42.0-52.0); Hemoglobin 16.8 g/dl (14.0-18.0); Immature Granulocytes # (auto) 0.04 K/uL (0.01-0.20); Immature Granulocytes % (auto) 0.3 %; Lymphocytes # (auto) 1.06 K/uL (1.2-3.4); Lymphocytes % (auto) 8.4 %; Mean Corpuscular Hemoglobin 29.5 pg (25.0-34.0); Mean Corpuscular Volume 86.7 fL (80.0-100.0); Mean Platelet Volume 9.4 fL (9.4-12.4); Monocytes # (auto) 0.84 K/uL (0.11-0.59); Monocytes % (auto) 6.7 %; Neutrophils # (auto) 10.35 K/uL (1.40-6.50); Neutrophils % (auto) 82.5 %; Platelet Count 248 K/uL (130-400); RDW Coefficient of Variation 13.1 % (11.5-14.5); RDW Standard Deviation 40.9 fL (36.4-46.3); White Blood Count 12.55 K/ul (4.8-10.8)
[2023-02-09 16:30] LABS: Appearance Urine Clear (Clear); Bacteria Urine Automated Negative (Negative); Bilirubin Urine Negative (Negative); Blood Urine 1+ (Negative); Cast Urine Automated 0 /lpf (0-5); Color Urine Yellow; Epithelial Cell Urine Auto 0-5 /lpf (0-5); Glucose Urine UA 3+ (Negative); Ketones Urine Negative (Negative); Leukocyte Esterase Urine Negative (Negative); Nitrite Urine Negative (Negative); Protein Urine Negative (Negative); RBC Urine Automated 0-4 /hpf (0-4); Specific Gravity Urine 1.022 (1.000-1.030); Urobilinogen Urine Negative (Negative); WBC Urine Automated 0 /hpf (0-5); pH Urine 5.5 (4.5-7.5)
[2023-02-09] MEDS ORDERED: MoRPHine SULFATE 4 MG/ML 1 ML CARP\\VIAL IV STA (16:36)
--- NOTE | 2023-02-09 16:40 | Emergency Department Note ---
Impression & Plan AUBREY (acute kidney injury), Kidney stone on left side ED Provider Note Provider: Zay Cablelo MD DATE OF SERVICE: 02/09/2023 CHIEF COMPLAINT: Left flank pain HISTORY OF PRESENT ILLNESS: Patient is a 77-year-old gentleman history of kidney stones, intracranial hemorrhage, paroxysmal atrial fibrillation, CAD, diabetes, and BPH presenting here today reporting onset this afternoon around 2 PM with significant pain in the left flank. Had pain about 5 days ago that resolved in a day or 2. Outpatient KUB as he thought this might be a kidney stone in the same area of the left flank yesterday completed. States he might of had a little bit of dust passed in his urine but denies a clear stone. CT was a trace amount of blood but denies any gross blood to his site. Denies significant naus ea now but reports nausea earlier in the week. No fevers. No trauma. Denies significant testicular pain or left inguinal pain. Some pain again in the left flank and back region. Follows with urology locally. PAST MEDICAL HISTORY: As noted above MEDICATIONS: Reviewed outpatient meds SOCIAL HISTORY: PHYSICAL EXAM: GENERAL: alert and oriented in no acute distress on stretcher Head: normocephalic and atraumatic EYES: No injection, discharge or icterus. NECK: Trachea midline. ENT: Mucous membranes pink and moist. LUNGS: Airway patent. No retractions. Breath sounds clear with good air entry bilaterally. HEART: Regular rate and rhythm. No chest wall tenderness ABDOMEN: Soft and non-tender, without guarding or rebound. SKIN: Acyanotic, warm, dry, without rashes EXTREMITIES: Without swelling, tenderness or deformity NEUROLOGICAL: No focal deficits. No aphasia. No facial droop or slurred speech. Ambulatory. Patient's laboratory studies and imaging reviewed. Differential includes Renal colic, UTI, appendicitis, diverticulitis, mesenteric ischemia, aortic pathology, infections, inflammatory bowel disease, PUD, biliary pathology, as well as other pathologies. IMPRESSION/MEDICAL DECISION MAKING: Patient history of kidney stones now with left flank discomfort. Urinalysis without evidence of infection but some trace blood which she reports is chronic. No fevers. No trauma. No significant abdominal tenderness. Question kidney stone as history of large kidney stones. Basic blood work obtained. Slight leukocytosis of 12 nonspecific. Given the intermittent nature and question if this is related to kidney stone. Creatinine returns with significantly elevated elevation to 2 today from baseline around 1. Contacted CT and the patient was reported to already have received his CT with contrast at this point when I am aware of his elevated creatinine.. Given some fluid hydration. Given morphine for pain. Does not seem consistent with biliary pathology, perforation, appendicitis, or obstruction. No signs of hepatitis or pancreatitis based on labs. CT scan shows evidence of left-sided kidney stone and hydronephrosis. Discussed with the patient. Given additional morphine as he has some return of symptoms. Discussed given his age with comorbidities and the new significant AUBREY further observation here as well as pain control. He was in agreement. Hospitalist contacted. DIAGNOSIS: AUBREY, left-sided kidney stone DISPOSITION: Hospitalist will evaluate Patient was agreeable with this plan. Past Med/Surg History Medical History Asthma Well controlled per pt > no inhaler use for several yrs per pt Atopic dermatitis Noted to hands Atrial fibrillation x1 episode > no further problems > Post TX on 11/14/2020; w/ RVR No AC needed per cardio records CAD (coronary artery disease) S/p mid to distal LCx DARLENE Carotid artery plaque <50% stenosis in internal carotid arteries bilaterally per 01/2021 carotid dup zuleima > no further interventions or problems COVID-19 virus detected HX COVID 19 ANTIBODIES DETECTED BY BLOOD TEST 01/2020 >no reoccurrences Depression Diabetes mellitus NIDDM Fatty liver HX MENTIONED IN PAST, NO PROBLEMS WITH Incidentally noted on imaging Hearing deficit Heart murmur Per 01/2021 ECHO- mild MR. Hemochromatosis PHLEBOTOMY TREATMENTS EVERY 3 MONTHS- FERRITIN LEVELS MONITORED BY H EMATOLOGY;-DR GUPTA- LAST PHLEBOTOMY 6 MONTHS AGO Hyperlipidemia Hypertension Irritable bowel syndrome HX Kidney stone HX AND 1 LARGE ONE PRESENT (ASYMPTOMATIC)- HX BLADDER STONES - CONTINUES CARE WITH DR MCDANIEL Seasonal allergies STEMI (ST elevation myocardial infarction) October 2020 > stent Syncope and collapse 07/2021-FALL VS SYNCOPE- HAD BRAIN BLEED-SUBDURAL HEMATOMA-ADMITTED [facility] [place] AND DISCHARGED WITHOUT SURGERY AND FROM NEUROSURGERY 07/24/21 OPTHAMOLOGY VISIT WITHIN LAST MONTH AND HAS BEEN CLEARED FOR DRIVING- NO CURRENT PROBLEMS ; F/U IN 6 MONTHS Surgical History H/O cataract extraction BOTH EYES History of biliary stent insertion S/p removal History of colonoscopy History of ERCP WITH STENT 06/2021 [facility] - MOST RECENT SEP 28 2021 ([facility]) TO EXHANGE SENT MAC 3, ETT 8. History of heart artery stent Inf STEMI on 11/14/2020 :subtotal occ. Large distal Cx s/p PCI of m/dCx w/single DARLENE History of tonsillectomy and adenoidectomy History of umbilical hernia repair History of vasectomy Hx laparoscopic cholecystectomy (10/18/21) Laparoscopic Cholecystectomy; enterolysis- Abimael Rivera, DO 10/18/2021 Grade 1 view, glidescope 4, ETT 8. Hx of cystoscopy CYSTOSCOPY/LASER LITHOTRIPSY/STENT= 01/23/17= LMA#5 AT [facility] Hx of hand surgery LEFT HAND TENDON SURGERY Hx of transurethral resection of prostate AND BLADDER STONES REMOVED on 10/26/18 with LMA#5 S/P total knee arthroplasty Right TKA L4-L5 1 attempt + PNB. Family History Mother Multiple myeloma Stroke Father Laryngeal cancer Grandfather (Maternal) Stroke Uncle Stroke Other No family history of adverse response to anesthesia Denies family history of Ovarian cancer Prostate cancer Coronary heart disease Myocardial infarction Breast cancer Colorectal cancer Social History Smoking Status: Never smoker Second Hand Exposure: No; Do You Dip or Chew Tobacco: No; Hx Alcohol Use: No Hx Substance Use: No Preferred Language: Romanian Communication Ability: Effective Visual Impairment: No Limitations Hearing Ability: Use of Hearing Aid Rejogger Required: No Beliefs That Will Affect Care: None marital status: Current Living Situation: Spouse current occupational status: retired 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 How many Children do You have: 2 Feels Safe at Home: Yes Childhood Exposure to Second-Hand Smoke: Yes Diet: regular Diet Comment: low sugar caffeine: Yes Dental Care, Regularly: Yes Physical Activity Frequency: 1-2 Times per Week Seatbelt Use: always Sunscreen Use: No Assistive Devices: Walker Allergies Allergies Allergy/AdvReac Type Severity Reaction Status Date / Time cefoxitin Allergy Unknown HIVES Verified 10/24/22 07:14 clavulanic acid Allergy Unknown Hives Verified 10/24/22 07:14 [From Timentin] melon Allergy Unknown Hives Verified 10/24/22 07:14 ticarcillin [From Timentin] Allergy Unknown Hives Verified 10/24/22 07:14 atorvastatin AdvReac Unknown Joint Pain Verified 10/24/22 07:14 pravastatin AdvReac Unknown Joint Pain Verified 10/24/22 07:14 Home Meds Home Medications Medication Instructions Recorded Confirmed fejjujnv-mvmqqqfo-bjpab acid 400 1 tab PO QAM 06/22/21 02/09/23 mcg-vit K 20 mcg-lycop 300 mcg tablet (Men's Multivitamin) olopatadine 0.2 % eye drops 1 drp OPB UD PRN Allergy Symptoms 06/22/21 02/09/23 fexofenadine 180 mg tablet 180 mg PO UD PRN Allergy Symptoms 07/04/21 02/09/23 polyethylene glycol 3350 17 gram 17 g PO HS 10/09/21 02/09/23 oral powder packet (Miralax) cholecalciferol (vitamin D3) 25 25 mcg PO QAM 12/18/21 02/09/23 mcg (1,000 unit) capsule betamethasone dipropionate 0.05 % 1 applic topical DAILY PRN Rash 07/22/22 02/09/23 topical ointment dutasteride 0.5 mg capsule 0.5 mg PO QAM 07/22/22 02/09/23 diclofenac sodium 1 % topical gel 2 g topical QID PRN Pain 10/18/22 02/09/23 clindamycin HCl 150 mg capsule 0 mg PO QID 02/09/23 02/09/23 Previous Rx's Medication Instructions Recorded albuterol sulfate 90 mcg/actuation 2 puff inhalation Q4H PRN 10/23/20 aerosol inhaler shortness of breath or wheezing #6.7 grams metoprolol succinate 100 mg 100 mg PO QAM #90 tabs 02/08/22 tablet,extended release 24 hr nitroglycerin 0.4 mg sublingual 0.4 mg sublingual Q5M PRN chest 03/20/22 tablet (Nitrostat) pain #30 tabs rosuvastatin 20 mg tablet (Crestor) 20 mg PO HS #90 tabs 03/20/22 sertraline 100 mg tablet 100 mg PO QAM #90 tabs 04/22/22 liraglutide 0.6 mg/0.1 mL (18 mg/3 1.8 mg (0.3 mL) subcut QAM #27 mL 09/19/22 mL) subcutaneous pen injector (Victoza 3-Josr) losartan 100 mg tablet 100 mg PO QAM #90 tabs 10/04/22 aspirin 81 mg capsule 81 mg PO BID DVT prophylaxis 30 10/25/22 days #60 caps empagliflozin 25 mg tablet 25 mg PO QAM #90 tabs 12/18/22 (Jardiance) pen needle, diabetic 31 gauge x #100 ea 12/31/2211/14" (BD Ultra-Fine Mini Pen Needle) Results & Data (ED) Vital Signs Vital Signs - 24 hr 02/09/23 16:00 02/09/23 17:14 02/09/23 19:00 Temperature 36.8 C Temperature Source Temporal Artery Scan Pulse Rate 82 86 Pulse Rate [Apical] 79 Pulse Rhythm [Apical] Respiratory Rate 19 24 Respiratory Effort / Characteristics Non-Labored Spontaneous Non-Labored Spontaneous Respiratory Depth Normal Respiratory Pattern Regular Blood Pressure 181/94 H Blood Pressure [Right Arm] 163/90 H Blood Pressure Mean 123 Blood Pressure Mean [Right Arm] 114 Pulse Oximetry 94 93 Oxygen Delivery Method Room Air Room Air Sepsis Recent Fever Within 48 Hours No Sepsis New/Unexplained Change in Mental Status N/A Sepsis Action Taken by Nursing No Action Required 02/09/23 18:00 Temperature Temperature Source Pulse Rate Pulse Rate [Apical] 86 Pulse Rhythm [Apical] Regular Respiratory Rate 24 Respiratory Effort / Characteristics Non-Labored Spontaneous Respiratory Depth Normal Respiratory Pattern Regular Blood Pressure Blood Pressure [Right Arm] 158/73 H Blood Pressure Mean Blood Pressure Mean [Right Arm] 101 Pulse Oximetry 93 Oxygen Delivery Method Room Air Sepsis Recent Fever Within 48 Hours Sepsis New/Unexplained Change in Mental Status Sepsis Action Taken by Nursing Laboratory Data 02/09/23 16:08 02/09/23 16:08 Lab Results 02/09/23 02/09/23 02/09/23 Range/Units 16:08 16:08 16:08 WBC 12.55 H (4.8-10.8) K/ul RBC 5.70 (4.70-6.10) M/uL Hgb 16.8 (14.0-18.0) g/dl Hct 49.4 (42.0-52.0) % MCV 86.7 (80.0-100.0) fL MCH 29.5 (25.0-34.0) pg MCHC 34.0 (32.0-36.0) g/dL RDW Std Deviation 40.9 (36.4-46.3) fL RDW Coeff of Aria 13.1 (11.5-14.5) % Plt Count 248 (130-400) K/uL MPV 9.4 (9.4-12.4) fL Immature Gran % (Auto) 0.3 % Neut % (Auto) 82.5 % Lymph % (Auto) 8.4 % Barron % (Auto) 6.7 % Eos % (Auto) 1.7 % Baso % (Auto) 0.4 % Neut # (Auto) 10.35 H (1.40-6.50) K/uL Lymph # (Auto) 1.06 L (1.2-3.4) K/uL Barron # (Auto) 0.84 H (0.11-0.59) K/uL Eos # (Auto) 0.21 (0-0.50) K/uL Baso # (Auto) 0.05 (0-0.2) K/uL Immature Gran # (Auto) 0.04 (0.01-0.20) K/uL Sodium 136 (136-145) mmol/L Potassium 4.3 (3.5-5.1) mmol/L Chloride 99 (98-107) mmol/L Carbon Dioxide 29 (21-32) mmol/L Anion Gap 8 (3-11) BUN 33 H (6-23) mg/dl Creatinine 2.02 H (0.6-1.4) mg/dl Est Cr Clr Drug Dosing 39.5 ml/min Est GFR ( Amer) 35.8 ml/min Est GFR (Non-Af Amer) 30.9 ml/min BUN/Creatinine Ratio 16.3 (10-20) Glucose 261 H (70-99(Fasting)) mg/dl Calcium 9.6 (8.6-10.3) mg/dl Total Bilirubin 0.7 (0.2-1.0) mg/dl AST 23 (13-39) U/L ALT 21 (7-52) U/L Alkaline Phosphatase 68 (34-104) U/L Total Protein 7.8 (6.0-8.3) gm/dl Albumin 4.5 (3.4-5.0) gm/dl Globulin 3.3 (2.5-4.0) gm/dl Albumin/Globulin Ratio 1.4 (0.9-2) Lipase 41 (11-82) U/L Urine Color Yellow Urine Appearance Clear (Clear) Urine pH 5.5 (4.5-7.5) Ur Specific [place] 1.022 (1.000-1.030) Urine Protein Negative (Negative) Urine Glucose (UA) 3+ H (Negative) Urine Ketones Negative (Negative) Urine Blood 1+ H (Negative) Urine Nitrite Negative (Negative) Urine Bilirubin Negative (Negative) Urine Urobilinogen Negative (Negative) Ur Leukocyte Esterase Negative (Negative) Urine WBC (Auto) 0 (0-5) /hpf Urine RBC (Auto) 0-4 (0-4) /hpf U Hyaline Cast (Auto) 0 (0-5) /lpf U Epithel Cells (Auto) 0-5 (0-5) /lpf Urine Bacteria (Auto) Negative (Negative) SARS-CoV-2, RNA, NAAT (NEGATIVE) 02/09/23 Range/Units 17:53 WBC (4.8-10.8) K/ul RBC (4.70-6.10) M/uL Hgb (14.0-18.0) g/dl Hct (42.0-52.0) % MCV (80.0-100.0) fL MCH (25.0-34.0) pg MCHC (32.0-36.0) g/dL RDW Std Deviation (36.4-46.3) fL RDW Coeff of Aria (11.5-14.5) % Plt Count (130-400) K/uL MPV (9.4-12.4) fL Immature Gran % (Auto) % Neut % (Auto) % Lymph % (Auto) % Barron % (Auto) % Eos % (Auto) % Baso % (Auto) % Neut # (Auto) (1.40-6.50) K/uL Lymph # (Auto) (1.2-3.4) K/uL Barron # (Auto) (0.11-0.59) K/uL Eos # (Auto) (0-0.50) K/uL Baso # (Auto) (0-0.2) K/uL Immature Gran # (Auto) (0.01-0.20) K/uL Sodium (136-145) mmol/L Potassium (3.5-5.1) mmol/L Chloride (98-107) mmol/L Carbon Dioxide (21-32) mmol/L Anion Gap (3-11) BUN (6-23) mg/dl Creatinine (0.6-1.4) mg/dl Est Cr Clr Drug Dosing ml/min Est GFR ( Amer) ml/min Est GFR (Non-Af Amer) ml/min BUN/Creatinine Ratio (10-20) Glucose (70-99(Fasting)) mg/dl Calcium (8.6-10.3) mg/dl Total Bilirubin (0.2-1.0) mg/dl AST (13-39) U/L ALT (7-52) U/L Alkaline Phosphatase (34-104) U/L Total Protein (6.0-8.3) gm/dl Albumin (3.4-5.0) gm/dl Globulin (2.5-4.0) gm/dl Albumin/Globulin Ratio (0.9-2) Lipase (11-82) U/L Urine Color Urine Appearance (Clear) Urine pH (4.5-7.5) Ur Specific [place] (1.000-1.030) Urine Protein (Negative) Urine Glucose (UA) (Negative) Urine Ketones (Negative) Urine Blood (Negative) Urine Nitrite (Negative) Urine Bilirubin (Negative) Urine Urobilinogen (Negative) Ur Leukocyte Esterase (Negative) Urine WBC (Auto) (0-5) /hpf Urine RBC (Auto) (0-4) /hpf U Hyaline Cast (Auto) (0-5) /lpf U Epithel Cells (Auto) (0-5) /lpf Urine Bacteria (Auto) (Negative) SARS-CoV-2, RNA, NAAT NEGATIVE (NEGATIVE) Administered Medications Sodium Chloride (Nss 1000ml) 1,000 mls @ 125 mls/hr IV .Q8H RONALD Stop: 03/11/23 20:40 Last Admin: 02/09/23 20:41 Dose: 125 mls/hr Documented By: SANTINO Tamsulosin HCl (Tamsulosin Hcl 0.4 Mg Cap) 0.4 mg PO QAM RONALD Stop: 03/11/23 20:40 Last Admin: 02/09/23 21:35 Dose: 0.4 mg Documented By: SANTINO Discontinued Medications Sodium Chloride (Nss 1000ml) 1,000 mls @ 999 mls/hr IV .Q1H1M ONE Stop: 02/09/23 18:19 Last Infusion: 02/09/23 18:55 Dose: 0 mls/hr Documented By: Admin: 02/09/23 17:49 Dose: 999 mls/hr Documented By: YEMI Ioversol (Optiray 320 500ml) 90 ml IV ONCE ONE Stop: 02/09/23 16:53 Last Admin: 02/09/23 18:27 Dose: Not Given Documented By: YEMI Ioversol (Optiray 320 100ml) 90 ml IV ONCE ONE Stop: 02/09/23 16:54 Last Admin: 02/09/23 16:53 Dose: 90 ml Documented By: YARELI Morphine Sulfate (Morphine Sulfate 4 Mg/Ml 1 Ml Carp\\Vial) 4 mg IV NOW STA Stop: 02/09/23 16:37 Last Admin: 02/09/23 16:46 Dose: 4 mg Documented By: YEMI Morphine Sulfate (Morphine Sulfate 2 Mg/Ml Carp) 2 mg IV NOW STA Stop: 02/09/23 18:14 Last Admin: 02/09/23 18:57 Dose: 2 mg Documented By: YEMI Imaging Data Radiologist's Impression: Abdomen/Pelvis CT 02/09/23 16:22 CT abd pelvis IV con only CLINICAL HISTORY: L flank pain, ?stone TECHNIQUE: Helical axial images of the abdomen and pelvis were obtained and displayed. Automated dose lowering techniques and/or adjustment according to patient size were utilized for this exam. This exam was performed with intravenous contrast. CT DOSE: 1447.90 mGy.cm COMPARISON: Comparison is made to CT abdomen pelvis 06/20/2022 FINDINGS: Lower chest: Bibasilar atelectasis versus scarring is seen. Liver: Unremarkable. No focal lesions are seen. Gallbladder and biliary tree: Patient is status post cholecystectomy. Pneumobilia is seen. Pancreas: Unremarkable, no focal lesions. Spleen: Unremarkable. Adrenals: Unremarkable. Kidneys and ureters: Right renal cyst is seen. There is left hydronephrosis and hydroureter with a distal ureteric stone measuring 6 mm. Additional nonobstructive stones are seen. Bladder: Unremarkable. Reproductive organs: Prostatomegaly is seen. Bowel: Diverticulosis is seen without diverticulitis. The appendix is normal. Lymph nodes Retroperitoneal: Unremarkable. Pelvic: Unremarkable. Mesenteric: Unremarkable. Peritoneum: Fat stranding seen along the course of the left ureter. Vessels: Atherosclerotic calcifications are seen. Abdominal wall: Bilateral fat-containing inguinal hernias are seen. Bones: Degenerative changes in the visualized spine. L1 compression deformity is seen. IMPRESSION: 1. Left ureteric stone with associated hydronephrosis/hydroureter. 2. Diverticulosis without diverticulitis. 3. Status post cholecystectomy. ACT 112: Negative or not required by law. Electronically signed by: Jamarcus Nagel M.D. 02/09/2023 6:00 PM Discharge Plan Visit Data Chief Complaint: Back Injury/Pain Stated Complaint: BACK PAIN ED Provider: Zay Cabello Discharge Problem: AUBREY (acute kidney injury), Kidney stone on left side Patient Disposition: Admitted As Inpatient Discharge Instructions Interventions: ED Discharge Assessment Last Done: 02/09/23 20:26
[2023-02-09 16:42] LABS: Albumin Globulin Ratio 1.4 (0.9-2); Albumin Level 4.5 gm/dl (3.4-5.0); BUN Creatinine Ratio 16.3 (10-20); Bilirubin,Total 0.7 mg/dl (0.2-1.0); Calcium 9.6 mg/dl (8.6-10.3); Creatinine Clr Calc Pharmacy 39.5 ml/min; Est GFR (African American) 35.8 ml/min; Est GFR (Non-African American) 30.9 ml/min; Globulin 3.3 gm/dl (2.5-4.0); Potassium 4.3 mmol/L (3.5-5.1); Total Protein 7.8 gm/dl (6.0-8.3)
[2023-02-09] MEDS ORDERED: OPTIRAY 320 500ml IV ONE (16:52)
[2023-02-09] MEDS ORDERED: OPTIRAY 320 100ml IV ONE (16:53)
[2023-02-09] MEDS ORDERED: SODIUM CHLORIDE 0.9% 1000ML 1,000 ML IV ONE (17:19)
--- NOTE | 2023-02-09 18:02 | CT Scan Report ---
CT abd pelvis IV con only CLINICAL HISTORY: L flank pain, ?stone TECHNIQUE: Helical axial images of the abdomen and pelvis were obtained and displayed. Automated dose lowering techniques and/or adjustment according to patient size were utilized for this exam. This e xam was performed with intravenous contrast. CT DOSE: 1447.90 mGy.cm COMPARISON: Comparison is made to CT abdomen pelvis 06/20/2022 FINDINGS: Lower chest: Bibasilar atelectasis versus scarring is seen. Liver: Unremarkable. No focal lesions are seen. Gallbladder and biliary tree: Patient is status post cholecystectomy. Pneumobilia is seen. Pancreas: Unremarkable, no focal lesions. Spleen: Unremarkable. Adrenals: Unremarkable. Kidneys and ureters: Right renal cyst is seen. There is left hydronephrosis and hydroureter with a di stal ureteric stone measuring 6 mm. Additional nonobstructive stones are seen. Bladder: Unremarkable. Reproductive organs: Prostatomegaly is seen. Bowel: Diverticulosis is seen without diverticulitis. The appendix is normal. Lymph nodes Retroperitoneal: Unremarkable. Pelvic: Unremarkable. Mesenteric: Unremarkable. Peritoneum: Fat stranding seen along the course of the left ureter. Vessels: Atherosclerotic calcifications are seen. Abdominal wall: Bilateral fat-containing inguinal hernias are seen. Bones: Degenerative changes in the visualized spine. L1 compression deformity is seen. IMPRESSION: 1. Left ureteric stone with associated hydronephrosis/hydroureter. 2. Diverticulosis without diverticulitis. 3. Status post cholecystectomy. ACT 112: Negative or not required by law. Electronically signed by: Jamarcus Nagel M.D. 02/09/2023 6:00 PM
[2023-02-09] MEDS ORDERED: MoRPHine SULFATE 2 MG/ML CARP IV STA (18:13)
--- NOTE | 2023-02-09 18:30 | History & Physical Report ---
Date of Service February 09, 2023 Assessment & Plan (1) Kidney stone on left side: Plan: 6mm Left kidney stone with left sided hydronephrosis NPO at midnight hydrate repeat labs in the AM Flomax pain management (2) AUBREY (acute kidney injury): Plan: suspect obstructive related hydrate NPO at midnight consult urology in AM repeat labs in the AM (3) Paroxysmal atrial fibrillation: Plan: On ASA (4) Benign localized prostatic hyperplasia with lower urinary tract symptoms (LUTS): Plan: Chronic Hx TURP in past Continue Dutasteride 0.5mg (5) Hypertension: Plan: chronic stable contiue meds (6) Hyperlipidemia: Plan: chronic stable continue fexofenadine (7) CAD (coronary artery disease): Plan: chronic on ASA and statin (8) Diabetes mellitus: Plan: chronic stable Insulin sliding scale last HgbA1C 6.8 in Oct 2022 (9) Depression: Plan: chronic and stable continue sertraline History of Present Illness Chief Complaint: flank pain Primary Care Provider: Tony Engel MD Fabian Bryan is a 77 year old male with a past medical history of kidney stones in the past, hemochromatosis, BPH, obesity, OA, HTN, Hyperlipdemia, paroxysmal A Fib, CAD who presented to the ER today with complaints of left sided flank pain. Patient states the left sided flank pain began today around 2PM. He ate dinner at 1 PM. He states that he had pain about 5 days ago that resolved in a day or 2. Outpatient [facility] as he thought this might be a kidney stone in the same area of the left flank yesterday completed. States he might of had a little bit of dust passed in his urine but denies a clear stone. CT was a trace amount of blood but denies any gross blood to his site. Admits to having nausea and vomiting last week with the initial flank pain. He denies any further nausea or vmiting, he denies any chest pain, SOB or cough. He denies any fevers chills or changes in his bowels. No trauma. Denies significant testicular pain or left inguinal pain. Some pain again in the left flank and back region. Follows with Dr Mcdaniel locally. He had previous laser and stents in the past for kidney stones approximately in 2019. Allergies Allergy/AdvReac Type Severity Reaction Status Date / Time cefoxitin Allergy Unknown HIVES Verified 10/24/22 07:14 clavulanic acid Allergy Unknown Hives Verified 10/24/22 07:14 [From Timentin] melon Allergy Unknown Hives Verified 10/24/22 07:14 ticarcillin [From Timentin] Allergy Unknown Hives Verified 10/24/22 07:14 atorvastatin AdvReac Unknown Joint Pain Verified 10/24/22 07:14 pravastatin AdvReac Unknown Joint Pain Verified 10/24/22 07:14 Home Medications Medication Instructions Recorded Confirmed Type albuterol sulfate 90 mcg/actuation 2 puff inhalation Q4H PRN 10/23/20 02/09/23 Rx aerosol inhaler shortness of breath or wheezing #6.7 grams aqtajlvr-uzzhmlul-nfdkt acid 400 1 tab PO QAM 06/22/21 02/09/23 History mcg-vit K 20 mcg-lycop 300 mcg tablet (Men's Multivitamin) olopatadine 0.2 % eye drops 1 drp OPB UD PRN Allergy Symptoms 06/22/21 02/09/23 History fexofenadine 180 mg tablet 180 mg PO UD PRN Allergy Symptoms 07/04/21 02/09/23 History polyethylene glycol 3350 17 gram 17 g PO HS 10/09/21 02/09/23 History oral powder packet (Miralax) cholecalciferol (vitamin D3) 25 25 mcg PO QAM 12/18/21 02/09/23 History mcg (1,000 unit) capsule metoprolol succinate 100 mg 100 mg PO QAM #90 tabs 02/08/22 02/09/23 Rx tablet,extended release 24 hr nitroglycerin 0.4 mg sublingual 0.4 mg sublingual Q5M PRN chest 03/20/22 02/09/23 Rx tablet (Nitrostat) pain #30 tabs rosuvastatin 20 mg tablet (Crestor) 20 mg PO HS #90 tabs 03/20/22 02/09/23 Rx sertraline 100 mg tablet 100 mg PO QAM #90 tabs 04/22/22 02/09/23 Rx betamethasone dipropionate 0.05 % 1 applic topical DAILY PRN Rash 07/22/22 02/09/23 History topical ointment dutasteride 0.5 mg capsule 0.5 mg PO QAM 07/22/22 02/09/23 History liraglutide 0.6 mg/0.1 mL (18 mg/3 1.8 mg (0.3 mL) subcut QAM #27 mL 09/19/22 02/09/23 Rx mL) subcutaneous pen injector (ExaDigmza 3-Josr) losartan 100 mg tablet 100 mg PO QAM #90 tabs 10/04/22 02/09/23 Rx diclofenac sodium 1 % topical gel 2 g topical QID PRN Pain 10/18/22 02/09/23 History aspirin 81 mg capsule 81 mg PO BID DVT prophylaxis 30 10/25/22 02/09/23 Rx days #60 caps empagliflozin 25 mg tablet 25 mg PO QAM #90 tabs 12/18/22 02/09/23 Rx (Jardiance) pen needle, diabetic 31 gauge x #100 ea 12/31/22 Rx 11/14" (BD Ultra-Fine Mini Pen Needle) clindamycin HCl 150 mg capsule 0 mg PO QID 02/09/23 02/09/23 History Past Med/Surg History Medical History Asthma Well controlled per pt > no inhaler use for several yrs per pt Atopic dermatitis Noted to hands Atrial fibrillation x1 episode > no further problems > Post NE on 11/14/2020; w/ RVR No AC needed per cardio records CAD (coronary artery disease) S/p mid to distal LCx DARLENE Carotid artery plaque <50% stenosis in internal carotid arteries bilaterally per 01/2021 carotid duplex > no further interventions or problems COVID-19 virus detected HX COVID 19 ANTIBODIES DETECTED BY BLOOD TEST 01/2020 >no reoccurrences Depression Diabetes mellitus NIDDM Fatty liver HX MENTIONED IN PAST, NO PROBLEMS WITH Incidentally noted on imaging Hearing deficit Heart murmur Per 01/2021 ECHO- mild MR. Hemochromatosis PHLEBOTOMY TREATMENTS EVERY 3 MONTHS- FERRITIN LEVELS MONITORED BY HEMATOLOGY;-DR GUPTA- LAST PHLEBOTOMY 6 MONTHS AGO Hyperlipidemia Hypertension Irritable bowel syndrome HX Kidney stone HX AND 1 LARGE ONE PRESENT (ASYMPTOMATIC)- HX BLADDER STONES - CONTINUES CARE WITH DR MCDANIEL Seasonal allergies STEMI (ST elevation myocardial infarction) October 2020 > stent Syncope and collapse 07/2021-FALL VS SYNCOPE- HAD BRAIN BLEED-SUBDURAL HEMATOMA-ADMITTED [facility] AND DISCHARGED WITHOUT SURGERY AND FROM NEUROSURGERY 07/24/21 OPTHAMOLOGY VISIT WITHIN LAST MONTH AND HAS BEEN CLEARED FOR DRIVING- NO CURRENT PROBLEMS ; F/U IN 6 MONTHS Surgical History H/O cataract extraction BOTH EYES History of biliary stent insertion S/p removal History of colonoscopy History of ERCP WITH STENT 06/2021 [facility] - MOST RECENT SEP 28 2021 ([facility]) TO EXHANGE SENT MAC 3, ETT 8. History of heart artery stent Inf STEMI on 11/14/2020 :subtotal occ. Large distal Cx s/p PCI of m/dCx w/single DARLENE History of tonsillectomy and adenoidectomy History of umbilical hernia repair History of vasectomy Hx laparoscopic cholecystectomy (10/18/21) Laparoscopic Cholecystectomy; enterolysis- Abimael Rivera, DO 10/18/2021 Grade 1 view, glidescope 4, ETT 8. Hx of cystoscopy CYSTOSCOPY/LASER LITHOTRIPSY/STENT= 01/23/17= LMA#[address] [facility] Hx of hand surgery LEFT HAND TENDON SURGERY Hx of transurethral resection of prostate AND BLADDER STONES REMOVED on 10/26/18 with LMA#5 S/P total knee arthroplasty Right TKA L4-L5 1 attempt + PNB. Family History Mother Multiple myeloma Stroke Father Laryngeal cancer Grandfather (Maternal) Stroke Uncle Stroke Other No family history of adverse response to anesthesia Denies family history of Ovarian cancer Prostate cancer Coronary heart disease Myocardial infarction Breast cancer Colorectal cancer Social History Smoking Status: Never smoker Second Hand Exposure: No; Do You Dip or Chew Tobacco: No; Hx Alcohol Use: No Hx Substance Use: No Preferred Language: Wallisian Communication Ability: Effective Visual Impairment: No Limitations Hearing Ability: Use of Hearing Aid Cigarette Vendor Required: No Beliefs That Will Affect Care: None marital status: Current Living Situation: Spouse current occupational status: retired 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 [employer] How many Children do You have: 2 Feels Safe at Home: Yes Childhood Exposure to Second-Hand Smoke: Yes Diet: regular Diet Comment: low sugar caffeine: Yes Dental Care, Regularly: Yes Physical Activity Frequency: 1-2 Times per Week Seatbelt Use: always Sunscreen Use: No Assistive Devices: Walker Review of Systems Constitutional: no fever, no chills and no sweats Respiratory: no cough, no dyspnea and no hemoptysis Cardiovascular: no chest pain, no dyspnea, no lightheadedness, no edema and no calf pain Gastrointestinal: + abdominal pain and + nausea; no belching, no heartburn, no vomiting and no change in bowel habits Genitourinary: + flank pain; no dysuria or no urinary frequency (denies any gross hematuria ) Integumentary: no rash, no lesions and no new lesions Psychiatric: no depression, no anxiety and no confusion Physical Exam Constitutional: WD/WN, vitals as above elevated BP Respiratory: normal respiratory effort, lungs clear to auscultation Cardiovascular: Rate/Rhythm: regular rate and regular rhythm Heart Sounds: normal S1, normal S2 and + murmur Extremities: no calf tenderness and no edema Gastrointestinal (Abdomen): Obese + BS soft mild tender left mid abdomen, + left flank pain Musculoskeletal: scars bilateral knees Psychiatric: A+Ox3, euthymic affect Results & Data Results & Data Vital Signs (Past 12 Hours) Vital Signs Temp Pulse Resp BP Pulse Ox O2 Del Method 02/09/23 17:14 86 02/09/23 16:00 36.8 C 82 19 181/94 H 94 Room Air Laboratory Results Abnormal lab results 02/09/23 02/09/23 02/09/23 Range/Units 16:08 16:08 16:08 WBC 12.55 H (4.8-10.8) K/ul Neut # (Auto) 10.35 H (1.40-6.50) K/uL Lymph # (Auto) 1.06 L (1.2-3.4) K/uL [place] # (Auto) 0.84 H (0.11-0.59) K/uL BUN 33 H (6-23) mg/dl Creatinine 2.02 H (0.6-1.4) mg/dl Glucose 261 H (70-99(Fasting)) mg/dl Urine Glucose (UA) 3+ H (Negative) Urine Blood 1+ H (Negative) Diagnostic Findings Abdomen/Pelvis CT 02/09/23 16:22 CT abd pelvis IV con only CLINICAL HISTORY: L flank pain, ?stone TECHNIQUE: Helical axial images of the abdomen and pelvis were obtained and displayed. Automated dose lowering techniques and/or adjustment according to patient size were utilized for this exam. This exam was performed with intravenous contrast. CT DOSE: 1447.90 mGy.cm COMPARISON: Comparison is made to CT abdomen pelvis 06/20/2022 FINDINGS: Lower chest: Bibasilar atelectasis versus scarring is seen. Liver: Unremarkable. No focal lesions are seen. Gallbladder and biliary tree: Patient is status post cholecystectomy. Pneumobilia is seen. Pancreas: Unremarkable, no focal lesions. Spleen: Unremarkable. Adrenals: Unremarkable. Kidneys and ureters: Right renal cyst is seen. There is left hydronephrosis and hydroureter with a distal ureteric stone measuring 6 mm. Additional nonobstructive stones are seen. Bladder: Unremarkable. Reproductive organs: Prostatomegaly is seen. Bowel: Diverticulosis is seen without diverticulitis. The appendix is normal. Lymph nodes Retroperitoneal: Unremarkable. Pelvic: Unremarkable. Mesenteric: Unremarkable. Peritoneum: Fat stranding seen along the course of the left ureter. Vessels: Atherosclerotic calcifications are seen. Abdominal wall: Bilateral fat-containing inguinal hernias are seen. Bones: Degenerative changes in the visualized spine. L1 compression deformity is seen. IMPRESSION: 1. Left ureteric stone with associated hydronephrosis/hydroureter. 2. Diverticulosis without diverticulitis. 3. Status post cholecystectomy. ACT 112: Negative or not required by law. Electronically signed by: Jamarcus Nagel M.D. 02/09/2023 6:00 PM Supervising Physician Co-Signing Physician Notes Patient seen and examined, chart reviewed, case discussed with Angle Durham PA-C and I agree with the assessment and plan as above except as otherwise noted Labs and images reviewed Fabian is a 77-year-old male with a past medical history of kidney stones, cardiac stenting, paroxysmal A-fib, asthma, hypertension, CAD, hyperlipidemia, DM 2 who presented to the ER for abdominal pain and was found to have a left ureteric stone with associated hydronephrosis/hydroureter and a AUBREY suspect obstructive. Diverticulosis without diverticulitis noted on CT, he is s/p cholecystectomy. He has had no chest pain, chest pressure, or shortness of breath his last meal was around 2 PM. Denies cough. Denies current nausea/vomiting. Reports he initially had some blood, none in the last few voids. No fever/chills. No dysuria. Does continue to have left pelvic pain radiating to his left flank and back. Left CVA tenderness is present. Abdomen is soft. Heart rate is regular, breathing is clear He has a mild leukocytosis, urine is uninfected appearing. Patient is kept n.p.o. and on IV fluids pending urology consultation. Stone is 6 mm, Flomax is given. While n.p.o. weight- based basal is decreased from 10 twice daily to 5 twice daily, conservative sliding scale ordered. PG Care Time/CCT Total # of Minutes Spent Total Time Spent with Patient: Total time spent is greater than 50% in coordination of care (as documented) at patient's floor/unit and/or counseling patient: Coding Level of Care Code 89328 INT INP/OBS CARE MIN Diagnoses Kidney stone on left side N20.0 AUBREY (acute kidney injury) N17.9 Paroxysmal atrial fibrillation I48.0 Benign localized prostatic hyperplasia with lower urinary tract symptoms (LUTS) N40.1 Hypertension I10 Hypertension type: essential hypertension Hyperlipidemia E78.1 Hyperlipidemia type: pure hypertriglyceridemia CAD (coronary artery disease) I25.10 Diabetes mellitus E11.9 Depression F32.9 (5) Hypertension Hypertension type: essential hypertension Qualified Code(s): I10 - Essential (primary) hypertension (6) Hyperlipidemia Hyperlipidemia type: pure hypertriglyceridemia Qualified Code(s): E78.1 - Pure hyperglyceridemia
[2023-02-09] MEDS ORDERED: CARBOHYDRATES FOR HYPOGLYCEMIA PO PRN (20:41)
[2023-02-09] MEDS: SODIUM CHLORIDE 0.9% 1000ML 1,000 ML IV SCH (20:41)
[2023-02-09] MEDS ORDERED: ALBUTEROL HFA 8 GM INHALER INH PRN (20:41)
[2023-02-09] MEDS ORDERED: GLUCAGON FOR INJ 1 MG VIAL SQ PRN (20:41)
[2023-02-09] MEDS ORDERED: GLUCOSE 40% GEL 15 GM TUBE PO PRN (20:41)
[2023-02-09] MEDS ORDERED: ACETAMINOPHEN 325 MG TAB PO PRN (20:41)
[2023-02-09] MEDS ORDERED: GLUCOSE 10 TAB/TUBE PO PRN (20:41)
[2023-02-09] MEDS ORDERED: DEXTROSE 50% 50 ML SYRINGE IV PRN (20:41)
[2023-02-09] MEDS ORDERED: INSULIN ASPART PER UNIT CHARGE SC SCH (21:00)
[2023-02-09] MEDS: TAMSULOSIN HCL 0.4 MG CAP PO SCH (21:35)
[2023-02-09] MEDS: LANTUS PER UNIT CHARGE SQ SCH (22:04)
[2023-02-09] MEDS: ROSUVASTATIN CALCIUM 20 MG TAB PO SCH (22:04)
[2023-02-10] MEDS: MoRPHine SULFATE 2 MG/ML CARP IV PRN ×2 (02:31→12:32)
[2023-02-10] MEDS: SODIUM CHLORIDE 0.9% 1000ML 1,000 ML IV SCH ×2 (04:41→16:02)
[2023-02-10] MEDS: INSULIN ASPART PER UNIT CHARGE SC SCH ×4 (06:32→20:39)
[2023-02-10 07:12] LABS: Basophils # (auto) 0.02 K/uL (0-0.2); Basophils % (auto) 0.2 %; Hematocrit (blood only) 45.9 % (42.0-52.0); Hemoglobin 15.5 g/dl (14.0-18.0); Immature Granulocytes # (auto) 0.02 K/uL (0.01-0.20); Immature Granulocytes % (auto) 0.2 %; Lymphocytes # (auto) 0.62 K/uL (1.2-3.4); Lymphocytes % (auto) 6.5 %; Mean Corpuscular Hemoglobin 29.3 pg (25.0-34.0); Mean Corpuscular Hgb Conc 33.8 g/dL (32.0-36.0); Mean Corpuscular Volume 86.8 fL (80.0-100.0); Mean Platelet Volume 9.7 fL (9.4-12.4); Monocytes # (auto) 0.73 K/uL (0.11-0.59); Monocytes % (auto) 7.7 %; Neutrophils # (auto) 8.05 K/uL (1.40-6.50); Neutrophils % (auto) 84.4 %; Platelet Count 187 K/uL (130-400); RDW Coefficient of Variation 13.1 % (11.5-14.5); RDW Standard Deviation 41.2 fL (36.4-46.3); Red Blood Count 5.29 M/uL (4.70-6.10); White Blood Count 9.54 K/ul (4.8-10.8)
[2023-02-10 07:25] LABS: BUN Creatinine Ratio 15.9 (10-20); Calcium 8.6 mg/dl (8.6-10.3); Creatinine Clr Calc Pharmacy 50.8 ml/min; Est GFR (African American) 48.6 ml/min; Est GFR (Non-African American) 41.9 ml/min; Potassium 4.1 mmol/L (3.5-5.1)
[2023-02-10] MEDS: METOPROLOL SUCC 50MG EXT REL TAB PO SCH (09:25)
[2023-02-10] MEDS: TAMSULOSIN HCL 0.4 MG CAP PO SCH (09:25)
[2023-02-10] MEDS: FINASTERIDE 5 MG TAB PO SCH (09:25)
[2023-02-10] MEDS: SERTRALINE HCL 100 MG TABLET PO SCH (09:26)
[2023-02-10] MEDS: LANTUS PER UNIT CHARGE SQ SCH ×2 (09:28→20:39)
--- NOTE | 2023-02-10 10:08 | Urology Consultation ---
Date of Consultation February 10, 2023 Assessment & Plan (1) Kidney stone on left side: (2) Left ureteral stone: Plan 77yo/M who presented with intractable left flank pain and found to have an obstructing 6 mm left ureteral stone and AUBREY. -Afebrile and hemodynamically stable. -Labs show leukocytosis improved from 12.559.54 today, hemoglobin 15.5, creatinine downtrending 2.02-1.57. Continue to trend. -UA with 1+blood, otherwise no signs of infection. -We discussed acute stone management with cystoscopy and stent placement. Ureteral stents were discussed as well as postoperative issues and pain management. He is aware that a second procedure will be needed for stone treatment in the future. Risks and benefits were discussed. All questions were answered. He is agreeable. -Given his left-sided pain and AUBREY, will plan to proceed to the OR today for cystoscopy, left retrograde pyelogram, left ureteral stent placement, possible ureteroscopy, stone treatment depending on findings. -Risks and benefits to be reviewed with patient by Dr. Holm. OR notified. Covid test negative. -Will cover with IV Cipro preoperatively. -Keep NPO. -Urology will follow. Attending note: Patient independently assessed, examined, interviewed. Discussed different options. Discussed intervention. Discussed possible stone treatment versus stent placement. Patient has very large stone burden in all along the left kidney. Has approximately 6 mm stone in the mid ureter on the left. Is causing considerable hydronephrosis. Patient's vitals have been stable. Has had stable labs all pertinent labs as above. Creatinine is slightly elevated 1.57. Patient has been tolerating hydration. Extensively reviewed options. He is currently NPO. Risks and benefits discussed at length for procedure. These include bleeding, infection, injury to surrounding tissues or organs, and risks associated with anesthesia. Patient states understanding and agrees to proceed. Will sign consent and proceed. Plan for cystoscopy and left stone treatment. History of Present Illness Attending Physician: Pritesh Ornelas MD History of Present Illness 77-year-old male with a past medical history of hemochromatosis, BPH, nephrolithiasis, obesity, OA, HTN, Hyperlipdemia, paroxysmal A Fib, CAD who presented to the ED with left-sided flank pain. Pain started approximately 5 days ago with associated nausea vomiting. Pain improved but returned yesterday. On arrival, he was afebrile and hemodynamically stable. Labs showing a leukocytosis of 12.55 and creatinine 2.02. Urinalysis showing 1+ blood, negative nitrite, negative LE, negative bacteria. A CT abdomen pelvis demonstrated a 6 mm left ureteral stone with associated hydronephrosis and additional left renal stones. He was admitted to medicine for pain control and monitoring. CT abdomen pelvis- 1. Left ureteric stone with associated hydronephrosis/hydroureter. 2. Diverticulosis without diverticulitis. 3. Status post cholecystectomy. Patient is known to the urology service, follows with Dr. Mcdaniel. Hx of renal stones, bladder stones, BPH. Underwent TURP and cystolitholopaxy in 2019. Patient examined at bedside this AM. Awake, resting in bed on arrival. No acute distress. Still with left-sided pain, managing with IV pain medication. Denies fevers, chills, nausea, vomiting. Voiding without issue. Denies hematuria or dysuria. Has been NPO. Allergies Allergy/AdvReac Type Severity Reaction Status Date / Time cefoxitin Allergy Unknown HIVES Verified 10/24/22 07:14 clavulanic acid Allergy Unknown Hives Verified 10/24/22 07:14 [From Timentin] melon Allergy Unknown Hives Verified 10/24/22 07:14 ticarcillin [From Timentin] Allergy Unknown Hives Verified 10/24/22 07:14 atorvastatin AdvReac Unknown Joint Pain Verified 10/24/22 07:14 pravastatin AdvReac Unknown Joint Pain Verified 10/24/22 07:14 Home Medications Medication Instructions Recorded Confirmed Type albuterol sulfate 90 mcg/actuation 2 puff inhalation Q4H PRN 10/23/20 02/09/23 Rx aerosol inhaler shortness of breath or wheezing #6.7 grams rtvvkpms-pfuvopli-nzcud acid 400 1 tab PO QAM 06/22/21 02/09/23 History mcg-vit K 20 mcg-lycop 300 mcg tablet (Men's Multivitamin) olopatadine 0.2 % eye drops 1 drp OPB UD PRN Allergy Symptoms 06/22/21 02/09/23 History fexofenadine 180 mg tablet 180 mg PO UD PRN Allergy Symptoms 07/04/21 02/09/23 History polyethylene glycol 3350 17 gram 17 g PO HS 10/09/21 02/09/23 History oral powder packet (Miralax) cholecalciferol (vitamin D3) 25 25 mcg PO QAM 12/18/21 02/09/23 History mcg (1,000 unit) capsule metoprolol succinate 100 mg 100 mg PO QAM #90 tabs 02/08/22 02/09/23 Rx tablet,extended release 24 hr nitroglycerin 0.4 mg sublingual 0.4 mg sublingual Q5M PRN chest 03/20/22 02/09/23 Rx tablet (Nitrostat) pain #30 tabs rosuvastatin 20 mg tablet (Crestor) 20 mg PO HS #90 tabs 03/20/22 02/09/23 Rx sertraline 100 mg tablet 100 mg PO QAM #90 tabs 04/22/22 02/09/23 Rx betamethasone dipropionate 0.05 % 1 applic topical DAILY PRN Rash 07/22/22 02/09/23 History topical ointment dutasteride 0.5 mg capsule 0.5 mg PO QAM 07/22/22 02/09/23 History liraglutide 0.6 mg/0.1 mL (18 mg/3 1.8 mg (0.3 mL) subcut QAM #27 mL 09/19/22 02/09/23 Rx mL) subcutaneous pen injector (GKN - GloboKasNettoVerimed 3-Josr) losartan 100 mg tablet 100 mg PO QAM #90 tabs 10/04/22 02/09/23 Rx diclofenac sodium 1 % topical gel 2 g topical QID PRN Pain 10/18/22 02/09/23 History aspirin 81 mg capsule 81 mg PO BID DVT prophylaxis 30 10/25/22 02/09/23 Rx days #60 caps empagliflozin 25 mg tablet 25 mg PO QAM #90 tabs 12/18/22 02/09/23 Rx (Jardiance) pen needle, diabetic 31 gauge x #100 ea 12/31/22 Rx 11/14" (BD Ultra-Fine Mini Pen Needle) clindamycin HCl 150 mg capsule 0 mg PO QID 02/09/23 02/09/23 History Patient History Medical History Asthma Well controlled per pt > no inhaler use for several yrs per pt Atopic dermatitis Noted to hands Atrial fibrillation x1 episode > no further problems > Post IN on 11/14/2020; w/ RVR No AC needed per cardio records CAD (coronary artery disease) S/p mid to distal LCx DARLENE Carotid artery plaque <50% stenosis in internal carotid arteries bilaterally per 01/2021 carotid duplex > no further interventions or problems COVID-19 virus detected HX COVID 19 ANTIBODIES DETECTED BY BLOOD TEST 01/2020 >no reoccurrences Depression Diabetes mellitus NIDDM Fatty liver HX MENTIONED IN PAST, NO PROBLEMS WITH Incidentally noted on imaging Hearing deficit Heart murmur Per 01/2021 ECHO- mild MR. Hemochromatosis PHLEBOTOMY TREATMENTS EVERY 3 MONTHS- FERRITIN LEVELS MONITORED BY HEMATOLOGY;-DR GUPTA- LAST PHLEBOTOMY 6 MONTHS AGO Hyperlipidemia Hypertension Irritable bowel syndrome HX Kidney stone HX AND 1 LARGE ONE PRESENT (ASYMPTOMATIC)- HX BLADDER STONES - CONTINUES CARE WITH DR MCDANIEL Seasonal allergies STEMI (ST elevation myocardial infarction) October 2020 > stent Syncope and collapse 07/2021-FALL VS SYNCOPE- HAD BRAIN BLEED-SUBDURAL HEMATOMA-ADMITTED [facility] AND DISCHARGED WITHOUT SURGERY AND FROM NEUROSURGERY 07/24/21 OPTHAMOLOGY VISIT WITHIN LAST MONTH AND HAS BEEN CLEARED FOR DRIVING- NO CURRENT PROBLEMS ; F/U IN 6 MONTHS Surgical History H/O cataract extraction BOTH EYES History of biliary stent insertion S/p removal History of colonoscopy History of ERCP WITH STENT 06/2021 [facility] - MOST RECENT SEP 28 2021 ([facility]) TO EXHANGE SENT MAC 3, ETT 8. History of heart artery stent Inf STEMI on 11/14/2020 :subtotal occ. Large distal Cx s/p PCI of m/dCx w/single DARLENE History of tonsillectomy and adenoidectomy History of umbilical hernia repair History of vasectomy Hx laparoscopic cholecystectomy (10/18/21) Laparoscopic Cholecystectomy; enterolysis- Abimael Rivera, DO 10/18/2021 Grade 1 view, glidescope 4, ETT 8. Hx of cystoscopy CYSTOSCOPY/LASER LITHOTRIPSY/STENT= 01/23/17= LMA#5 AT [facility] Hx of hand surgery LEFT HAND TENDON SURGERY Hx of transurethral resection of prostate AND BLADDER STONES REMOVED on 10/26/18 with LMA#5 S/P total knee arthroplasty Right TKA L4-L5 1 attempt + PNB. Family History Mother Multiple myeloma Stroke Father Laryngeal cancer Grandfather (Maternal) Stroke Uncle Stroke Other No family history of adverse response to anesthesia Denies family history of Ovarian cancer Prostate cancer Coronary heart disease Myocardial infarction Breast cancer Colorectal cancer Social History Smoking Status: Never smoker Second Hand Exposure: No; Do You Dip or Chew Tobacco: No; Tobacco Cessation Education Requested by Patient: No Hx Alcohol Use: No Hx Substance Use: No Preferred Language: Divehi Communication Ability: Effective Visual Impairment: No Limitations Hearing Ability: Use of Hearing Aid Machine I Cutter Required: No Beliefs That Will Affect Care: None marital status: Current Living Situation: Spouse current occupational status: retired 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 How many Children do You have: 2 Other Information That Helps Us Care for You: No Feels Safe at Home: Yes Safety Concerns: Feels Safe At This Time Childhood Exposure to Second-Hand Smoke: Yes Diet: regular Diet Comment: low sugar caffeine: Yes Dental Care, Regularly: Yes Physical Activity Frequency: 1-2 Times per Week Seatbelt Use: always Sunscreen Use: No Assistive Devices: Cane and Hospital Bed Review of Systems Review of Systems: All systems reviewed & are unremarkable except as noted in HPI & below Physical Exam Constitutional: well developed and well nourished; no acute distress ENMT: Ears: no hearing impairment Neck: normal visual inspection Respiratory: normal respiratory effort; no respiratory distress and no labored breathing Gastrointestinal (Abdomen): Inspection/Auscultation: abdomen normal to inspection Musculoskeletal: Head/Neck/Chest: normocephalic Skin: No visible rashes or lesions to exposed skin areas Neurologic: moves all extremities and awake Psychiatric: A+Ox3, euthymic affect Results & Data Vital Signs (Past 12 Hours) Vital Signs Temp Pulse Resp BP Pulse Ox O2 Del Method 02/10/23 08:07 36.6 C 75 18 144/75 H 95 Room Air 02/09/23 21:53 88 94 Room Air PG Care Time/CCT Total # of Minutes Spent Total Time Spent with Patient: Total time spent is greater than 50% in coordination of care (as documented) at patient's floor/unit and/or counseling patient: Coding Level of Care Code 75741 INT INP/OBS CARE 2/55MIN Diagnoses Kidney stone on left side N20.0 Left ureteral stone N20.1
--- NOTE | 2023-02-10 11:40 | Anesthesiology Consultation ---
Date of Service February 10, 2023 Assessment & Plan Chart Review Chart Review: Acceptable Risk for Surgery History Surgery Operation Date: 02/10/23 10:50 Proposed Procedures p Cystoscopy Left Retrograde Pyelogram and Stent Placement, Possible Ureteroscopy, Stone Treatment - Julian Holm DO Height/Weight Height: 6 ft 1 in Weight: 108 kg Allergies Allergy/AdvReac Type Severity Reaction Status Date / Time cefoxitin Allergy Unknown HIVES Verified 10/24/22 07:14 clavulanic acid Allergy Unknown Hives Verified 10/24/22 07:14 [From Timentin] melon Allergy Unknown Hives Verified 10/24/22 07:14 ticarcillin [From Timentin] Allergy Unknown Hives Verified 10/24/22 07:14 atorvastatin AdvReac Unknown Joint Pain Verified 10/24/22 07:14 pravastatin AdvReac Unknown Joint Pain Verified 10/24/22 07:14 Medications Home Medications Medication Instructions Recorded Confirmed Last Taken albuterol sulfate 90 mcg/actuation 2 puff inhalation Q4H PRN 10/23/20 02/09/23 10/25/20 aerosol inhaler shortness of breath or wheezing #6.7 grams wedcywkh-ysncmuxw-ostmx acid 400 1 tab PO QAM 06/22/21 02/09/23 02/09/23 mcg-vit K 20 mcg-lycop 300 mcg tablet (Men's Multivitamin) olopatadine 0.2 % eye drops 1 drp OPB UD PRN Allergy Symptoms 06/22/21 02/09/23 Unknown fexofenadine 180 mg tablet 180 mg PO UD PRN Allergy Symptoms 07/04/21 02/09/23 09/27/21 07:00 polyethylene glycol 3350 17 gram 17 g PO HS 10/09/21 02/09/23 02/08/23 oral powder packet (Miralax) cholecalciferol (vitamin D3) 25 25 mcg PO QAM 12/18/21 02/09/23 02/09/23 mcg (1,000 unit) capsule metoprolol succinate 100 mg 100 mg PO QAM #90 tabs 02/08/22 02/09/23 02/09/23 tablet,extended release 24 hr nitroglycerin 0.4 mg sublingual 0.4 mg sublingual Q5M PRN chest 03/20/22 02/09/23 Unknown tablet (Nitrostat) pain #30 tabs rosuvastatin 20 mg tablet (Crestor) 20 mg PO HS #90 tabs 03/20/22 02/09/23 02/08/23 sertraline 100 mg tablet 100 mg PO QAM #90 tabs 04/22/22 02/09/23 02/09/23 betamethasone dipropionate 0.05 % 1 applic topical DAILY PRN Rash 07/22/22 02/09/23 10/16/22 topical ointment dutasteride 0.5 mg capsule 0.5 mg PO QAM 07/22/22 02/09/23 02/09/23 liraglutide 0.6 mg/0.1 mL (18 mg/3 1.8 mg (0.3 mL) subcut QAM #27 mL 09/19/22 02/09/23 02/09/23 mL) subcutaneous pen injector (Fantasy Shopper 3-Josr) losartan 100 mg tablet 100 mg PO QAM #90 tabs 10/04/22 02/09/23 02/09/23 diclofenac sodium 1 % topical gel 2 g topical QID PRN Pain 10/18/22 02/09/23 02/09/23 aspirin 81 mg capsule 81 mg PO BID DVT prophylaxis 30 10/25/22 02/09/23 02/08/23 days #60 caps empagliflozin 25 mg tablet 25 mg PO QAM #90 tabs 12/18/22 02/09/23 02/09/23 (Jardiance) pen needle, diabetic 31 gauge x #100 ea 12/31/22 Unknown 3/16" (BD Ultra-Fine Mini Pen Needle) clindamycin HCl 150 mg capsule 0 mg PO QID 02/09/23 02/09/23 Unknown Active Medications Generic Name Dose Route Start Last Admin Trade Name Freq PRN Reason Stop Dose Admin Acetaminophen 650 mg 02/09/23 20:41 02/09/23 22:04 Acetaminophen 325 Mg Tab PO 03/11/23 20:40 650 mg Q4H PRN Administration pain/fever Finasteride 5 mg 02/10/23 09:00 02/10/23 09:25 Finasteride 5 Mg Tab PO 03/12/23 08:59 5 mg QAM RONALD Administration Protocol Sodium Chloride 1,000 mls @ 100 mls/hr 02/09/23 20:41 02/10/23 04:41 Nss 1000ml IV 03/11/23 20:40 125 mls/hr .Q10H RONALD Administration Insulin Aspart 0 units 02/10/23 06:00 02/10/23 06:32 Insulin Aspart Per Unit Charge SC 03/12/23 05:59 3 units Q6 RONALD Administration Insulin Glargine 5 units 02/09/23 21:00 02/10/23 09:28 Lantus Per Unit Charge SQ 03/11/23 20:59 5 units BID RONALD Administration Metoprolol Succinate 100 mg 02/10/23 09:00 02/10/23 09:25 Metoprolol Succ 50mg Ext Rel Tab PO 03/12/23 08:59 100 mg QAM RONALD Administration Morphine Sulfate 2 mg 02/09/23 20:41 02/10/23 02:31 Morphine Sulfate 2 Mg/Ml Carp IV 02/23/23 20:40 2 mg Q4H PRN Administration Pain, second line Rosuvastatin Calcium 20 mg 02/09/23 21:50 02/09/23 22:04 Rosuvastatin Calcium 20 Mg Tab PO 03/11/23 21:49 20 mg HS RONALD Administration Sertraline HCl 100 mg 02/10/23 09:00 02/10/23 09:26 Sertraline Hcl 100 Mg Tablet PO 03/12/23 08:59 100 mg QAM RONALD Administration Tamsulosin HCl 0.4 mg 02/09/23 20:41 02/10/23 09:25 Tamsulosin Hcl 0.4 Mg Cap PO 03/11/23 20:40 0.4 mg QAM RONALD Administration NPO Date Last Intake of Fluids: 02/09/23 Time Last Intake of Fluids: 23:59 Date Last Intake of Solids: 02/09/23 Time Last Intake of Solids: 23:59 Past Medical History Medical History Asthma Well controlled per pt > no inhaler use for several yrs per pt Atopic dermatitis Noted to hands Atrial fibrillation x1 episode > no further problems > Post MS on 11/14/2020; w/ RVR No AC needed per cardio records CAD (coronary artery disease) S/p mid to distal LCx DARLENE Carotid artery plaque <50% stenosis in internal carotid arteries bilaterally per 01/2021 carotid duplex > no further interventions or problems COVID-19 virus detected HX COVID 19 ANTIBODIES DETECTED BY BLOOD TEST 01/2020 >no reoccurrences Depression Diabetes mellitus NIDDM Fatty liver HX MENTIONED IN PAST, NO PROBLEMS WITH Incidentally noted on imaging Hearing deficit Heart murmur Per 01/2021 ECHO- mild MR. Hemochromatosis PHLEBOTOMY TREATMENTS EVERY 3 MONTHS- FERRITIN LEVELS MONITORED BY HEMATOLOGY;-DR GUPTA- LAST PHLEBOTOMY 6 MONTHS AGO Hyperlipidemia Hypertension Irritable bowel syndrome HX Kidney stone HX AND 1 LARGE ONE PRESENT (ASYMPTOMATIC)- HX BLADDER STONES - CONTINUES CARE WITH DR MCDANIEL Seasonal allergies STEMI (ST elevation myocardial infarction) October 2020 > stent Syncope and collapse 07/2021-FALL VS SYNCOPE- HAD BRAIN BLEED-SUBDURAL HEMATOMA-ADMITTED [facility] AND DISCHARGED WITHOUT SURGERY AND FROM NEUROSURGERY 07/24/21 OPTHAMOLOGY VISIT WITHIN LAST MONTH AND HAS BEEN CLEARED FOR DRIVING- NO CURRENT PROBLEMS ; F/U IN 6 MONTHS Past Family History Family History Mother Multiple myeloma Stroke Father Laryngeal cancer Grandfather (Maternal) Stroke Uncle Stroke Other No family history of adverse response to anesthesia Denies family history of Ovarian cancer Prostate cancer Coronary heart disease Myocardial infarction Breast cancer Colorectal cancer Past Surgical History Surgical History H/O cataract extraction BOTH EYES History of biliary stent insertion S/p removal History of colonoscopy History of ERCP WITH STENT 06/2021 [facility] - MOST RECENT SEP 28 2021 ([facility]) TO EXHANGE SENT MAC 3, ETT 8. History of heart artery stent Inf STEMI on 11/14/2020 :subtotal occ. Large distal Cx s/p PCI of m/dCx w/single DARLENE History of tonsillectomy and adenoidectomy History of umbilical hernia repair History of vasectomy Hx laparoscopic cholecystectomy (10/18/21) Laparoscopic Cholecystectomy; enterolysis- Abimael Rivera, DO 10/18/2021 Grade 1 view, glidescope 4, ETT 8. Hx of cystoscopy CYSTOSCOPY/LASER LITHOTRIPSY/STENT= 01/23/17= LMA#5 AT [facility] Hx of hand surgery LEFT HAND TENDON SURGERY Hx of transurethral resection of prostate AND BLADDER STONES REMOVED on 10/26/18 with LMA#5 S/P total knee arthroplasty Right TKA L4-L5 1 attempt + PNB. Social History Smoking Status: Never smoker Do You Dip or Chew Tobacco: No Hx Alcohol Use: No alcohol intake frequency: 0-2 drinks per day Hx Substance Use: No substance use type: does not use Physical Exam Vital Signs Last Vital Signs Temp 36.6 C 02/10/23 08:07 Pulse 75 02/10/23 08:07 Resp 18 02/10/23 08:07 BP 144/75 H 02/10/23 08:07 Pulse Ox 95 02/10/23 08:07 O2 Del Method Room Air 02/10/23 08:07 Testing Laboratory Results 02/10/23 05:54 02/10/23 05:54 Urine Color Yellow 02/09/23 16:08 Urine Appearance Clear (Clear) 02/09/23 16:08 Urine pH 5.5 (4.5-7.5) 02/09/23 16:08 Ur Specific [place] 1.022 (1.000-1.030) 02/09/23 16:08 Urine Protein Negative (Negative) 02/09/23 16:08 Urine Glucose (UA) 3+ (Negative) H 02/09/23 16:08 Urine Ketones Negative (Negative) 02/09/23 16:08 Urine Nitrite Negative (Negative) 02/09/23 16:08 Ur Leukocyte Esterase Negative (Negative) 02/09/23 16:08 Urine WBC (Auto) 0 /hpf (0-5) 02/09/23 16:08 Urine RBC (Auto) 0-4 /hpf (0-4) 02/09/23 16:08 U Hyaline Cast (Auto) 0 /lpf (0-5) 02/09/23 16:08 U Epithel Cells (Auto) 0-5 /lpf (0-5) 02/09/23 16:08 Urine Bacteria (Auto) Negative (Negative) 02/09/23 16:08 02/10/23 06:23 POC Glucose 245 H Electrocardiogram Date: 07/30/22 Findings: + NSR @ (60) 1st degree AV block Echocardiogram Date: 11/14/20 EF: 55-60% Valvular Disease: + no significant valvular disease Cardiac Catheterization Intervention: + DARLENE placed Location: distal circumflex stented to open other disease 50% or less
[2023-02-10] MEDS ORDERED: CIPROFLOXACIN / D5W 400 MG/200 ML BAG IV SCH (12:35)
[2023-02-10] MEDS ORDERED: fentaNYL citrate PF 100 MCG/2 ML VIAL ONE (14:01)
[2023-02-10] MEDS ORDERED: PROMETHAZINE HCL 12.5 MG in SODIUM CHLORIDE 0.9% 50 ML IV PRN (14:23)
[2023-02-10] MEDS ORDERED: ATROPINE SULFATE 0.1 MG/ML 10ML SYR IV PRN (14:23)
[2023-02-10] MEDS ORDERED: ePHEDrine sulfate 50 MG/ML AMP IV PRN (14:23)
[2023-02-10] MEDS ORDERED: ONDANSETRON INJ 2 MG/ML 2 ML VIAL IV PRN (14:23)
[2023-02-10] MEDS ORDERED: FLUMAZENIL 0.1 MG/1 ML 10 ML VIAL IV PRN (14:23)
[2023-02-10] MEDS ORDERED: fentaNYL citrate PF 100 MCG/2 ML VIAL IV PRN (14:23)
[2023-02-10] MEDS ORDERED: NALOXONE HCL 0.4 MG/1 ML VIAL/CARP IV PRN (14:23)
[2023-02-10] MEDS ORDERED: LABETALOL HCL IV 5 MG/ML 20ML IV PRN (14:23)
[2023-02-10] MEDS ORDERED: ONDANSETRON INJ 2 MG/ML 2 ML VIAL ONE (14:32)
[2023-02-10] MEDS ORDERED: PROPOFOL IV EMULSION 10 MG/ML 20 ML VIAL IV ONE (14:32)
[2023-02-10] MEDS ORDERED: LIDOCAINE 2% 2 ML VIAL/AMP(20MG/ML) INFIL ONE (14:32)
[2023-02-10] MEDS ORDERED: PHENYLEPHRINE 100MCG/ML 5ML SYR ONE (14:43)
[2023-02-10] MEDS ORDERED: DIATRIZOATE MEGLUMINE 30% 100ML VIAL INSTIL ONE (14:49)
--- NOTE | 2023-02-10 14:55 | Operative Report ---
PG Post Operative Report Pre & Post Diagnosis Operation Date: 02/10/23 10:50 Pre-Op Diagnosis: Obstructive Left Ureteral Stone Post-Op Diagnosis: Obstructive Left Ureteral Stone I identified the patient and participated in the time-out.: Yes Procedure Operation Date: 02/10/23 10:50 Actual Procedures p Cystoscopy with Left Retrograde Pyelogram and Stent Placement(Left) - Julian Holm DO Surgeon Julian Holm, II, DO [employer] None Estimated Blood Loss 1 Findings Consistent with Post-Op Diagnosis Stent placed in good position. Considerable obstruction of ureter. Needed manipulation to advance wire. Just proximal to stone, old appearing blood clot and debris. Urine draining from kidney clear with only minor debris. Specimens None Drains 6 Fr Multilength Anesthesia Type MAC Complications none Disposition Disposition: Recovery Room Indications Patient with obstruction. Risks and benefits discussed at length. Description of Procedure Patient was consented and brought back to the operating room. Patient was placed under anesthesia in the supine position and moved to the dorsal lithotomy position. Patient was prepped and draped in the regular sterile fashion. A time out was completed. A 30degree Cystoscope was placed into the bladder and the entire bladder was examined. The UO's were identified. The UO was cannulized with a catheter and a retrograde pyelogram was completed. Minimal contrast was able to advance. The stone appeared to be severely obstructing the ureter. The 5 Japanese open-ended catheter was attempted to be advanced and immediately came into contact with the stone. Multiple attempts to manipulate the wire past the stone were unable to successfully get the wire passed. The combination of the catheter as well as manipulation with the wire I was able to advance the wire past the stone after displacing the stone somewhat proximally. With the placement of the stone a moderate amount of debris was noted to be draining from the ureter. This appeared to be old appearing blood. The wire was able to advance the renal pelvis. The 5 Japanese open-ended catheter was placed over the wire into the renal pelvis and a retrograde pyelogram was completed. The urine draining from the renal pelvis did appear to be somewhat cloudy but did not have a large amount of blood or other debris in it. The wire was then replaced With the wire in place, a 6 Fr Double J stent was placed. It was confirmed with fluoroscopy. With the stent in place, the bladder was emptied. The scope was removed. The patient was cleaned, aroused from anesthesia, and transferred to the pacu in stable condition having tolerated the procedure well with no complications. I was present and participated in all aspects of the procedure. The patient will be monitored in the PACU until transferred. We will allow approximately 1 to 2 weeks for passive dilation as well as time to clear any possible infection. We will plan to set up for treatment of ureteral stone and possibly renal stone. We will plan follow-up with nurse practitioners approximately 1 to 2 weeks I attest to the content of the Intraoperative Record and any orders documented therein. Any exceptions are noted below.
--- NOTE | 2023-02-10 15:11 | Fluoroscopy Report ---
FL retrograde includes kub CLINICAL HISTORY: LTleft-sided cystourethrogram COMPARISON STUDY: CT 02/09/2023 FLUOROSCOPY TIME: 34.3 seconds FLUOROSCOPY IMAGES: 3 EXPOSURE DOSE: 13.56 mGy FINDINGS: A left-sided ureteroscope was noted. Retrograde injection of contrast demonstrates mild dil ation of the left ureter. A left ureteral stent appears to be in satisfactory positioning. IMPRESSION: Fluoroscopic assistance as above. ACT 112: Negative or not required by law. Electronically signed by: Brian Flores M.D. 02/10/2023 3:10 PM
--- NOTE | 2023-02-10 15:30 | Anesthesiology Progress Note ---
Date of Service February 10, 2023 Anesthesia Post Procedure Vital Signs Vital Signs: Temp Pulse Pulse Pulse Resp BP BP 02/10/23 15:25 37.0 C 74 20 113/63 02/10/23 15:15 37.0 C 75 20 116/66 02/10/23 15:05 82 18 117/51 L 02/10/23 14:56 36.8 C 84 14 119/63 02/10/23 13:08 37.2 C 80 20 134/68 02/10/23 08:07 36.6 C 75 18 144/75 H 02/09/23 20:45 02/09/23 20:45 02/09/23 20:45 37 C 94 H 18 183/76 H 02/09/23 21:53 88 02/09/23 20:45 37 C 94 H 18 183/76 H 02/09/23 18:00 86 24 158/73 H 02/09/23 19:00 79 24 163/90 H 02/09/23 17:14 86 02/09/23 16:00 36.8 C 82 19 181/94 H Pulse Ox O2 Del Method 02/10/23 15:25 93 Room Air 02/10/23 15:15 94 Room Air 02/10/23 15:05 92 Room Air 02/10/23 14:56 95 Room Air 02/10/23 13:08 94 Room Air 02/10/23 08:07 95 Room Air 02/09/23 20:45 Room Air 02/09/23 20:45 Room Air 02/09/23 20:45 91 Room Air 02/09/23 21:53 94 Room Air 02/09/23 20:45 91 Room Air 02/09/23 18:00 93 Room Air 02/09/23 19:00 93 Room Air 02/09/23 17:14 02/09/23 16:00 94 Room Air Pain Intensity Left Flank: Pain Intensity: 0 Transfer of Care Handoff Completed per policy Notes Mental Status: alert / awake / arousable Patient Amnestic to Procedure: Yes Nausea / Vomiting: adequately controlled Pain: adequately controlled Airway Patency, RR, SpO2: stable & adequate BP & HR: stable & adequate Hydration State: stable & adequate Anesthetic Complications: no major complications apparent
[2023-02-10] MEDS ORDERED: Nursing to Pharmacy Communication SCH (16:00)
--- NOTE | 2023-02-10 16:19 | Hospitalist Progress Note ---
Date of Service February 10, 2023 Assessment & Plan (1) Kidney stone on left side: Plan: 6mm Left kidney stone with left sided hydronephrosis. Urology consultation and recommendations appreciated. He underwent left ureter stent placement earlier today, February 10. He is now on oral Cipro therapy and Flomax. (2) AUBREY (acute kidney injury): Plan: Improved with IV fluids. Creatinine down to 1.5 today. We will repeat lab again tomorrow morning (3) Paroxysmal atrial fibrillation: Plan: On ASA. Currently in normal sinus rhythm. Stable (4) Benign localized prostatic hyperplasia with lower urinary tract symptoms (LUTS): Plan: Chronic. Hx TURP in past. Stable. Continue Dutasteride 0.5mg (5) Hypertension: Plan: Stable. Continue current medical management (6) Hyperlipidemia: Plan: Stable. Continue current medical management (7) CAD (coronary artery disease): Plan: chronic. Continue current medical management (8) Diabetes mellitus: Plan: ADA diet. Sliding scale insulin coverage. HgbA1C 6.8 in Oct 2022 (9) Depression: Plan: Stable. Continue sertraline Plan Probable discharge to home tomorrow, February 11, on oral Cipro therapy. He will follow-up with urology on an outpatient basis and probably undergo a lithotripsy procedure for the obstructing left ureter stone Admission and Anticipated Discharge Date Admission Date: February 09, 2023 Subjective The patient was seen postoperatively. He is alert and oriented and denies any discomfort. Creatinine is down to 1.5 with IV fluids. He is on oral Cipro. Hopefully he will go home tomorrow, February 11. He had a left ureter stent placed earlier today Review of Systems Review of Systems: Constitutional-no fever or chills ENT-no blurred vision, no double vision, no epistaxis, no sore throat Respiratory-no cough, no wheezing, no shortness of breath Cardiac-no palpitations, no chest pain, no syncope GI-no nausea, vomiting, diarrhea, melena, hematochezia -no urinary retention, no urinary incontinence, no dysuria, no hematuria Musculoskeletal-no joint pain, no muscle tenderness Skin-no bruising, no rashes, no pruritus Neuro-no isolated weakness, no paresthesia, no weakness Psych-no depression, no anxiety Physical Exam Physical Exam: General-alert and oriented x3, no fevers, no chills HEENT-head atraumatic and normocephalic, pupils equal and reactive to light, extraocular muscles intact Neck-no lymphadenopathy or thyromegaly, trachea midline Chest-clear to auscultation percussion. No rales wheezing or rhonchi Cardiac-regular rate and rhythm, normal S1 and S2 Abdomen-normal bowel sounds, nontender, no hepatosplenomegaly Extremities-no cyanosis, clubbing, or edema Neuro-cranial nerves II through XII intact, motor and sensory function within normal limits, strength symmetrical , no focal deficits Psych-normal affect, normal mood Results & Data Results & Data Vital Signs (Past 12 Hours) Vital Signs Temp Pulse Pulse Pulse Resp BP Pulse Ox 02/10/23 16:12 36.7 C 73 17 123/65 95 02/10/23 15:41 37.1 C 72 72 17 105/64 94 02/10/23 15:25 37.0 C 74 20 113/63 93 02/10/23 15:15 37.0 C 75 20 116/66 94 02/10/23 15:05 82 18 117/51 L 92 02/10/23 14:56 36.8 C 84 14 119/63 95 02/10/23 13:08 37.2 C 80 20 134/68 94 02/10/23 08:07 36.6 C 75 18 144/75 H 95 O2 Del Method 02/10/23 16:12 Room Air 02/10/23 15:41 Room Air 02/10/23 15:25 Room Air 02/10/23 15:15 Room Air 02/10/23 15:05 Room Air 02/10/23 14:56 Room Air 02/10/23 13:08 Room Air 02/10/23 08:07 Room Air Laboratory Results 02/10/23 05:54 02/10/23 05:54 PG Care Time/CCT Total # of Minutes Spent Total Time Spent with Patient: Total time spent is greater than 50% in coordination of care (as documented) at patient's floor/unit and/or counseling patient: Coding Level of Care Code 13014 SUB INP/OBS CARE 3/50MIN Diagnoses Kidney stone on left side N20.0 AUBREY (acute kidney injury) N17.9 Paroxysmal atrial fibrillation I48.0 Benign localized prostatic hyperplasia with lower urinary tract symptoms (LUTS) N40.1 Hypertension I10 Hypertension type: essential hypertension Hyperlipidemia E78.1 Hyperlipidemia type: pure hypertriglyceridemia CAD (coronary artery disease) I25.10 Diabetes mellitus E11.9 Depression F32.9 (5) Hypertension Hypertension type: essential hypertension Qualified Code(s): I10 - Essential (primary) hypertension (6) Hyperlipidemia Hyperlipidemia type: pure hypertriglyceridemia Qualified Code(s): E78.1 - Pure hyperglyceridemia
[2023-02-10] MEDS: ROSUVASTATIN CALCIUM 20 MG TAB PO SCH (20:39)
[2023-02-10] MEDS: CIPROFLOXACIN 500 MG TAB PO SCH (20:40)
[2023-02-11] MEDS: SODIUM CHLORIDE 0.9% 1000ML 1,000 ML IV SCH ×2 (02:01→10:26)
[2023-02-11 08:44] LABS: Basophils # (auto) 0.02 K/uL (0-0.2); Basophils % (auto) 0.3 %; Eosinophils # (auto) 0.19 K/uL (0-0.50); Eosinophils % (auto) 3.1 %; Hematocrit (blood only) 41.7 % (42.0-52.0); Hemoglobin 13.8 g/dl (14.0-18.0); Immature Granulocytes # (auto) 0.02 K/uL (0.01-0.20); Immature Granulocytes % (auto) 0.3 %; Lymphocytes # (auto) 0.87 K/uL (1.2-3.4); Lymphocytes % (auto) 14.1 %; Mean Corpuscular Hemoglobin 29.1 pg (25.0-34.0); Mean Corpuscular Hgb Conc 33.1 g/dL (32.0-36.0); Mean Platelet Volume 9.3 fL (9.4-12.4); Monocytes # (auto) 0.42 K/uL (0.11-0.59); Monocytes % (auto) 6.8 %; Neutrophils # (auto) 4.67 K/uL (1.40-6.50); Neutrophils % (auto) 75.4 %; Platelet Count 172 K/uL (130-400); RDW Standard Deviation 42.1 fL (36.4-46.3); Red Blood Count 4.74 M/uL (4.70-6.10); White Blood Count 6.19 K/ul (4.8-10.8)
[2023-02-11] MEDS: LANTUS PER UNIT CHARGE SQ SCH (08:46)
[2023-02-11] MEDS: FINASTERIDE 5 MG TAB PO SCH (08:47)
[2023-02-11] MEDS: CIPROFLOXACIN 500 MG TAB PO SCH (08:47)
[2023-02-11] MEDS: METOPROLOL SUCC 50MG EXT REL TAB PO SCH (08:47)
[2023-02-11] MEDS: SERTRALINE HCL 100 MG TABLET PO SCH (08:47)
[2023-02-11] MEDS: TAMSULOSIN HCL 0.4 MG CAP PO SCH (08:47)
[2023-02-11] MEDS: INSULIN ASPART PER UNIT CHARGE SC SCH (08:47)
[2023-02-11 08:51] LABS: BUN Creatinine Ratio 18.9 (10-20); Calcium 8.6 mg/dl (8.6-10.3); Creatinine Clr Calc Pharmacy 71.8 ml/min; Est GFR (African American) 73.8 ml/min; Est GFR (Non-African American) 63.7 ml/min; Potassium 4.4 mmol/L (3.5-5.1)
--- NOTE | 2023-02-11 08:59 | Urology Progress Note ---
Date of Service February 11, 2023 Assessment & Plan (1) Kidney stone on left side: (2) Left ureteral stone: Plan 77yo/M who presented with intractable left flank pain and found to have an obstructing 6 mm left ureteral stone and AUBREY. -POD #1 s/p Cystoscopy with Left Retrograde Pyelogram and Stent Placement -Overall feeling better, tolerating the ureteral stent with minimal bother. -Afebrile and hemodynamically stable. -Labs show no leukocytosis, hemoglobin 13.8, creatinine improved to 1.11 today. -UA on admission with 1+blood, otherwise no signs of infection. -Okay to d/c from perspective when medically stable -Recommend continuing oral Cipro on discharge. Continue tamsulosin and finasteride. -Will arrange outpatient follow-up to discuss definite stone treatment. -Urology will sign-off. Please contact us with any further questions, concerns, or changes in patient status. Admission and Anticipated Discharge Date Admission Date: February 09, 2023 Subjective Patient examined at bedside this AM. Awake, resting in bed on arrival. No acute distress. Tolerating the ureteral stent with minimal bother. Overall pain has improved. Denies fevers, chills, nausea, vomiting. Voiding without issue. Some mild hematuria. No dysuria. Review of Systems Constitutional: as per Subjective / HPI Gastrointestinal: as per Subjective / HPI Genitourinary: + as per Subjective / HPI Physical Exam Constitutional: well developed and well nourished; no acute distress Respiratory: normal respiratory effort; no respiratory distress and no labored breathing Skin: No visible rashes or lesions to exposed skin areas Neurologic: awake Psychiatric: A+Ox3, euthymic affect Results & Data Vital Signs (Past 12 Hours) Vital Signs Temp Pulse Resp BP Pulse Ox O2 Del Method 02/11/23 07:50 Room Air 02/11/23 07:39 36.7 C 69 18 128/73 95 Room Air 02/11/23 03:00 36.8 C 74 18 105/48 L 93 Room Air 02/10/23 22:32 36.6 C 68 20 129/73 95 Room Air PG Care Time/CCT Total # of Minutes Spent Total Time Spent with Patient: Total time spent is greater than 50% in coordination of care (as documented) at patient's floor/unit and/or counseling patient: Coding Level of Care Code 77552 SUB INP/OBS CARE MIN Diagnoses Kidney stone on left side N20.0 Left ureteral stone N20.1
--- NOTE | 2023-02-11 11:43 | Discharge Summary ---
Date of Service February 11, 2023 Admission HPI Per Admitting Provider Fabian Bryan is a 77 year old male with a past medical history of kidney stones in the past, hemochromatosis, BPH, obesity, OA, HTN, Hyperlipdemia, paroxysmal A Fib, CAD who presented to the ER today with complaints of left sided flank pain. Patient states the left sided flank pain began today around 2PM. He ate dinner at 1 PM. He states that he had pain about 5 days ago that resolved in a day or 2. Outpatient [facility] as he thought this might be a kidney stone in the same area of the left flank yesterday completed. States he might of had a little bit of dust passed in his urine but denies a clear stone. CT was a trace amount of blood but denies any gross blood to his site. Admits to having nausea and vomiting last week with the initial flank pain. He denies any further nausea or vmiting, he denies any chest pain, SOB or cough. He denies any fevers chills or changes in his bowels. No trauma. Denies significant testicular pain or left inguinal pain. Some pain again in the left flank and back region. Follows with Dr Dempsey locally. He had previous laser and stents in the past for kidney stones approximately in 2019. Principal Diagnosis Left ureter calculus and colic, left hydronephrosis, acute kidney injury Discharge Exam General-alert and oriented x3, no fevers, no chills HEENT-head atraumatic and normocephalic, pupils equal and reactive to light, extraocular muscles intact Neck-no lymphadenopathy or thyromegaly, trachea midline Chest-clear to auscultation percussion. No rales wheezing or rhonchi Cardiac-regular rate and rhythm, normal S1 and S2 Abdomen-normal bowel sounds, nontender, no hepatosplenomegaly Extremities-no cyanosis, clubbing, or edema Neuro-cranial nerves II through XII intact, motor and sensory function within normal limits, strength symmetrical , no focal deficits Psych-normal affect, normal mood Discharge Data Allergies Allergy/AdvReac Type Severity Reaction Status Date / Time cefoxitin Allergy Unknown HIVES Verified 10/24/22 07:14 clavulanic acid Allergy Unknown Hives Verified 10/24/22 07:14 [From Timentin] melon Allergy Unknown Hives Verified 10/24/22 07:14 ticarcillin [From Timentin] Allergy Unknown Hives Verified 10/24/22 07:14 atorvastatin AdvReac Unknown Joint Pain Verified 10/24/22 07:14 pravastatin AdvReac Unknown Joint Pain Verified 10/24/22 07:14 Consultations 02/09/23 18:34 ED Decision to Admit Stat 02/09/23 20:41 Consult Urology Routine Procedures Performed Operation Date: 02/10/23 10:50 Actual Procedures p Cystoscopy, Left Retrograde Pyelogram and Stent Placement(Left) - Julian Holm DO Ordered Studies 02/09/23 16:22 CT abd pelvis IV con only Stat 02/10/23 14:00 FL retrograde includes kub Routine Hospital Course (1) Kidney stone on left side: 6mm Left kidney stone with left sided hydronephrosis. Urology consultation and recommendations appreciated. He underwent left ureter stent placement earlier yesterday on February 10. He is now on oral Cipro therapy and Flomax. (2) AUBREY (acute kidney injury): Resolved with IV fluids. Creatinine down to 1.1 today. (3) Paroxysmal atrial fibrillation: On ASA. Currently in normal sinus rhythm. Stable (4) Benign localized prostatic hyperplasia with lower urinary tract symptoms (LUTS): Chronic. Hx TURP in past. Stable. Continue Dutasteride 0.5mg (5) Hypertension: Stable. Continue current medical management (6) Hyperlipidemia: Stable. Continue current medical management (7) CAD (coronary artery disease): chronic. Continue current medical management (8) Diabetes mellitus: ADA diet. Sliding scale insulin coverage. HgbA1C 6.8 in Oct 2022 (9) Depression: Stable. Continue sertraline Plan Home today, February 11, on oral Cipro therapy and Flomax.. He will follow-up with urology on an outpatient basis and probably undergo a lithotripsy procedure for the obstructing left ureter stone Total Time Total Time Spent Total Time Spent (In Minutes): 40 minutes Discharge Plan Discharge Items Patient Disposition: Home - Self-Care Reason For Visit: OBSTRICTIVE L URETAL STONE Discharge Diagnosis: Left ureteral calculus and colic, left hydronephrosis, acute kidney injury Activity: Resume your previous activity Non-emergency contact: Primary Care Provider Call non-emergency contact if: you have any medication questions and your symptoms worsen Follow-up/Referrals: Tony Engel MD [Primary Care Provider] - Diet: Carb Consistent or DM2 and Heart Healthy Addtl Attending Provider Instructions: Take Cipro for 1 week and continue Flomax until urology tells you to stop Addtl Purchasing Expeditor Provider Instructions: The urology office will contact you to arrange a follow-up visit. Please call our office at [phone] with any questions, concerns or need to reschedule appointments for any reason. We are happy to assist you. While you have a ureteral stent in place: Some discomfort is normal. Certain movements may trigger pain or a feeling that you need to urinate. You may also feel mild soreness or pressure before or during urination. Your urine may be slightly pink or red. This is due to bleeding caused by minor irritation from the stent. This may happen on and off while you have the stent, it is not harmful and is to be expected. Medication to help minimize discomfort or bladder spasms, or to prevent infection may be prescribed. Take this as directed. Drink plenty of fluids to help flush out your urinary tract. When to call [facility] at [phone]: Your urine contains heavy blood clots or you are unable to urinate You are constantly leaking urine Fever of 101F or higher, chills, nausea, or vomiting Your pain is not relieved with medication The end of the stent comes out of your urethra Pending Studies at Discharge: No Stand-Alone Forms: [facility] oNoise, Smoking Cessation Medications and DC Order Prescriptions: New ciprofloxacin HCl 500 mg Tablet 500 mg PO BID Qty: 14 0RF tamsulosin 0.4 mg Capsule 0.4 mg PO QAM Qty: 20 0RF Continued albuterol sulfate 90 mcg/actuation HFA aerosol inhaler 2 puff inhalation Q4H PRN (Reason: shortness of breath or wheezing) Qty: 6.7 5RF Patient Comments: NO USE OF A YR OR MORE cholecalciferol (vitamin D3) 25 mcg (1,000 unit) capsule 25 mcg PO QAM metoprolol succinate 100 mg tablet extended release 24 hr 100 mg PO QAM Qty: 90 3RF nitroglycerin [Nitrostat] 0.4 mg tablet, sublingual 0.4 mg sublingual Q5M PRN (Reason: chest pain) Qty: 30 5RF Patient Comments: NEVER USED rosuvastatin [Crestor] 20 mg tablet 20 mg PO HS Qty: 90 3RF sertraline 100 mg tablet 100 mg PO QAM Qty: 90 3RF Victoza 3-Josr 0.6 mg/0.1 mL (18 mg/3 mL) pen injector 1.8 mg SUBCUT QAM Qty: 27 3RF losartan 100 mg tablet 100 mg PO QAM Qty: 90 3RF Jardiance 25 mg tablet 25 mg PO QAM Qty: 90 3RF (DME) pen needle, diabetic [BD Ultra-Fine Mini Pen Needle] 31 gauge x 3/16" needle See Dose Instructions .ROUTE .MEDSUPPLY Qty: 100 3RF Dose Instruction: As directed Rx Instructions: use daily with insulin fexofenadine 180 mg Tablet 180 mg PO UD PRN (Reason: Allergy Symptoms) polyethylene glycol 3350 [Miralax] 17 gram Powder In Packet 17 g PO HS diclofenac sodium 1 % Gel 2 g TOPICAL QID PRN (Reason: Pain) Rx Instructions: apply to single elbow, wrist or hand; for hand includes palm/fingers/back of hand aspirin 81 mg Capsule 81 mg PO BID 30 Days Qty: 60 0RF Rx Instructions: Once a day per pt clindamycin HCl 150 mg capsule 0 mg PO QID Rx Instructions: Per pt he hasn't picked these up yet, they are for another appointment. Men's Multivitamin 400-20-300 mcg Tablet 1 tab PO QAM olopatadine 0.2 % drops 1 drp OPB UD PRN (Reason: Allergy Symptoms) betamethasone dipropionate 0.05 % ointment 1 applic topical DAILY PRN (Reason: Rash) Rx Instructions: Apply to areas of the hands once daily at bedtime for up to 2 weeks as needed for flaring. dutasteride 0.5 mg capsule 0.5 mg PO QAM Discharge Orders: Discharge Order (Routine); Ordered 02/11/23 Ordered By: Pritesh Ornelas Admission Data Admit Date/Time: 02/09/23 19:01 Attending Provider: Pritesh Ornelas Admit Provider: Nain Izaguirre Primary Care Provider: Tony Engel Other Providers: Nain Izaguirre ; Julian Holm Coding Level of Care Code 45847 INP/OBS DISCH >30 MIN Diagnoses Kidney stone on left side N20.0 AUBREY (acute kidney injury) N17.9 Paroxysmal atrial fibrillation I48.0 Benign localized prostatic hyperplasia with lower urinary tract symptoms (LUTS) N40.1 Hypertension I10 Hypertension type: essential hypertension Hyperlipidemia E78.1 Hyperlipidemia type: pure hypertriglyceridemia CAD (coronary artery disease) I25.10 Diabetes mellitus E11.9 Depression F32.9
== END 2023-02-11 12:41 | disposition home or self-care (01) | DRG 661 ==
LOC: ED 15:56 → 3N 19:01 → SUATTDRO 19:01 → 3N 20:26